=== PATIENT | female | born 1960 | race Caucasian/White ===

== ENCOUNTER 2020-07-02 10:04 | Outpatient (REF) | payer MEDICAID, SELFPAY ==
[2020-07-02 14:24] LABS: Alanine Aminotransferase 30 U/L (0-31); Albumin Level 4.3 g/dL (3.5-5.0); Alkaline Phosphatase 102 U/L (39-117); Anion Gap 14 (12-20); Aspartate Amino Transferase 28 U/L (5-31); Bilirubin Total 0.5 mg/dL (0.0-1.0); Blood Urea Nitrogen 12 mg/dL (9-16); Calcium 9.4 mg/dL (8.4-10.2); Carbon Dioxide 23 mmol/L (22-29); Chloride 104 mmol/L (96-108); Estimated Glomerular Filt Rate > 60; Glucose Fasting 123 mg/dL (60-99); Potassium 4.6 mmol/l (3.3-5.1); Sodium 136 mmol/L (135-145); Total Protein 7.6 g/dL (6.5-8.0)
[2020-07-02 14:35] LABS: Vitamin D 25-OH Total 21.2 ng/mL (>30)
[2020-07-03 20:26] LABS: Calcium (PTHI) 9.3 mg/dL (8.6-10.4); PTHI 56 pg/mL (14-64)
[2020-07-13 02:16] LABS: N-Telopeptide 43 (see note); NTXCreaRU 113 mg/dL (20-275)
== END 2020-07-02 10:05 | disposition home or self-care (01) ==
LOC: HO.10HDL 10:04
PROVIDERS: Visit Provider Internal Medicine Endocrinology, Diabetes & Metabolism
DX: M81.0 Age-related osteoporosis without current pathological fracture (principal)
CPT/HCPCS: 80053; 82306; 82523; 83970

== ENCOUNTER → 2020-07-05 08:05 | Outpatient (BNVA) | payer MEDICAID, SELFPAY | PROVIDERS: Visit Provider Internal Medicine Endocrinology, Diabetes & Metabolism | DX: M81.0 Age-related osteoporosis without current pathological fracture (principal); E21.3 Hyperparathyroidism, unspecified; E55.9 Vitamin D deficiency, unspecified | CPT/HCPCS: 99214 ==

== ENCOUNTER 2020-12-24 07:55 | Outpatient (REF) | payer MEDICAID, SELFPAY ==
--- NOTE | ~2020-12-24 | XR_ITS ---
EXAMINATION: XR KNEE STANDING, BILATERAL XR KNEE, RIGHT CLINICAL INFORMATION: Right knee pain. COMPARISON: Right knee radiographs dated 01/20/2018. TECHNIQUE: AP weightbearing view of the right and left knees. Lateral and sunrise views of the right knee. FINDINGS: Within the right knee, there is myxncvta-zg-unknbk medial compartment joint space narrowing with subchondral sclerosis. There are small tricompartmental marginal osteophytes. No osseous erosion. No fracture or dislocation. No abnormal soft tissue calcification. Trace joint effusion. Nqvnrkrw-oo-wqlqox medial compartment joint space narrowing within the left knee with small marginal osteophytes. XR/XR knee standing BI IMPRESSION: 1. Ytocivsw-mt-wsypdc medial as well as mild lateral and patellofemoral compartment osteoarthritis within the right knee, slightly progressed when compared to the prior examination. 2. Gxpauabg-yy-zvngmj osteoarthritis within the left knee medial compartment.
--- NOTE | ~2020-12-24 | XR_ITS ---
EXAMINATION: XR KNEE STANDING, BILATERAL XR KNEE, RIGHT CLINICAL INFORMATION: Right knee pain. COMPARISON: Right knee radiographs dated 01/20/2018. TECHNIQUE: AP weightbearing view of the right and left knees. Lateral and sunrise views of the right knee. FINDINGS: Within the right knee, there is ajjangsk-hm-fhnilm medial compartment joint space narrowing with subchondral sclerosis. There are small tricompartmental marginal osteophytes. No osseous erosion. No fracture or dislocation. No abnormal soft tissue calcification. Trace joint effusion. Jxuiscwl-bq-olypxt medial compartment joint space narrowing within the left knee with small marginal osteophytes. XR/XR knee RT 2V IMPRESSION: 1. Sfjmhptv-ws-fnjsky medial as well as mild lateral and patellofemoral compartment osteoarthritis within the right knee, slightly progressed when compared to the prior examination. 2. Rguekkmw-gp-uipkhc osteoarthritis within the left knee medial compartment.
== END 2020-12-24 07:56 | disposition home or self-care (01) ==
LOC: HO.HOSX 07:55
PROVIDERS: PCP Internal Medicine; Visit Provider Orthopaedic Surgery
DX: M17.11 Unilateral primary osteoarthritis, right knee (principal)
CPT/HCPCS: 73560; 73565; 99202

== ENCOUNTER 2021-01-25 08:50 | Outpatient (REF) | payer MEDICAID, SELFPAY ==
[2021-01-25 09:36] LABS: Albumin Level 4.2 g/dL (3.5-5.0); Calcium 9.8 mg/dL (8.4-10.2)
[2021-01-25 10:04] LABS: Vitamin D 25-OH Total 21.6 ng/mL (>30)
[2021-01-27 13:32] LABS: Calcium (PTHI) 9.9 mg/dL (8.6-10.4); PTHI 72 pg/mL (14-64)
[2021-01-30 01:27] LABS: N-Telopeptide 58 (see note); NTXCreaRU 71 mg/dL (20-275)
== END 2021-01-25 08:51 | disposition home or self-care (01) ==
LOC: HO.LAB 08:50
PROVIDERS: PCP Internal Medicine; Visit Provider Internal Medicine Endocrinology, Diabetes & Metabolism
DX: M81.0 Age-related osteoporosis without current pathological fracture (principal)
CPT/HCPCS: 36415; 82040; 82306; 82310; 82523; 83970

== ENCOUNTER → 2021-01-27 08:40 | Outpatient (BNVA) | payer MEDICAID, SELFPAY | PROVIDERS: PCP Internal Medicine; Visit Provider Internal Medicine Endocrinology, Diabetes & Metabolism | DX: M81.0 Age-related osteoporosis without current pathological fracture (principal); E21.3 Hyperparathyroidism, unspecified; E55.9 Vitamin D deficiency, unspecified | CPT/HCPCS: 99212 ==

== ENCOUNTER 2021-02-03 11:49 | Outpatient (REF) | payer MEDICAID, SELFPAY ==
[2021-02-03 11:05] VITALS: BMI 43.2
[2021-02-03 11:50] VITALS: BP 150/81; PULSE 81; RESP 16; TEMP 36.4; O2SAT 98
== END 2021-02-03 11:50 | disposition home or self-care (01) ==
LOC: HO.MS 11:49
PROVIDERS: PCP Internal Medicine; Visit Provider Ophthalmology
PROC: (CPT 66761; principal; 2021-02-03 14:40)
DX: H40.032 Anatomical narrow angle, left eye (principal); H04.123 Dry eye syndrome of bilateral lacrimal glands; I10 Essential (primary) hypertension; Z79.899 Other long term (current) drug therapy
CPT/HCPCS: 66761

== ENCOUNTER 2021-02-17 14:30 | Outpatient (REF) | payer MEDICAID, SELFPAY ==
[2021-02-17 10:43] VITALS: BMI 26.5
[2021-02-17 14:26] VITALS: BP 159/92; PULSE 78; RESP 20; TEMP 36.9; O2SAT 98; BMI 43.2
[2021-02-17 14:40] LABS: COVID-19 Test Negative (Negative); IDNOW Serial# 9DD0AD1C
== END 2021-02-17 14:31 | disposition home or self-care (01) ==
LOC: HO.MS 14:30
PROVIDERS: PCP Internal Medicine; Visit Provider Ophthalmology
PROC: (CPT 66761; principal; 2021-02-17 15:10)
DX: H40.031 Anatomical narrow angle, right eye (principal); I10 Essential (primary) hypertension; J45.909 Unspecified asthma, uncomplicated; Z79.51 Long term (current) use of inhaled steroids; Z79.899 Other long term (current) drug therapy; Z88.0 Allergy status to penicillin
CPT/HCPCS: 66761; 36415; 87635

== ENCOUNTER 2021-02-20 08:02 | Outpatient (REF) | payer MEDICAID, SELFPAY ==
--- NOTE | ~2021-02-20 | MM_ITS ---
EXAMINATION: BONE DENSITOMETRY CLINICAL INDICATION: Osteoporosis. COMPARISON: Previous BD dated 12/27/2018 and baseline BD dated 12/24/2016. TECHNIQUE: Using a [employer] technology DXA System (software version: 13.1) manufactured by [employer], dual-energy x-ray absorptiometry was performed of the lumbar spine and left hip. The images are of good technical quality. Summary results are attached. FINDINGS: AP SPINE L1-L4: Current: BMD 0.895 g/cm2, Z-score -2.3, T-score -2.4, osteopenia, 3.9% decrease from previous, 4.6% increase from baseline (<5% change is not significant). Prior: BMD 0.931 g/cm2. Baseline: BMD 0.856 g/cm2. LEFT FEMUR, NECK: Current: BMD 0.773 g/cm2, Z-score -1.4, T-score -1.9, osteopenia. Prior: BMD 0.907 g/cm2. Baseline: BMD 0.824 g/cm2. LEFT FEMUR, TOTAL: Current: BMD 0.856 g/cm2, Z-score -1.1, T-score -1.2, osteopenia, 10.2% decrease from previous, 6.7% decrease from baseline (<5% change is not significant). Prior: BMD 0.953 g/cm2. Baseline: BMD 0.917 g/cm2. IDENTIFIED RISK FACTORS: Menopause, osteoporosis. HISTORY OF FRACTURE: None listed. MEDICATIONS: Calcium, vitamin D, Thiazide. MM/XR DEXA axial skeleton IMPRESSION: 1. DIAGNOSIS: Osteopenia based on the lowest T-score value of -2.4 in the lumbar spine applying World Health Organization criteria. 2. 10-YEAR FRACTURE RISK PREDICTION, FRAX: Major osteoporotic fracture (clinical spine, forearm, hip or shoulder) 4.2%. Hip fracture 0.4%. 3. Treatment Recommendations: NOF guidelines recommend consideration for treatment in postmenopausal women and men age 50 and older presenting with the following: -A hip or vertebral (clinical or morphometric) fracture. -T-score less than or equal to -2.5 at the femoral neck or spine after appropriate evaluation to exclude secondary causes. -Low bone mass at the hip or spine and a 10-year fracture probability by FRAX of greater than or equal to 3% for hip fracture or greater than or equal to 20% for major osteoporotic fracture based on the [place] adapted WHO algorithm. 4. Other Recommendations: All treatment decisions require clinical judgment and consideration of individual patient factors, including patient preferences, comorbidities, previous drug use, risk factors not captured in the FRAX model (e.g. frailty, falls, vitamin D deficiency, increased bone turnover, interval significant decline in bone density) and possible under or overestimation of fracture risk by FRAX. Additional medical evaluation for secondary cause of low bone mineral density may be appropriate. FUTURE SCAN RECOMMENDATION: People with diagnosed cases of osteoporosis or at high risk for fracture should have regular bone mineral density tests. For patients eligible for Medicare, routine testing is allowed once every 2 years. The testing frequency can be increased to one year for patients who have rapidly progressing disease, those who are receiving or discontinuing medical therapy to restore bone mass, or have additional risk factors.
== END 2021-02-20 08:03 | disposition home or self-care (01) ==
LOC: HO.MAMMO 08:02
PROVIDERS: PCP Internal Medicine; Visit Provider Internal Medicine Endocrinology, Diabetes & Metabolism
DX: M81.0 Age-related osteoporosis without current pathological fracture (principal); Z78.0 Asymptomatic menopausal state
CPT/HCPCS: 77080

== ENCOUNTER 2021-03-03 | Outpatient (REF) | payer MEDICAID, SELFPAY ==
[2021-03-03 14:38] VITALS: BP 133/82; PULSE 90; RESP 20; TEMP 37.1; O2SAT 96
[2021-03-03 14:39] VITALS: BMI 43.2
== END 2021-03-03 00:01 | disposition home or self-care (01) ==
LOC: HO.MS
PROVIDERS: PCP Internal Medicine; Visit Provider Ophthalmology
PROC: (CPT 66761; principal; 2021-03-03 14:30)
DX: H40.031 Anatomical narrow angle, right eye (principal); H52.4 Presbyopia; J45.909 Unspecified asthma, uncomplicated; I10 Essential (primary) hypertension; E55.9 Vitamin D deficiency, unspecified; Z79.899 Other long term (current) drug therapy; Z88.0 Allergy status to penicillin
CPT/HCPCS: 66761

== ENCOUNTER 2021-04-05 08:32 | Outpatient (REF) | payer MEDICAID, SELFPAY ==
[2021-04-05 09:04] LABS: MANUAL DIFF FLAG NO
[2021-04-05 09:14] LABS: Basophils Absolute Auto 0.1 X10*3/uL (0.0-0.2); Eosinophils Absolute Auto 0.2 X10*3/uL (0.0-0.4); Eosinophils Percent Auto 3.4 % (0-4); Hematocrit 43.7 % (37-47); Hemoglobin 14.3 g/dl (12.0-16.0); Imm Gran Abs Auto 0.02 X10*3/uL (0.00-0.03); Imm Gran Pct Auto 0.3 % (0.0-0.4); Lymphocytes Absolute Auto 1.8 X10*3/uL (1.2-4.9); Lymphocytes Percent Auto 29.6 % (20-40); Mean Corpuscular HGB Conc 32.7 g/dl (31.0-35.0); Mean Corpuscular Hemoglobin 29.7 pg (27.0-33.0); Mean Corpuscular Volume 90.7 fL (80-98); Mean Platelet Volume 9.3 fL (9.4-12.3); Monocytes Absolute Auto 0.4 X10*3/uL (0.1-1.2); Monocytes Percent Auto 6.8 % (2-11); Neutrophils Absolute Auto 3.6 X10*3/uL (2.0-8.3); Neutrophils Percent Auto 58.9 % (45-73); Platelet Count 418 X10*3/uL (160-400); Red Blood Count 4.82 X10*6/uL (4.20-5.50); Red Cell Distribution Width 12.7 % (11.0-16.0); White Blood Count 6.2 X10*3/uL (4.8-10.8)
[2021-04-05 09:22] LABS: Estimated Average Glucose 151 mg/dL; Hemoglobin A1c % 6.9 %
[2021-04-05 09:36] LABS: Creatinine Urine 114.47 mg/dL; Microalbum/Creatinine Ratio Ur 11.3 ug/mg cr
[2021-04-05 09:39] LABS: Alanine Aminotransferase 33 U/L (0-31); Alkaline Phosphatase 93 U/L (39-117); Anion Gap 12 (12-20); Aspartate Amino Transferase 27 U/L (5-31); Bilirubin Total 0.4 mg/dL (0.0-1.0); Blood Urea Nitrogen 14 mg/dL (9-16); Calcium 9.9 mg/dL (8.4-10.2); Carbon Dioxide 26 mmol/L (22-29); Chloride 107 mmol/L (96-108); Cholesterol 181 mg/dL; Estimated Glomerular Filt Rate > 60; Glucose Random 132 mg/dL (60-115); HDL Cholesterol 55 mg/dL; LDL Cholesterol Calculated 111 mg/dl; Potassium 5.3 mmol/L (3.3-5.1); Sodium 140 mmol/L (135-145); Total Protein 7.3 g/dL (6.5-8.0); Triglycerides 78 mg/dL
[2021-04-05 10:02] LABS: Vitamin D 25-OH Total 21.4 ng/mL (>30)
== END 2021-04-05 08:33 | disposition home or self-care (01) ==
LOC: HO.LAB 08:32
PROVIDERS: PCP Internal Medicine; Visit Provider Internal Medicine
DX: E11.9 Type 2 diabetes mellitus without complications (principal)
CPT/HCPCS: 36415; 80053; 80061; 82043; 82306; 83036; 84443; 85025

== ENCOUNTER 2021-04-08 08:06 | Outpatient (REF) | payer MEDICAID, SELFPAY ==
--- NOTE | ~2021-04-08 | MM_ITS ---
EXAMINATION: MM SCREENING DIGITAL BREAST TOMOSYNTHESIS, BILATERAL CLINICAL INFORMATION: Screening. Asymptomatic. The lifetime risk of breast cancer based on the Tyrer-Cuzick Model is 10%. COMPARISON: Mammography: 02/02/2019, 12/24/2016, 11/14/2015, 02/27/2014 TECHNIQUE: Digital breast tomosynthesis is performed in both the craniocaudal and mediolateral oblique views along with computer-aided detection (CAD). Synthesized 2D images are generated from the tomosynthesis. FINDINGS: There are scattered areas of fibroglandular density (ACR BI-RADS breast composition Category b). The right breast is similar to prior studies with no developing density or interval mass or architectural abnormality. No abnormal calcifications. The bilateral axilla and skin contours are unremarkable. The left CC view has a chronic asymmetric density anterior outer quadrant. The margins appear mildly irregular on CC view likely related to incomplete compression. No architectural abnormality on MLO view. There are also some new fine round calcifications mid left upper outer quadrant. Patient will be recalled to further characterize both findings. MM/MM tomosynthesis screening BI IMPRESSION: Left: -Question architectural changes anterior outer quadrant, suspect incompletely compressed glandular tissue. -New fine round calcifications mid upper outer quadrant. Right: -No mammographic evidence of malignancy. ASSESSMENT: BI-RADS 0: Incomplete - Need Additional Imaging Evaluation RECOMMENDATION: 1. Additional views of the left breast (3D rolled CC x2; CC mag; ML mag). 2. Targeted ultrasound if warranted after review of the additional views. 3. Radiology department staff will contact the patient for additional imaging. This patient's information was entered into a reminder system with a target due date for their next mammogram.
== END 2021-04-08 08:07 | disposition home or self-care (01) ==
LOC: HO.MAMMO 08:06
PROVIDERS: PCP Internal Medicine; Visit Provider Internal Medicine
DX: Z12.31 Encounter for screening mammogram for malignant neoplasm of breast (principal)
CPT/HCPCS: 77063; 77067

== ENCOUNTER 2021-04-14 08:49 | Outpatient (REF) | payer MEDICAID, SELFPAY ==
--- NOTE | ~2021-04-14 | MM_ITS ---
EXAMINATION: MM DIAGNOSTIC DIGITAL BREAST TOMOSYNTHESIS, LEFT CLINICAL INFORMATION: Recall for 2 separate findings outer left breast; asymmetric density and calcifications, respectively. COMPARISON: Mammography: 04/08/2021, 02/02/2019 TECHNIQUE: Digital breast tomosynthesis is performed. 2D images are generated from the tomosynthesis. The following views are obtained: Magnification CC, magnification ML x2, 3-D rolled CC x2. FINDINGS: There are scattered areas of fibroglandular density (ACR BI-RADS breast composition Category b). The additional views demonstrate some fine calcifications in the upper outer left breast similar to prior exam 2019. No increasing calcifications. The additional rolled views show no architectural abnormality or developing density in the area recent imaging interest. Results are discussed with the patient at time of visit. MM/MM tomosynthesis added views L IMPRESSION: Additional views show no significant changes from prior study 2019. ASSESSMENT: BI-RADS 2: Benign RECOMMENDATION: Routine annual mammography screening. This patient's information was entered into a reminder system with a target due date for their next mammogram.
== END 2021-04-14 08:50 | disposition home or self-care (01) ==
LOC: HO.MAMMO 08:49
PROVIDERS: Visit Provider Internal Medicine
DX: R92.2 Inconclusive mammogram (principal)
CPT/HCPCS: 77061; 77065

== ENCOUNTER 2021-04-18 14:21 | Outpatient (REF) | payer MEDICAID, SELFPAY ==
--- NOTE | ~2021-04-18 | XR_ITS ---
EXAMINATION: XR KNEE, LEFT CLINICAL INFORMATION: Left knee pain COMPARISON: None TECHNIQUE: Four views of the left knee. FINDINGS: There is mild reduction in the medial and patellofemoral compartment joint space with periarticular spurring in the medial compartment. No loose bodies, bony erosive changes or joint effusion seen. XR/XR knee LT 4V IMPRESSION: Mild degenerative changes medial and patello-femoral compartments.
== END 2021-04-18 14:22 | disposition home or self-care (01) ==
LOC: HO.XRAY 14:21
PROVIDERS: PCP Internal Medicine; Visit Provider Internal Medicine
DX: M25.562 Pain in left knee (principal)
CPT/HCPCS: 73564

== ENCOUNTER → 2021-04-29 09:57 | Outpatient (BNVA) | payer MEDICAID, SELFPAY | PROVIDERS: PCP Internal Medicine; Visit Provider Orthopaedic Surgery | DX: M17.12 Unilateral primary osteoarthritis, left knee (principal) | CPT/HCPCS: 99212 ==

== ENCOUNTER 2022-01-03 14:41 | Emergency (ER) | payer MEDICAID, SELFPAY ==
--- NOTE | ~2022-01-03 | XR_ITS ---
EXAMINATION: XR CHEST CLINICAL INFORMATION: Cough, shortness of breath COMPARISON: 09/09/2018 TECHNIQUE: Frontal view of the chest was obtained. FINDINGS: No significant abnormality is noted involving the heart, lungs, mediastinum, bony thorax or soft tissues. XR/XR chest 1V IMPRESSION: No acute disease. No focal consolidation.
[2022-01-03 14:43] VITALS: BP 140/84; PULSE 102; RESP 22; TEMP 36.5; O2SAT 97; BMI 43.9
[2022-01-03 16:41] LABS: MANUAL DIFF FLAG NO
[2022-01-03 16:42] LABS: Basophils Absolute Auto 0.1 X10*3/uL (0.0-0.2); Basophils Percent Auto 0.7 % (0-2); Eosinophils Absolute Auto 0.3 X10*3/uL (0.0-0.4); Eosinophils Percent Auto 3.3 % (0-4); Hemoglobin 14.8 g/dl (12.0-16.0); Imm Gran Abs Auto 0.03 X10*3/uL (0.00-0.03); Imm Gran Pct Auto 0.4 % (0.0-0.4); Lymphocytes Percent Auto 25.9 % (20-40); Mean Corpuscular HGB Conc 32.9 g/dl (31.0-35.0); Mean Corpuscular Hemoglobin 29.2 pg (27.0-33.0); Mean Corpuscular Volume 88.8 fL (80.0-98.0); Mean Platelet Volume 9.1 fL (9.4-12.3); Monocytes Absolute Auto 0.7 X10*3/uL (0.1-1.2); Monocytes Percent Auto 9.4 % (2-11); Neutrophils Absolute Auto 4.6 x10*3/uL (2.0-8.3); Neutrophils Percent Auto 60.3 % (45-73); Platelet Count 393 X10*3/uL (160-400); Red Blood Count 5.07 X10*6/uL (4.20-5.50); Red Cell Distribution Width 12.1 % (11.0-16.0); White Blood Count 7.6 X10*3/uL (4.8-10.8)
[2022-01-03 17:02] LABS: Anion Gap 12 (12-20); Blood Urea Nitrogen 14 mg/dL (9-16); Calcium 9.8 mg/dL (8.4-10.2); Carbon Dioxide 23 mmol/L (22-29); Chloride 106 mmol/L (96-108); Creatinine Clr Calc Pharmacy 73.6; Estimated Glomerular Filt Rate > 60; Glucose Random 249 mg/dL (60-115); Potassium 4.2 mmol/L (3.3-5.1); Sodium 137 mmol/L (135-145)
[2022-01-03 17:20] LABS: Influenza A PCR NEGATIVE (Negative); Influenza B PCR NEGATIVE (Negative); Resp Syncy Virus RNA Qual PCR NEGATIVE (Negative); SARS COV2 PCR INHOUSE NEGATIVE (Negative)
--- NOTE | 2022-01-03 17:29 | ED_ITS ---
HPI - Asthma General Chief Complaint: Asthma Stated Complaint: Asthma Time Seen by Provider: 01/03/22 17:21 Source: patient Mode of arrival: ambulatory History of Present Illness HPI Narrative: 61-year-old female with a past medical history of asthma, hyperparathyroid, hypertension, prediabetes, presenting to the ED complaining of asthma exacerbation x1 week with productive cough of phlegm, wheezing, SOB, chest tightness. Admits to using inhaler at home without relief. Denies fever, chills, recent travel, pedal edema, calf pain, sick contacts MD complaint: asthma attack , shortness of breath and wheezing Onset (ago): week(s) Related Data Home Medications Medication Instructions Recorded Confirmed losartan 50 mg tablet 50 mg PO DAILY 07/05/20 01/27/21 verapamil 360 mg 24 hr 360 mg PO DAILY 07/05/20 01/27/21 capsule,extended release Previous Rx's Medication Instructions Recorded diclofenac sodium 75 mg 75 mg PO BID #60 tab 12/24/20 tablet,delayed release alendronate 70 mg tablet 70 mg PO QWEEK 30 Days #5 tab 01/27/21 cholecalciferol (vitamin D3) 125 250 mcg PO DAILY #180 cap 02/14/21 mcg (5,000 unit) capsule benzonatate 200 mg capsule 200 mg PO TID PRN #14 cap 01/03/22 fluticasone propionate 50 2 spray INTRANASAL DAILY #16 g 01/03/22 mcg/actuation nasal spray,suspension (Flonase Allergy Relief) prednisone 20 mg tablet 40 mg PO DAILY 5 Days #10 tab 01/03/22 Allergies Allergy/AdvReac Type Severity Reaction Status Date / Time penicillin V Allergy Unknown rash Verified 04/29/21 10:07 Penicillins Allergy Unknown RASH Verified 04/29/21 10:07 Review of Systems Review of Systems: Constitutional: No Fever, No Chills, No Fatigue, No Malaise ENT/Mouth: No Ear Pain, No Nasal Congestion, No Sinus Pain, No Hoarseness, No sore throat, No Rhinorrhea, No Swallowing Difficulty Eyes: No Eye Pain, No Swelling, No Vision Changes Cardiovascular: + Chest tightness, + SOB, + Dyspnea on Exertion, No Orthopnea, No Edema, No Palpitations Respiratory: No Cough, No Sputum, No Wheezing, No Smoke Exposure, No Dyspnea Gastrointestinal: No Nausea, No Vomiting, No Diarrhea, No Constipation, No Abdominal pain Genitourinary: No Dysuria, No Flank Pain, No Urinary Flow Changes Musculoskeletal: No joint pain, No Myalgias, No Joint Swelling Skin: No Skin Lesions, No rash Neuro: No Weakness, No Headache Yes all other systems are reviewed and are negative ON LICENSE OF [facility] Past Medical History Attestation statement: The following information was validated with the patient. Medical History Asthma History of primary hyperparathyroidism Hyperparathyroidism Hypertension Obesity (BMI 30-39.9) Osteoporosis Prediabetes Vitamin D deficiency Surgical History Hx of parathyroidectomy Hx of tubal ligation Family History Family History Father Cancer Mother Cardiomyopathy Diabetes Obesity Social History Social History Alcohol intake: current Alcohol intake frequency: holidays/special occasions only Advance Directives: No Advance Directives Information Provided: No Gender identity: Female Physical Exam Vital Signs: Vital Signs: Last Vital Signs Temp 97.7 F 01/03/22 14:43 Pulse 92 01/03/22 17:33 Resp 20 01/03/22 17:33 BP 140/84 H 01/03/22 14:43 Pulse Ox 97 01/03/22 14:43 BMI result Body Mass Index 43.9 Const: General: cooperative, healthy appearing and no acute distress Orientation/consciousness: patient oriented x3 Limitations: no limitations HEENT: Head: Yes normal to inspection and Yes atraumatic Ears: hearing grossly normal bilaterally General nose exam: Normal external nose present Face and sinus: Yes normal facial exam Eyes: General: appearance normal, both eyes and all related structures EOM: EOMs intact bilaterally Neck: Neck: Yes normal visual inspection and Yes no meningeal signs Resp: Effort & Inspection: normal respiratory effort, no respiratory distress and no stridor Auscultation: wheezes expiratory wheezes and throughout Cardio: Rate: regular rate Heart sounds: S1 normal heart sound present and S2 normal heart sound present Skin: Rashes: no rashes Wounds: no wounds Neuro: General: patient oriented x3, tone normal and no meningeal signs Gait exam (Neuro): Normal gait present Extrem: General: Yes normal to inspection, Yes no pedal edema and Yes no calf tenderness Course Course Course Narrative: -1736--no leukocytosis. Labs otherwise unremarkable XR chest 1V IMPRESSION: No acute disease. No focal consolidation. -troponin negative -1852--patient reports symptomatic improvement after our long albuterol treatment. Breath sounds with much improvement, still residual end expiratory wheeze -190--ED care transferred to night team ELI pending re-evaluation after DuoNeb. Anticipate DC home MDM - Asthma MDM Narrative Medical decision making narrative: 61-year-old female with a past medical history of asthma, hyperparathyroid, hypertension, prediabetes, presenting to the ED complaining of asthma exacerbation x1 week with productive cough of phlegm, wheezing, SOB, chest tightness. On exam initially tachycardic and tachypneic in triage likely from albuterol use, during my evaluation tachycardia and tachypnea resolved. Diffuse expiratory wheeze, no pedal edema/calf tenderness, talking in complete sentences. Concern for asthma exacerbation. Rule out pneumonia. Low concern for PE/ACS Plan: EKG, Labs, CXR, COVID-19/influenza testing, albuterol neb, magnesium, Solu-Medrol, re-evaluate Differential Diagnosis Differential diagnosis: Likely Acute exacerbation and Pneumonia Medical Records Attestation: I reviewed the patient's medical records. Lab Data Attestation: I reviewed the patient's lab results. Result diagrams: 01/03/22 16:35 01/03/22 16:35 Labs: Lab Results 01/03/22 01/03/22 01/03/22 Range/Units 16:35 16:35 16:35 WBC 7.6 (4.8-10.8) X10*3/uL RBC 5.07 (4.20-5.50) X10*6/uL Hgb 14.8 (12.0-16.0) g/dl Hct 45.0 (37.0-47.0) % MCV 88.8 (80.0-98.0) fL MCH 29.2 (27.0-33.0) pg MCHC 32.9 (31.0-35.0) g/dl RDW 12.1 (11.0-16.0) % Plt Count 393 (160-400) X10*3/uL MPV 9.1 L (9.4-12.3) fL Immature Gran % (Auto) 0.4 (0.0-0.4) % Neut % (Auto) 60.3 (45-73) % Lymph % (Auto) 25.9 (20-40) % [place]hin % (Auto) 9.4 (2-11) % Eos % (Auto) 3.3 (0-4) % Baso % (Auto) 0.7 (0-2) % Lymph # (Auto) 2.0 (1.2-4.9) X10*3/uL [place] # (Auto) 0.7 (0.1-1.2) X10*3/uL Eos # (Auto) 0.3 (0.0-0.4) X10*3/uL Baso # (Auto) 0.1 (0.0-0.2) X10*3/uL Abs Immat Gran (auto) 0.03 (0.00-0.03) X10*3/uL Absolute Neuts (auto) 4.6 (2.0-8.3) x10*3/uL Absolute Nucleated RBC 0.000 (0.0-0.012) X10*3/uL Nucleated RBC % (auto) 0.0 (0.0-0.2) /100WBC Sodium 137 (135-145) mmol/L Potassium 4.2 D (3.3-5.1) mmol/L Chloride 106 (96-108) mmol/L Carbon Dioxide 23 (22-29) mmol/L Anion Gap 12 (12-20) BUN 14 (9-16) mg/dL Creatinine 0.76 (0.5-1.4) mg/dL Estim Creat Clear Calc 73.6 Estimated GFR > 60 Random Glucose 249 H (60-115) mg/dL Calcium 9.8 (8.4-10.2) mg/dL Troponin I High Sens (<3.5-17.0) ng/L Influenza Type A (PCR) NEGATIVE (Negative) Influenza Type B (PCR) NEGATIVE (Negative) RSV RNA Qual (PCR) NEGATIVE (Negative) SARS-CoV-2 RNA (RT-PCR) NEGATIVE (Negative) 01/03/22 Range/Units 16:35 WBC (4.8-10.8) X10*3/uL RBC (4.20-5.50) X10*6/uL Hgb (12.0-16.0) g/dl Hct (37.0-47.0) % MCV (80.0-98.0) fL MCH (27.0-33.0) pg MCHC (31.0-35.0) g/dl RDW (11.0-16.0) % Plt Count (160-400) X10*3/uL MPV (9.4-12.3) fL Immature Gran % (Auto) (0.0-0.4) % Neut % (Auto) (45-73) % Lymph % (Auto) (20-40) % [place] % (Auto) (2-11) % Eos % (Auto) (0-4) % Baso % (Auto) (0-2) % Lymph # (Auto) (1.2-4.9) X10*3/uL [place] # (Auto) (0.1-1.2) X10*3/uL Eos # (Auto) (0.0-0.4) X10*3/uL Baso # (Auto) (0.0-0.2) X10*3/uL Abs Immat Gran (auto) (0.00-0.03) X10*3/uL Absolute Neuts (auto) (2.0-8.3) x10*3/uL Absolute Nucleated RBC (0.0-0.012) X10*3/uL Nucleated RBC % (auto) (0.0-0.2) /100WBC Sodium (135-145) mmol/L Potassium (3.3-5.1) mmol/L Chloride (96-108) mmol/L Carbon Dioxide (22-29) mmol/L Anion Gap (12-20) BUN (9-16) mg/dL Creatinine (0.5-1.4) mg/dL Estim Creat Clear Calc Estimated GFR Random Glucose (60-115) mg/dL Calcium (8.4-10.2) mg/dL Troponin I High Sens < 3.5 (<3.5-17.0) ng/L Influenza Type A (PCR) (Negative) Influenza Type B (PCR) (Negative) RSV RNA Qual (PCR) (Negative) SARS-CoV-2 RNA (RT-PCR) (Negative) ECG Data Attestation: I personally reviewed and interpreted this ECG as follows: ECG interpretation date: 01/03/22 ECG interpretation time: 17:46 Interpretation: EKG normal sinus rhythm at a rate of 98. Pr interval 168. QTC 84. Q-wave in lead 3. No STEMI Discharge Plan Discharge Clinical Impression: Asthma with acute exacerbation Patient Disposition: Home, Self-Care Instructions: Asthma (DC) Additional Instructions: Your blood work was reassuring. He tested negative for COVID-19 and the flu. Her chest x-ray does not show pneumonia. It is important that you use your inhaler at home and nebulizer machine. In addition take prednisone which is a steroid. Tessalon Perles upper cough, take as needed. Flonase as a nasal decongestant spray. Please follow-up with her doctor. If her symptoms persist or worsen, shortness of breath becomes constant or worsening, or you have fever please return to the ED Prescriptions: New benzonatate 200 mg capsule 200 mg PO TID PRN (Reason: cough) Qty: 14 0RF prednisone 20 mg tablet 40 mg PO DAILY 5 Days Qty: 10 0RF fluticasone propionate [Flonase Allergy Relief] 50 mcg/actuation spray,suspension 2 spray intranasal DAILY Qty: 16 0RF Rx Instructions: administer into each nostril No Action cholecalciferol (vitamin D3) 125 mcg (5,000 unit) capsule 250 mcg PO DAILY Qty: 180 2RF alendronate 70 mg tablet 70 mg PO QWEEK 30 Days Qty: 5 11RF diclofenac sodium 75 mg tablet,delayed release (DR/EC) 75 mg PO BID Qty: 60 2RF verapamil 360 mg capsule,ext rel. pellets 24 hr 360 mg PO DAILY 0RF losartan 50 mg tablet 50 mg PO DAILY 0RF Referrals: Savage Guillaume MD [Primary Care Provider] - 3 days
[2022-01-03] MEDS: Albuterol Sulfate (0.083%) 2.5 MG/3 ML VIAL.NEB 10 MG INHALE (17:30)
[2022-01-03 17:33] VITALS: PULSE 92; RESP 20; O2SAT 97
--- NOTE | 2022-01-03 17:37 | ECG_ITS ---
Test Reason : SOB Blood Pressure : / mmHG Vent. Rate : 098 BPM Atrial Rate : 098 BPM P-R Int : 168 ms QRS Dur : 084 ms QT Int : 350 ms P-R-T Axes : 041 -27 045 degrees QTc Int : 446 ms Normal sinus rhythm Normal ECG No previous ECGs available Referred By: Spring Bennett Electronically Signed By:TARA GOODMAN MD
[2022-01-03] MEDS: Magnesium Sulfate/H2O 2 GM/50 ML PIGGYBACK IV (17:44)
[2022-01-03] MEDS: methylPREDNISolone Sod Succ 125 MG/2 ML VIAL IVPUSH (17:44)
[2022-01-03 17:48] LABS: Troponin-I High Sensitivity < 3.5 ng/L (<3.5-17.0)
--- NOTE | 2022-01-03 17:52 | PC.NURSE ---
PT PLACE ON MONITOR FOR 1 HOUR LONG TREATMENT EKG OBTAINED AND IV PLACE PT MEDICATED. BREATHING WITH EVEN RR.
[2022-01-03] MEDS: Albuterol/Iprat 2.5/0.5MG 3 ML AMPUL.NEB INHALE (19:10)
[2022-01-03 19:11] VITALS: PULSE 86; RESP 21; O2SAT 97
== END 2022-01-03 19:43 | disposition home or self-care (01) ==
PROVIDERS: Physician Assistant; Emergency Provider Emergency Medicine Emergency Medical Services; PCP Internal Medicine
DX: J45.901 Unspecified asthma with (acute) exacerbation (principal); R05.9 Cough, unspecified; R06.02 Shortness of breath; Z20.822 Contact with and (suspected) exposure to COVID-19; Z79.899 Other long term (current) drug therapy
CPT/HCPCS: 0241U; 71045; 80048; 84484; 85025; 93005; 94640; 94644; 96365; 96366; 96375; 99284; J2930; J3475

== ENCOUNTER → 2022-01-20 09:33 | Outpatient (BNVA) | payer MEDICAID, SELFPAY | PROVIDERS: PCP Internal Medicine; Visit Provider Internal Medicine Endocrinology, Diabetes & Metabolism | DX: M81.0 Age-related osteoporosis without current pathological fracture (principal); E21.3 Hyperparathyroidism, unspecified | CPT/HCPCS: 99212 ==

== ENCOUNTER 2022-02-03 10:21 | Outpatient (REF) | payer MEDICAID, SELFPAY ==
[2022-02-03 11:27] LABS: MANUAL DIFF FLAG NO
[2022-02-03 12:05] LABS: Basophils Absolute Auto 0.1 X10*3/uL (0.0-0.2); Eosinophils Absolute Auto 0.3 X10*3/uL (0.0-0.4); Eosinophils Percent Auto 4.6 % (0-4); Hematocrit 42.8 % (37.0-47.0); Imm Gran Abs Auto 0.04 X10*3/uL (0.00-0.03); Imm Gran Pct Auto 0.6 % (0.0-0.4); Lymphocytes Absolute Auto 2.2 X10*3/uL (1.2-4.9); Lymphocytes Percent Auto 32.5 % (20-40); Mean Corpuscular HGB Conc 32.7 g/dl (31.0-35.0); Mean Corpuscular Hemoglobin 29.5 pg (27.0-33.0); Mean Corpuscular Volume 90.3 fL (80.0-98.0); Mean Platelet Volume 9.7 fL (9.4-12.3); Monocytes Absolute Auto 0.5 X10*3/uL (0.1-1.2); Monocytes Percent Auto 7.1 % (2-11); Neutrophils Absolute Auto 3.7 x10*3/uL (2.0-8.3); Neutrophils Percent Auto 54.2 % (45-73); Platelet Count 391 X10*3/uL (160-400); Red Blood Count 4.74 X10*6/uL (4.20-5.50); White Blood Count 6.8 X10*3/uL (4.8-10.8)
[2022-02-03 12:24] LABS: Albumin Level 3.9 g/dL (3.5-5.0); Calcium 9.6 mg/dL (8.4-10.2)
[2022-02-03 12:45] LABS: Erythrocyte Sedimentation Rate 12 MM/HR (0-20)
[2022-02-04 13:11] LABS: Calcium (PTHI) 9.2 mg/dL (8.6-10.4); PTHI 87 pg/mL (16-77)
== END 2022-02-03 10:22 | disposition home or self-care (01) ==
LOC: HO.LAB 10:21
PROVIDERS: Absent Provider Internal Medicine Endocrinology, Diabetes & Metabolism; PCP Internal Medicine; Visit Provider Hospitalist
DX: J45.909 Unspecified asthma, uncomplicated (principal); G47.33 Obstructive sleep apnea (adult) (pediatric); E21.3 Hyperparathyroidism, unspecified; M81.0 Age-related osteoporosis without current pathological fracture
CPT/HCPCS: 36415; 82040; 82306; 82310; 82785; 83970; 85025; 85652; 86003; 99202

== ENCOUNTER 2022-02-16 08:30 | Outpatient (REF) | payer MEDICAID, SELFPAY ==
[2022-02-16 10:05] LABS: Total Volume 24 Hour Urine 1725 mL
[2022-02-16 10:44] LABS: Creatinine, 24Hr Urine 1.5 G/Day (1.0-2.0); Creatinine, mg/dL 89.74
[2022-02-17 16:52] LABS: Calcium, 24 Hr Urine 214 mg/24 h; Calcium/Creatinine Ratio 141 mg/g creat (30-275); Creatinine 24Hr Urine 1.52 g/24 h (0.50-2.15)
== END 2022-02-16 08:31 | disposition home or self-care (01) ==
LOC: HO.LNP 08:30
PROVIDERS: Visit Provider Internal Medicine Endocrinology, Diabetes & Metabolism
DX: E21.3 Hyperparathyroidism, unspecified (principal); M81.0 Age-related osteoporosis without current pathological fracture
CPT/HCPCS: 82340; 82570

== ENCOUNTER → 2022-03-03 09:44 | Outpatient (REF) | payer MEDICAID, SELFPAY ==
--- NOTE | 2022-03-03 13:23 | PFT_ITS ---
Forced vital capacity 67%, FEV1 74%, FEV1/FVC ratio is 86, [id number] 84%, and MVV 84%. Post bronchodilator therapy, there is no change. Total lung capacity 70%, residual volume 67%. Diffusion capacity 96%. CONCLUSION: Jibb-va-onevsjjy degree of restrictive pulmonary disorder. No obstructive airway disorder. No significant response to bronchodilator therapy. Clinical correlation recommended. MD VIRI Coppola/MODL / [id number]
== END ==
LOC: HO.SL 09:44
PROVIDERS: PCP Internal Medicine; Visit Provider Hospitalist
DX: G47.33 Obstructive sleep apnea (adult) (pediatric) (principal); J45.909 Unspecified asthma, uncomplicated
CPT/HCPCS: 94060; 94727; 94729

== ENCOUNTER 2022-03-04 08:50 | Outpatient (REF) | payer MEDICAID, SELFPAY ==
[2022-03-04 10:34] LABS: Vitamin D 25-OH Total 31.9 ng/mL (>30)
== END 2022-03-04 08:51 | disposition home or self-care (01) ==
LOC: HO.LAB 08:50
PROVIDERS: PCP Internal Medicine; Visit Provider Internal Medicine Endocrinology, Diabetes & Metabolism
DX: E55.9 Vitamin D deficiency, unspecified (principal)
CPT/HCPCS: 36415; 82306

== ENCOUNTER → 2022-03-24 10:32 | Outpatient (BNVA) | payer MEDICAID, SELFPAY | PROVIDERS: PCP Internal Medicine; Visit Provider Hospitalist | DX: J45.909 Unspecified asthma, uncomplicated (principal); G47.33 Obstructive sleep apnea (adult) (pediatric); J98.4 Other disorders of lung | CPT/HCPCS: 99212 ==

== ENCOUNTER 2022-04-19 09:41 | Emergency (ER) | payer MEDICAID, SELFPAY ==
[2022-04-19 10:01] VITALS: BP 141/83; PULSE 79; RESP 16; TEMP 36.8; O2SAT 94
[2022-04-19 11:39] VITALS: BP 152/82; PULSE 72; RESP 18; TEMP 36.8; O2SAT 100; BMI 39.4
[2022-04-19 15:35] VITALS: BP 178/106; PULSE 75; RESP 18; TEMP 37.4; O2SAT 99
--- NOTE | 2022-04-19 15:48 | ED.DENTAL ---
HPI - Dental/Oral General Chief complaint: Dental/Oral Stated complaint: tooth pain Time Seen by Provider: 04/19/22 15:47 Source: patient Mode of arrival: ambulatory Limitations: no limitations History of Present Illness HPI Narrative: This is a 61-year-old female past medical history significant for obstructive sleep apnea, asthma, prediabetes, hyperparathyroidism presenting to the emergency department complaints of redness and swelling to the right cheek x3 days worsening. Patient tells me that she thinks this happened after she broke a tooth to her upper right gum area not sure how, patient tells me she wears partial dentures and has not been able to wear them due to the broken tooth and discomfort . She tells me she is going to call to make an appointment with her dentist however the pain and swelling her making her worried. She speaking in full sentences in controlling secretions well. Denies fevers, chills, difficulty swallowing, changes in voice. MD Complaint: tooth injury Teeth map: 1. Poor dention throughout with a few broken teeth in this area with caries Onset (ago): day(s) (3) Duration: constant Severity: severe Relieving factors: NSAIDs Exacerbating factors: chewing Context: history of dental caries and poor dental care Treatment prior to arrival: none Related Data Home Medications Medication Instructions Recorded Confirmed losartan 50 mg tablet 50 mg PO DAILY 07/05/20 01/27/21 verapamil 360 mg 24 hr 360 mg PO DAILY 07/05/20 01/27/21 capsule,extended release fluticasone 100 mcg-salmeterol 50 1 ea PO 01/20/22 mcg/dose blistr powdr for inhalation (Advair Diskus) metformin 500 mg tablet,extended 0 mg PO 01/20/22 release 24 hr Previous Rx's Medication Instructions Recorded diclofenac sodium 75 mg 75 mg PO BID #60 tabs 12/24/20 tablet,delayed release cholecalciferol (vitamin D3) 125 250 mcg PO DAILY #180 caps 02/14/21 mcg (5,000 unit) capsule benzonatate 200 mg capsule 200 mg PO TID PRN cough #14 caps 01/03/22 fluticasone propionate 50 2 spray intranasal DAILY #16 grams 01/03/22 mcg/actuation nasal spray,suspension (Flonase Allergy Relief) fluticasone propionate 230 2 puff inhalation Q12H #12 grams 02/03/22 mcg-salmeterol 21 mcg/actuation HFA inhaler (Advair HFA) cholecalciferol (vitamin D3) 50 50 mcg PO DAILY #30 caps 02/10/22 mcg (2,000 unit) capsule clindamycin HCl 300 mg capsule 300 mg PO TID 10 days #30 caps 04/19/22 Allergies Allergy/AdvReac Type Severity Reaction Status Date / Time penicillin V Allergy Unknown rash Verified 03/24/22 10:43 Penicillins Allergy Unknown RASH Verified 03/24/22 10:43 Review of Systems Review of Systems: Constitutional : No Weight loss, No Fever, No Chills, No Fatigue, No Malaise ENT/Mouth : No sore throat, No Rhinorrhea, + broken teeth Eyes: No Eye Pain, No Swelling, No Redness Cardiovascular : No Chest Pain, No SOB, No Dyspnea on Exertion, No Orthopnea, No Edema, No Palpitations Respiratory : No Cough, No Sputum, No Wheezing Gastrointestinal : No Nausea, No Vomiting, No Diarrhea, No Constipation, No abdominal Pain, No Hematochezia, No Melena Genitourinary : No Dysuria, No Urinary Frequency, No Hematuria, Musculoskeletal : No joint pain, No Myalgias, No Joint Swelling Skin : No Skin Lesions, No rash Neuro : No Weakness, No Numbness, No Dizziness, No Headache All other systems reviewed and are negative Yes all other systems are reviewed and are negative [facility] Past Medical History Attestation statement: The following information was validated with the patient. Source: old records reviewed and nursing notes reviewed Medical History (Updated 04/19/22 @ 16:05 by LAURA Louie) Asthma Chronic restrictive lung disease History of primary hyperparathyroidism Hyperparathyroidism Hypertension Obesity (BMI 30-39.9) Osteoporosis Prediabetes Vitamin D deficiency Surgical History (Updated 01/20/22 @ 09:51 by DAVID Willard) Hx of parathyroidectomy Hx of tubal ligation S/P LASIK surgery of both eyes Family History Family History (Updated 01/20/22 @ 09:50 by DAVID Willard) Father Cancer Mother Cardiomyopathy Diabetes Obesity Other Thyroid disease Social History Social History (Updated 01/20/22 @ 09:57 by DAVID Willard) Household Members: None Alcohol intake: current Alcohol intake frequency: holidays/special occasions only Patient Tobacco Use Status: Never used Tobacco Advance Directives: No Advance Directives Information Provided: No Gender identity: Female Physical Exam Vital Signs: Vital Signs: Last Vital Signs Temp 99.3 F 04/19/22 15:35 Pulse 75 04/19/22 15:35 Resp 18 04/19/22 15:35 BP 178/106 H 04/19/22 15:35 Pulse Ox 99 04/19/22 15:35 O2 Del Method 04/19/22 15:35 BMI result Body Mass Index 39.4 VSS Appearance: Alert.? Oriented X3.? No acute distress.? Patient speaking in full sentences in controlling secretions well. Head: Normocephalic, atraumatic, no step-offs or deformities Eyes: Pupils equal, round and reactive to light.? ENT: Pharynx normal.?Uvula midline, pain w/ palpation to to right cheek, with overlying erythema to right cheek, no palpable abscess. Patient with poor dentition throughout, there are multiple fractured teeth to the upper right gums area. Neck: Normal inspection.? Neck supple.? CVS: Normal heart rate and rhythm.? Pulses normal.? Respiratory: No respiratory distress.? Breath sounds normal.? Abdomen: Soft and nontender.? Skin: Skin warm and dry.? Normal skin color.? Normal skin turgor.? Extremities: No lower extremity edema.? No calf ttp. 5/5 strength to bilateral upper and lower extremities Neuro: Oriented X 3.? No motor deficit.? No sensory deficit. CN 2-12 intact Course Reevaluation(s) Reevaluation #1: Patient was given her 1st dose of clindamycin here. She will be discharged home on clindamycin 300 mg p.o. t.i.d. times 10 days. Advised her to follow-up with her dentist. Advised her to take probiotics with this antibiotic to prevent GI upset. Explained her to return with new or worsening symptoms in outline is on her discharge. Time: 16:03 MDM - Dental/Oral MDM Narrative Medical decision making narrative: [id number] 61 year old female presents w/redness, swelling to right cheek x 3 days. PE significant for uvula midline, pain w/ palpation to to right cheek, with overlying erythema to right cheek, no palpable abscess. Patient with poor dentition throughout, there are multiple fractured teeth to the upper right gum area. Speaking in full sentences controlling secretions well. Likely dental abscess. Unlikely a gingivitis, no gum swelling. No signs of acute respiratory distress. No signs of peritonsillar abscess. Plan patient will be started on clindamycin as she is allergic to penicillins, she tells me she gets a bad rash. I will give her the 1st dose of clindamycin here. Medical Records Attestation: I reviewed the patient's medical records. Lab Data Attestation: I reviewed the patient's lab results. Critical Care Time Critical Care Time Critical Care Time: No Discharge Plan Discharge Clinical Impression: Dental abscess, Broken tooth Patient Disposition: Home, Self-Care Instructions: Dental Abscess (ED), Toothache (ED) Additional Instructions: Take your medications as prescribed. If you were prescribed antibiotics today, it is important that you take your medication to their entirety, do not skip any doses, do not finish them early. Follow-up with your primary care provider this week. Return to the emergency department with new or worsening symptoms. Such as fevers, chills, chest pain, shortness of breath, nausea, vomiting, dizziness, headache, vision changes, lethargy, changes in voice, difficulty controlling secretions In case of emergency call 911 A side effect of clindamycin is possibly diarrhea, if this occurs please see a medical provider. To help prevent this please take probiotics with this antibiotic. Ideally would of been given amoxicillin however you have an allergy to penicillin therefore we are trying clindamycin which is also good for the oral anita. [facility] [phone] [place] [id number] Prescriptions: New clindamycin HCl 300 mg capsule 300 mg PO TID 10 Days Qty: 30 0RF No Action cholecalciferol (vitamin D3) 125 mcg (5,000 unit) capsule 250 mcg PO DAILY Qty: 180 2RF cholecalciferol (vitamin D3) 50 mcg (2,000 unit) capsule 50 mcg PO DAILY Qty: 30 5RF benzonatate 200 mg capsule 200 mg PO TID PRN (Reason: cough) Qty: 14 0RF fluticasone propionate [Flonase Allergy Relief] 50 mcg/actuation spray,suspension 2 spray intranasal DAILY Qty: 16 0RF Rx Instructions: administer into each nostril diclofenac sodium 75 mg tablet,delayed release (/EC) 75 mg PO BID Qty: 60 2RF verapamil 360 mg capsule,ext rel. pellets 24 hr 360 mg PO DAILY losartan 50 mg tablet 50 mg PO DAILY metformin 500 mg tablet extended release 24 hr 0 mg PO fluticasone propion-salmeterol [Advair Diskus] 100-50 mcg/dose blister with device 1 ea PO Advair HFA 230-21 mcg/actuation HFA aerosol inhaler 2 puff inhalation Q12H Qty: 12 11RF Referrals: Savage Guillaume MD [Primary Care Provider] - 2 days Stand Alone Forms: Work/School Release
[2022-04-19 16:13] VITALS: BP 154/92; PULSE 74; RESP 18; TEMP 37.2; O2SAT 99
[2022-04-19] MEDS: Clindamycin HCL 300 MG CAPSULE PO (16:24)
[2022-04-19] MEDS: Ibuprofen 600 MG TABLET PO (16:24)
== END 2022-04-19 16:36 | disposition home or self-care (01) ==
PROVIDERS: Emergency Provider Student in an Organized Health Care Education/Training Program; PCP Internal Medicine
DX: K04.7 Periapical abscess without sinus (principal); K08.539 Fractured dental restorative material, unspecified; K08.89 Other specified disorders of teeth and supporting structures; I10 Essential (primary) hypertension; R73.03 Prediabetes; E66.9 Obesity, unspecified; Z68.39 Body mass index [BMI] 39.0-39.9, adult; Z79.84 Long term (current) use of oral hypoglycemic drugs
CPT/HCPCS: 99283; 99284

== ENCOUNTER → 2022-05-11 15:03 | Outpatient (REF) | payer MEDICAID, SELFPAY | LOC: HO.SL 15:03 | PROVIDERS: PCP Internal Medicine; Visit Provider Hospitalist | DX: Z13.89 Encounter for screening for other disorder (principal) ==

== ENCOUNTER 2022-05-12 07:52 | Outpatient (REF) | payer MEDICAID, SELFPAY ==
[2022-05-12 09:20] LABS: Albumin Level 4.3 g/dL (3.5-5.0)
[2022-05-12 09:49] LABS: Vitamin D 25-OH Total 51.8 ng/mL (>30)
[2022-05-14 12:26] LABS: Calcium (PTHI) 9.9 mg/dL (8.6-10.4); PTHI 72 pg/mL (16-77)
== END 2022-05-12 07:53 | disposition home or self-care (01) ==
LOC: HO.LAB 07:52
PROVIDERS: PCP Internal Medicine; Visit Provider Internal Medicine Endocrinology, Diabetes & Metabolism
DX: E55.9 Vitamin D deficiency, unspecified (principal)
CPT/HCPCS: 36415; 82040; 82306; 83970

== ENCOUNTER 2022-05-13 08:00 | Outpatient (REF) | payer MEDICAID, SELFPAY ==
[2022-05-13 09:17] LABS: Estimated Average Glucose 197 mg/dL; Hemoglobin A1c % 8.5 %
[2022-05-13 09:19] LABS: Cholesterol 181 mg/dL; HDL Cholesterol 58 mg/dL; LDL Cholesterol Calculated 111 mg/dl; Triglycerides 60 mg/dL
[2022-05-14 13:47] LABS: LDL Cholesterol Direct 118 mg/dL (<100)
== END 2022-05-13 08:01 | disposition home or self-care (01) ==
LOC: HO.LAB 08:00
PROVIDERS: PCP Internal Medicine; Visit Provider Internal Medicine
DX: E11.9 Type 2 diabetes mellitus without complications (principal)
CPT/HCPCS: 36415; 80061; 83036; 83721

== ENCOUNTER 2022-05-25 10:24 | Outpatient (REF) | payer MEDICAID, SELFPAY ==
--- NOTE | ~2022-05-25 | XR_ITS ---
EXAMINATION: XR CHEST CLINICAL INFORMATION: Persistent asthma. COMPARISON: Chest x-ray 01/03/2022. TECHNIQUE: 2 views of the chest were obtained. FINDINGS: The lungs are well expanded and clear of acute process. Heart size and pulmonary vascularity is normal. There is moderate spondylosis and bridging osteophytes dorsal spine. XR/XR chest 2V IMPRESSION: Unremarkable chest exam. Essentially no change in chest exam except for prominent dorsal spine moderate spondylosis.
== END 2022-05-25 10:25 | disposition home or self-care (01) ==
LOC: HO.XRAY 10:24
PROVIDERS: Absent Provider Internal Medicine; PCP Internal Medicine; Visit Provider Registered Nurse
DX: J45.41 Moderate persistent asthma with (acute) exacerbation (principal)
CPT/HCPCS: 71046

== ENCOUNTER → 2022-06-14 20:30 | Outpatient (REF) | payer MEDICAID, SELFPAY | LOC: HO.SL 20:30 | PROVIDERS: PCP Internal Medicine; Visit Provider Hospitalist | DX: G47.33 Obstructive sleep apnea (adult) (pediatric) (principal) | CPT/HCPCS: 95810 ==

== ENCOUNTER 2022-07-06 08:12 | Outpatient (REF) | payer MEDICAID, SELFPAY ==
--- NOTE | ~2022-07-06 | XR_ITS ---
EXAMINATION: XR CHEST CLINICAL INFORMATION: Moderate persistent asthma with acute exacerbation. COMPARISON: Chest radiograph 05/25/2022. TECHNIQUE: 2 views of the chest were obtained. FINDINGS: Stable appearance of the cardiomediastinal silhouette. Similar degree of mild interstitial prominence. No focal airspace opacities, pleural effusions or pneumothorax. No acute osseous abnormalities. Thoracic spondylosis. XR/XR chest 2V IMPRESSION: No acute cardiopulmonary findings. Minimal interstitial prominence is not significantly changed when compared to 05/25/2022.
== END 2022-07-06 08:13 | disposition home or self-care (01) ==
LOC: HO.XRAY 08:12
PROVIDERS: Absent Provider Internal Medicine; PCP Internal Medicine; Visit Provider Emergency Medicine
DX: J45.41 Moderate persistent asthma with (acute) exacerbation (principal)
CPT/HCPCS: 71046; 94640; 99283; 99284

== ENCOUNTER 2022-07-06 08:44 | Emergency (ER) | payer MEDICAID, SELFPAY ==
[2022-07-06 09:31] VITALS: BP 140/68; PULSE 84; RESP 22; TEMP 36.6; O2SAT 97; BMI 41.1
--- NOTE | 2022-07-06 10:44 | ED_ITS ---
HPI - Asthma General Chief Complaint: Upper Respiratory Symptoms Stated Complaint: asthma Time Seen by Provider: 07/06/22 10:09 Source: patient Mode of arrival: ambulatory Limitations: language barrier (Bermudian-speaking medical research associate utilized) History of Present Illness HPI Narrative: Patient presents emergency department for evaluation of cough and shortness of breath and wheezing concern for asthma exacerbation. She states that her symptoms began about 1 week ago. Four days ago she was seen at [facility] and was diagnosed with an asthma exacerbation, reporting that she had negative COVID influenza testing at that time. She received in nebulizer treatment bear as well as prednisone and was feeling improved. Continues to take prednisone 40 mg daily in using nebulizers at home. She states that she is not feeling worse but not feeling better. She had an outpatient chest x-ray done today has not yet received the results in regards to this. Cough is productive with green and yellow phlegm. Denies fevers, chills, nasal congestion, sore throat, chest pain, palpitations, nausea, vomiting, abdominal pain, arthralgias, body aches, generalized weakness, numbness or tingling of her extremities. Related Data Home Medications Medication Instructions Recorded Confirmed losartan 50 mg tablet 50 mg PO DAILY 07/05/20 01/27/21 verapamil 360 mg 24 hr 360 mg PO DAILY 07/05/20 01/27/21 capsule,extended release fluticasone 100 mcg-salmeterol 50 1 ea PO 01/20/22 mcg/dose blistr powdr for inhalation (Advair Diskus) metformin 500 mg tablet,extended 0 mg PO 01/20/22 release 24 hr Previous Rx's Medication Instructions Recorded diclofenac sodium 75 mg 75 mg PO BID #60 tabs 12/24/20 tablet,delayed release cholecalciferol (vitamin D3) 125 250 mcg PO DAILY #180 caps 02/14/21 mcg (5,000 unit) capsule benzonatate 200 mg capsule 200 mg PO TID PRN cough #14 caps 01/03/22 fluticasone propionate 50 2 spray intranasal DAILY #16 grams 01/03/22 mcg/actuation nasal spray,suspension (Flonase Allergy Relief) fluticasone propionate 230 2 puff inhalation Q12H #12 grams 02/03/22 mcg-salmeterol 21 mcg/actuation HFA inhaler (Advair HFA) cholecalciferol (vitamin D3) 50 50 mcg PO DAILY #30 caps 02/10/22 mcg (2,000 unit) capsule clindamycin HCl 300 mg capsule 300 mg PO TID 10 days #30 caps 04/19/22 azithromycin 250 mg tablet See Rx Instructions PO .COMPLEX #6 07/06/22 tabs Allergies Allergy/AdvReac Type Severity Reaction Status Date / Time penicillin V Allergy Unknown rash Verified 03/24/22 10:43 Penicillins Allergy Unknown RASH Verified 03/24/22 10:43 Review of Systems Review of Systems: Constitutional : No Fever, No Chills ENT/Mouth : No Hoarseness, No sore throat, No Rhinorrhea Eyes: No Redness, No Discharge, No Vision Changes Cardiovascular : No Chest Pain, positive SOB, no Dyspnea on Exertion, No Edema Respiratory : positive Cough, positive Sputum, positive Wheezing, Gastrointestinal : No Nausea, No Vomiting, No Diarrhea, No abdominal Pain Genitourinary : No Dysuria, No Hematuria Musculoskeletal : No joint pain, No Myalgias Skin : No rash Neuro : No Weakness, No Numbness, No Headache Psych : No anxiety, depression Heme/Lymph: No Bruising, No Bleeding Endocrine : No Polyuria, No Polydipsia Yes all other systems are reviewed and are negative PMFSH Past Medical History Attestation statement: The following information was validated with the patient. Source: old records reviewed Medical History Asthma Chronic restrictive lung disease History of primary hyperparathyroidism Hyperparathyroidism Hypertension Obesity (BMI 30-39.9) Osteoporosis Prediabetes Vitamin D deficiency Surgical History Hx of parathyroidectomy Hx of tubal ligation S/P LASIK surgery of both eyes Family History Family History Father Cancer Mother Cardiomyopathy Diabetes Obesity Other Thyroid disease Social History Social History Household Members: None Alcohol intake: current Alcohol intake frequency: holidays/special occasions only Patient Tobacco Use Status: Never used Tobacco Advance Directives: No Advance Directives Information Provided: Yes Gender identity: Female Physical Exam Vital Signs: Vital Signs: Last Vital Signs Temp 97.9 F 07/06/22 09:31 Pulse 80 07/06/22 11:03 Resp 18 07/06/22 11:03 BP 140/68 H 07/06/22 09:31 Pulse Ox 97 07/06/22 09:31 O2 Del Method 07/06/22 09:31 BMI result Body Mass Index 41.1 Appearance: Alert.?Oriented to person, place and time. No acute distress.?Normal affect. Eyes: Pupils equal, round and reactive to light.? ENT: Pharynx normal.?? Neck: Normal inspection.? Neck supple.?? CVS: Heart sounds normal. Normal heart rate and rhythm.? Pulses normal.?? Respiratory: No respiratory distress.? Lung sounds with expiratory wheezing bilaterally?? Abdomen: Soft and non-tender. Normoactive bowel sounds. ?? Skin: Skin warm and dry.? Normal skin color.? Extremities: No lower extremity edema.? No calf ttp? Neuro: Moves all extremities spontaneously. Sensation intact bilaterally. No focal neuro deficits. Ambulates with normal steady gait. Course Course Course Narrative: Patient is a 61-year-old female with a past medical history of asthma, chronic restrictive lung disease, obstructive sleep apnea, osteoarthritis, hypertension, hyperparathyroidism who presents to emergency department for evaluation of asthma exacerbation. She is already currently prescribed steroids, has been using albuterol inhaler and nebulizer without significant improvement. No worsening. Overall she is well-appearing, she does appear fatigued, mildly tachypneic. Reviewed outpatient chest x-ray do not see any evidence of infiltrate/consolidation/pulmonary congestion. Does not appear consistent with pneumonia. No history of heart failure, no evidence of edema to suggest CHF. She does have wheezing upon auscultation, will trial DuoNeb updraft while in the emergency department. Reevaluation(s) Reevaluation #1: Patient was significant improvement in wheezing after receiving DuoNeb updraft. Discussed plan of care for discharge home, patient will remain on prednisone as prescribed as well as inhaler nebulizer. Will send a course of azithromycin for bronchitis. Reviewed worsening signs symptoms return back to emergency department for. Outpatient follow-up with her primary care provider within 2-3 days. All questions were answered. Patient was discharged home in stable condition, without tachycardia, tachypnea, or hypoxia. Ambulatory O2 trial without evidence of hypoxia. Time: 11:36 [facility] - Asthma Medical Records Attestation: I reviewed the patient's medical records. Discharge Plan Discharge Clinical Impression: Asthma exacerbation Patient Disposition: Home, Self-Care Instructions: Asthma (ED) Additional Instructions: Continue taking prednisone and albuterol inhaler/updraft and your additional inhalers as prescribed. You have been given a new prescription for azithromycin, this is an antibiotic, please complete this entire course. Return to emergency department with any new or worsening symptoms or concerns. Please contact your primary care provider and arrange for an outpatient follow- up within 2-3 days. Prescriptions: New azithromycin 250 mg tablet See Rx Instructions .ROUTE .COMPLEX Qty: 6 0RF Rx Instructions: For 250 mg dose pack: take 500 mg today (day 1), then 250 mg for 4 days (days 2-5) No Action cholecalciferol (vitamin D3) 125 mcg (5,000 unit) capsule 250 mcg PO DAILY Qty: 180 2RF cholecalciferol (vitamin D3) 50 mcg (2,000 unit) capsule 50 mcg PO DAILY Qty: 30 5RF clindamycin HCl 300 mg capsule 300 mg PO TID 10 Days Qty: 30 0RF benzonatate 200 mg capsule 200 mg PO TID PRN (Reason: cough) Qty: 14 0RF fluticasone propionate [Flonase Allergy Relief] 50 mcg/actuation spray,suspension 2 spray intranasal DAILY Qty: 16 0RF Rx Instructions: administer into each nostril diclofenac sodium 75 mg tablet,delayed release (DR/EC) 75 mg PO BID Qty: 60 2RF verapamil 360 mg capsule,ext rel. pellets 24 hr 360 mg PO DAILY losartan 50 mg tablet 50 mg PO DAILY metformin 500 mg tablet extended release 24 hr 0 mg PO fluticasone propion-salmeterol [Advair Diskus] 100-50 mcg/dose blister with device 1 ea PO Advair HFA 230-21 mcg/actuation HFA aerosol inhaler 2 puff inhalation Q12H Qty: 12 11RF Referrals: Savage Guillaume MD [Primary Care Provider] - Stand Alone Forms: Work/School Release Print Language: Bermudian
[2022-07-06] MEDS: Albuterol Sulfate 5 MG, Albuterol/Iprat 2.5/0.5MG 3 ML 3 ML INHALE (11:02)
[2022-07-06 11:03] VITALS: PULSE 80; RESP 18; O2SAT 95
== END 2022-07-06 11:56 | disposition home or self-care (01) ==
PROVIDERS: Emergency Provider Emergency Medicine; PCP Internal Medicine
DX: J45.901 Unspecified asthma with (acute) exacerbation (principal)
CPT/HCPCS: 94640; 99283; 99284

== ENCOUNTER → 2022-07-21 09:53 | Outpatient (BNVA) | payer MEDICAID, SELFPAY | PROVIDERS: PCP Internal Medicine; Visit Provider Internal Medicine Endocrinology, Diabetes & Metabolism | DX: E21.3 Hyperparathyroidism, unspecified (principal); M81.0 Age-related osteoporosis without current pathological fracture | CPT/HCPCS: 99212 ==

== ENCOUNTER → 2022-11-03 10:57 | Outpatient (BNVA) | payer MEDICAID, SELFPAY | PROVIDERS: PCP Internal Medicine; Visit Provider Hospitalist | DX: J45.909 Unspecified asthma, uncomplicated (principal); J98.4 Other disorders of lung; G47.33 Obstructive sleep apnea (adult) (pediatric) | CPT/HCPCS: 99212 ==

== ENCOUNTER 2022-12-28 09:41 | Emergency (ER) | payer MEDICAID, SELFPAY ==
--- NOTE | ~2022-12-28 | XR_ITS ---
EXAMINATION: XR CHEST CLINICAL INFORMATION: Asthma exacerbation COMPARISON: Previous chest x-ray June 2022 TECHNIQUE: Frontal view of the chest was obtained. FINDINGS: No significant abnormality is noted involving the heart, lungs, mediastinum, bony thorax or soft tissues. Degenerative changes of the spine. XR/XR chest 1V IMPRESSION: Unremarkable examination.
[2022-12-28 09:46] VITALS: BP 130/48; PULSE 85; RESP 18; TEMP 36.8; O2SAT 96; BMI 42.8
[2022-12-28] MEDS: Albuterol/Iprat 2.5/0.5MG 3 ML AMPUL.NEB INHALE (11:18)
[2022-12-28 11:20] VITALS: PULSE 80; RESP 16; O2SAT 98
--- NOTE | 2022-12-28 11:30 | ED_ITS ---
HPI - Asthma General Chief Complaint: Asthma Stated Complaint: Asthma Time Seen by Provider: 12/28/22 10:20 Source: patient Mode of arrival: ambulatory Limitations: no limitations History of Present Illness HPI Narrative: 62 yold female with pmh of asthma presents for coughign and wheezing since wednesday. Patient denies any leg swelling, calf pain, coughing up blood, fever, chills, or pleurisy. Patient denies any recent long travel or recent surgery. Related Data Home Medications Medication Instructions Recorded Confirmed verapamil 360 mg 24 hr 360 mg PO DAILY 07/05/20 07/21/22 capsule,extended release blood sugar diagnostic (FreeStyle #10 ea 07/21/22 07/21/22 Lite Strips) blood-glucose meter (FreeStyle 07/21/22 07/21/22 Lite Meter kit) lancets 33 gauge (TRUEplus Lancets) #100 ea 07/21/22 07/21/22 losartan 100 mg tablet 100 mg PO DAILY 07/21/22 07/21/22 metformin 500 mg tablet,extended 1,000 mg PO BID 07/21/22 07/21/22 release 24 hr rosuvastatin 5 mg tablet 5 mg PO DAILY 07/21/22 07/21/22 sitagliptin phosphate 25 mg tablet 25 mg PO DAILY 07/21/22 07/21/22 (Danieluvlaurita) Previous Rx's Medication Instructions Recorded cholecalciferol (vitamin D3) 125 250 mcg PO DAILY #180 caps 02/14/21 mcg (5,000 unit) capsule fluticasone propionate 50 2 spray intranasal DAILY #16 grams 01/03/22 mcg/actuation nasal spray,suspension (Flonase Allergy Relief) fluticasone propionate 230 2 puff inhalation Q12H #12 grams 02/03/22 mcg-salmeterol 21 mcg/actuation HFA inhaler (Advair HFA) benzonatate 200 mg capsule 200 mg PO BID PRN cough 30 days 11/03/22 #45 caps azithromycin 250 mg tablet See Rx Instructions PO .COMPLEX #6 12/28/22 tabs prednisone 20 mg tablet 40 mg PO DAILY 5 days #10 tabs 12/28/22 Allergies Allergy/AdvReac Type Severity Reaction Status Date / Time Penicillins Allergy Unknown RASH Verified 11/03/22 11:13 Review of Systems Review of Systems: Cough and wheezing. Asthma exacerbation Yes all other systems are reviewed and are negative FORMERLY [facility], [facility] Past Medical History Medical History Asthma Chronic restrictive lung disease History of primary hyperparathyroidism Hyperparathyroidism Hypertension Obesity (BMI 30-39.9) Osteoporosis Prediabetes Vitamin D deficiency Surgical History Hx of parathyroidectomy Hx of tubal ligation S/P LASIK surgery of both eyes Family History Family History Father Cancer Mother Cardiomyopathy Diabetes Obesity Other Thyroid disease Social History Social History Household Members: None Alcohol intake: current Alcohol intake frequency: holidays/special occasions only Patient Tobacco Use Status: Never used Tobacco Advance Directives: No Advance Directives Information Provided: Yes Gender identity: Female Physical Exam Vital Signs: Vital Signs: Last Vital Signs Temp 98.3 F 12/28/22 09:46 Pulse 80 12/28/22 11:20 Resp 16 12/28/22 11:20 BP 130/48 L 12/28/22 09:46 Pulse Ox 96 12/28/22 09:46 O2 Del Method Room Air 12/28/22 09:46 BMI result Body Mass Index 42.8 Const: General: cooperative, healthy appearing, comfortable, no acute distr ess, well developed, alert and awake Orientation/consciousness: oriented to person, oriented to place, oriented to time and patient oriented x3 HEENT: Head: Yes normal to inspection, Yes No palpable skull fracture present, Yes normocephalic and No atraumatic Throat: Yes posterior oropharynx normal, Yes tonsils normal and Yes uvula midline Eyes: General: appearance normal, both eyes and all related structures Neck: Neck: Yes normal visual inspection, Yes full ROM, Yes no lymphadenopathy, Yes no meningeal signs, Yes trachea midline, Yes supple, No anterior neck swelling and No tender Chest: Chest palpation & inspection: normal inspection of the chest and normal palpation of entire chest wall Resp: Effort & Inspection: normal respiratory effort and able to speak in complete sentences Auscultation: wheezes expiratory wheezes Cardio: Jugular venous distension: no JVD Heart sounds: S1 normal heart sound present and S2 normal heart sound present GI: Inspection: Yes normal to inspection and No abdominal wall ecchymosis Palpation (GI): Soft to palpation, not firm, nontender, no guarding and not rigid : General: Yes no CVA tenderness Back/Spine/Pelvis: Back: no CVA tenderness Skin: General skin exam: no rashes or lesions noted and elasticity normal Neuro: General: oriented to person, oriented to place, oriented to time, patient oriented x3, gait normal, tone normal, no meningeal signs, no focal motor deficits, CN's II-XI intact bilaterally and normal sensation to monofilament Extrem: Other: Bilateral lower extremities negative for swelling, pain edema, calf tenderness. General: Yes normal to inspection and Yes full ROM Psych: Appearance: grossly normal, well kempt and not disheveled Course Course Course Narrative: 62-year-old female history physical exam presents asthma exacerbation. Chest x- ray albuterol prednisone COVID strep ordered. Reevaluation(s) Reevaluation #1: Patient feels better after albuterol treatment, COVID influenza negative. Chest x-ray normal. Patient will be discharged with steroids and azithromycin. Patient informed to continue using albuterol inhaler Time: 12:15 Medications Administered Discontinued Medications Generic Name Dose Route Start Last Admin Trade Name Freq PRN Reason Stop Dose Admin Albuterol/Ipratropium 3 ml 12/28/22 11:09 12/28/22 11:18 Albuterol/Iprat 2.5/0.5mg 3 Ml Ampul.Neb INHALE 12/28/22 11:10 3 ml ONCE ONE Administration Prednisone 60 mg 12/28/22 11:09 12/28/22 11:33 Prednisone 20 Mg Tablet PO 12/28/22 11:10 60 mg ONCE ONE Administration Medical Decision Making Medical Decision Making MDM Narrative: 62-year-old female with history of asthma presents to ED for coughing wheezing for 1 week. Patient denies any leg swelling, calf pain, shortness of breath/chest pain on exertion, recent long travel, recent surgery. Patient denies any pleurisy. History physical exam does not indicate heart failure, myocardial infarction, DVT, PE, or pneumonia. Differential Diagnosis Differential Diagnoses: The differential diagnosis associated with the presentation includes (Pneumonia, asthma/[place], bronchitis, DVT, PE, myocardial infarction,) Admission/Observation Consideration of admission/observation: Escalation of care including ad mission/observation considered Lab Data MDM Lab Attestation statement: I reviewed the patient's lab results. Labs: Lab Results 12/28/22 12/28/22 12/28/22 Range/Units 11:16 11:16 11:16 COVID-19 (FELISA) Negative (Negative) COVID-19 Clin Com See Note Influenza Type A (ROLDAN) Negative (Negative) Influenza Type B (ROLDAN) Negative (Negative) Influenza A & B Note See Note S. pyogenes GrpA ROLDAN Negative (Negative) Radiology Impression Discussion of test interpretation with radiology: I have reviewed the radiologist's reading. Prescription Management I considered prescription management with: Antibiotic and Other Discharge Plan Discharge Clinical Impression: Bronchitis, Asthma Patient Disposition: Home, Self-Care Instructions: Asthma (DC), Acute Bronchitis (ED) Additional Instructions: Return to the ED immediately for any chest pain, shortness of breath on exertion, chest pain on inspiration, leg swelling, calf pain, coughing up blood, weakness, dizziness, or any other concerning symptoms. Continue using albuterol inhaler at home. Please follow-up with your primary care provider. Prescriptions: New prednisone 20 mg tablet 40 mg PO DAILY 5 Days Qty: 10 0RF azithromycin 250 mg tablet See Rx Instructions .ROUTE .COMPLEX Qty: 6 0RF Rx Instructions: For 250 mg dose pack: take 500 mg today (day 1), then 250 mg for 4 days (days 2-5) No Action cholecalciferol (vitamin D3) 125 mcg (5,000 unit) capsule 250 mcg PO DAILY Qty: 180 2RF fluticasone propionate [Flonase Allergy Relief] 50 mcg/actuation spray,suspension 2 spray intranasal DAILY Qty: 16 0RF Rx Instructions: administer into each nostril verapamil 360 mg capsule,ext rel. pellets 24 hr 360 mg PO DAILY metformin 500 mg tablet extended release 24 hr 1,000 mg PO BID Advair HFA 230-21 mcg/actuation HFA aerosol inhaler 2 puff inhalation Q12H Qty: 12 11RF Januvia 25 mg tablet 25 mg PO DAILY rosuvastatin 5 mg tablet 5 mg PO DAILY losartan 100 mg tablet 100 mg PO DAILY (DME) FreeStyle Lite Strips Strip See Rx Instructions .ROUTE DAILY Qty: 10 Rx Instructions: As directed 2 times a day (DME) blood-glucose meter [FreeStyle Lite Meter] Kit See Rx Instructions .Route Rx Instructions: As directed (DME) lancets [TRUEplus Lancets] 33 gauge misc See Rx Instructions .ROUTE DAILY Qty: 100 Rx Instructions: As directed 2 times a day benzonatate 200 mg capsule 200 mg PO BID PRN (Reason: cough) 30 Days Qty: 45 3RF Stand Alone Forms: Work/School Release Interventions: ED Discharge Assessment Last Done: 12/28/22 12:26 Discharge Date/Time: 12/28/22 12:27 Print Language: Maltese
[2022-12-28] MEDS: predniSONE 20 MG TABLET 60 MG PO (11:33)
--- NOTE | 2022-12-28 11:35 | PC.NURSE ---
pt medicated per MAR- given duoneb by respiratory- pt sts that she feels better, given 60mg of prednisone- awaiting vital swabs wctm
[2022-12-28 11:39] LABS: IDNOW Serial# 08D9AD1C
[2022-12-28 11:40] LABS: Strep A Nucleic Acid Negative (Negative)
[2022-12-28 11:56] LABS: IDNOW Serial# 9DB6401D; Influenza A Negative (Negative); Influenza B2 Negative (Negative)
[2022-12-28 12:01] LABS: COVID-19 Test Negative (Negative); IDNOW Serial# 55D5AD1C
== END 2022-12-28 12:27 | disposition home or self-care (01) ==
PROVIDERS: Physician Assistant; Emergency Provider Emergency Medicine
DX: J45.909 Unspecified asthma, uncomplicated (principal); Z20.822 Contact with and (suspected) exposure to COVID-19; E11.9 Type 2 diabetes mellitus without complications; I10 Essential (primary) hypertension; Z79.84 Long term (current) use of oral hypoglycemic drugs; Z79.02 Long term (current) use of antithrombotics/antiplatelets; Z79.899 Other long term (current) drug therapy
CPT/HCPCS: 71045; 87502; 87635; 87651; 94640; 99283; 99284

== ENCOUNTER → 2023-01-20 07:55 | Outpatient (BNVA) | payer MEDICAID, SELFPAY | PROVIDERS: Visit Provider Internal Medicine Endocrinology, Diabetes & Metabolism | DX: M81.0 Age-related osteoporosis without current pathological fracture (principal); E21.3 Hyperparathyroidism, unspecified | CPT/HCPCS: 99212 ==

== ENCOUNTER 2023-02-25 14:40 | Outpatient (REF) | payer MEDICAID, SELFPAY ==
--- NOTE | ~2023-02-25 | MM_ITS ---
EXAMINATION: BONE DENSITOMETRY CLINICAL INDICATION: Osteoporosis. COMPARISON: Previous BD dated 02/20/2021 and baseline BD dated 12/24/2016. TECHNIQUE: Using a [employer] DXA System (software version: 13.1) manufactured by [employer], dual-energy x-ray absorptiometry was performed of the lumbar spine and left hip. The images are of good technical quality. Summary results are attached. FINDINGS: AP SPINE L1-L4: Current: BMD 0.883 g/cm2, Z-score -1.9, T-score -2.5, osteoporosis, 1.3% decrease from previous, 3.2% increase from baseline (<5% change is not significant). Prior: BMD 0.895 g/cm2. Baseline: BMD 0.856 g/cm2. LEFT FEMUR, NECK: Current: BMD 0.852 g/cm2, Z-score -0.5, T-score -1.3, osteopenia. Prior: BMD 0.773 g/cm2. Baseline: BMD 0.824 g/cm2. LEFT FEMUR, TOTAL: Current: BMD 0.877 g/cm2, Z-score -0.5, T-score -1.0, normal, 2.5% increase from previous, 4.4% decrease from baseline (<5% change is not significant). Prior: BMD 0.856 g/cm2. Baseline: BMD 0.917 g/cm2. IDENTIFIED RISK FACTORS: Menopause, osteoporosis, hyperthyroid. HISTORY OF FRACTURE: None listed. MEDICATIONS: Vitamin D. MM/XR DEXA axial skeleton IMPRESSION: 1. DIAGNOSIS: Osteoporosis based on the lowest T-score value of -2.5 in the lumbar spine applying World Health Organization criteria. 2. 10-YEAR FRACTURE RISK PREDICTION, FRAX: According to the guidelines, FRAX calculation should only be performed on patients in the osteopenia bone density category. Therefore, FRAX was not performed on this patient. 3. Treatment Recommendations: NOF guidelines recommend consideration for treatment in postmenopausal women and men age 50 and older presenting with the following: -A hip or vertebral (clinical or morphometric) fracture. -T-score less than or equal to -2.5 at the femoral neck or spine after appropriate evaluation to exclude secondary causes. -Low bone mass at the hip or spine and a 10-year fracture probability by FRAX of greater than or equal to 3% for hip fracture or greater than or equal to 20% for major osteoporotic fracture based on the [place] adapted WHO algorithm. 4. Other Recommendations: All treatment decisions require clinical judgment and consideration of individual patient factors, including patient preferences, comorbidities, previous drug use, risk factors not captured in the FRAX model (e.g. frailty, falls, vitamin D deficiency, increased bone turnover, interval significant decline in bone density) and possible under or overestimation of fracture risk by FRAX. Additional medical evaluation for secondary cause of low bone mineral density may be appropriate. FUTURE SCAN RECOMMENDATION: People with diagnosed cases of osteoporosis or at high risk for fracture should have regular bone mineral density tests. For patients eligible for Medicare, routine testing is allowed once every 2 years. The testing frequency can be increased to one year for patients who have rapidly progressing disease, those who are receiving or discontinuing medical therapy to restore bone mass, or have additional risk factors.
== END 2023-02-25 14:41 | disposition home or self-care (01) ==
LOC: HO.MAMMO 14:40
PROVIDERS: Visit Provider Internal Medicine Endocrinology, Diabetes & Metabolism
DX: M81.0 Age-related osteoporosis without current pathological fracture (principal)
CPT/HCPCS: 77080

== ENCOUNTER 2023-03-05 09:17 | Outpatient (REF) | payer MEDICAID, SELFPAY ==
--- NOTE | ~2023-03-05 | MM_ITS ---
EXAMINATION: MM SCREENING DIGITAL BREAST TOMOSYNTHESIS, BILATERAL CLINICAL INFORMATION: Screening. Asymptomatic. No known family history breast cancer. The lifetime risk of breast cancer based on the Tyrer-Cuzick Model is 7%. COMPARISON: Mammography 04/14/2021, 04/08/2021, 02/02/2019, 12/24/2016, 11/14/2015. TECHNIQUE: Digital breast tomosynthesis is performed in both the craniocaudal and mediolateral oblique views along with computer-aided detection (CAD). Synthesized 2D images are generated from the tomosynthesis. FINDINGS: There are scattered areas of fibroglandular density (ACR BI-RADS breast composition Category b). Left breast has focal asymmetric density anterior upper outer quadrant 5.5 cm from nipple with subtle surrounding spiculation suggested on tomography. Right breast also has small subtle asymmetric density mid outer breast on CC view without MLO correlate likely summation artifact. Remainder of the bilateral breasts are without significant change. There are scattered punctate calcifications including mid outer left breast stable from prior magnification views 2020. The bilateral axilla and skin contours are unremarkable. MM/MM tomosynthesis screening BI IMPRESSION: Left: -Focal asymmetric density upper outer quadrant with subtle surrounding spiculation suggested on tomography. Right: -Small asymmetric density mid outer breast on CC view, no MLO correlate. Suspect summation artifact. ASSESSMENT: BI-RADS 0: Incomplete - Need Additional Imaging Evaluation RECOMMENDATION: 1. Additional views: Left (rolled CC x2, spot ML); Right (rolled CC x 2). 2. Targeted ultrasound if warranted after review of the additional views. 3. Radiology department staff will contact the patient for additional imaging. This patient's information was entered into a reminder system with a target due date for their next mammogram.
== END 2023-03-05 09:18 | disposition home or self-care (01) ==
LOC: HO.MAMMO 09:17
PROVIDERS: Visit Provider Student in an Organized Health Care Education/Training Program
DX: Z12.31 Encounter for screening mammogram for malignant neoplasm of breast (principal)
CPT/HCPCS: 77063; 77067

== ENCOUNTER 2023-03-09 08:49 | Outpatient (REF) | payer MEDICAID, SELFPAY ==
--- NOTE | ~2023-03-09 | MM_ITS ---
EXAMINATION: MM DIAGNOSTIC DIGITAL BREAST TOMOSYNTHESIS, BILATERAL US DIAGNOSTIC ULTRASOUND BREAST, LEFT CLINICAL INFORMATION: Recall from screening for suspicious focal asymmetric density upper outer left breast and small asymmetric density mid outer right breast, respectively. COMPARISON: Prior mammography exams including most recent 03/05/2023. TECHNIQUE: Digital breast tomosynthesis is performed. 2D images are generated from the tomosynthesis. The following views are obtained: Bilateral rolled CC x2, left ML. Ultrasound left breast is targeted to the upper outer quadrant using grayscale imaging and color Doppler without and with harmonics. Additional ultrasound imaging left axilla was also included. FINDINGS: There are scattered areas of fibroglandular density (ACR BI-RADS breast composition Category b). Additional views right breast demonstrate no persistent asymmetric density. There is no underlying mass or architectural abnormality. Additional views left breast confirm focal asymmetric density with irregular margins. There are some associated internal calcifications. Ultrasound left breast confirms an irregular hypoechoic mass 2:00 position 4 cm from nipple measuring under 1 cm. There is some posterior acoustic shadowing. Additional imaging left axilla demonstrates no adenopathy. Results are discussed with the patient at time of visit. Ultrasound-guided core biopsy of the left breast mass is recommended. MM/MM tomosynthesis added view BI IMPRESSION: Left: -Irregular hypoechoic mass anterior upper outer quadrant under 1 cm. -No adenopathy demonstrated left axilla. Right: -Additional views are unremarkable. No persistent asymmetric density or other abnormality. ASSESSMENT: BI-RADS 4: Suspicious RECOMMENDATION: Ultrasound-guided core biopsy left breast mass. This patient's information was entered into a reminder system with a target due date for their next mammogram.
== END 2023-03-09 08:50 | disposition home or self-care (01) ==
LOC: HO.MAMMO 08:49
PROVIDERS: Visit Provider Student in an Organized Health Care Education/Training Program
DX: N64.9 Disorder of breast, unspecified (principal)
CPT/HCPCS: 76642; 77062; 77066

== ENCOUNTER → 2023-03-17 15:40 | Outpatient (BNVA) | payer OTHER, SELFPAY | PROVIDERS: Visit Provider Surgery | DX: N63.22 Unspecified lump in the left breast, upper inner quadrant (principal) | CPT/HCPCS: 99202 ==

== ENCOUNTER 2023-04-17 08:38 | Outpatient (REF) | payer OTHER, SELFPAY ==
[2023-04-17 09:12] LABS: MANUAL DIFF FLAG NO
[2023-04-17 10:12] LABS: Basophils Absolute Auto 0.1 X10*3/uL (0.0-0.2); Basophils Percent Auto 1.1 % (0-2); Eosinophils Absolute Auto 0.2 X10*3/uL (0.0-0.4); Eosinophils Percent Auto 3.2 % (0-4); Hematocrit 44.4 % (37.0-47.0); Hemoglobin 14.6 g/dl (12.0-16.0); Imm Gran Abs Auto 0.03 X10*3/uL (0.00-0.03); Imm Gran Pct Auto 0.4 % (0.0-0.4); Lymphocytes Absolute Auto 2.2 X10*3/uL (1.2-4.9); Lymphocytes Percent Auto 30.9 % (20-40); Mean Corpuscular HGB Conc 32.9 g/dl (31.0-35.0); Mean Corpuscular Hemoglobin 29.2 pg (27.0-33.0); Mean Corpuscular Volume 88.8 fL (80.0-98.0); Mean Platelet Volume 9.1 fL (9.4-12.3); Monocytes Absolute Auto 0.5 X10*3/uL (0.1-1.2); Monocytes Percent Auto 7.5 % (2-11); Neutrophils Absolute Auto 4.1 x10*3/uL (2.0-8.3); Neutrophils Percent Auto 56.9 % (45-73); Platelet Count 468 X10*3/uL (160-400); Red Cell Distribution Width 11.9 % (11.0-16.0); White Blood Count 7.2 X10*3/uL (4.8-10.8)
[2023-04-17 10:58] LABS: Creatinine Urine 151.86 mg/dL; Microalbum/Creatinine Ratio Ur 31.6 ug/mg cr
[2023-04-17 12:08] LABS: Folate 13.6 ng/mL (> or = 4.0); Vitamin B12 216 pg/mL (200-900)
[2023-04-17 12:10] LABS: Alanine Aminotransferase 36 U/L (0-31); Albumin Level 4.2 g/dL (3.5-5.0); Alkaline Phosphatase 117 U/L (39-117); Anion Gap 14 (12-20); Aspartate Amino Transferase 23 U/L (5-31); Bilirubin Total 0.5 mg/dL (0.0-1.0); Blood Urea Nitrogen 14 mg/dL (9-16); Calcium 9.8 mg/dL (8.4-10.2); Carbon Dioxide 23 mmol/L (22-29); Chloride 105 mmol/L (96-108); Cholesterol 133 mg/dL; Estimated Glomerular Filt Rate > 60; Glucose Random 158 mg/dL (60-115); HDL Cholesterol 54 mg/dL; LDL Cholesterol Calculated 64 mg/dl; Potassium 4.3 mmol/L (3.3-5.1); Sodium 138 mmol/L (135-145); Total Protein 7.7 g/dL (6.5-8.0); Triglycerides 75 mg/dL
[2023-04-17 12:12] LABS: Vitamin D 25-OH Total 45.2 ng/mL (>30)
[2023-04-17 13:47] LABS: CT PCR NOT DETECTED (Not Detect.); NG PCR NOT DETECTED (Not Detect.)
[2023-04-19 04:33] LABS: HBS Num1 4.89 mIU/mL (0-7.99); HBc Num1 0.14 S/CO (0.00-0.79); HBsAGNum1 0.39 S/CO (0.00-0.99); HIV AB/AG Nonreactive (Nonreactive); HIV Num 1 0.04 S/CO (0.00-0.99); Hepatitis B Core Antibody Nonreactive (Nonreactive); Hepatitis B Surface Antigen Negative (Negative); ~Hepatitis B Surface Antibody NONREACTIVE (Nonreactive)
[2023-04-19 04:34] LABS: ~HepC Num1 0.08 S/CO (0.00-0.79); ~Hepatitis C Antibody Nonreactive (Nonreactive)
[2023-04-19 04:35] LABS: Syphilis Screen Nonreactive (Nonreactive)
== END 2023-04-17 08:39 | disposition home or self-care (01) ==
LOC: HO.LAB 08:38
PROVIDERS: PCP Student in an Organized Health Care Education/Training Program; Visit Provider Student in an Organized Health Care Education/Training Program
DX: Z00.00 Encounter for general adult medical examination without abnormal findings (principal)
CPT/HCPCS: 0353U; 80053; 80061; 82043; 82306; 82607; 82746; 84443; 85025; 86704; 86706; 86780; 86803; 87340; 87389

== ENCOUNTER 2023-04-21 09:33 | Outpatient (REF) | payer OTHER, SELFPAY ==
--- NOTE | ~2023-04-21 | MM_ITS ---
PROCEDURE: ULTRASOUND-GUIDED PROCEDURE: US GUIDED BREAST BIOPSY, left breast CLINICAL INFORMATION: Suspicious hypoechoic mass left breast 2:00 location COMPARISON: 03/09/2023 left breast ultrasound and mammography. PROCEDURAL DETAILS: The details of the procedure, as well as the risks, benefits, and alternatives to the procedure were explained to the patient in detail and all of her questions were answered, after which written informed consent was obtained. Site and side were confirmed. Prior to the procedure, sonography revealed a rounded, irregularly marginated hypoechoic shadowing vascular mass measuring 7 x 7 x 5 mm within the left breast at the 2:00 location.. A time-out was performed, the lesion intended for biopsy was targeted, and the skin of the overlying left breast was then prepped and draped in the usual sterile fashion. Using sonographic guidance, sterile technique, and 1% lidocaine without epinephrine for local anesthesia, multiple automated core biopsies were obtained through the targeted area with a 14G spring loaded Achieve core biopsy device. There was real-time confirmation of appropriate needle passage. Sampling was documented. At the completion of tissue sampling, a single open coil metallic clip was deposited at the biopsy site. There was no evidence of immediate complication. SPECIMEN: An appropriate sample was obtained. DIGITAL POST-PROCEDURE MAMMOGRAPHY: Breast density: The tissue contains scattered areas of fibroglandular density. BI-RADS version 5, category B. There are no new mammographic findings demonstrated. The postprocedure 2-view direct digital mammogram reveals accurate and satisfactory positioning of the biopsy clip. The patient tolerated the procedure well and, after assuring adequate hemostasis, was discharged in good condition after reviewing postbiopsy breast care instructions. Final pathology results are pending. MM/MM diagnostic mammo unilat LT IMPRESSION: 1. No immediate complication from ultrasound-guided percutaneous biopsy left breast. 2. Ultrasound was used to localize and guide marker clip placement. 3. The 2-view direct digital postprocedure mammogram reveals satisfactory positioning of the biopsy clip. 4. Final pathology results are pending. A separate report with final recommendations will be issued once these results are made available.
[2023-04-21] MEDS: Lidocaine HCl 1 % 20 ML VIAL 9 ML SUBCUT (11:01)
[2023-04-21] MEDS: Sodium Bicarbonate 8.4% 50 MEQ/50 ML VIAL SUBCUT (11:02)
== END 2023-04-21 09:34 | disposition home or self-care (01) ==
LOC: HO.MAMMO 09:33
PROVIDERS: PCP Student in an Organized Health Care Education/Training Program; Visit Provider Student in an Organized Health Care Education/Training Program
DX: N63.21 Unspecified lump in the left breast, upper outer quadrant (principal)
CPT/HCPCS: 19083; 77062; 77065; 88305; 88341; 88342; 88360; A4648

== ENCOUNTER → 2023-04-21 10:00 | Outpatient (BNV) | payer MEDICAID, SELFPAY | PROVIDERS: PCP Student in an Organized Health Care Education/Training Program; Visit Provider Radiology Diagnostic Radiology | DX: D05.12 Intraductal carcinoma in situ of left breast (principal) | CPT/HCPCS: 19083; 77065 ==

== ENCOUNTER 2023-05-03 10:49 | Outpatient (AMB) | payer OTHER, SELFPAY ==
--- NOTE | 2023-05-03 10:57 | A.OFFVIS_ITS ---
Intake Vital Signs 05/03/23 10:58 Height 4 ft 9 in Weight 189 lb BMI 40.9 Pulse 78 Pulse Source Pulse Oximeter Pulse Oximetry (%) 96 Oxygen Delivery Method Room Air Intake Visit Reasons: asthma Pharmacist Manager Required: No Allergies Penicillins Allergy (Unknown, Verified 05/03/23 10:59) RASH HPI HPI Comments History of Present Illness Details The patient is a 62-year-old woman with a known history of asthma who apparently has been having worsening respiratory symptoms. She has been on Advair 100/50 with reasonable control. She also carries a rescue inhaler. Unfortunately her respiratory symptoms became significantly worse with significant chest tightness and wheezing not responding to her home regimen or to her nebulizer. She went to the ER which she did undergo blood work and also an x-ray. Her x-ray was personally by me demonstrating no acute disease and her CBC was otherwise normal without any evidence of any eosinophilia. Although she has had eosinophilia in the past. She was treated with prednisone and she was discharged. She is starting to feel better. Although she still having intermittent symptoms. On examination she still has expiratory wheezing and diminished Respiratory capacity. Unfortunately she had also carries a history of glaucoma therefore she cannot use any anticholinergics. Her eye doctor also told her to avoid singular. Therefore will have to maximize her inhaled cortical steroids and long-acting beta agonist and avoid any anticholinergic therapy. The patient has not had any allergy testing. In addition to that the patient does have significant daytime drowsiness. Her Basehor score is elevated 10/24. She does have headaches. She does have snoring. She also carries cardiovascular risk factors. The patient really needs to have a home sleep study. 03/24/2022 the patient is here for a pulmonary follow-up visit. The patient overall is doing beter. she seems to be responding better to the Advair HFA. She has not to had to use her rescue inhaler more than twice a week. Denies any significant chest tightness or wheezing. She still gets some dyspnea on exertion usually mild in severity. We did review her pulmonary function studies to get a demonstrating some evidence of small airways disease which is cons istent with her asthma. But, in addition to that she did have a mild restrictive lung disease which could be due to her elevated BMI. Her chest x- ray was reassuring. The fact that her symptoms are better will continue to just monitor her. The patient will looking to going back to the weight management program. I am hopeful that she will continue to improve from a respiratory status as she continues to make healthy interventions. The patient continues to have daytime drowsiness. She did have a sleep study done however only required 30 minutes. Therefore we did reach out to the sleep center and they will be calling her to be do the study. Once I have the results of will call her to see if she needs to start CPAP therapy. The patient continues to be symptomatic therefore she will be a good candidate for PAP therapy vest the case. 11/03/2022 the patient is here for a pulmonary follow-up visit. Overall the patient is doing well. She does complaint of a dry hacky cough. Mild-to- moderate severity. Usually bothers her most in the morning. Denies any chest congestion denies any fevers or chills and denies any sick contacts. Meantime she continues to have daytime drowsiness. Her Basehor score is elevated 9/24. She did undergo an in-lab sleep study that was still hard for her initially to fall asleep. Final she did fall asleep and she was able to have an adequate study. She will had 1 episode of REM sleep. During that REM sleep she had significant sleep apnea. She also had evidence of apnea when she laid on her back. She did better when she laid her side her AHI was up to 7 events per hour. More significantly was effective the patient desaturated down to 71% during her sleep and also spent 14 minutes below 88%. During the study heart rate did increase to about 104 specially when she was having the significant apneic episodes during the REM sleep. Explained to the patient that she likely has REM related sleep disorder. She is not interested in using CPAP at this time. Therefore, she is going to try positional therapy. We did talk about different devices that she can consider. Plan to follow-up in 4-6 months. Prior to that study I will have the patient undergo an overnight oximetry to see if she was able to improve her significant hypoxia. If she continues to have hypoxia and continues to be symptomatic with an elevated Basehor score then treating her with PAP therapy will be most beneficial. She continues with respiratory medication. 05/03/2023 the patient is here for pulmonary follow-up visit. Overall she is doing well from a respiratory status. Her cough is better. She is tolerating the Advair well. Has not required her short-acting beta agonist. In addition to that she is sleeping on her side. She will call avoiding sleeping on her back. She was supposed to have an overnight oximetry but she has not had to sit as of yet. More recently she was diagnosed with breast cancer. She is going to follow up with the surgeon regarding the breast cancer. She will likely need surgery. From a respiratory status the patient doing well and may be able to proceed with anesthesia and surgery at this point. Patient has minor risk for any perioperative pulmonary complications which may include atelectasis and hypoxia and pneumonia. [facility] Medical History Asthma Chronic restrictive lung disease History of primary hyperparathyroidism Hyperparathyroidism Hypertension Left breast mass Obesity (BMI 30-39.9) Osteoporosis Prediabetes Vitamin D deficiency Surgical History Hx of parathyroidectomy Hx of tubal ligation S/P LASIK surgery of both eyes Family History Father Cancer Mother Cardiomyopathy Diabetes Obesity Other Thyroid disease Social History Household Members: None Alcohol intake: current Alcohol intake frequency: holidays/special occasions only Patient Tobacco Use Status: Never used Tobacco Gender identity: Female Female Reproductive History Menstrual Age of Menarche: 14 Review of Systems Const Denies daytime sleepiness, Reports difficulty sleeping, Reports headache(s) and Reports snoring Eyes Denies change in vision ENT Denies change in voice, Reports headache(s), Reports nasal congestion, Reports nasal discharge and Reports post nasal drip Card Denies chest pain and Denies dyspnea on exertion Resp Denies dyspnea on exertion, Reports snoring and Denies wheezing GI Reports no additional complaints Musc Reports no additional complaints Skin/Breast Denies rash Neuro Reports no additional complaints and Reports headache(s) Aller/Immun Denies wheezing Physical Exam Vital Signs: Last Vital Signs Pulse 78 05/03/23 10:58 Pulse Ox 96 05/03/23 10:58 Oxygen Delivery Method Room Air 05/03/23 10:58 BMI result Body Mass Index 40.9 Const General: alert Neck Neck: Yes normal visual inspection, Yes full ROM and Yes no lymphadenopathy Chest Chest palpation & inspection: normal inspection of the chest Resp Auscultation: clear to auscultation bilaterally and no wheezes Cardio Rate: regular rate Rhythm: regular rhythm Heart sounds: S1 normal heart sound present and S2 normal heart sound present GI Palpation (GI): Soft to palpation and nontender Auscultation: normal bowel sounds Skin General skin exam: rashes and/or lesions noted Assessment & Plan Assessment & Plan (1) Pre-op chest exam: Code(s): Z01.811 - Encounter for preprocedural respiratory examination (2) Asthma: Code(s): J45.909 - Unspecified asthma, uncomplicated (3) DOUG (obstructive sleep apnea): Code(s): G47.33 - Obstructive sleep apnea (adult) (pediatric) (4) Chronic restrictive lung disease: Code(s): J98.4 - Other disorders of lung Plan continue Advair HFA 220 postional therapy to treat the DOUG. Likely a REM related sleep disorder. overnight oximetry benzonates as needed for her cough Exercise/weight management proceed with anesthesia and surgery. mild pulmonary perioperative risk. F/U 8-12 months Coding Level of Care Code Est Pt Level 4 (12671) Diagnoses Pre-op chest exam Z01.811 Asthma J45.909 DOUG (obstructive sleep apnea) G47.33 Chronic restrictive lung disease J98.4 Time Spent (min) 17
[2023-05-03 10:58] VITALS: PULSE 78; O2SAT 96; BMI 40.9
== END 2023-05-03 11:20 | disposition home or self-care (01) ==
PROVIDERS: PCP Student in an Organized Health Care Education/Training Program; Visit Provider Hospitalist
DX: Z01.811 Encounter for preprocedural respiratory examination (principal); J45.909 Unspecified asthma, uncomplicated; G47.33 Obstructive sleep apnea (adult) (pediatric); J98.4 Other disorders of lung
CPT/HCPCS: 99214

== ENCOUNTER → 2023-05-03 10:49 | Outpatient (BNVA) | payer OTHER, SELFPAY | PROVIDERS: PCP Student in an Organized Health Care Education/Training Program; Visit Provider Hospitalist | DX: Z01.811 Encounter for preprocedural respiratory examination (principal); J98.4 Other disorders of lung; J45.909 Unspecified asthma, uncomplicated; G47.33 Obstructive sleep apnea (adult) (pediatric) | CPT/HCPCS: 99212 ==

== ENCOUNTER 2023-05-05 14:14 | Outpatient (AMB) | payer OTHER, MEDICAID, SELFPAY ==
--- NOTE | 2023-05-05 14:32 | A.OFFVIS_ITS ---
Intake Intake Visit Reasons: F/u breast bx Intake Note: This patient presents for a follow-up assessment s/p breast biopsy. Patient denies complaints at this time. Supervisor Pipeline Required: Yes Supervisor Pipeline Language: Electronic Service Technician Name: Haresh Accompanied by: Family/Other Allergies Penicillins Allergy (Unknown, Verified 05/05/23 14:38) RASH HPI F/u breast bx HPI Details [age] year female in for a left breast mass.? She mammogram showing a density with irregular margins on the left breast.? She with was sent for views including ultrasound showing an irregular, hypoechoic mass at the 2 o'clock position, about less than 1 cm in size, on the left breast.? An ultrasound guided biopsy was therefore recommended by the radiologist. She otherwise denies any palpable breast mass Her menarche was at the age of 13.? Her 1st was at age of 26.? She hashad for? pregnancies.? She denies any strong family history of breast cancer.? She had menopause at age of 55. She had the ultrasound-guided biopsy 04/21/2023 and she is here to discuss the path report. She tolerated the biopsy well and denies any hematoma. [facility] Medical History (Updated 05/05/23 @ 13:27 by Freedom Husain MD) Asthma Chronic restrictive lung disease History of primary hyperparathyroidism Hyperparathyroidism Hypertension Invasive ductal carcinoma of breast Left breast mass Obesity (BMI 30-39.9) Osteoporosis Prediabetes Vitamin D deficiency Surgical History Hx of parathyroidectomy Hx of tubal ligation S/P LASIK surgery of both eyes Family History Father Cancer Mother Cardiomyopathy Diabetes Obesity Other Thyroid disease Social History Household Members: None Alcohol intake: current Alcohol intake frequency: holidays/special occasions only Patient Tobacco Use Status: Never used Tobacco Gender identity: Female Female Reproductive History Menstrual Age of Menarche: 14 Review of Systems Const Denies chills and Denies fever(s) Card Denies chest pain, Denies dyspnea and Denies dyspnea on exertion Resp Denies cough, Denies dyspnea and Denies dyspnea on exertion GI Denies hematochezia and Denies change in bowel habits Denies hematuria Musc Denies back pain and Denies limited range of motion Neuro Denies focal weakness and Denies convulsions Psych Denies depression and Denies mood swings Physical Exam Const Other: Obese General: comfortable and no acute distress Orientation/consciousness: patient oriented x3 Neck Neck: Yes no lymphadenopathy Chest Other: No palpable breast masses, no axillary lymphadenopathy, no hematoma on the biopsy site on the left breast Resp Auscultation: clear to auscultation bilaterally Cardio Rhythm: regular rhythm GI Palpation (GI): Soft to palpation, nontender and no guarding Neuro General: patient oriented x3 Assessment & Plan Assessment & Plan (1) Invasive ductal carcinoma of breast: Code(s): C50.919 - Malignant neoplasm of unspecified site of unspecified female breast Plan: She had a 0.6 x 0.7 x 0.5 cm left breast mass at the 2 o'clock position. She had an ultrasound-guided biopsy and this unfortunately shows invasive ductal carcinoma with lobular features. This is ER positive, PA low positive and HER2 negative. I explained to her her options. She can choose to have lumpectomy with localization using Hologic, and sentinel node biopsy but she will need radiation therapy after surgery to complete treatment. The other option is to proceed with mastectomy with sentinel biopsy. I discussed the risks, benefits, and advantages of each option. She wants to proceed with any of the left breast with localization, with sentinel biopsy. She understands what to expect postoperatively She had family with her during the entire discussion. I have referred her to our oncologist service as well. Orders: Referrals Hematology & Oncology Referral C50.919 - Malignant neoplasm of unspecified site of unspecified female breast Coding Level of Care Code Est Pt Level 4 (66631) Diagnoses Invasive ductal carcinoma of breast C50.919
== END 2023-05-05 15:13 | disposition home or self-care (01) ==
PROVIDERS: PCP Student in an Organized Health Care Education/Training Program; Visit Provider Surgery
DX: C50.919 Malignant neoplasm of unspecified site of unspecified female breast (principal)
CPT/HCPCS: 99214

== ENCOUNTER → 2023-05-05 14:14 | Outpatient (BNVA) | payer OTHER, SELFPAY | PROVIDERS: PCP Student in an Organized Health Care Education/Training Program; Visit Provider Surgery | DX: C50.412 Malignant neoplasm of upper-outer quadrant of left female breast (principal); Z17.0 Estrogen receptor positive status [ER+]; Z98.890 Other specified postprocedural states | CPT/HCPCS: 99212 ==

== ENCOUNTER → 2023-05-11 09:16 | Outpatient (BNV) | payer MEDICAID, OTHER, SELFPAY | PROVIDERS: PCP Student in an Organized Health Care Education/Training Program; Visit Provider Internal Medicine Medical Oncology | DX: C50.412 Malignant neoplasm of upper-outer quadrant of left female breast (principal) | CPT/HCPCS: 99204; 99213; 99214 ==

== ENCOUNTER 2023-05-13 10:55 | Outpatient (REF) | payer OTHER, SELFPAY ==
--- NOTE | ~2023-05-13 | US_ITS ---
EXAMINATION: US THYROID CLINICAL INFORMATION: Nontoxic single thyroid nodule. COMPARISON: Ultrasound soft tissue head/neck thyroid dated 09/01/2016. TECHNIQUE: Linear transducer grayscale and color Doppler examination with attention to the region of the thyroid. FINDINGS: SIZE: Measurements of the thyroid lobes and nodules are given in sagittal, anteroposterior and transverse dimensions respectively. Right Thyroid Lobe: 4.2 x 1.1 x 1.4 cm, volume 3.4 mL. Previously 4.9 x 1.2 x 1 point cm, volume 5.8 mL. Parenchyma: The gland echotexture is homogeneous. Thyroid vascularity is normal. Left Thyroid Lobe: 3.9 x 1.7 x 1.1 cm, volume 3.8 mL. Previously 4.5 x 1.8 x 1.4 cm, volume 5.9 mL. Parenchyma: The gland echotexture is homogeneous. Thyroid vascularity is normal. Isthmus: 0.6 cm in maximum AP dimension. Previously 0.3 cm. Estimated total number of nodules greater than or equal to 1 cm: 0. 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 Location: Left mid. Size: 0.5 x 0.3 x 0.5 cm, volume 0.03 mL. Previously: 0.3 x 0.2 x 0.4 cm, volume 0.01 mL. Nodule characteristics: Composition: Solid (2). Echogenicity: Hypoechoic (2). Shape: Not taller than wide (0). Margins: Smooth (0). Echogenic Foci: None (0). ACR TI-RADS total points: 4 ACR TI-RADS category: 4 Significant change in size (>/= 20% in 2 dimensions and minimal increase of 2 mm or 50% or greater increase in volume): Yes Change in features: No Change in ACR TI-RADS risk category: No NODES: No lymphadenopathy is seen in the tissue surrounding the thyroid gland. US/US thyroid IMPRESSION: A small left thyroid lobe nodule is seen, for which no imaging follow-up is recommended. ACR TI-RADS RECOMMENDATION REFERENCE: Ultrasound-guided fine-needle aspiration, follow up ultrasound, no further followup. * TR1 (0 point) and TR2 (2 points): No FNA or followup * TR3 (3 points): FNA if more than or equal to 2.5 cm in maximum dimension, follow up ultrasound in 1, 3 and 5 years if 1.5 to 2.4 cm in maximum dimension. * TR4 (4-6 points): FNA if more than or equal to 1.5 cm in maximum dimension, follow up ultrasound in 1, 2, 3 and 5 years if 1 to 1.4 cm in maximum dimension. * TR5 (more than or equal to 7 points): FNA if more than or equal to 1 cm in maximum dimension, follow up ultrasound every year for 5 years if 0.5 to 0.9 cm in maximum dimension. * TR3, TR4 or TR5 nodules that are below the size threshold for follow up receive no followup.
== END 2023-05-13 10:56 | disposition home or self-care (01) ==
LOC: HO.US 10:55
PROVIDERS: PCP Student in an Organized Health Care Education/Training Program; Visit Provider Student in an Organized Health Care Education/Training Program
DX: E04.1 Nontoxic single thyroid nodule (principal)
CPT/HCPCS: 76536

== ENCOUNTER 2023-05-21 07:48 | Outpatient (REF) | payer OTHER, SELFPAY ==
--- NOTE | ~2023-05-21 | MM_ITS ---
EXAMINATION: MM MAMMOGRAM GUIDED RFID LOCALIZATION BREAST, LEFT CLINICAL INFORMATION: Needle localization RFID Chip for mass 2:00 axis left breast marked by coil clip, with pathology yielding invasive ductal carcinoma. COMPARISON: Numerous reason priors, most recently 03/09/2023. 03/05/2023. TECHNIQUE NEEDLE LOC: Proper informed consent is obtained from the patient after discussion of the procedure, potential risks and complications, and alternatives including declining the procedure today. Patient was given an opportunity for questions. The patient appeared to understand. The patient consented to the procedure and signed the consent form. GUIDANCE: Digital mammography. APPROACH: Lateral Medial. TARGET: Coil clip/spiculated mass. ANESTHESIA: carbonated lidocaine 1%: 3 mL. LOCALIZATION SYSTEM: -BitAnimate LOCallizer Wire-Free Guidance System with 12g needle applicator. -Length: 5 cm. -RADIOFREQUENCY TAG: ID # [id number] DERMATOTOMY: None needed. RF Tag ID confirmed with LOCalizer Guidance System prior to placement. The skin is prepped and local anesthesia administered. The needle is positioned and RFID tag deployed. Final images demonstrate the LOCalizer RF tag to reside immediately lateral and immediately anterior inferior to the biopsied mass and clip. The location appears satisfactory in terms of placement. The patient tolerated the procedure well and had no immediate complications. Dressing placed and home instructions reviewed. MM/MM needle loc LT IMPRESSION: -Status post left breast RFID localization. Final positioning of chip appears accurate and satisfactory.
[2023-05-21] MEDS: Sodium Bicarbonate 8.4% 50 MEQ/50 ML VIAL SUBCUT (09:09)
[2023-05-21] MEDS: Lidocaine HCl 1 % 20 ML VIAL 9 ML SUBCUT (09:11)
== END 2023-05-21 07:49 | disposition home or self-care (01) ==
LOC: HO.MAMMO 07:48
PROVIDERS: PCP Student in an Organized Health Care Education/Training Program; Visit Provider Surgery
DX: C50.912 Malignant neoplasm of unspecified site of left female breast (principal)
CPT/HCPCS: 19281; C1819

== ENCOUNTER 2023-05-28 06:52 | Day surgery (SDC) | payer OTHER, SELFPAY ==
[2023-05-25 14:22] VITALS: BMI 40.9
--- NOTE | 2023-05-27 09:38 | P.CONAN_ITS ---
Documented by User: Ce Landeros NP 05/27/23 09:45 HPI - Anesthesia Eval Consult details Narrative: 62yo F for Left Breast Lumpectomy w/LOCalizer, Axillary Brisbin Node Biopsy Pulmo optimized DOUG treated with position PMFSH Active Problems Active Problems: All Active Problems (Updated 05/11/23 @ 09:50 by Iwona Murry MD) Invasive ductal carcinoma of breast (Acute) Pre-op chest exam (Acute) Left breast mass (Acute) Chronic restrictive lung disease (Acute) DOUG (obstructive sleep apnea) (Acute) Primary osteoarthritis of left knee (Acute) Primary osteoarthritis of right knee (Acute) Prediabetes (Acute) Obesity (BMI 30-39.9) (Acute) Hypertension (Acute) Asthma (Acute) Vitamin D deficiency (Acute) Osteoporosis (Acute) Hyperparathyroidism (Acute) Past Medical History Medical History (Updated 05/28/23 @ 07:01 by Kristina Cueva) Diabetes Invasive ductal carcinoma of breast Left breast mass Chronic restrictive lung disease Prediabetes Obesity (BMI 30-39.9) Hypertension Asthma Vitamin D deficiency Osteoporosis History of primary hyperparathyroidism Hyperparathyroidism Family History Family History Father Cancer Mother Cardiomyopathy Diabetes Obesity Other Thyroid disease Surgical History Surgical History (Updated 05/28/23 @ 07:08 by Kristina Cueva) H/O vein stripping S/P LASIK surgery of both eyes Hx of parathyroidectomy Hx of tubal ligation Social History Social History (Updated 05/11/23 @ 09:22 by Sun Vigil) Household Members: None Alcohol intake: current Alcohol intake frequency: a few times a month Patient Tobacco Use Status: Never used Tobacco Use of substances other than those prescribed or required for medical reasons: No Are you DNR?: No Advance Directives: No Advance Directives Information Provided: Yes service: No Current occupational status: employed Gender identity: Female Meds Allergies Allergy/AdvReac Type Severity Reaction Status Date / Time Penicillins Allergy Intermediate RASH Verified 05/28/23 07:07 Home Medications Medication Instructions Recorded Confirmed Last Taken Type verapamil 360 mg 24 hr 360 mg PO DAILY 07/05/20 05/28/23 05/27/23 History capsule,extended release blood sugar diagnostic (FreeStyle #10 ea 07/21/22 05/28/23 Unknown History Lite Strips) blood-glucose meter (FreeStyle 07/21/22 05/28/23 Unknown History Lite Meter kit) lancets 33 gauge (TRUEplus Lancets) #100 ea 07/21/22 05/28/23 Unknown History losartan 100 mg tablet 100 mg PO DAILY 07/21/22 05/28/23 05/27/23 History metformin 500 mg tablet,extended 1,000 mg PO BID 07/21/22 05/28/23 05/27/23 History release 24 hr rosuvastatin 5 mg tablet 5 mg PO DAILY 07/21/22 05/28/23 Unknown History albuterol sulfate 2.5 mg/3 mL 2.5 mg inhalation Q4H PRN Wheezing 05/03/23 05/28/23 Unknown History (0.083 %) solution for nebulization empagliflozin 10 mg tablet 10 mg PO QAM 05/03/23 05/28/23 05/27/23 History (Jardiance) insulin glargine 100 unit/mL (3 7 unit subcut BEDTIME 05/03/23 05/28/23 05/27/23 19:00 History mL) subcutaneous pen (Lantus 7 units Solostar U-100 Insulin) nebulizers 05/03/23 05/28/23 Unknown History Exam Exam Date and Time: May 27, 2023 0938 Height,Weight and Vital Signs: Height 4 ft 9 in Weight 85.729 kg Pertinent Lab Results Pertinent Lab Results: Laboratory Tests 05/11/23 10:23 WBC 7.8 Hgb 14.6 Hct 44.7 Plt Count 441 H Sodium 139 Potassium 4.2 Chloride 106 Carbon Dioxide 25 BUN 13 Creatinine 0.70 Narrative Narrative: PFT 2021 Forced vital capacity 67%, FEV1 74%, FEV1/FVC ratio is 86, [id number] 84%, and MVV 84%. Post bronchodilator therapy, there is no change. Total lung capacity 70%, residual volume 67%. Diffusion capacity 96%. CONCLUSION: [id number] degree of restrictive pulmonary disorder. No obstructive airway disorder. No significant response to bronchodilator therapy. Clinical correlation recommended. Assessment and Plan Assessment Anesthesia Assessment: Chart Reviewed Documented by User: Parth Schilling MD 05/28/23 10:41 [facility] Past Medical History Medical History (Updated 05/28/23 @ 07:01 by Kristina Cueva) Diabetes Invasive ductal carcinoma of breast Left breast mass Chronic restrictive lung disease Prediabetes Obesity (BMI 30-39.9) Hypertension Asthma Vitamin D deficiency Osteoporosis History of primary hyperparathyroidism Hyperparathyroidism Family History Family History Father Cancer Mother Cardiomyopathy Diabetes Obesity Other Thyroid disease Family history of problems with anesthesia: No Surgical History Surgical History (Updated 05/28/23 @ 07:08 by Kristina Cueva) H/O vein stripping S/P LASIK surgery of both eyes Hx of parathyroidectomy Hx of tubal ligation History of Problems with Anesthesia: No Social History Social History (Updated 05/11/23 @ 09:22 by Sun Vigil) Household Members: None Alcohol intake: current Alcohol intake frequency: a few times a month Patient Tobacco Use Status: Never used Tobacco Use of substances other than those prescribed or required for medical reasons: No Are you DNR?: No Advance Directives: No Advance Directives Information Provided: Yes service: No Current occupational status: employed Gender identity: Female Meds Allergies Allergy/AdvReac Type Severity Reaction Status Date / Time Penicillins Allergy Intermediate RASH Verified 05/28/23 07:07 Home Medications Medication Instructions Recorded Confirmed Last Taken Type verapamil 360 mg 24 hr 360 mg PO DAILY 07/05/20 05/28/23 05/27/23 History capsule,extended release blood sugar diagnostic (FreeStyle #10 ea 07/21/22 05/28/23 Unknown History Lite Strips) blood-glucose meter (FreeStyle 07/21/22 05/28/23 Unknown History Lite Meter kit) lancets 33 gauge (TRUEplus Lancets) #100 ea 07/21/22 05/28/23 Unknown History losartan 100 mg tablet 100 mg PO DAILY 07/21/22 05/28/23 05/27/23 History metformin 500 mg tablet,extended 1,000 mg PO BID 07/21/22 05/28/23 05/27/23 History release 24 hr rosuvastatin 5 mg tablet 5 mg PO DAILY 07/21/22 05/28/23 Unknown History albuterol sulfate 2.5 mg/3 mL 2.5 mg inhalation Q4H PRN Wheezing 05/03/23 05/28/23 Unknown History (0.083 %) solution for nebulization empagliflozin 10 mg tablet 10 mg PO QAM 05/03/23 05/28/23 05/27/23 History (Jardiance) insulin glargine 100 unit/mL (3 7 unit subcut BEDTIME 05/03/23 05/28/23 05/27/23 19:00 History mL) subcutaneous pen (Lantus 7 units Solostar U-100 Insulin) nebulizers 05/03/23 05/28/23 Unknown History Exam Airway Mallampati Class: II TM Dist: <=3cm Neck ROM: Full Loose/Missing/Broken Teeth: Yes and Upper Heart: ok Lungs: ok. see above. Assessment and Plan Assessment Anesthesia Assessment: Anesthesia Plan Discussed Final Anesthetic Review Family History of Problems with Anesthesia: No History of Problems with Anesthesia: No NPO: Yes ASA Class: III Final Preanesthetic Review: No Changes in Pt Med Stat, Meds/Allgs Chart Reviewed, Consent Obtained/Reviewed and Anes Risks/Benef Reviewed Patient Risk: Intermediate Procedure Risk: Low Anesthetic Plan Anesthetic Plan: GA and Agree w/ Assess. and Plan Disposition: Standard PACU
[2023-05-28] VITALS (7 sets, daily range): BP systolic 128–146; BP diastolic 71–89; PULSE 65–81; RESP 16–18; TEMP 36.2–36.4; O2SAT 96–98; BMI 40.7
--- NOTE | ~2023-05-28 | MM_ITS ---
EXAMINATION: RFID LOCALIZATION SPECIMEN FROM THE LEFT BREAST CLINICAL INFORMATION: Left breast 2:00 axis invasive ductal carcinoma marked by coil clip. COMPARISON: 05/21/2023 TECHNIQUE: Single specimen radiograph was obtained. FINDINGS: The radiograph of the excised surgical specimen demonstrates the mass centrally within the specimen, the coil biopsy clip abutting the central mass within the specimen, and the RFID chip slightly lateral within the specimen. Several calcifications are noted within the central specimen as well as in the periphery of the mass. MM/MM surgical specimen IMPRESSION: Satisfactory excision of the targeted lesion, clip, and RFID chip. These findings were communicated to the surgeon in the OR at the time of specimen radiography.
--- NOTE | ~2023-05-28 | NM_ITS ---
EXAMINATION: NM LYMPH SCINTIGRAPHY CLINICAL INFORMATION: Breast cancer COMPARISON: None available. TECHNIQUE: The subcutaneous soft tissues of the skin and nipple interface of the left breast were injected with 4 separate aliquots of 0.125 mCi technetium 99m labeled lymphoseek for total dose of 0.5 mCi. Imaging of the chest in the anterior TRINIDADIAN and left lateral positions were performed at 20 and 45 minutes. FINDINGS: There is adequate radiotracer activity seen at the skin and nipple interface. There is positive sentinel node activity seen in the left axilla. One lymph node is identified. NM/NM sentinel node w imaging IMPRESSION: Positive sentinel node activity seen in the left axilla.
[2023-05-28 07:24] LABS: Glucose, Whole Blood 125 mg/dL (60-115)
[2023-05-28] MEDS: Lactated Ringers 1,000 ML 100 ML IVCONT (07:34)
--- NOTE | 2023-05-28 11:39 | P.OP_ITS ---
Operative Note Operative Note Date of Service: 05/28/23 Narrative: Preop diagnosis: Invasive ductal cancer, left breast Postop diagnosis: The same Procedure: Left breast lumpectomy with localization using the Hologic localizer, and sentinel node biopsy Surgeon: Freedom Husain MD accounting assistant: LAURA Boyer The patient is a 62-year-old female recently diagnosed to have left breast invasive ductal carcinoma on biopsy. She is here for left breast lumpectomy and sentinel biopsy. She undergone sentinel node mapping earlier. I have reviewed the films and this had shown 1 sentinel node the node in the axilla. She understood the technique of the planned procedure as well as the risks, benefits, and alternatives. The patient was brought to the operating room and placed supine with the left arm abducted to expose the axilla. She was in anesthesia via laryngeal mask airway. The left breast and the left arm areas were both prepped and draped in the usual sterile fashion. A surgical time-out was done. The patient received cefazolin 2 g IV preoperatively With the use of the Hologic localizing probe, I identified the most superficial area for the incision. This was at about the 2 o'clock position of the left breast right where the needle biopsy had been done. I infiltrated the area using lidocaine 1%. I made an incision transversely using blade 15. This was carried down with electrocautery through the full-thickness of the skin and part of the subcutaneous fat. We then proceeded to periodically use the Hologic localizing probe to guide further sharp dissection with the curved Randle scissors around the perceived area of the localizing clip. We dissected around this making sure that we had adequate breast tissue surrounding the localizing clip we dissected circumferentially until were able to deliver the specimen. Immediate rear a in the operating room itself showed that the biopsy clip as well as the Hologic RFA clip were within the and in good position. We then sent the specimen for immediate gross exam. While waiting for the pathologic gross exam, we proceeded to do the sentinel node biopsy. At this point we had changed gloves and instrument set up. I used the probe to identify the point of maximal counts. I infiltrated this area with lidocaine 1% and made the incision using blade 15. This carried down through the full-thickness of the skin subcutaneous fat with electrocautery. I then again used the gamma probe periodically to guide direction of our dissection. We entered the axillary fat pad and continued to periodically used the probe to identify the sentinel node. We had a count of 590 on a palpable lymph node. We dissected this circumferentially and this was sent as a specimen. We examined the entire axilla for elevated counts but there were no other areas with higher dose using the gamma probe. I copies irrigated. We apposed the subcutaneous tissue you had Polysorb 3-0 sutures. Skin closure was achieved with soft 4-0 subcuticular running sutures At this point, I scrubbed out and went down to the pathology lab. I reviewed the lumpectomy specimen with the pathologist and the margins appeared to be clear. I therefore went back to the operating room and closure was done of the subc utaneous layer as well as the skin using Polysorb 3-0 interrupted sutures and Polysorb 4-0 subcuticular running sutures. There was note of good hemostasis on both excision sites . Both incisions were infiltrated with Marcaine 0.5% for postop MATTY. Dressings were applied. The procedure was completed. The patient tolerated procedure well. There were no immediate complications. Initial and final counts of sponges and instruments were correct. Estimated blood loss about 20 cc The patient was extubated without difficulty and transferred to the recovery room with stable vital signs.
[2023-05-28] MEDS: Acetaminophen 325 MG TABLET 650 MG PO (12:19)
[2023-05-28] MEDS: oxyCODONE HCl Immed Release 5 MG TABLET PO (12:19)
== END 2023-05-28 13:30 | disposition home or self-care (01) ==
PROVIDERS: PCP Student in an Organized Health Care Education/Training Program; Visit Provider Surgery
PROC: (CPT 19301; principal; 2023-05-28 11:00)
PROC: (CPT 19301; 2023-05-28 11:00)
DX: C50.912 Malignant neoplasm of unspecified site of left female breast (principal); Z17.0 Estrogen receptor positive status [ER+]; E21.3 Hyperparathyroidism, unspecified; J98.4 Other disorders of lung; I10 Essential (primary) hypertension; R73.03 Prediabetes; J45.909 Unspecified asthma, uncomplicated; M81.0 Age-related osteoporosis without current pathological fracture; Z88.0 Allergy status to penicillin
CPT/HCPCS: 19301; 38525; 78195; 82947; 88307; 88329; 88342; A9520; J0690; J1885; J2405; J2795; J3010

== ENCOUNTER → 2023-05-28 06:52 | Outpatient (BNV) | payer OTHER, SELFPAY | PROVIDERS: PCP Student in an Organized Health Care Education/Training Program; Visit Provider Surgery | DX: C50.412 Malignant neoplasm of upper-outer quadrant of left female breast (principal) | CPT/HCPCS: 19301; 38525; 38900 ==

== ENCOUNTER 2023-06-10 09:51 | Outpatient (AMB) | payer OTHER, MEDICAID, SELFPAY ==
--- NOTE | 2023-06-10 09:58 | MHC.OFFVIS ---
Intake Vital Signs 06/10/23 10:07 Weight 189 lb BP 150/76 H Blood Pressure Location Rt brachial Position Sitting Pulse 70 Intake Visit Reasons: S/P Lt breast lumpectomy, SN bx Intake Note: This patient presents for a post-op assessment status post left breast lumpectomy with sentinel node biopsy. 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 She tolerated the procedure well. She denies significant complaints and says she feels well overall. [facility] Medical History Diabetes Invasive ductal carcinoma of breast Left breast mass Chronic restrictive lung disease Prediabetes Obesity (BMI 30-39.9) Hypertension Asthma Vitamin D deficiency Osteoporosis History of primary hyperparathyroidism Hyperparathyroidism Surgical History History of lumpectomy of left breast (~05/28/23) H/O vein stripping S/P LASIK surgery of both eyes Hx of parathyroidectomy Hx of tubal ligation Family History Father Cancer Mother Cardiomyopathy Diabetes Obesity Other Thyroid disease Social History Household Members: None Alcohol intake: current Alcohol intake frequency: a few times a month Patient Tobacco Use Status: Never used Tobacco service: No Current occupational status: employed Gender identity: Female Female Reproductive History Menstrual Age of Menarche: 14 Review of Systems Const Denies chills and Denies fever(s) Card Denies chest pain, Denies dyspnea and Denies dyspnea on exertion Resp Denies cough, Denies dyspnea and Denies dyspnea on exertion GI Denies hematochezia and Denies change in bowel habits Denies hematuria Musc Denies back pain and Denies limited range of motion Neuro Denies focal weakness and Denies convulsions Psych Denies depression and Denies mood swings Physical Exam Vital Signs: Last Vital Signs Pulse 70 06/10/23 10:07 BP 150/76 H 06/10/23 10:07 Const General: comfortable and no acute distress Orientation/consciousness: patient oriented x3 Neck Neck: Yes no lymphadenopathy Chest Other: Incision is well healed, no hematoma, no cellulitis Resp Effort & Inspection: normal respiratory effort Auscultation: clear to auscultation bilaterally Cardio Rhythm: regular rhythm GI Palpation (GI): Soft to palpation, nontender and no guarding Neuro General: patient oriented x3 Assessment & Plan Assessment & Plan (1) Invasive ductal carcinoma of breast: Code(s): C50.919 - Malignant neoplasm of unspecified site of unspecified female breast Plan: Status post lumpectomy and sentinel node biopsy. Path report shows that the resection margins are negative. There is no lymphovascular invasion. The sentinel node was negative. I emphasized to her that she needs to follow-up with Dr. Murry for her postop visit. It is unlikely that she will need chemotherapy but she may benefit from hormonal adjuvant treatment as her tumor is ER AR receptor positive. She understands that she will need postop radiation to the breast I will see her again in the office in about 6 months. Coding Level of Care Code Global (53042) Diagnoses Invasive ductal carcinoma of breast C50.919
[2023-06-10 10:07] VITALS: BP 150/76; PULSE 70
== END 2023-06-10 10:37 | disposition home or self-care (01) ==
PROVIDERS: PCP Student in an Organized Health Care Education/Training Program; Visit Provider Surgery
DX: C50.919 Malignant neoplasm of unspecified site of unspecified female breast (principal)
CPT/HCPCS: 99024

== ENCOUNTER → 2023-06-10 09:51 | Outpatient (BNVA) | payer OTHER, MEDICAID, SELFPAY | PROVIDERS: PCP Student in an Organized Health Care Education/Training Program; Visit Provider Surgery ==

== ENCOUNTER 2023-09-09 09:21 | Outpatient (REF) | payer MEDICAID, SELFPAY ==
[2023-09-09 10:26] LABS: Estimated Average Glucose 148 mg/dL; Hemoglobin A1c % 6.8 % (<6.0)
[2023-09-09 10:58] LABS: Alanine Aminotransferase 20 U/L (0-31); Alkaline Phosphatase 96 U/L (39-117); Anion Gap 11 (12-20); Aspartate Amino Transferase 16 U/L (5-31); Bilirubin Total 0.3 mg/dL (0.0-1.0); Blood Urea Nitrogen 12 mg/dL (9-16); Calcium 9.5 mg/dL (8.4-10.2); Carbon Dioxide 24 mmol/L (22-29); Chloride 109 mmol/L (96-108); Cholesterol 148 mg/dL (<200); Estimated Glomerular Filt Rate > 60; Glucose Random 130 mg/dL (60-115); HDL Cholesterol 58 mg/dL (>40); LDL Cholesterol Calculated 76 mg/dL (<100); Potassium 4.2 mmol/L (3.3-5.1); Sodium 140 mmol/L (135-145); Total Protein 7.5 g/dL (6.5-8.0); Triglycerides 70 mg/dL (<150)
[2023-09-09 11:19] LABS: Creatinine Urine 101.58 mg/dL; Microalbum/Creatinine Ratio Ur 16.7 ug/mg cr (<30)
[2023-09-09 11:38] LABS: Folate 9.3 ng/mL (> or = 4.0)
[2023-09-09 14:57] LABS: Vitamin B12 246 pg/mL (200-900)
== END 2023-09-09 09:22 | disposition home or self-care (01) ==
LOC: HO.LAB 09:21
PROVIDERS: PCP Student in an Organized Health Care Education/Training Program; Visit Provider Student in an Organized Health Care Education/Training Program
DX: E11.9 Type 2 diabetes mellitus without complications (principal)
CPT/HCPCS: 36415; 80053; 80061; 82043; 82570; 82607; 82746; 83036

== ENCOUNTER 2023-09-16 09:42 | Outpatient (AMB) | payer MEDICAID, SELFPAY ==
[2023-09-16 09:49] VITALS: BP 140/82; PULSE 82; BMI 37.7
--- NOTE | 2023-09-16 09:49 | MHC.OFFVIS ---
Intake Vital Signs 09/16/23 09:49 Height 5 ft Weight 192 lb 14.472 oz BMI 37.7 BP 140/82 H Blood Pressure Location Lt brachial Position Sitting Pulse 82 Pulse Source Pulse Oximeter Intake Visit Reasons: hyperparathyroidism-CONFIRMED Intake Note: Patient presents today for Hyperparathyroidism follow up. Wedding Coordinator Required: No Accompanied by: Self / Same As Patient Allergies Penicillins Allergy (Intermediate, Verified 09/16/23 09:53) RASH Medication List - Last Reconciled 09/16/23 by Juan Tatum MD albuterol sulfate 2.5 mg inhalation Q4H PRN blood sugar diagnostic (FreeStyle Lite Strips) As directed 2 times a day blood-glucose meter (FreeStyle Lite Meter kit) As directed cholecalciferol (vitamin D3) 50 mcg PO DAILY empagliflozin (Jardiance) 25 mg PO QAM fluticasone propion-salmeterol 230-21 mcg/actuation (Advair HFA) 2 puffs inhalation Q12H fluticasone propionate 50 mcg/actuation (Flonase Allergy Relief) 2 sprays intranasal DAILY ibuprofen 600 mg PO Q6H PRN insulin glargine (Lantus Solostar U-100 Insulin) 7 units subcut BEDTIME lancets (TRUEplus Lancets) As directed 2 times a day losartan 100 mg PO DAILY metformin ER 1,000 mg PO BID nebulizers As directed rosuvastatin 5 mg PO DAILY tamoxifen 20 mg PO DAILY verapamil ER 360 mg PO DAILY HPI HPI Comments History of Present Illness Details ?63-year-old female, today for follow-up,? ? for hyperparathyroidism and osteoporosis ? She had right superior parathyroid removed 06/22/[address]afana. Histology report showed hypercellular gland. ? Vitamin D 5000 units daily. She has 3 servings of calcium in diet. ? 07/27/16 ? CREAT 0.68 mg/DL ? GFR > 60 ml/min ? ALK phos 157 IU/L ? Vitamin D 25 OH 13.1 ng/DL <-------- < 13 ng/DL 11/14/15. ? TSH 1.36 MIU/ML ? PTH 175 pg/ml <--------121 pg/ml (12/06/14) ? Calcium 10.4 mg/DL. ? Trend calcium 2003 - 2015 10.4 to 10.9 mg/DL ? DEXA scan 12/27/18 ? AP SPINE L1-L4: ? Current: BMD 0.931 g/cm2, Z-score -1.5, T-score -2.1, osteopenia, 8.8% ? increase from baseline (<5% change is not significant). ? Baseline: BMD 0.856 g/cm2. ? LEFT FEMUR, NECK: ? Current: BMD 0.907 g/cm2, Z-score -0.1, T-score -0.9, normal. ? Baseline: BMD 0.824 g/cm2. ? LEFT FEMUR, TOTAL: ? Current: BMD 0.953 g/cm2, Z-score 0.1, T-score -0.4, normal, 3.9% ? increase from baseline (<5% change is not significant). ? Baseline: BMD 0.917 g/cm2. ? LEFT FOREARM RADIUS 33%: ? Current: BMD 0.708 g/cm2, Z-score -1.2, T-score -1.9, osteopenia, 1.0% ? decrease from baseline (<5% change is not significant). ? Baseline: BMD 0.715 g/cm2. Laboratory Tests 09/07/19 01/25/21 11:04 09:07 Calcium 9.8 Albumin 4.2 25-OH Vitamin D To marco 21.6 TSH 3rd Generation 1.00 Laboratory Tests 07/02/20 07/02/20 10:10 10:10 Sodium 136 Potassium 4.6 BUN 12 Creatinine 0.72 Estimated GFR > 60 Calcium 9.4 Alkaline Phosphata se 102 Albumin 4.3 25-OH Vitamin D To marco 21.2 PTH Intact 56 Calcium (PTH Intac t) 9.3 Is on 5000 IU of vitamin D3 with normalization PTH and calcium . Had a fall but no fracture. Currently not on steroids [facility] Medical History Diabetes Invasive ductal carcinoma of breast Left breast mass Chronic restrictive lung disease Prediabetes Obesity (BMI 30-39.9) Hypertension Asthma Vitamin D deficiency Osteoporosis History of primary hyperparathyroidism Hyperparathyroidism Surgical History History of lumpectomy of left breast (~05/28/23) H/O vein stripping S/P LASIK surgery of both eyes Hx of parathyroidectomy Hx of tubal ligation Family History Father Cancer Mother Cardiomyopathy Diabetes Obesity Other Thyroid disease Social History Household Members: None Alcohol intake: current Alcohol intake frequency: a few times a month Patient Tobacco Use Status: Never used Tobacco service: No Current occupational status: employed Gender identity: Female Female Reproductive History Menstrual Age of Menarche: 14 Assessment & Plan Assessment & Plan (1) Hyperparathyroidism: Code(s): E21.3 - Hyperparathyroidism, unspecified Plan: Secondary hyperparathyroidism has resolved (2) Osteoporosis: Code(s): M81.0 - Age-related osteoporosis without current pathological fracture Qualifiers: Presence of current pathological fracture: without current pathological fracture Plan: This is 62-year-old female with a history of osteoporosis and primary hyperparathyroidism status post parathyroidectomy with residual secondary hyperparathyroidism vitamin-D deficiency. Which is now corrected on on vitamin-D 5000 IU per day . She is currently on tamoxifen which may have some bone density protective effects The plan is to continue the tamoxifen as per oncology. Patient returned to the care of her primary care provider who can follow DEXA bone density and repeated about a year and a half. If this significant decline in bone density, either alendronate can be restarted or patient returned back to endocrinology Coding Level of Care Code Est Pt Level 3 (64845) Diagnoses Hyperparathyroidism E21.3 Osteoporosis M81.0 Presence of current pathological fracture: without current pathological fracture
== END 2023-09-16 12:32 | disposition home or self-care (01) ==
PROVIDERS: PCP Student in an Organized Health Care Education/Training Program; Visit Provider Internal Medicine Endocrinology, Diabetes & Metabolism
DX: E21.3 Hyperparathyroidism, unspecified (principal); M81.0 Age-related osteoporosis without current pathological fracture
CPT/HCPCS: 99213

== ENCOUNTER → 2023-09-16 09:42 | Outpatient (BNVA) | payer MEDICAID, SELFPAY | PROVIDERS: PCP Student in an Organized Health Care Education/Training Program; Visit Provider Internal Medicine Endocrinology, Diabetes & Metabolism | DX: E21.3 Hyperparathyroidism, unspecified (principal); M81.0 Age-related osteoporosis without current pathological fracture | CPT/HCPCS: 99212 ==

== ENCOUNTER 2023-12-06 09:06 | Outpatient (AMB) | payer MEDICAID, SELFPAY ==
[2023-12-06 09:13] VITALS: BP 146/68; PULSE 71; BMI 37.4
--- NOTE | 2023-12-06 09:13 | A.OFFVIS_ITS ---
Intake Vital Signs 12/06/23 09:13 Height 5 ft Weight 191 lb 5.78 oz BMI 37.4 BP 146/68 H Blood Pressure Location Lt brachial Position Sitting Pulse 71 Intake Visit Reasons: Colonoscopy screening Intake Note: Elaine presents in office today as a new patient for colonoscopy screening. CC: Last colonoscopy 10 years ago here are [facility]. Denies having any GI symptoms today. Enrollment Representative Required: Yes Enrollment Representative Name: Autumn [id number] Accompanied by: Self / Same As Patient Allergies Penicillins Allergy (Intermediate, Verified 12/06/23 09:16) RASH Medication List - Last Reconciled 12/06/23 by Radha Lyons PA-C albuterol sulfate 2.5 mg inhalation Q4H PRN blood sugar diagnostic (FreeStyle Lite Strips) As directed 2 times a day blood-glucose meter (FreeStyle Lite Meter kit) As directed cholecalciferol (vitamin D3) 50 mcg PO DAILY empagliflozin (Jardiance) 25 mg PO QAM fluticasone propion-salmeterol 230-21 mcg/actuation (Advair HFA) 2 puffs inhalation Q12H fluticasone propionate 50 mcg/actuation (Flonase Allergy Relief) 2 sprays intranasal DAILY ibuprofen 600 mg PO Q6H PRN insulin glargine (Lantus Solostar U-100 Insulin) 7 units subcut BEDTIME lancets (TRUEplus Lancets) As directed 2 times a day losartan 100 mg PO DAILY metformin 1,000 mg PO BID nebulizers As directed rosuvastatin 5 mg PO DAILY tamoxifen 20 mg PO DAILY verapamil ER 360 mg PO DAILY HPI HPI Comments History of Present Illness Details A 62 y/o female referred for screening colonoscopy-she had a colonoscopy 10 years ago Appetite is good Bowels normal Breast cancer dx- 05/28/23- surgery- Dr. Husain- lumpectomy/ radiation Follows pulmonary Q 6 months- asthma- well controlled No N./V/ D/ fever or chills PFSH Medical History Diabetes Invasive ductal carcinoma of breast Left breast mass Chronic restrictive lung disease Prediabetes Obesity (BMI 30-39.9) Hypertension Asthma Vitamin D deficiency Osteoporosis History of primary hyperparathyroidism Hyperparathyroidism Surgical History History of lumpectomy of left breast (~05/28/23) H/O vein stripping S/P LASIK surgery of both eyes Hx of parathyroidectomy Hx of tubal ligation Family History Father Cancer Mother Cardiomyopathy Diabetes Obesity Other Thyroid disease Social History Household Members: None Alcohol intake: current Alcohol intake frequency: a few times a month Patient Tobacco Use Status: Never used Tobacco service: No Current occupational status: employed Gender identity: Female Female Reproductive History Menstrual Age of Menarche: 14 Review of Systems Const All systems reviewed & are unremarkable except as noted in HPI and below Card Denies chest pain and Denies dyspnea Resp Reports cough and Denies dyspnea GI Denies abdominal pain, Denies hematochezia, Denies nausea and Denies vomiting Physical Exam Vital Signs: Last Vital Signs Pulse 71 12/06/23 09:13 BP 146/68 H 12/06/23 09:13 BMI result Body Mass Index 37.4 Const General: cooperative, healthy appearing, comfortable and no acute distress Orientation/consciousness: patient oriented x3 Limitations: language barrier Resp Effort & Inspection: normal respiratory effort and able to speak in complete sentences Auscultation: clear to auscultation bilaterally, rales, rhonchi and wheezes Cardio Rate: regular rate Rhythm: regular rhythm Heart sounds: S1 normal heart sound present and S2 normal heart sound present GI Palpation (GI): Soft to palpation and nontender Auscultation: normal bowel sounds Neuro General: patient oriented x3 Extrem General: Yes full ROM Psych Appearance: grossly normal and well kempt Mental Status: mental status grossly normal Speech and movement: Normal speech and movement present and Clear speech present Affect: normal affect Attitude: cooperative Thought process: Normal thought process present Thought content: Normal thought content present Assessment & Plan Assessment & Plan (1) Chronic restrictive lung disease: Comment: Sees Dr. Heard q.6 months Code(s): J98.4 - Other disorders of lung Plan: Continue usual medication Will review prior to anesthesia (2) Prediabetes: Code(s): R73.03 - Prediabetes Plan: Insulin Jardiance Metformin Reviewed literature Plan [place] MiraLax Gatorade Anesthesia,-COPD/follows with pulmonology Discussed procedure, rare risks need for escort Reviewed medications Orders: Orders Colonoscopy - GI Use Only Today Z12.11 - Encounter for screening for malignant neoplasm of colon Medications: New bisacodyl (Dulcolax (bisacodyl)) Day before procedure @ 12 noon Take 4 tablets by mouth followed by large glass of water 20 mg (4 x 5 mg) PO ONCE 1 day PRN 4 tabs 0RF colonoscopy prep Z12.11 - Encounter for screening for malignant neoplasm of colon polyethylene glycol 3350 (Miralax) Take as directed by mouth the day before your procedure. 238 grams PO ONCE 1 day PRN 238 grams 0RF laxative effect Patient Instructions: Colonoscopy- anesthesia- copd/ asthma- MG prep Jardiance- stop 3 days metfomin omit day before 1/2 dose insulin- pm before Encouraged to call with any questions or concerns Coding Level of Care Code New Pt Level 3 (73224) Diagnoses Chronic restrictive lung disease J98.4 Prediabetes R73.03 Time Spent (min) 30 Comment [id number]
== END 2023-12-06 10:32 | disposition home or self-care (01) ==
PROVIDERS: PCP Student in an Organized Health Care Education/Training Program; Visit Provider Physician Assistant
DX: J98.4 Other disorders of lung (principal); R73.03 Prediabetes
CPT/HCPCS: 99203

== ENCOUNTER → 2023-12-06 09:06 | Outpatient (BNVA) | payer MEDICAID, SELFPAY | PROVIDERS: PCP Student in an Organized Health Care Education/Training Program; Visit Provider Physician Assistant | DX: J98.4 Other disorders of lung (principal); R73.03 Prediabetes | CPT/HCPCS: 99212 ==

== ENCOUNTER 2023-12-08 08:53 | Outpatient (AMB) | payer MEDICAID, SELFPAY ==
[2023-12-08 08:56] VITALS: BP 137/70; PULSE 67; BMI 37.1
--- NOTE | 2023-12-08 08:56 | A.OFFVIS_ITS ---
Intake Vital Signs 12/08/23 08:56 Height 5 ft Weight 190 lb BMI 37.1 BP 137/70 Blood Pressure Location Rt brachial Position Sitting Pulse 67 Intake Visit Reasons: 6 month breast exam Intake Note: This patient presents for a six month follow-up breast examination. Pt c/o; reports feeling lumps left breast, reports burning sensation left breast, reports LT breast gets hot but no redness, reports no discharge from nipple, reports no complaints at this time with the right breast, completed 26 treatments of radiation therapy on August 2023. Office Chair Assembler Required: Yes Office Chair Assembler Name: Haresh Information Interpreted: non-clinical & clinical Accompanied by: Self / Same As Patient Allergies Penicillins Allergy (Intermediate, Verified 12/08/23 09:05) RASH Medication List - Last Reconciled 12/08/23 by Freedom Husain MD albuterol sulfate 2.5 mg inhalation Q4H PRN bisacodyl (Dulcolax (bisacodyl)) 20 mg (4 x 5 mg) PO ONCE PRN 1 day blood sugar diagnostic (FreeStyle Lite Strips) As directed 2 times a day blood-glucose meter (FreeStyle Lite Meter kit) As directed cholecalciferol (vitamin D3) 50 mcg PO DAILY empagliflozin (Jardiance) 25 mg PO QAM fluticasone propion-salmeterol 230-21 mcg/actuation (Advair HFA) 2 puffs inhalation Q12H fluticasone propionate 50 mcg/actuation (Flonase Allergy Relief) 2 sprays intranasal DAILY ibuprofen 600 mg PO Q6H PRN insulin glargine (Lantus Solostar U-100 Insulin) 7 units subcut BEDTIME lancets (TRUEplus Lancets) As directed 2 times a day losartan 100 mg PO DAILY metformin 1,000 mg PO BID nebulizers As directed polyethylene glycol 3350 (Miralax) 238 grams PO ONCE PRN 1 day rosuvastatin 5 mg PO DAILY tamoxifen 20 mg PO DAILY verapamil ER 360 mg PO DAILY HPI 6 month breast exam HPI Details She is here for follow-up after left breast lumpectomy and sentinel biopsy for invasive ductal cancer last 05/28/2023. She has finished radiation treatment as well She says she feels well overall. She describes occasional sharp pains on the lumpectomy site. [facility] Medical History Diabetes Invasive ductal carcinoma of breast Left breast mass Chronic restrictive lung disease Prediabetes Obesity (BMI 30-39.9) Hypertension Asthma Vitamin D deficiency Osteoporosis History of primary hyperparathyroidism Hyperparathyroidism Surgical History History of lumpectomy of left breast (~05/28/23) H/O vein stripping S/P LASIK surgery of both eyes Hx of parathyroidectomy Hx of tubal ligation Family History Father Cancer Mother Cardiomyopathy Diabetes Obesity Other Thyroid disease Social History Household Members: None Alcohol intake: current Alcohol intake frequency: a few times a month Patient Tobacco Use Status: Never used Tobacco service: No Current occupational status: employed Gender identity: Female Female Reproductive History Menstrual Age of Menarche: 14 Review of Systems Const Denies chills and Denies fever(s) Card Denies chest pain, Denies dyspnea and Denies dyspnea on exertion Resp Denies cough, Denies dyspnea and Denies dyspnea on exertion GI Denies hematochezia and Denies change in bowel habits Denies hematuria Musc Denies back pain and Denies limited range of motion Neuro Denies focal weakness and Denies convulsions Psych Denies depression and Denies mood swings Physical Exam Vital Signs: Last Vital Signs Pulse 67 12/08/23 08:56 BP 137/70 12/08/23 08:56 BMI result Body Mass Index 37.1 Const General: comfortable and no acute distress Orientation/consciousness: patient oriented x3 Neck Neck: Yes no lymphadenopathy Chest Other: No palpable breast masses, no nipple or skin changes, no axillary lymphadenopathy, lumpectomy site well healed on the left breast Resp Auscultation: clear to auscultation bilaterally Cardio Rhythm: regular rhythm GI Palpation (GI): Soft to palpation, nontender and no guarding Neuro General: patient oriented x3 Assessment & Plan Assessment & Plan (1) Invasive ductal carcinoma of breast: Code(s): C50.919 - Malignant neoplasm of unspecified site of unspecified female breast Plan: Status post lumpectomy, sentinel node biopsy and radiation treatment for the left breast. Current exam does not reveal any masses or any axillary lymphadenopathy She feels well overall. I advised her to make sure that she goes for her regular screening mammograms. She is due for this in February,. I will see her again in the office in about 6 months. She has a follow-up with her oncologist as well. Coding Level of Care Code Est Pt Level 3 (20323) Diagnoses Invasive ductal carcinoma of breast C50.919
== END 2023-12-08 09:40 | disposition home or self-care (01) ==
PROVIDERS: PCP Student in an Organized Health Care Education/Training Program; Visit Provider Surgery
DX: C50.919 Malignant neoplasm of unspecified site of unspecified female breast (principal)
CPT/HCPCS: 99213

== ENCOUNTER → 2023-12-08 08:53 | Outpatient (BNVA) | payer MEDICAID, SELFPAY | PROVIDERS: PCP Student in an Organized Health Care Education/Training Program; Visit Provider Surgery | DX: C50.912 Malignant neoplasm of unspecified site of left female breast (principal) | CPT/HCPCS: 99212 ==

== ENCOUNTER 2023-12-21 08:03 | Outpatient (AMB) | payer MEDICAID, SELFPAY ==
--- NOTE | 2023-12-21 08:24 | A.OFFVIS_ITS ---
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 She has been on Advair 100/50 with reasonable control. She also carries a rescue inhaler. Unfortunately her respiratory symptoms became significantly worse with significant chest tightness and wheezing not responding to her home regimen or to her nebulizer. She went to the ER which she did undergo blood work and also an x-ray. Her x-ray was personally by me demonstrating no acute disease and her CBC was otherwise normal without any evidence of any eosinophilia. Although she has had eosinophilia in the past. She was treated with prednisone and she was discharged. She is starting to feel better. Although she still having intermittent symptoms. On examination she still has expiratory wheezing and diminished Respiratory capacity. Unfortunately she had also carries a history of glaucoma therefore she cannot use any anticholinergics. Her eye doctor also told her to avoid singular. Therefore will have to maximize her inhaled cortical steroids and long-acting beta agonist and avoid any anticholinergic therapy. The patient has not had any allergy testing. In addition to that the patient does have significant daytime drowsiness. Her [place] score is elevated 10/24. She does have headaches. She does have snoring. She also carries cardiovascular risk factors. The patient really needs to have a home sleep study. 03/24/2022 the patient is here for a pulmonary follow-up visit. The patient overall is doing beter. she seems to be responding better to the Advair HFA. She has not to had to use her rescue inhaler more than twice a week. Denies any significant chest tightness or wheezing. She still gets some dyspnea on exertion usually mild in severity. We did review her pulmonary function studies to get a demonstrating some evidence of small airways disease which is consistent with her asthma. But, in addition to that she did have a mild res trictive lung disease which could be due to her elevated BMI. Her chest x-ray was reassuring. The fact that her symptoms are better will continue to just monitor her. The patient will looking to going back to the weight management program. I am hopeful that she will continue to improve from a respiratory status as she continues to make healthy interventions. The patient continues to have daytime drowsiness. She did have a sleep study done however only required 30 minutes. Therefore we did reach out to the sleep center and they will be calling her to be do the study. Once I have the results of will call her to see if she needs to start CPAP therapy. The patient continues to be symptomatic therefore she will be a good candidate for PAP therapy vest the case. 11/03/2022 the patient is here for a pulmonary follow-up visit. Overall the patient is doing well. She does complaint of a dry hacky cough. [id number] severity. Usually bothers her most in the morning. Denies any chest congestion denies any fevers or chills and denies any sick contacts. Meantime she continues to have daytime drowsiness. Her [place] score is elevated 9/24. She did undergo an in-lab sleep study that was still hard for her initially to fall asleep. Final she did fall asleep and she was able to have an adequate study. She will had 1 episode of REM sleep. During that REM sleep she had significant sleep apnea. She also had evidence of apnea when she laid on her back. She did better when she laid her side her AHI was up to 7 events per hour. More significantly was effective the patient desaturated down to 71% during her sleep and also spent 14 minutes below 88%. During the study heart rate did increase to about 104 specially when she was having the significant apneic episodes during the REM sleep. Explained to the patient that she likely has REM related sleep disorder. She is not interested in using CPAP at this time. Therefore, she is going to try positional therapy. We did talk about different devices that she can consider. Plan to follow-up in 4-6 months. Prior to that study I will have the patient undergo an overnight oximetry to see if she was able to improve her significant hypoxia. If she continues to have hypoxia and continues to be symptomatic with an elevated [place] score then treating her with PAP therapy will be most beneficial. She continues with respiratory medication. 05/03/2023 the patient is here for pulmon lindsey follow-up visit. Overall she is doing well from a respiratory status. Her cough is better. She is tolerating the Advair well. Has not required her short-acting beta agonist. In addition to that she is sleeping on her side. She will call avoiding sleeping on her back. She was supposed to have an overnight oximetry but she has not had to sit as of yet. More recently she was diagnosed with breast cancer. She is going to follow up with the surgeon regarding the breast cancer. She will likely need surgery. From a respiratory status the patient doing well and may be able to proceed with anesthesia and surgery at this point. Patient has minor risk for any perioperative pulmonary complications which may include atelectasis and hypoxia and pneumonia. 12/21/2023 the patient is here for a pulmo nary follow-up visit. The patient overall has been doing very well. She did have her breast cancer surgery and then after she did follow-up with Oncology. She did receive radiation. Currently on tamoxifen. She is doing very well. She states that her asthma has been extremely well controlled. She has not had any flare-ups. Has not required any prednisone. She actually has not been required her rescue inhaler. Since she was doing well she actually stopped the Advair HFA for now. She is going to monitor closely her symptoms. She understands that she needs to use her rescue inhaler more than twice a week she should start the Advair again. The patient did have an x-ray done back in the spring which we reviewed demonstrating no acute disease. She is now having her protocol mammograms in additional studies through the Oncology and Surgical Department. Will follow-up in a year's time. [facility] Medical History Diabetes Invasive ductal carcinoma of breast Left breast mass Chronic restrictive lung disease Prediabetes Obesity (BMI 30-39.9) Hypertension Asthma Vitamin D deficiency Osteoporosis History of primary hyperparathyroidism Hyperparathyroidism Surgical History History of lumpectomy of left breast (~05/28/23) H/O vein stripping S/P LASIK surgery of both eyes Hx of parathyroidectomy Hx of tubal ligation Family History Father Cancer Mother Cardiomyopathy Diabetes Obesity Other Thyroid disease Social History Household Members: None Alcohol intake: current Alcohol intake frequency: a few times a month Patient Tobacco Use Status: Never used Tobacco service: No Current occupational status: employed Gender identity: Female Female Reproductive History Menstrual Age of Menarche: 14 Review of Systems Const Denies chills and Denies fever(s) Card Denies chest pain, Denies dyspnea and Denies dyspnea on exertion Resp Denies cough, Denies dyspnea and Denies dyspnea on exertion GI Denies hematochezia and Denies change in bowel habits Denies hematuria Musc Denies back pain and Denies limited range of motion Neuro Denies focal weakness and Denies convulsions Psych Denies depression and Denies mood swings Physical Exam Vital Signs: Last Vital Signs BP 136/82 12/21/23 08:25 Pulse Ox 96 12/21/23 08:25 Oxygen Delivery Method Room Air 12/21/23 08:25 BMI result Body Mass Index 37.2 Const General: alert Neck Neck: Yes normal visual inspection, Yes full ROM and Yes no lymphadenopathy Chest Chest palpation & inspection: normal inspection of the chest Resp Effort & Inspection: normal respiratory effort Auscultation: clear to auscultation bilaterally and no wheezes Cardio Rate: regular rate Rhythm: regular rhythm Heart sounds: S1 normal heart sound present and S2 normal heart sound present GI Palpation (GI): Soft to palpation and nontender Auscultation: normal bowel sounds Skin General skin exam: rashes and/or lesions noted Assessment & Plan Assessment & Plan (1) Asthma: Code(s): J45.909 - Unspecified asthma, uncomplicated Qualifiers: Asthma severity: mild Asthma persistence: intermittent Asthma complication type: uncomplicated Qualified Code(s): J45.20 - Mild intermittent asthma, uncomplicated (2) DOUG (obstructive sleep apnea): Code(s): G47.33 - Obstructive sleep apnea (adult) (pediatric) (3) Chronic restrictive lung disease: Code(s): J98.4 - Other disorders of lung Plan hold Advair HFA 220 postional therapy to treat the DOUG. Likely a REM related sleep disorder. overnight oximetry, requesting results Exercise/weight management ROBERTA as needed F/U 12 months Coding Level of Care Code Est Pt Level 4 (09385) Diagnoses Mild intermittent asthma without complication J45.20 Asthma severity: mild Asthma persistence: intermittent Asthma complication type: uncomplicated DOUG (obstructive sleep apnea) G47.33 Chronic restrictive lung disease J98.4 Time Spent (min) 16
[2023-12-21 08:25] VITALS: BP 136/82; O2SAT 96; BMI 37.2
== END 2023-12-21 08:21 | disposition home or self-care (01) ==
PROVIDERS: PCP Student in an Organized Health Care Education/Training Program; Referring Provider Student in an Organized Health Care Education/Training Program; Visit Provider Hospitalist
DX: J45.20 Mild intermittent asthma, uncomplicated (principal); G47.33 Obstructive sleep apnea (adult) (pediatric); J98.4 Other disorders of lung
CPT/HCPCS: 99214

== ENCOUNTER → 2023-12-21 08:03 | Outpatient (BNVA) | payer MEDICAID, SELFPAY | PROVIDERS: PCP Student in an Organized Health Care Education/Training Program; Visit Provider Hospitalist | DX: J45.20 Mild intermittent asthma, uncomplicated (principal); J98.4 Other disorders of lung; G47.33 Obstructive sleep apnea (adult) (pediatric) | CPT/HCPCS: 99212 ==

== ENCOUNTER 2024-01-17 09:08 | Outpatient (REF) | payer MEDICAID, SELFPAY ==
--- NOTE | ~2024-01-17 | XR_ITS ---
EXAMINATION: XR KNEE, RIGHT CLINICAL INFORMATION: Right knee pain for 2 days COMPARISON: 12/24/2020 TECHNIQUE: Four views of the right knee. FINDINGS: Chronic moderate loss of medial tibiofemoral joint space. Associated loss of genu valgus. Chronic mild lateral subluxation of the tibia with respect to the femur. Mild multicompartment osteophyte formation is noted. There appears to be a trace knee joint effusion. No fracture or lytic lesion. No acute abnormality compared to 12/24/2020. XR/XR knee RT 3V IMPRESSION: * No acute osseous injury at the right knee. 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
== END 2024-01-17 09:09 | disposition home or self-care (01) ==
LOC: HO.HHCX 09:08
PROVIDERS: Visit Provider Internal Medicine
DX: M25.561 Pain in right knee (principal)
CPT/HCPCS: 73562

== ENCOUNTER 2024-03-06 13:51 | Outpatient (REF) | payer OTHER, SELFPAY ==
--- NOTE | ~2024-03-06 | MM_ITS ---
EXAMINATION: MM DIAGNOSTIC DIGITAL BREAST TOMOSYNTHESIS, BILATERAL CLINICAL INFORMATION: Year 1 postop left breast follow-up IDC diagnosed 05/05/2023 with excision 05/28/2023. Due for bilateral screening. COMPARISON: Mammography: 04/21/2023 left, bilateral 03/05/2023, 04/14/2021, 04/08/2021, 02/02/2019, 12/24/2016, 11/14/2015. TECHNIQUE: Digital breast tomosynthesis is performed in both the craniocaudal and mediolateral oblique views along with computer-aided detection (CAD). Synthesized 2D images are generated from the tomosynthesis. In addition, spot magnification left CC and ML views were obtained of the lumpectomy site left breast. FINDINGS: There are scattered areas of fibroglandular density (ACR BI-RADS breast composition Category b). Left breast is slightly smaller than the right, in keeping with lumpectomy. Lumpectomy scar upper outer quadrant left breast, with circular calcification consistent with fat necrosis. Mild trabecular thickening throughout the left breast with mild skin thickening, from therapeutic changes. No suspicious findings. Right breast demonstrates no suspicious masses, suspicious grouped calcifications, or areas of architectural distortion.. The parenchymal pattern is stable from prior exams. Bilaterally no axillary abnormalities. MM/MM tomosynthesis diagnostic BI IMPRESSION: -There are no findings suspicious for malignancy in either breast. -Post therapeutic changes left breast with lumpectomy scar upper outer quadrant. -Recommend one-year follow-up bilateral mammography to establish year 2 postop protocol. ASSESSMENT: BI-RADS BI-RADS 2 - Benign Findings RECOMMENDATION: 1 year F/U Results were provided to the patient at time of visit by the technologist. This patient's information was entered into a reminder system with a target due date for their next mammogram.
== END 2024-03-06 13:52 | disposition home or self-care (01) ==
LOC: HO.MAMMO 13:51
PROVIDERS: Absent Provider Surgery; PCP Student in an Organized Health Care Education/Training Program; Visit Provider Student in an Organized Health Care Education/Training Program
DX: Z85.3 Personal history of malignant neoplasm of breast (principal)
CPT/HCPCS: 77062; 77066

== ENCOUNTER → 2024-03-06 14:00 | Outpatient (BNV) | payer OTHER, SELFPAY | PROVIDERS: Absent Provider Surgery; PCP Student in an Organized Health Care Education/Training Program; Visit Provider Radiology Diagnostic Radiology | DX: C50.912 Malignant neoplasm of unspecified site of left female breast (principal) | CPT/HCPCS: 77062; 77066 ==

== ENCOUNTER 2024-06-05 08:14 | Outpatient (AMB) | payer OTHER, SELFPAY ==
[2024-06-05 08:16] VITALS: BP 148/79; PULSE 72; BMI 33.9
--- NOTE | 2024-06-05 08:16 | A.OFFVIS_ITS ---
Vital Signs 06/05/24 08:16 Height 5 ft Weight 173 lb 11.588 oz BMI 33.9 BP 148/79 H Blood Pressure Location Rt brachial Position Sitting Pulse 72 Intake Visit Reasons: 6 month breast exam Intake Note: This patient presents for six month breast exam. Pt c/o; reports occasional itchiness on the left breast. 03/06/2024: MM Screening Exterior Door Installer Required: Yes Exterior Door Installer Language: Weekend Receptionist Services: Exterior Door Installer Present Exterior Door Installer Name: Haresh Information Interpreted: non-clinical & clinical Accompanied by: Self / Same As Patient Allergies Penicillins Allergy (Intermediate, Verified 06/05/24 08:16) RASH Medication List - Last Reconciled 06/05/24 by Freedom Husain MD albuterol sulfate 2.5 mg inhalation Q4H PRN bisacodyl (Dulcolax (bisacodyl)) 20 mg (4 x 5 mg) PO ONCE PRN 1 day blood sugar diagnostic (FreeStyle Lite Strips) As directed 2 times a day blood-glucose meter (FreeStyle Lite Meter kit) As directed cholecalciferol (vitamin D3) 50 mcg PO DAILY dulaglutide (Trulicity) 1.5 mg subcut QWEEK empagliflozin (Jardiance) 25 mg PO QAM fluticasone propion-salmeterol 230-21 mcg/actuation (Advair HFA) 2 puffs inhalation Q12H fluticasone propionate 50 mcg/actuation (Flonase Allergy Relief) 2 sprays intranasal DAILY ibuprofen 600 mg PO Q6H PRN insulin glargine (Lantus Solostar U-100 Insulin) 3 units subcut BEDTIME lancets (TRUEplus Lancets) As directed 2 times a day losartan 100 mg PO DAILY metformin 1,000 mg PO BID nebulizers As directed polyethylene glycol 3350 (Miralax) 238 grams PO ONCE PRN 1 day rosuvastatin 5 mg PO DAILY tamoxifen 20 mg PO DAILY verapamil ER 360 mg PO DAILY HPI HPI 6 month breast exam: Details: She is here for follow-up after left breast lumpectomy and sentinel biopsy for invasive ductal cancer last 05/28/2023. She has finished radiation treatment as well She says she feels well overall. She describes occasional sharp pains on the lumpectomy site. Her last mammogram was in February,. This was unremarkable. She is currently on anti hormonal treatment [facility] Medical History (Updated 06/05/24 @ 08:56 by Freedom Husain MD) History of breast cancer in female Sleep apnea Diabetes Invasive ductal carcinoma of breast Chronic restrictive lung disease Obesity (BMI 30-39.9) Hypertension Asthma Vitamin D deficiency Osteoporosis Hyperparathyroidism Surgical History H/O colonoscopy History of lumpectomy of left breast (~05/28/23) H/O vein stripping S/P LASIK surgery of both eyes Hx of parathyroidectomy Hx of tubal ligation Family History Father Cancer Mother Cardiomyopathy Diabetes Obesity Other Thyroid disease Social History Household Members: None Are you a primary child care center administrator to a significant other at home: No Do you presently have visiting nurse or other home services: No Alcohol intake: current Alcohol intake frequency: holidays/special occasions only Patient Tobacco Use Status: Never used Tobacco service: No Current occupational status: employed Gender identity: Female Female Reproductive History Menstrual Age of Menarche: 14 Review of Systems Const Denies chills and Denies fever(s) Card Denies chest pain, Denies dyspnea and Denies dyspnea on exertion Resp Denies cough, Denies dyspnea and Denies dyspnea on exertion GI Denies hematochezia and Denies change in bowel habits Denies hematuria Musc Denies back pain and Denies limited range of motion Neuro Denies focal weakness and Denies convulsions Psych Denies depression and Denies mood swings Physical Exam Vital Signs: Last Vital Signs Pulse 72 06/05/24 08:16 BP 148/79 H 06/05/24 08:16 BMI result Body Mass Index 33.9 Const General: comfortable and no acute distress Chest Other: No palpable breast masses, no axillary lymphadenopathy, no nipple or skin changes GI Palpation (GI): Soft to palpation, not firm and nontender Assessment & Plan Assessment & Plan (1) History of breast cancer in female: Code(s): Z85.3 - Personal history of malignant neoplasm of breast Category: Medical Plan: She continues to do well after lumpectomy and sentinel biopsy. Current exam does not reveal any palpable breast mass. Review of her mammogram from February, shows BI-RADS 1 findings. She continues to be on anti hormonal treatment I will see her again in the office in about 1 month for surveillance. I reminded her to continue doing her regular screening mammograms. She was also to follow up with her oncologist Dr. Murry. Coding Level of Care Code Est Pt Level 3 (60056) Diagnoses History of breast cancer in female Z85.3
== END 2024-06-05 08:54 | disposition home or self-care (01) ==
PROVIDERS: PCP Student in an Organized Health Care Education/Training Program; Visit Provider Surgery
DX: Z85.3 Personal history of malignant neoplasm of breast (principal)
CPT/HCPCS: 99213

== ENCOUNTER → 2024-06-05 08:14 | Outpatient (BNVA) | payer OTHER, SELFPAY | PROVIDERS: PCP Student in an Organized Health Care Education/Training Program; Visit Provider Surgery | DX: N64.4 Mastodynia (principal); Z85.3 Personal history of malignant neoplasm of breast; Z79.899 Other long term (current) drug therapy | CPT/HCPCS: 99212 ==

== ENCOUNTER 2024-06-08 14:31 | Outpatient (AMB) | payer OTHER, SELFPAY ==
--- NOTE | 2024-06-08 14:40 | A.OFFVIS_ITS ---
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 She is doing well with no concerns. Attempting to eat a healthy diet with calcium and vitamin D and stays active with exercise. Currently not sexually active. Denies any vaginal dryness or irritation. STI testing offered; she declined. Last pap smear; 2022. Last mammogram; 2022. History of left lumpectomy. Colonoscopy is UTD. Denies any family history of breast or colon cancer. FH ovarian cancer. [facility] Medical History History of breast cancer in female Sleep apnea Diabetes Invasive ductal carcinoma of breast Chronic restrictive lung disease Obesity (BMI 30-39.9) Hypertension Asthma Vitamin D deficiency Osteoporosis Hyperparathyroidism Surgical History H/O colonoscopy History of lumpectomy of left breast (~05/28/23) H/O vein stripping S/P LASIK surgery of both eyes Hx of parathyroidectomy Hx of tubal ligation Family History (Updated 06/08/24 @ 14:45 by JOANNA Gonzalez) Father Cancer Mother Cardiomyopathy Diabetes Obesity Maternal Aunt Ovarian cancer Other Thyroid disease Social History (Updated 06/08/24 @ 14:46 by JOANNA Gonzalez) Household Members: None Are you a primary clinical care coordinator to a significant other at home: No Do you presently have visiting nurse or other home services: No Alcohol intake: current Alcohol intake frequency: holidays/special occasions only Patient Tobacco Use Status: Never used Tobacco service: No Current occupational status: employed Gender identity: Female Female Reproductive History Menstrual Age of Menarche: 14 Menopause type: natural Total pregnancies: 4 Full term: 4 Number of Living Children: 4 Date of last pap smear: 04/02/23 (neg pap and hpv) Date of Mammogram: 03/06/24 (Birad 2) History of abnormal mammogram: Yes Review of Systems Const All systems reviewed & are unremarkable except as noted in HPI and below Reports as per HPI Eyes Reports no additional complaints ENT Reports no additional complaints Card Reports no additional complaints Resp Reports no additional complaints GI Reports as per HPI and Reports no additional complaints Reports as per HPI Musc Reports no additional complaints Skin/Breast Reports as per HPI Neuro Reports no additional complaints Psych Reports no additional complaints Endo Reports no additional complaints Thiago/Lymph Reports no additional complaints Aller/Immun Reports no additional complaints Physical Exam Vital Signs: Last Vital Signs BP 124/84 06/08/24 14:41 BMI result Body Mass Index 37.6 Const General: cooperative, healthy appearing, no acute distress, well developed and alert Orientation/consciousness: patient oriented x3 HEENT Head: Yes normal to inspection Eyes General: appearance normal, both eyes and all related structures Neck Neck: Yes normal visual inspection Thyroid: Thyroid normal Chest Other: Left breast asymmetrical with post surgical scarring Chest palpation & inspection: normal inspection of the chest and other (no puckering, dimpling, peau de orange, retraction, discharge, masses) Breast/axilla inspection: normal inspection of the breasts (As noted above) Breast/axilla palpation: normal palpation of the breasts Resp Effort & Inspection: normal respiratory effort GI Inspection: Yes normal to inspection and Yes obesity Palpation (GI): Soft to palpation Rectal Exam - Female: deferred General: Yes bladder normal to palpation External Female Exam: normal external appearance and normal appearance of the urethra Speculum Exam - Vagina: normal appearance of the vagina, normal palpation and normal vaginal discharge Speculum Exam - Cervix: normal appearance of the cervix, normal palpation and Cervical mass present (Polypoid like mass) Bimanual exam- vagina & uterus: normal bimanual exam, normal palpation, uterine size normal, bladder normal to palpation, normal palpation and non-tender Bimanual Exam- Adnexa, other: no masses Skin General skin exam: no rashes or lesions noted Rashes: no rashes Neuro General: patient oriented x3 Cognition (Neuro): normal cognition Extrem General: Yes normal to inspection Psych Attitude: cooperative Thought process: Normal thought process present Assessment & Plan Assessment & Plan (1) Encounter for well woman exam with routine gynecological exam: Code(s): Z01.419 - Encounter for gynecological examination (general) (routine) without abnormal findings Category: Medical (2) Cervical polyp: Code(s): N84.1 - Polyp of cervix uteri Category: Medical Plan Discussed: Current recommendations for pap smears per ASCCP guidelines. Breast awareness, periodic self breast exams and yearly mammogram. Maintain a healthy lifestyle, well balanced diet including Calcium 1,200 mg and Vitamin D 600 IU daily, and routine exercise. Counseled regarding polyp, scheduled polypectomy removal appointment. Contact the office with any postmenopausal bleeding. Patient verbalizes understanding and agrees to the plan of care. She was given opportunity to ask questions and all questions were answered to the best of my ability. RTO in 1 year for annual cloth printing utility worker exam. This note is constructed using voice recognition software. While every effort has been made to ensure accuracy, manager speech errors may have been included. Coding Level of Care Code New Pt Prev Care 40-64y(20107) Diagnoses Encounter for well woman exam with routine gynecological exam Z01.419 Cervical polyp N84.1
[2024-06-08 14:41] VITALS: BP 124/84; BMI 37.6
== END 2024-06-08 15:10 | disposition home or self-care (01) ==
PROVIDERS: PCP Student in an Organized Health Care Education/Training Program; Visit Provider Advanced Practice Midwife
DX: Z01.419 Encounter for gynecological examination (general) (routine) without abnormal findings (principal); N84.1 Polyp of cervix uteri
CPT/HCPCS: 99386

== ENCOUNTER → 2024-06-08 14:31 | Outpatient (BNVA) | payer OTHER, SELFPAY | PROVIDERS: PCP Student in an Organized Health Care Education/Training Program; Visit Provider Advanced Practice Midwife | DX: Z01.419 Encounter for gynecological examination (general) (routine) without abnormal findings (principal); N84.1 Polyp of cervix uteri | CPT/HCPCS: 99386 ==

== ENCOUNTER 2024-07-27 14:38 | Outpatient (REF) | payer OTHER, SELFPAY | END 2024-07-27 14:39 | disposition home or self-care (01) | LOC: HO.LNP 14:38 | PROVIDERS: PCP Student in an Organized Health Care Education/Training Program; Visit Provider Advanced Practice Midwife | DX: N84.1 Polyp of cervix uteri (principal) | CPT/HCPCS: 57500; 88305 ==

== ENCOUNTER 2024-07-27 14:38 | Outpatient (AMB) | payer OTHER, SELFPAY ==
[2024-07-27 15:11] VITALS: BP 130/78; BMI 32.5
--- NOTE | 2024-07-27 15:11 | MHC.OFFVIS ---
Vital Signs 07/27/24 15:11 Height 5 ft Weight 166 lb 5 oz BMI 32.5 BP 130/78 Blood Pressure Location Lt brachial Position Sitting Intake Visit Reasons: Moved to room 3 , cervical polpectomy/30 mins, room 4 Bottle Packing Machine Cleaner Required: Yes Bottle Packing Machine Cleaner Services: Bottle Packing Machine Cleaner Present Disability Insurance Claim Examiner: Disability Insurance Claim Examiner Present Allergies Penicillins Allergy (Intermediate, Verified 07/21/24 09:02) RASH Is last menstrual period known: Yes Post menopausal: Yes Patient : No HPI Comments Details: Patient is here today for a cervical polyp removal. [facility] Medical History History of breast cancer in female Sleep apnea Diabetes Invasive ductal carcinoma of breast Chronic restrictive lung disease Obesity (BMI 30-39.9) Hypertension Asthma Vitamin D deficiency Osteoporosis Hyperparathyroidism Surgical History H/O colonoscopy History of lumpectomy of left breast (~05/28/23) H/O vein stripping S/P LASIK surgery of both eyes Hx of parathyroidectomy Hx of tubal ligation Family History Father Cancer Mother Cardiomyopathy Diabetes Obesity Maternal Aunt Ovarian cancer Other Thyroid disease Social History Household Members: None Are you a primary long term care administrator to a significant other at home: No Do you presently have visiting nurse or other home services: No Alcohol intake: current Alcohol intake frequency: holidays/special occasions only Patient Tobacco Use Status: Never used Tobacco Patient : No service: No Current occupational status: employed Gender identity: Female Female Reproductive History Menstrual Age of Menarche: 14 Menopause type: natural History of abnormal pap smear: No History of STI: No Date of Mammogram: 03/08/24 History of abnormal mammogram: Yes Review of Systems Const All systems reviewed & are unremarkable except as noted in HPI and below Endo Reports no additional complaints Physical Exam Vital Signs: Last Vital Signs BP 130/78 07/27/24 15:11 BMI result Body Mass Index 32.5 Const General: cooperative, healthy appearing and no acute distress External Female Exam: normal external appearance and normal appearance of the urethra Speculum Exam - Vagina: normal appearance of the vagina and vagina atrophic Speculum Exam - Cervix: Cervical mass present (Polyp) pedunculated Psych Appearance: well kempt Attitude: cooperative Thought process: Normal thought process present Office Procedures Cervical Polypectomy Details Details: Consent for Cervical Polypectomy procedure: The patient is here today for an Cervical Polypectomy. She was counseled regarding anticipatory guidance for the procedure including the risks for pain, infection, bleeding, perforation, potential injury to the tissues may include the cervix, vagina, uterus, tubes, bladder and bowels. These injuries may include further treatment and evaluation including surgery, blood transfusions, antibiotics, hospitalizations and anesthesia. Permanent injury and scarring can occur. She was consented for the procedure, and the consent forms were signed. She is agreeable to have the procedure today. All questions were answered. Polypectomy Procedure: The patient was placed in the dorsal lithotomy position and a sterile speculum inserted. Using aseptic technique for the procedure. The cervix was cleansed with Betadine x 3 swabs. The polyp was grasped with a Jennifer and removed. The tissue sample was placed in formalin in a patient labeled container by staff assisting and sent to the pathology department for processing and interpretation. Minimal bleeding was observed.The patient tolerate the procedure well and was in good condition when leaving the department. Post Polypectomy Care: There may be some bleeding for several days that is usually light and can turn to a light brown or pink in color. Mild cramping may occur. Nothing in the vagina including: tampons, douching or intimacy for a week. You may take an over the counter mild analgesia like Tylenol or Advil (if no allergies), per the manufacturers recommendations on dosing and frequency. Follow the directions completely. Call the office if any: fever (over 100.4), flu like symptoms, abdominal pain, worsening cramping not resolved with over the counter medications, foul smelling vaginal odor, signs of infected appearing discharge, or heavy bleeding. A follow up for results on the pathology will be made. Please call the office if you have any concerns. This note is constructed using voice recognition software. While every effort has been made to ensure accuracy, stage electrician helper errors may have been included. CPT: 22874 - Cervical Polypectomy All charges added?: Procedure code (CPT) selection complete Assessment & Plan Assessment & Plan (1) Cervical polyp: Code(s): N84.1 - Polyp of cervix uteri Category: Medical Plan Polypectomy procedure-see procedure notes. Coding Level of Care Code Procedure Only Diagnoses Cervical polyp N84.1 CPT Codes Details - CPT: 46674 - Cervical Polypectomy ([id number])
== END 2024-07-27 15:57 | disposition home or self-care (01) ==
PROVIDERS: PCP Student in an Organized Health Care Education/Training Program; Visit Provider Advanced Practice Midwife
DX: N84.1 Polyp of cervix uteri (principal)
CPT/HCPCS: 57500

== ENCOUNTER 2024-09-14 15:57 | Outpatient (AMB) | payer OTHER, SELFPAY ==
--- NOTE | 2024-09-14 15:57 | MHC.OFFVIS ---
Intake Visit Reasons: TV Biopsy Result Intake Note: cell #[phone] Allergies Penicillins Allergy (Intermediate, Verified 09/14/24 15:58) RASH HPI Comments Details: Tele huma visit for 16:13-16:24. I spent 10 minutes speaking with the patient on the phone plus an additional 5 minutes reviewing the chart and 5 minutes updating the medical record for a total of minutes. Unable to obtain a video display today due to patient's phone technical difficulty. Patient presents via phone to discuss: Polypectomy results. Patient denies any postmenopausal bleeding, has no other concerns. [facility] Medical History History of breast cancer in female Sleep apnea Diabetes Invasive ductal carcinoma of breast Chronic restrictive lung disease Obesity (BMI 30-39.9) Hypertension Asthma Vitamin D deficiency Osteoporosis Hyperparathyroidism Surgical History H/O colonoscopy History of lumpectomy of left breast (~05/28/23) H/O vein stripping S/P LASIK surgery of both eyes Hx of parathyroidectomy Hx of tubal ligation Family History Father Cancer Mother Cardiomyopathy Diabetes Obesity Maternal Aunt Ovarian cancer Other Thyroid disease Social History Household Members: None Are you a primary transitional care liaison to a significant other at home: No Do you presently have visiting nurse or other home services: No Alcohol intake: current Alcohol intake frequency: holidays/special occasions only Patient Tobacco Use Status: Never used Tobacco service: No Current occupational status: employed Gender identity: Female Female Reproductive History Menstrual Age of Menarche: 14 Telehealth Telehealth Telehealth [facility] Location of provider rendering services: practice address Location of patient: address on file Patient Identification confirmed using: Name, : Yes Telehealth method: video Patient verbally consented to treatment: Yes Patient verbally consented to billing insurance company: Yes Patient informed of any privacy concerns related to visit: Yes Results Reviewed Results Reviewed: Name: Elaine Griggs Age/Sex: 63/F Attending: Jasmin Call CNM : 1960 Submitted by: Jasmin Call CNM Copies to: Gwen Cordero MD MR #: [id number] Status: DEP REF Collected: 07/27/24 [facility] Received: 07/28/24 Diagnosis Cervix, polypectomy: Inflamed endocervical polyp with reactive changes. Clinical History Cervical polyp Microscopic Description Microscopic sections reviewed. Material Received Cervical polyp Gross Description Received in formalin labeled ?cervical polyp? are several minute to 1.4 cm in greatest dimension irregular and polypoid carrasquillo tissue fragments with scant mucus. The 2 largest fragments are bisected and entirely submitted in cassette A1. The additional tissue fragments and mucus are submitted in toto in cassette A2. CEDS Copies To Jasmin Call CNM [facility] [address] [place] [address] Gwen Cordero MD [address] [place] [address] NOTE: Unless otherwise stated, all tissue is formalin-fixed and paraffin-embedded. Some or all of the immunohistochemical tests reported herein may have been developed and their performance characteristics determined by [facility]. They have not been cleared or approved by the U.S. Food and Drug Administration (FDA). However, the FDA has determined that such clearance or approval is not necessary. This laboratory is certified under the Clinical Laboratory Improvement Amendments of 1988 (CLIA) as qualified to perform high complexity clinical laboratory testing. Patient: Elaine Griggs Age/Sex: 63/F MR#: [id number] Page 1 of 2 Assessment & Plan Assessment & Plan (1) Encounter to discuss test results: Code(s): Z71.2 - Person consulting for explanation of examination or test findings Plan Discussed: Pathology results. Pap smear was obtained in 2022 per records, patient will be scheduled for a follow up annual in May of 2025. Advised to call if any postmenopausal bleeding. The patient expressed understanding and agreement with the plan of care. All of her questions and concerns were addressed to the best of my ability. This note is constructed using voice recognition software. While every effort has been made to ensure accuracy, it administrator errors may have been included. Coding Level of Care Code Tele Est Pt Level 2 (83920) Diagnoses Encounter to discuss test results Z71.2
== END 2024-09-15 09:54 | disposition home or self-care (01) ==
LOC: HO.HWS 15:57
PROVIDERS: PCP Student in an Organized Health Care Education/Training Program; Visit Provider Advanced Practice Midwife
DX: Z71.2 Person consulting for explanation of examination or test findings (principal)
CPT/HCPCS: 98012

== ENCOUNTER → 2024-09-14 15:57 | Outpatient (BNVA) | payer OTHER, SELFPAY | PROVIDERS: PCP Student in an Organized Health Care Education/Training Program; Visit Provider Advanced Practice Midwife ==

== ENCOUNTER 2024-12-22 08:26 | Outpatient (AMB) | payer OTHER, SELFPAY ==
--- OUTSIDE RECORDS SUMMARY | 2024-12-22 08:31 | XMS_ITS | Encounter Summary ---
Author Organization [employer] Address [address] [place] [address] Care Team Providers Care Dental Assistant Medical Assistant Name Role Phone Gwen Cordero MD Primary Care Pro vider Reason for Visit * Reason Onset Date Comments Medication Question 08/09/2023 Encounter Details Date Type Department Care Team ([facility] st Contact Info) Description 08/09/2023 Refill [facility] MEDICINE [address] [place] [address] Gwen Cordero MD [address] [place] [address] Social History Tobacco Use Types Packs/Day Years Used Date Smoking Tobacco: Never Smokeless Tobacco: Never Alcohol Use Standard Drinks/Week Comments Yes 0 (1 standard drink = 0.6 oz pur e alcohol) social Depression Answer Date Recorded Patient Health Questionnaire-9 Score 4 04/01/2023 Housing Stability Answer Date Recorded What is your housing situation today? I have omid lao 06/30/[address] you li ve. Do you have problems with any of the following? None of the above 06/30/2023 Food Insecurity Answer Date Recorded Within the past 12 months, y ou worried that your food would run out before you got money to buy more: Never True 06/30/2023 Within the past 12 months,th e food you bought just didn't last and you didn't have enough money to get more: Never True Transportation Answer Date Recorded In the past 12 months, has l ack of transportation kept you from medical appts, meetings, work or from getting things needed for daily living? No 06/30/2023 Utilities Answer Date Recorded In the past 12 months, has t he electric, gas, oil or water company threatened to shut off services in your home? No 06/30/2023 Depression Answer Date Recorded Patient Health Questionnaire-2 Score 0 04/01/2023 Comments Unknown Sex and Gender Information Value Date Recorded Sex Assigned at Female 07/13/2022 10:14 AM EDT Legal Sex Female 10:14 AM EDT Gender Identity Female 07/13/2022 10:14 AM EDT Sexual Orientation Straight 04/01/2023 9: 35 AM EDT documented as of this encounter Miscellaneous Notes * Telephone Encounter - Gwen Negron MD - 08/27/2023 1:10 PM EST Tamoxifen refilled by oncologist * Telephone Encounter - Valentina Allen RN - 08/25/2023 9:13 AM EST Telephone call to [facility] maru Martin to relay message. No answer, left voicemail. Patient to call as needed. * Telephone Encounter - Valentina Allen RN - 08/20/2023 10:01 AM EST Per PCP, Please can you call this pt silk examiner office and inform LEATHER SOFTENER or PA that works w silk examiner that please to reeval pt at next apt for her osteoporosis given pt is now on tamoxifen for breast ca that is a new diagnosis and can worsen her known osteoporosis and currently off meds for bone disease Patient goes to [facility] maru. Telephone call to [facility] maru [place] to relay message. No answer, left voicemail. Patient to call as needed. * Telephone Encounter - Faye Valencia - 08/09/2023 10:34 AM EST Tc from pt requesting a call back in regards medication tamoxifen (Nolvadex) 20 MG chemo tablet. Please contact pt in congolese documented in this encounter Plan of Treatment Upcoming Encounters Date Type Department Care Team ([facility] st Contact Info) Description 12/28/2024 10:00 AM EDT Office Visit [facility] MEDICINE [address] [place] [address] [phone] Gwen Cordero MD [address] [place] [phone] documented as of this encounter Visit Diagnoses Not on filedocumented in this encounter Additional Health Concerns Assessment Noted Time PHQ-9 Depression Total Score: 4 04/01/20 9:33 AM EDT documented as of this encounter Care Teams Dental Assistant Medical Assistant Relationship Specialty Start Date End Date Gwen Cordero MD [address] [place] [address] [phone] PCP - General Internal Medicine 12/29/22 documented as of this encounter
--- OUTSIDE RECORDS SUMMARY | 2024-12-22 08:31 | XMS_ITS | Encounter Summary ---
Author Organization [employer] Address [address] [place] [address] Care Team Providers Care Finance Professional Name Role Phone Gwen Cordero MD Primary Care Pro vider Reason for Visit * Reason Onset Date Comments chart prep 12/21/2024 Encounter Details Date Type Department Care Team ([facility] st Contact Info) Description 12/21/2024 Telephone [facility] [address] [place] [address] Gwen Cordero MD [address] [place] [address] chart prep Social History Tobacco Use Types Packs/Day Years [...] before you got money to buy more: Sometimes True 2023 Within the past 12 months,th e food you bought just didn't last and you didn't have enough money to get more: Sometimes True 12/16/2023 Transportation Answer Date Recorded In the past [...] Recorded Patient Health Questionnaire-2 Score 0 04/01/2023 Internet Access Answer Date Recorded Internet Access Q1 Yes 05/15/2024 Internet Access Q2 Not on file 05/15/2024 Comments Unknown Sex and Gender Information Value Date Recorded Sex Assigned at Female 07/13/2022 10:14 AM EDT Legal Sex Female 10:14 AM EDT Gender Identity Female 07/13/2022 10:14 AM EDT Sexual Orientation Straight 04/01/2023 9: 35 AM EDT documented as of this encounter Miscellaneous Notes * Telephone Encounter - Naye Persaud MA - 12/21/2024 4:11 PM EDT ..Chart Prep Labs: not applicable Images: not applicable Vaccines due: Updated Referrals: Completed Screenings: Colonoscopy , PAP, Mammogram, and Foot Exam Overdue care gaps: A1C, Glucose, Sbirt, SDOH, and PQ9 p documented in this encounter Plan of Treatment Upcoming Encounters Date Type Department Care Team (Late st Contact Info) Description 12/28/2024 10:00 AM EDT Office Visit [facility] [address] [place] [phone] Gwen Cordero MD [address] [place] [phone] documented as of this encounter Visit Diagnoses Not on filedocumented in this encounter Additional Health Concerns Assessment Noted Time PHQ-9 Depression Total Score: 4 04/01/20 9:33 AM EDT documented as of this encounter Care Teams Finance Professional Relationship Specialty Start Date End Date Gwen Cordero MD [address] [place] [phone] PCP - General Internal Medicine 12/29/22 documented as of this encounter
--- OUTSIDE RECORDS SUMMARY | 2024-12-22 08:31 | XMS_ITS | Encounter Summary ---
Author Organization [employer] Address 75 [facility] 7 [place] [address] Care Team Providers Care Photography Intern Name Role Phone Gwen Cordero MD Primary Care Pro vider Encounter Details Date Type Department Care Team (Late st Contact Info) Description 12/21/2024 Abstract [facility] MEDICINE [address] [place] [address] Gwen Cordero MD [address] [place] [address] Social History Tobacco Use Types Packs/Day Years [...] AM EDT documented as of this encounter Plan of Treatment Upcoming Encounters Date Type Department Care Team (Late st Contact Info) Description 12/28/2024 10:00 AM EDT Office Visit [facility] MEDICINE [address] [place] [address] [phone] Gwen Cordero MD [address] [place] [address] [phone] documented as of this encounter Procedures Procedure Name Priority Date/Time Associated Diagnosis Comments MAMMOGRAPHY Routine 03/06/2024 documented in this encounter Results * Mammography (03/06/2024) Mammogram BIRADS 2 Normal, Abnormal, BIRADS 1 , BIRADS 2 Anatomical Region Laterality Modality Other 03/06/2024 Historical Provider HEALTH MAINTENANCE Final Result documented in this encounter Visit Diagnoses Not on filedocumented in this encounter Additional Health Concerns Assessment Noted Time PHQ-9 Depression Total Score: 4 04/01/20 9:33 AM EDT documented as of this encounter Care Teams Photography Intern Relationship Specialty Start Date End Date Gwen Cordero MD [address] [place] [address] [phone] PCP - General Internal Medicine 12/29/22 documented as of this encounter
--- OUTSIDE RECORDS SUMMARY | 2024-12-22 08:31 | XMS_ITS | Encounter Summary ---
Author Organization [employer] Address [address] [place] [phone] Care Team Providers Care Supervisor Car And Yard Name Role Phone Gwen Cordero MD Primary Care Pro vider Encounter Details Date Type Department Care Team (Late Contact Info) Description 06/11/2023 Abstract [facility] MEDICINE [address] [place] [address] [phone] Darcie Canas Social History Tobacco Use Types Packs/Day Years Used Date Smoking Tobacco: Never Smokeless Tobacco: Never Alcohol Use Standard Drinks/Week Comments Yes 0 (1 standard drink = 0.6 oz pur e alcohol) social Depression Answer Date Recorded Patient Health Questionnaire-9 Score 4 04/01/2023 Depression Answer Date Recorded Patient Health Questionnaire-2 [...] Encounters Date Type Department Care Team (Late Contact Info) Description 12/28/2024 10:00 AM EDT Office Visit [facility] MEDICINE [address] [place] [address] [phone] Gwen Cordero MD [address] [place], [place] [phone] documented as of this encounter Procedures Procedure Name Priority Date/Time Associated Diagnosis Comments US BREAST BIOPSY LEFT Routine 04/21/2023 documented in this encounter Results * (ABNORMAL) US Breast Biopsy Left (04/21/2023) Anatomical Region Laterality Modality Ultrasound Narrative 04/21/2023 Patient choose to have left beast lumpectomy us Historical Provider MD WAY US PROCEDURES Final R esult documented in this encounter Visit Diagnoses Not on filedocumented in this encounter Additional Health Concerns Assessment Noted Time PHQ-9 Depression Total Score: 4 04/01/20 9:33 AM EDT documented as of this encounter Care Teams Supervisor Car And Yard Relationship Specialty Start Date End Date Gwen Cordero MD [address] [place] [phone] PCP - General Internal Medicine 12/29/22 documented as of this encounter
--- OUTSIDE RECORDS SUMMARY | 2024-12-22 08:31 | XMS_ITS | Encounter Summary ---
Author Organization [employer] Address [address] [place] [address] [place], [place] [address] Care Team Providers Care Acquisition Professional Name Role Phone Gwen Cordero MD Primary Care Pro vider Encounter Details Date Type Department Care Team (Late st Contact Info) Description 03/09/2023 Abstract [facility] MEDICINE [address] [place] [address] [phone] Gwen Cordero MD [address] [place] [address] [phone] Social History Tobacco Use Types Packs/Day Years Used Date Smoking Tobacco: Never Smokeless Tobacco: Never Comments Unknown Sex and Gender Information Value [...] Description 12/28/2024 10:00 AM EDT Office Visit [facility] MEDICINE [address] [place] [address] [phone] Gwen Cordero MD [address] [place] [address] [phone] documented as of this encounter Procedures Procedure Name Priority Date/Time Associated Diagnosis Comments HM MAMMOGRAPHY Routine 03/09/2023 8:22 AM EDT documented in this encounter Results * Mammography (03/09/2023 8:22 AM EDT) Mammogram Bi-rads 0 Anatomical Region Laterality Modality Other Narrative 03/09/2023 8:22 AM EDT Recommended additional views us Historical Provider HEALTH MAINTENANCE Final Result documented in this encounter Visit Diagnoses Not on filedocumented in this encounter Care Teams Acquisition Professional Relationship Specialty Start Date End Date Gwen Cordero MD [address] [place] [phone] PCP - General Internal Medicine 12/29/22 documented as of this encounter
--- OUTSIDE RECORDS SUMMARY | 2024-12-22 08:31 | XMS_ITS | Encounter Summary ---
Author Organization [employer] Address [address] [place] [phone] Care Team Providers Care Transformer Molder Name Role Phone Gwen Cordero MD Primary Care Pro vider Encounter Details Date Type Department Care Team (Late Contact Info) Description 04/06/2023 Abstract [facility] [address] [place] [address] [phone] Gwen Cordero MD [address] [place] [address] [phone] Social History Tobacco Use Types Packs/Day Years [...] Description 12/28/2024 10:00 AM EDT Office Visit [facility] [address] [place] [address] [phone] Gwen Cordero MD [address] [place] [address] [phone] documented as of this encounter Visit Diagnoses Not on filedocumented in this encounter Additional Health Concerns Assessment Noted Time PHQ-9 Depression Total Score: 4 04/01/20 23 9:33 AM EDT documented as of this encounter Care Teams Transformer Molder Relationship Specialty Start Date End Date Gwen Cordero MD [address] [place] [phone] PCP - General Internal Medicine 12/29/22 documented as of this encounter
--- OUTSIDE RECORDS SUMMARY | 2024-12-22 08:31 | XMS_ITS | Encounter Summary ---
Author Organization [employer] Address 75 [facility] 7t [place] [address] Care Team Providers Care Electronic Transaction Implementer Name Role Phone Gwen Cordero MD Primary Care Pro vider Reason for Visit * Reason Comments Med Refill Encounter Details Date Type Department Care Team ([facility] st Contact Info) Description 08/09/2023 Refill [facility] MEDICINE [address] [place] [address] Louie Gore FNP Social History Tobacco Use Types Packs/Day Years [...] t he electric, gas, oil or water [employer] threatened to shut off services in your [...] Description 12/28/2024 10:00 AM EDT Office Visit [facility] MEDICINE [address] [place] [phone] Gwen Cordero MD [address] [place] [phone] documented as of this encounter Visit Diagnoses Not on filedocumented in this encounter Additional Health Concerns Assessment Noted Time PHQ-9 Depression Total Score: 4 04/01/20 9:33 AM EDT documented as of this encounter Care Teams Electronic Transaction Implementer Relationship Specialty Start Date End Date Gwen Cordero MD [address] [place] [phone] PCP - General Internal Medicine 12/29/22 documented as of this encounter
--- OUTSIDE RECORDS SUMMARY | 2024-12-22 08:31 | XMS_ITS | Encounter Summary ---
Author Organization [employer] Address [address] [facility] [address] [place] [address] Care Team Providers Care Clinical Application Manager Name Role Phone Gwen Cordero MD Primary Care Pro vider Reason for Visit * Reason Comments Pre-visit Planning SDOH unable to reach LVM Encounter Details Date Type Department Care Team ([facility] st Contact Info) Description 12/21/2024 Patient Outreach [facility] [address] [place] [address] Gwen Cordero MD [address] [place] [address] Pre-visit Planning (SDOH unable to reach LVM ) Social History Tobacco Use Types Packs/Day Years [...] AM EDT documented as of this encounter Progress Notes * Ciera Suazo - 12/21/2024 3:57 PM EDT IVON Watts placed outbound call to patient to complete pre-visit planning. No answer at this time. Patient name and were not confirmed. CC left voicemail requesting return call. Direct contactinformation provided. documented in this encounter Plan of Treatment Upcoming Encounters Date Type Department Care Team (Late st Contact Info) Description 12/28/2024 10:00 AM EDT Office Visit [facility] [address] [place] [id number] Gwen Cordero MD [address] [place] [phone] documented as of this encounter Visit Diagnoses Not on filedocumented in this encounter Additional Health Concerns Assessment Noted Time PHQ-9 Depression Total Score: 4 04/01/20 23 9:33 AM EDT documented as of this encounter Care Teams Clinical Application Manager Relationship Specialty Start Date End Date Gwen Cordero MD [address] [place] [phone] PCP - General Internal Medicine 12/29/22 documented as of this encounter
--- OUTSIDE RECORDS SUMMARY | 2024-12-22 08:31 | XMS_ITS | Clinical Summary ---
Author Organization [email or web address] Address [address] [facility] [address] [place] [address] Care Team Providers Care Life Sciences Instructor Name Role Phone Gwen Cordero MD Primary Care Pro vider Allergies Active Allergy Reactions Criticality Noted Date Comments Penicillins Unknown In childhood Medications Fluticasone-Salme terol (Advair Diskus) 100-50 MCG/ACT aerosol powder Inhale 1 puff every 12 (twelve) hours. 01/08/20 22 Active albuterol (2.5 MG/3ML) 0.083% nebulizer solution INHALE 1 AMPULE USING A NEBULIZER EVERY 4 HOURS NEEDED 90 mL 3 12/18/19 23 Active Cholecalciferol (Vitamin D) 125 MCG (5000 UT) capsule Take by mouth. Active tamoxifen (Nolvadex) 20 MG chemo tablet Take 20 mg by mouth in the morning. 07/07/20 23 Active glucose blood (FREESTYLE LITE) test strip USE 1 STRIP by DIRECTED route every day 50 each 11 08/10/20 23 Active TRUEplus Lancets 33G misc USE 1 EVERY DAY DIRECTED 100 each 11 08/10/20 23 Active Blood Glucose Monitoring Suppl (FreeStyle Lite) w/Device kit Inject 1 Device under the skin at noon and 1 Device in the evening. USE TO TEST BLOOD SUGAR EVERY DAY DIRECTED. 1 kit 08/10/20 23 Active UltiCare Short Pen Huffman 31G X 8 MM misc USE DIRECTED 100 each 5 10/12/19 24 Active Diclofenac Sodium 1 % gelIndications:Ac josette pain of right knee To apply to the affected area 3 times a day 100 g 01/17/20 24 Active dulaglutide (Trulicity) 1.5 MG/0.5ML solution pen-injector Inject 1.5 mg under the skin 1 (one) time per week. 4 each 11 02/01/20 24 Active predniSONE (Deltasone) 20 MG tablet 2 tabs po daily for 5 days 10 tablet 02/01/20 24 Active metFORMIN XR (Glucophage-XR) 750 MG 24 hr tablet Take 1 tablet (750 mg) by mouth with evening meal. Do not crush, chew, or split. 90 tablet 1 07/12/20 24 025 Active losartan (Cozaar) 100 MG tabletIndications :Essential hypertension TAKE 1 TABLET BY MOUTH EVERY MORNING 90 tablet 1 11/02/19 25 Active rosuvastatin (Crestor) 5 MG tabletIndications :Mixed hyperlipidemia TAKE 1 TABLET BY MOUTH EVERY DAY 90 tablet 1 11/02/19 25 Active Jardiance 25 MG TAKE 1 TABLET BY MOUTH EVERY MORNING 30 tablet 2 11/29/19 25 Active verapamil ER (Verelan) 360 MG 24 hr capsule TAKE 1 CAPSULE BY MOUTH EVERY MORNING DO NOT BREAK, CRUSH, DISSOLVE OR CHEW 90 capsule 11/28/19 25 Active verapamil ER (Verelan) 360 MG 24 hr capsule TAKE 1 CAPSULE BY MOUTH EVERY MORNING DO NOT BREAK, CRUSH, DISSOLVE OR CHEW 90 capsule 1 04/17/20 24 025 Discontinued Jardiance 25 MG TAKE 1 TABLET BY MOUTH EVERY DAY IN THE MORNING 30 tablet 2 07/14/20 24 025 Discontinued Active Problems Problem Noted Date Diagnosed Date Upper respiratory infection 02/01/2024 Breast cancer 05/01/2023 Assessment & Plan (05/01/2023 7:32 PM EDT): -Breast,bx left, core biopsy done 04/21/2023 : -Invasive ductal carcinoma with lobular features, grade 2. -Ductal carcinoma in situ, solid and cribriform patterns, nuclear grade 2, extending into lobules. -I discussed w pt new Dx of breast Cancer and explained that she will f up from now w surgeon, with whom she has an apt next wk and will be referred from there to oncologist for further plan. Answered patient's questions and concerns about diagnosis. Diabetes 04/01/2023 Assessment & Plan (05/01/2023 7:41 PM EDT): 03/2023 Hb1Ac 11.5<-----6.6 - microalb pos 48, LDL 64, AST 36, Urine dipstick last apt 03/2023 w trace ketones -advised hydration -Already started metformin 1000 mg BID -Continue for now w insulin basal 7 u HS, started at last visit. -start jardiance 10 mg daily prescribed at last apt-explained possible SE,pt denies hx of recurrent UTIs and yeast infections -Continue Crestor, resumed last mo. -advised to check CBGs in fasting and 2 h after biggest meal and discussed plan if hypoglycemic events -will consider GLP1 once better controlled DM-pt will rather to take PO so will try rybelsus x now holding with some ketones in urine at last visit -Pt reports she already spoke w medical writer in regards thyroid nodule and was told there is no contra-indication to start GLP-1s ,may be able to stop insulin in future -referred to mixing tumbler operator at last visit - [place] to check status of referral today. -Seen by scientist immunology 04/2023 - to f up in 1y. -DM labs in 3 mo if not f w her medical writer for DM by then. Assessment & Plan (04/01/2023 9:03 PM EDT): 03/2023 Hb1Ac 11.5<-----6.6 -pt only on metformin 500 ER x2 tab a day -never took januvia px by previous provider Urine dipstick today w trace ketones -advised hydration -will start metformin 1000 mg BID and stop ER -start insulin basal 7 u HS -pt states knows how to inj -start jardiance 10 mg daily-explained possible SE,pt denies hx of recurrent UTIs and yeast infections --pt will start this med 10 days after stars insulin -resume crestor not taking x last month -advised to check CBGs in fasting and 2 h after biggest meal and discussed plan if hypoglycemic events -will consider GLP1 once better controlled DM-pt will rather to take PO so will try rybelsus x now holding with some ketones in urine -also pt will talk w her medical writer in regards thyroid nodule ,may be able to stop insulin in future -referred today to mixing tumbler operator -has apt w scientist immunology x next month Thyroid nodule 04/01/2023 Assessment & Plan (05/01/2023 7:49 PM EDT): -thyroid US 2016:Solitary small left thyroid nodule. Ultrasound follow-up recommended.Parathyroid glands not identified by ultrasound.. -pt reports to be following w medical writer -will check w specialist at her next visit about next US - referred today for thyroid US. Assessment & Plan (04/01/2023 8:20 PM EDT): -thyroid US 2016:Solitary small left thyroid nodule. Ultrasound follow-up recommended.Parathyroid glands not identified by ultrasound.. -pt reports to be following w medical writer -will check w specialist at her next visit about next US -if not done recently will refer at next apt Health care maintenance 04/01/2023 Overview (04/01/2023): Assessment & Plan (05/01/2023 7:45 PM EDT): -menopause: 50 y of age -pap smear: 1 y ago per pt normal -- requested JEWEL Garcia report -MM BIRADS 4 02/2023: L invasive breast Ca -colonoscopy : 10 y ago per pt normal - not able to get record, referred today to GI. -DEXA scan 01/2023 : Osteoporosis f w endo -vaccines: s/p hepBx3 not immune - refused revaccination, COVID 19 x1-Bivalent x1, MMRx2, p23 2002, s/p p20, tdap 03/2023, s/p shingrix x2 ------ 03/2023 - noted thrombocytosis 468 <- 421 2019, there is no anemia, so this might be associated w Ca. Advised pt to f up this result w hem / onc to be referred by surgeon from [facility]. Assessment & Plan (04/01/2023 8:58 PM EDT): -menopause: 50 y of age -pap smear: 1 y ago per pt normal -- requested Yaya to get record -MM BIRADS 4 02/2023: Pd x bx -f already w surgeon -colonoscopy : 9 y ago per pt normal -request to JEWEL Fonseca record today, If not available will refer to GI at next visit -DEXA scan 01/2023 : Osteoporosis f w endo -vaccines: s/p hepBx3, COVID 19 x1-Bivalent today,MMRx2,p23 2002, today p20, tdap 2010 today booster,s/p shingrix x2 -labs x annual exam today-had coffee in am -pt agreed to have STI testing including HIV to have for baseline --- PhQ9 is 4 but denies depression associated w fatigue and increase appetite DOUG (obstructive sleep apnea) 04/01/2023 Assessment & Plan (05/01/2023 7:32 PM EDT): -Pt reports that she has upcoming apt w sleep medicine for DOUG re-evaluation. Currently not using CPAP. Assessment & Plan (04/01/2023 8:50 PM EDT): -will check w pt if has CPAP at next apt Penicillin allergy 04/01/2023 Assessment & Plan (05/01/2023 7:46 PM EDT): Pt w PNC allergy -referred already to director of strategic sourcing to clarify if true allergy - pending to schedule apt. Assessment & Plan (04/01/2023 8:55 PM EDT): Pt w PNC allergy -referred today to director of strategic sourcing to clarify if true allergy HTN (hypertension) 10/06/2022 Assessment & Plan (05/01/2023 7:35 PM EDT): BP well controlled EKG today - normal, QTC 427 ms 03/2023: microalb pos - 48 -Continue current BP meds. -Seen by ophthalmology 04/2023. To f up in 1 y. -Repeat microalb in 3 mo. Assessment & Plan (04/01/2023 8:49 PM EDT): BP 141/87 EKG 2017 wnl -Slight elevated BP -will monitor at next visit and will adjust meds as needed -has apt w ophthalmology this month -will repeat EKG at future visit Moderate persistent asthma without complication 09/09/2018 Assessment & Plan (05/01/2023 7:47 PM EDT): Reports to be controlled , off steroids x the past 8 months -continue to [facility] die filer -Pt has not needed Albuterol for several mo. Assessment & Plan (04/01/2023 8:49 PM EDT): Reports to be controlled , off steroids x the past 7 months -continue to [facility] die filer Osteoporosis 09/09/2018 Assessment & Plan (05/01/2023 7:35 PM EDT): -DEXA 02/2023 -Referred by her medical writer-Dr Tatum : osteoporosis -T-score -2.5 in lumbar spine Pt reports was on alendronate x 5 years and stopped 2 y ago -pt to [facility] endocrinology to discuss if will resume alendronate -continue vit D and start Ca 600 mg BID Assessment & Plan (04/01/2023 8:47 PM EDT): -DEXA 02/2023 -Referred by her medical writer-Dr Tatum : osteoporosis -T-score -2.5 in lumbar spine Pt reports was on alendronate x 5 years and stopped 2 y ago -pt to [facility] endocrinology to discuss if will resume alendronate -continue vit D Obesity 10/13/2012 Assessment & Plan (05/01/2023 7:37 PM EDT): Advised pt to improve diet and exercise,discussed healthy life style -discussed tour bus driver/guide referral -referred today again to [facility] due to pt request. -Pt to start Jardiance prescribed at last visit and plan to start later GLP1 -may need to consider bariatric surgery if no weight loss w meds and life style changes Assessment & Plan (04/01/2023 8:31 PM EDT): Advised pt to improve diet and exercise,discussed healthy life style -discussed tour bus driver/guide referral -referred today -will start SGLT2 and will start later GLP1 -may need to consider bariatric surgery if no weight loss w meds and life style changes Resolved Problems Problem Noted Date Diagnosed Date Resolved Date Hypertension 07/25/2012 04/01/2023 Encounters Date Type Department Care Team Description 12/21/2024 Telephone [facility] [address] [place] [address] Gwen Cordero MD chart prep 12/21/2024 Abstract [facility] [address] [place] [address] Gwen Cordero MD 12/21/2024 Patient Outreach [facility] [address] [place] [address] Gwen Cordero MD Pre-visit Planning ([facility] unable to reach LVM ) 11/26/2024 Refill [facility] [address] [place] [address] Gwen Cordero MD 11/25/2024 Refill [facility] [address] [place] [address] Gwen Cordero MD 10/31/2024 Refill [facility] [address] [place] [address] Gwen Cordero MD Essential hypertension; Mixed hyperlipidemia 10/06/2024 Telephone [facility] [address] [place] [address] Julia Garcia [place] december recall from Last 3 Months Immunizations Name Administration Dates Next Due Hep B, adult 01/09/2004,08/02/2003,04/24/2003 Influenza injectable quadriv alent IIV4 with preservative 06/09/2017,07/27/2016 Influenza injectable quadriv alent preservative free 08/03/2023,10/01/2021,07/07/2019,10/06,12/03/2014 Influenza, IIV3, injectable 05/22/2010 Influenza, Split (incl. radha fied surface antigen) 06/20/2013,08/15/2012 MMR 03/02/2002,08/01/1997 Pfizer Covid-19 Vaccine 12+ 12/28/2023 Pfizer Covid-19 Vaccine 12+ Bivalent 04/01/2023 Pneumococcal Conjugate PCV 20 04/01/2023 Pneumococcal Polysaccharide PPSV23 04/24/2003 TD (adult), 2 Lf tetanus tox oid, preservative free, adsorbed 12/31/1995 Tdap 04/01/2023,05/22/2010 Zoster, Recombinant 04/01/2020,09/07/2019 Family History Medical History Relation Name Comments Throat cancer Father's Sister DM1 Mother Heart attack Mother Heart attack Sister DM1 Son Relation Name Status Comments Father's Sister Mother Sister Son Social History Tobacco Use Types Packs/Day Years Used Date Smoking Tobacco: Never Smokeless Tobacco: Never Tobacco Cessation:Counseling Given: Not Answered Alcohol Use Standard Drinks/Week Comments Yes 0 [...] Orientation Straight 04/01/2023 9: 35 AM EDT Last Filed Vital Signs Vital Sign Reading Time Taken Comments Blood Pressure 132/83 07/31/2024 9:37 AM EST Pulse 71 07/31/2024 9:37 AM EST Temperature 36.7 ??C (98.1 ??F) 07/31/2024 9:37 AM ES T Respiratory Rate 18 07/31/2024 9:37 AM EST Oxygen Saturation 96% 07/31/2024 9:37 AM EST Inhaled Oxygen Concentration - - Weight 76.7 kg (169 lb) 07/31/2024 9:37 AM EST Height 137.2 cm (4' 6 ) 02/01/2024 12:09 PM EDT Body Mass Index 40.75 02/01/2024 12:09 PM EDT Plan of Treatment Upcoming Encounters Date Type Department Care Team (Late st Contact Info) Description 12/28/2024 10:00 AM EDT Office Visit [facility] [address] [place] [phone] Gwen Cordero MD [address] [place] [address] Health Maintenance Due Date Last Done Comments CT Colonography 1960 Colonoscopy 1960 Colorectal Cancer Screening 1960 FIT DNA/Cologuard 1960 FIT 1960 FOBT 1960 Sigmoidoscopy 1960 Diabetes: Foot Exam 1970 Eye Exam 1970 Alcohol/Substance Use Screening 1972 RSV Patients and Patients Aged 60 years or older (1 - Risk 60-74 years 1-dose series) 2020 Depression Screening 04/01/2024 04/01/2023, 04/01/20 23 Mammogram 04/05/2024 03/06/2024, 02/12, 04/21/2023, Additional history exists Cervical Cancer Screening 05/11/2024 HPV/Cotest 05/11/2024 05/11/2019, 04/20/2019 Pap Smear 05/11/2024 05/11/2019 COVID-19 Vaccine ( season) 2024 12/28/2023, 04/01/2023, 12/09/2020 Influenza Vaccine (#1) 2024 , 10/01/2021, 07/07/2019, Additional history exists Diabetes: Hemoglobin A1C 06/28/2024 024, 09/15/2023, 09/09/2023, Additional history exists Diabetes: Urine Protein Screening 09/09/2024 09/09/2023, 04/17/2023, 04/05/2021, Additional history exists Lipid Panel 09/09/2024 09/09/2023, 08/0 01/2023, 05/13/2022, Additional history exists SDOH Screening 12/15/2024 12/16/2023 Tobacco Screening 07/31/2025 07/31/2024 DTaP/Tdap/Td Vaccines (3 - Td or Tdap) 04/01/2033 04/01/2023, 05/22/2010, 12/31/1995 Hepatitis B Vaccines Completed 01/09/2004, 08/02/2003, 04/24/2003 Zoster Vaccines Completed 04/01/2020, 09/07/2019 Pneumococcal Vaccine: 50+ Years Completed 04/01/2023, 04/24/2003 HIV Screening Completed 04/17/2023 Hepatitis C Screening Completed 04/17/2023 HIB Vaccines Aged Out No longer eligi ble based on patient's age to complete this topic HPV Vaccines Aged Out No longer eligi ble based on patient's age to complete this topic Hepatitis A Vaccines Aged Out No long er eligible based on patient's age to complete this topic IPV Vaccines Aged Out No longer eligi ble based on patient's age to complete this topic Meningococcal Vaccine Aged Out No jinny sajan eligible based on patient's age to complete this topic RSV under 20 months Aged Out No longe r eligible based on patient's age to complete this topic Rotavirus Vaccines Aged Out No longer eligible based on patient's age to complete this topic Procedures Procedure Name Priority Date/Time Associated Diagnosis Comments BI MAMMOGRAM DIAGNOSTIC TOMOSYNTHESIS BILATERAL Routine 03/06/2024 2:20 PM EDT POCT GLYCATED HEMOGLOBIN, TOTAL Routine 12/28/2023 9:43 AM EDT Type 2 diabetes mellitus without complication, unspecified whether senior living insulin use (CMS/HCC) ALBUMIN, RANDOM URINE W/CREATININE Routine 09/09/2023 9:45 AM EST LIPID PANEL, STANDARD Routine 09/09/2023 9:44 AM EST Type 2 diabetes mellitus without complication, unspecified whether senior living insulin use (CMS/HCC) HEPATITIS C ANTIBODY REFLEX Routine 04/17/2023 9:10 AM EDT Breast lesion HIV ANTIBODY/ANTIGEN ([place] DPH) Routine 04/17/2023 9:10 AM EDT Breast lesion HM PAP/HPV Routine 05/11/2019 from Last 3 Months or Most Recently Relevant to Health Maintenance Results * BI Mammogram Diagnostic Tomosynthesis Bilateral (03/06/2024 2:20 PM EDT) Anatomical Region Laterality Modality Breast Bilateral Mammography 03/06/2024 2:20 PM EDT Narrative 03/06/2024 2:54 PM EDT ? [facility] [place] ? [address] ?[place] [address] ? Mammography Report ? Signed ? Patient: Griggs,Elaine ?MR#: [id number] ?? 7 ? : 1960 ?Acct:[id number] ? Age/Sex: 63 / F ?ADM Date: 06/24/24 ? Loc: HO.MAMMO ? Attending Dr: Gwen Negron MD ? Ordering Physician: Iwona Murry MD ?Results: 2Benig ?? n Findings ? Date of Service: 03/06/24 ?Follow Up: 1 Year From Orig ?? inal Mammogram ? Procedure(s): MM tomosynthesis diagnostic BI ?? Accession Number(s): [id number] ? cc: Freedom Husain MD; Iwona Murry MD; Gwen Cordero MD ? EXAMINATION: ?? MM DIAGNOSTIC DIGITAL BREAST TOMOSYNTHESIS, BILATERAL ? CLINICAL INFORMATION: ? Year 1 postop left breast follow-up IDC diagnosed 05/05/2023 with ?? excision 05/28/2023. Due for bilateral screening. ? COMPARISON: ?? Mammography: 04/21/2023 left, bilateral 03/05/2023, 04/14/2021, ?? 04/08/2021, 02/02/2019, 12/24/2016, 11/14/2015. ? TECHNIQUE: ?? Digital breast tomosynthesis is performed in both the craniocaudal and ?? mediolateral oblique views along with computer-aided detection (CAD). ?? Synthesized 2D images are generated from the tomosynthesis. In ?? addition, spot magnification left CC and ML views were obtained of the ?? lumpectomy site left breast. ? FINDINGS: ?? There are scattered areas of fibroglandular density (ACR BI-RADS breast ?? composition Category b). ? Left breast is slightly smaller than the right, in keeping with ?? lumpectomy. Lumpectomy scar upper outer quadrant left breast, with ?? circular calcification consistent with fat necrosis. Mild trabecular ?? thickening throughout the left breast with mild skin thickening, from ?? therapeutic changes. No suspicious findings. ? Right breast demonstrates no suspicious masses, suspicious grouped ?? calcifications, or areas of architectural distortion.. The parenchymal ?? pattern is stable from prior exams. Bilaterally no axillary ?? abnormalities. ? MM/MM tomosynthesis diagnostic BI ?? IMPRESSION: ?? -There are no findings suspicious for malignancy in either breast. ? -Post therapeutic changes left breast with lumpectomy scar upper outer ?? quadrant. ? -Recommend one-year follow-up bilateral mammography to establish year 2 ?? postop protocol. ? ASSESSMENT: ? BI-RADS BI-RADS 2 - Benign Findings ? RECOMMENDATION: ?? 1 year F/U ? Results were provided to the patient at time of visit by the ?? technologist. ? This patient's information was entered into a reminder system with a ?? target due date for their next mammogram. ? Dictated By: ?João Tabares MD ? Signed By: ?<Electronically signed by João Tabares MD in OV> ?03/06/24 1450 ? DD/ 1420 ? TD/TT: ? [employer] Merchandising Coordinator: ? Procedure Note Chantel You - 03/06/2024 [facility] [address] [place] [address] Mammography Report Signed Patient: Mirna Griggs#: [id number] 7 : 1Acct:[id number] Age/Sex: 63 / FADM Date: 03/06/24 Loc: HO.MAMMO Attending Dr: Gwen Negron MD Ordering Physician: Iwona Murry MDResults: 2Benig n Findings Date of Service: 03/06/24Follow Up: 1 Year From Orig inal Mammogram Procedure(s): MM tomosynthesis diagnostic BI Accession Number(s): [id number] cc: Freedom Husain MD; Iwona Murry MD; Gwen Cordero MD EXAMINATION: MM DIAGNOSTIC DIGITAL BREAST TOMOSYNTHESIS, BILATERAL CLINICAL INFORMATION: Year 1 postop left breast follow-up IDC diagnosed 05/05/2023 with excision 05/28/2023. Due for bilateral screening. COMPARISON: Mammography: 04/21/2023 left, bilateral 03/05/2023, 04/14/2021, 04/08/2021, 02/02/2019, 12/24/2016, 11/14/2015. TECHNIQUE: Digital breast tomosynthesis is performed in both the craniocaudal and mediolateral oblique views along with computer-aided detection (CAD). Synthesized 2D images are generated from the tomosynthesis. In addition, spot magnification left CC and ML views were obtained of the lumpectomy site left breast. FINDINGS: There are scattered areas of fibroglandular density (ACR BI-RADS breast composition Category b). Left breast is slightly smaller than the right, in keeping with lumpectomy. Lumpectomy scar upper outer quadrant left breast, with circular calcification consistent with fat necrosis. Mild trabecular thickening throughout the left breast with mild skin thickening, from therapeutic changes. No suspicious findings. Right breast demonstrates no suspicious masses, suspicious grouped calcifications, or areas of architectural distortion.. The parenchymal pattern is stable from prior exams. Bilaterally no axillary abnormalities. MM/MM tomosynthesis diagnostic BI IMPRESSION: -There are no findings suspicious for malignancy in either breast. -Post therapeutic changes left breast with lumpectomy scar upper outer quadrant. -Recommend one-year follow-up bilateral mammography to establish year 2 postop protocol. ASSESSMENT: BI-RADS BI-RADS 2 - Benign Findings RECOMMENDATION: 1 year F/U Results were provided to the patient at time of visit by the technologist. This patient's information was entered into a reminder system with a target due date for their next mammogram. Dictated By: João Tabares MD Signed By: <Electronically signed by João Tabares MD in OV> 03/06/24 1450 DD/ 1420 TD/TT: E [employer] Merchandising Coordinator: [facility] External Provider IMG BI PROCEDURES Final Result * (ABNORMAL) POCT HGB A1C (12/28/2023 9:43 AM EDT) Hemoglobin A1C 6.9(A) 4.0 - 6.0 % QC Media Lot # [id number] Lot# Expiration Date [id number] Blood 12/28/2023 9:43 AM EDT us Gwen Negron MD POINT OF CARE YING T ENTER/EDIT ORDERABLES Final Result * Albumin, Random Urine W/Creatinine (09/09/2023 9:45 AM EST) Creatinine, Urine 101.58 mg/dL [facility] Microalbumin Urine 17.0 mg/L [facility] Microalbum Creatinine Ratio Ur 16.7 <30 ug/mg cr [facility] Comment:Albumin/Creatinine R atio Reference Ranges: Normal: < 30 ug/mg creatinine Microalbuminuria: 30 - 300 ug/mg creatinineClinical Albuminuria: > 300 ug/mg creatinine 09/09/2023 9:45 AM EST 09/09/2023 10:12 AM EST us Gwen Negron MD LAB URINE ORDERAB LES Final Result Performing Organization Address City/State/[facility] Co de Phone Number [facility] [address] [place] [phone] * Lipid Panel, Standard (09/09/2023 9:44 AM EST) Triglycerides 70 <150 mg/dL [facility] Comment:Desirable Triglyceri de: less than 150 mg/dLBorderline High Triglyceride 150-199 mg/dLHigh Triglyceride: 200-499 mg/dLVery High Triglyceride: greater than or equal to 5OO mg/dL Cholesterol 148 <200 mg/dL [facility] Comment:Desirable Cholestero l: less than 200 mg/dLBorderline High Cholesterol: 200-239 mg/dLHigh Cholesterol: greater than 239 mg/dL LDL Cholesterol Calculated 76 <100 mg/dL [facility] Comment:Desirable LDL: less than 100 mg/dLNear Optimal/Above Optimal LDL: 110- 129 mg/dLBorderline High LDL: 130-159 mg/dLHigh LDL: 160-189 mg/dLVery High LDL: greater than or equal to 190 mg/dL HDL Cholesterol 58 >40 mg/dL [facility] Comment:Desirable HDL: great er than 40 mg/dL Note: This HDL assay may give artificially low results in patients with liver disease. Blood Venous blood specimen / Unknown 09/09/2023 9:44 AM EST 09/09/2023 9:44 AM EST Gwen Negron MD LAB BLOOD ORDERAB LES Final Result Performing Organization Address [facility] Co de Phone Number [facility] [address] [place] [phone] * Hepatitis C Antibody Reflex (04/17/2023 9:10 AM EDT) Hepatitis C Antibody Nonreactive Nonreactive [facility] Comment:Antibodies to HCV no t detected; does not exclude early acuteHCV infection. 04/17/2023 9:10 AM EDT 04/17/2023 9:10 AM EDT Gwen Negron MD LAB BLOOD ORDERAB LES Final Result Performing Organization Address [facility] Co de Phone Number [facility] [address] [place] [phone] * HIV Ab/Ag ([facility]) (04/17/2023 9:10 AM EDT) HIV AB/AG Nonreactive Nonreactive [facility] Comment:HIV-1 p24 Ag and/or HIV-1/HIV-2 Ab not detected.A test result that is nonreactive does not exclude thepossibility of exposure to or infection with HIV-1 and/orHIV-2. Nonreactive results in this assay for individualswith prior exposure to HIV-1 and/or HIV-2 may be due toantigen and antibody levels that are below the limit ofdetection of this assay.The [employer] Inspector HIV Ag/Ab Combo assay result andsupplemental assay results should be interpreted inconjunction with the patient's clinical presentation,history and other laboratory results. If the results areinconsistent with clinical evidence, additional testing issuggested to confirm the result. 04/17/2023 9:10 AM EDT 04/17/2023 9:10 AM EDT us Gwen Negron MD LAB BLOOD ORDERAB LES Final Result [facility] [address] [place] [address] [phone] * Pap Smear (05/11/2019) Pap Negative for intraephithelial lesion or malignancy Negative for intraephithelial lesion or malignancy, Other HPV Undetected us Historical Provider HEALTH MAINTENANCE Final Result from Last 3 Months or Most Recently Relevant to Health Maintenance Insurance [employer] [facility] [employer] Care Teams Life Sciences Instructor Relationship Specialty Start Date End Date Gwen Cordero MD [address] [place] [phone] PCP - General Internal Medicine 12/29/22
[2024-12-22 08:41] VITALS: BP 128/78; PULSE 76; O2SAT 96; BMI 34.0
--- NOTE | 2024-12-22 08:41 | A.OFFVIS_ITS ---
Vital Signs 12/22/24 08:41 Height 5 ft Weight 174 lb BMI 34.0 BP 128/78 Blood Pressure Location Rt brachial Position Sitting Pulse 76 Pulse Source Doppler Pulse Oximetry (%) 96 Oxygen Delivery Method Room Air Intake Visit Reasons: Asthma Allergies Penicillins Allergy (Intermediate, Verified 09/14/24 15:58) RASH HPI Comments Details: The patient is a 64-year-old woman with a known history of asthma who apparently has been having worsening respiratory symptoms. She has been on Advair 100/50 with reasonable control. She also carries a rescue inhaler. Unfortunately her respiratory symptoms became significantly worse with significant chest tightness and wheezing not responding to her home regimen or to her nebulizer. She went to the ER which she did undergo blood work and also an x-ray. Her x-ray was personally by me demonstrating no acute disease and her CBC was otherwise normal without any evidence of any eosinophilia. Although she has had eosinophilia in the past. She was treated with prednisone and she was discharged. She is starting to feel better. Although she still having intermittent symptoms. On examination she still has expiratory wheezing and diminished Respiratory capacity. Unfortunately she had also carries a history of glaucoma therefore she cannot use any anticholinergics. Her eye doctor also told her to avoid singular. Therefore will have to maximize her inhaled cortical steroids and long-acting beta agonist and avoid any anticholinergic therapy. The patient has not had any allergy testing. In addition to that the patient does have significant daytime drowsiness. Her Snoqualmie score is elevated 10/24. She does have headaches. She does have snoring. She also carries cardiovascular risk factors. The patient really needs to have a home sleep study. 03/24/2022 the patient is here for a pulmonary follow-up visit. The patient overall is doing beter. she seems to be responding better to the Advair HFA. She has not to had to use her rescue inhaler more than twice a week. Denies any significant chest tightness or wheezing. She still gets some dyspnea on exertion usually mild in severity. We did review her pulmonary function studies to get a demonstrating some evidence of small airways disease which is consistent with her asthma. But, in addition to that she did have a mild restrictive lung disease which could be due to her elevated BMI. Her chest x- ray was reassuring. The fact that her symptoms are better will continue to just monitor her. The patient will looking to going back to the weight management program. I am hopeful that she will continue to improve from a respiratory status as she continues to make healthy interventions. The patient continues to have daytime drowsiness. She did have a sleep study done however only required 30 minutes. Therefore we did reach out to the sleep center and they will be calling her to be do the study. Once I have the results of will call her to see if she needs to start CPAP therapy. The patient continues to be symptomatic therefore she will be a good candidate for PAP therapy vest the case. 11/03/2022 the patient is here for a pulmonary follow-up visit. Overall the patient is doing well. She does complaint of a dry hacky cough. Iwtf-gl-uklwyfnr severity. Usually bothers her most in the morning. Denies any chest congestion denies any fevers or chills and denies any sick contacts. Meantime she continues to have daytime drowsiness. Her Snoqualmie score is elevated 9/24. She did undergo an in-lab sleep study that was still hard for her initially to fall asleep. Final she did fall asleep and she was able to have an adequate study. She will had 1 episode of REM sleep. During that REM sleep she had significant sleep apnea. She also had evidence of apnea when she laid on her back. She did better when she laid her side her AHI was up to 7 events per hour. More significantly was effective the patient desaturated down to 71% during her sleep and also spent 14 minutes below 88%. During the study heart rate did increase to about 104 specially when she was having the significant apneic episodes during the REM sleep. Explained to the patient that she likely has REM related sleep disorder. She is not interested in using CPAP at this time. Therefore, she is going to try positional therapy. We did talk about different devices that she can consider. Plan to follow-up in 4-6 months. Prior to that study I will have the patient undergo an overnight oximetry to see if she was able to improve her significant hypoxia. If she continues to have hypoxia and continues to be symptomatic with an elevated Snoqualmie score then treating her with PAP therapy will be most beneficial. She continues with respiratory medication. 05/03/2023 the patient is here for pulmonary follow-up visit. Overall she is doing well from a respiratory status. Her cough is better. She is tolerating the Advair well. Has not required her short-acting beta agonist. In addition to that she is sleeping on her side. She will call avoiding sleeping on her back. She was supposed to have an overnight oximetry but she has not had to sit as of yet. More recently she was diagnosed with breast cancer. She is going to follow up with the surgeon regarding the breast cancer. She will likely need surgery. From a respiratory status the patient doing well and may be able to proceed with anesthesia and surgery at this point. Patient has minor risk for any perioperative pulmonary complications which may include atelectasis and hypoxia and pneumonia. 12/21/2023 the patient is here for a pulmonary follow-up visit. The patient overall has been doing very well. She did have her breast cancer surgery and then after she did follow-up with Oncology. She did receive radiation. Currently on tamoxifen. She is doing very well. She states that her asthma has been extremely well controlled. She has not had any flare-ups. Has not required any prednisone. She actually has not been required her rescue inhaler. Since she was doing well she actually stopped the Advair HFA for now. She is going to monitor closely her symptoms. She understands that she needs to use her rescue inhaler more than twice a week she should start the Advair again. The patient did have an x-ray done back in the spring which we reviewed demonstrating no acute disease. She is now having her protocol mammograms in additional studies through the Oncology and Surgical Department. Will follow-up in a year's time. 12/22/2024 the patient is here for a pulmonary follow-up visit. Overall she is doing very well. She continues to monitor her asthma symptoms. She has not required her rescue inhaler often. Typically less than twice a week. The patient has not been requiring the maintenance inhaler either. As far as her sleep she is doing well. She denies any significantly daytime drowsiness. Snoqualmie score better 6/24. She was supposed to have an overnight oximetry which we ordered couple times. I did reach out to the [employer]. Will have her resend the order in order for her to have the overnight oximetry make sure that she does not need any oxygen supplementation while sleeping. We did review her last chest x-ray back in 03/2023 demonstrating some degenerative back issues but no evidence of any pulmonary issues. Will go ahead and repeat an x-ray this time specially with a history of breast cancer. Will have her follow-up in a year's time. We did also talk about vaccines and which when she needs to have at this time. If the patient has any issues prior to the next visit she will call for an earlier assessment. [facility] Medical History History of breast cancer in female Sleep apnea Diabetes Invasive ductal carcinoma of breast Chronic restrictive lung disease Obesity (BMI 30-39.9) Hypertension Asthma Vitamin D deficiency Osteoporosis Hyperparathyroidism Surgical History H/O colonoscopy History of lumpectomy of left breast (~05/28/23) H/O vein stripping S/P LASIK surgery of both eyes Hx of parathyroidectomy Hx of tubal ligation Family History Father Cancer Mother Cardiomyopathy Diabetes Obesity Maternal Aunt Ovarian cancer Other Thyroid disease Social History Household Members: None Are you a primary associate director career services to a significant other at home: No Do you presently have visiting nurse or other home services: No Alcohol intake: current Alcohol intake frequency: holidays/special occasions only Patient Tobacco Use Status: Never used Tobacco service: No Current occupational status: employed Gender identity: Female Female Reproductive History Menstrual Age of Menarche: 14 Review of Systems Const Denies chills and Denies fever(s) Card Denies chest pain, Denies dyspnea and Denies dyspnea on exertion Resp Denies cough, Denies dyspnea and Denies dyspnea on exertion GI Denies hematochezia and Denies change in bowel habits Denies hematuria Musc Denies back pain and Denies limited range of motion Neuro Denies focal weakness and Denies convulsions Psych Denies depression and Denies mood swings Physical Exam Vital Signs: Last Vital Signs Pulse 76 12/22/24 08:41 BP 128/78 12/22/24 08:41 Pulse Ox 96 12/22/24 08:41 Oxygen Delivery Method Room Air 12/22/24 08:41 BMI result Body Mass Index 34.0 Const General: alert Neck Neck: Yes normal visual inspection, Yes full ROM and Yes no lymphadenopathy Chest Chest palpation & inspection: normal inspection of the chest Resp Effort & Inspection: normal respiratory effort Auscultation: clear to auscultation bilaterally and no wheezes Cardio Rate: regular rate Rhythm: regular rhythm Heart sounds: S1 normal heart sound present and S2 normal heart sound present GI Palpation (GI): Soft to palpation and nontender Auscultation: normal bowel sounds Skin General skin exam: rashes and/or lesions noted Assessment & Plan Assessment & Plan (1) Asthma: Comment: controlled with Advair-does not always use if asymptomatic Code(s): J45.909 - Unspecified asthma, uncomplicated Category: Medical Qualifiers: Asthma complication type: uncomplicated Asthma persistence: intermittent Asthma severity: mild Qualified Code(s): J45.20 - Mild intermittent asthma, uncomplicated (2) DOUG (obstructive sleep apnea): Code(s): G47.33 - Obstructive sleep apnea (adult) (pediatric) Category: Medical (3) Chronic restrictive lung disease: Code(s): J98.4 - Other disorders of lung Category: Medical Plan postional therapy to treat the DOUG. Likely a REM related sleep disorder. overnight oximetry Exercise/weight management ROBERTA as needed F/U 12 months Orders: Orders Overnight Pulse Oximetry Today J45.20 - Mild intermittent asthma, uncomplicated Coding Level of Care Code Est Pt Level 4 (28956) Diagnoses Mild intermittent asthma without complication J45.20 Asthma complication type: uncomplicated Asthma persistence: intermittent Asthma severity: mild DOUG (obstructive sleep apnea) G47.33 Chronic restrictive lung disease J98.4 Time Spent (min) 17
== END 2024-12-22 09:01 | disposition home or self-care (01) ==
LOC: HO.HPS 08:26
PROVIDERS: PCP Student in an Organized Health Care Education/Training Program; Visit Provider Hospitalist
DX: J45.20 Mild intermittent asthma, uncomplicated (principal); G47.33 Obstructive sleep apnea (adult) (pediatric); J98.4 Other disorders of lung
CPT/HCPCS: 99214

== ENCOUNTER 2024-12-22 08:26 | Outpatient (REF) | payer OTHER, SELFPAY ==
--- OUTSIDE RECORDS SUMMARY | 2024-12-22 09:18 | XMS_ITS | Encounter Summary ---
Author Organization [employer] Address [address] [place] [address] Care Team Providers Care Counselor Supervisor Name Role Phone Gwen Cordero MD Primary Care Pro vider Reason for Visit * Reason Onset Date Comments Medication Question 08/09/2023 Encounter Details Date Type Department Care Team ([facility] st Contact Info) Description 08/09/2023 Refill [facility] [address] [place] [address] Gwen Cordero MD [address] [place] [address] Social History Tobacco Use Types Packs/Day Years [...] 08/25/2023 9:13 AM EST Telephone call to [facility] maru Martin to relay message. No answer, left voicemail. Patient to call as needed. 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 Telephone call to [facility] maru [place] to relay message. No answer, left voicemail. Patient to call as needed. * Telephone Encounter - Faye Valencia - 08/09/2023 10:34 AM EST Tc from pt requesting a call back in regards medication tamoxifen (Nolvadex) 20 MG chemo tablet. Please contact pt in [facility] documented in this encounter Plan of Treatment Upcoming Encounters Date Type Department Care Team ([facility] st Contact Info) Description 12/28/2024 10:00 AM EDT Office Visit [facility] [address] [place] [address] [phone] Gwen Cordero MD [address] [place] [phone] documented as of this encounter Visit Diagnoses Not on filedocumented in this encounter Additional Health Concerns Assessment Noted Time PHQ-9 Depression Total Score: 4 04/01/20 9:33 AM EDT documented as of this encounter Care Teams Counselor Supervisor Relationship Specialty Start Date End Date Gwen Cordero MD [address] [place] [address] [phone] PCP - General Internal Medicine 12/29/22 documented as of this encounter
--- OUTSIDE RECORDS SUMMARY | 2024-12-22 09:18 | XMS_ITS | Encounter Summary ---
Author Organization [employer] Address 75 [facility] 7 [place] [address] Care Team Providers Care Cooling Machine Operator Name Role Phone Gwen Cordero MD Primary Care Pro vider Reason for Visit * Reason Comments Pre-visit Planning SDOH unable to reach LVM Encounter Details Date Type Department Care Team ([facility] st Contact Info) Description 12/21/2024 Patient Outreach [facility] [address] [place] [address] Gwen Cordero MD [address] [place] [address] Pre-visit Planning (SDOH unable to reach LVM [...] Description 12/28/2024 10:00 AM EDT Office Visit [facility] [address] [place] [phone] Gwen Cordero MD [address] [place] [phone] documented as of this encounter Visit Diagnoses Not on filedocumented in this encounter Additional Health Concerns Assessment Noted Time PHQ-9 Depression Total Score: 4 04/01/20 23 9:33 AM EDT documented as of this encounter Care Teams Cooling Machine Operator Relationship Specialty Start Date End Date Gwen Cordero MD [address] [place] [phone] PCP - General Internal Medicine 12/29/22 documented as of this encounter
--- OUTSIDE RECORDS SUMMARY | 2024-12-22 09:18 | XMS_ITS | Encounter Summary ---
Author Organization [employer] Address 75 [facility] 7 [place] [address] Care Team Providers Care Stucco Applicator Name Role Phone Gwen Cordero MD Primary Care Pro vider Encounter Details Date Type Department Care Team (Late st Contact Info) Description 12/21/2024 Abstract [facility] [address] [place] [address] Gwen Cordero MD [address] [place] [address] Social History Tobacco Use Types Packs/Day Years [...] Description 12/28/2024 10:00 AM EDT Office Visit [facility] [address] [place] [address] [phone] Gwen Cordero MD [address] [place] [address] [phone] documented as of this encounter Procedures Procedure [...] documented as of this encounter Care Teams Stucco Applicator Relationship Specialty Start Date End Date Gwen Cordero MD [address] [place] [address] [phone] PCP - General Internal Medicine 12/29/22 documented as of this encounter
--- OUTSIDE RECORDS SUMMARY | 2024-12-22 09:18 | XMS_ITS | Encounter Summary ---
Author Organization [employer] Address [address] [place] [address] Care Team Providers Care Tool Adjuster Name Role Phone Gwen Cordero MD Primary Care Pro vider Reason for Visit * Reason Onset Date Comments chart prep 12/21/2024 Encounter Details Date Type Department Care Team ([facility] st Contact Info) Description 12/21/2024 Telephone [facility] [address] [place] [address] Gwen Cordero MD [address] [place] [address] chart prep Social History Tobacco Use Types [...] Description 12/28/2024 10:00 AM EDT Office Visit [facility] [address] [place] [phone] Gwen Cordero MD [address] [place] [phone] documented as of this encounter Visit Diagnoses Not on filedocumented in this encounter Additional Health Concerns Assessment Noted Time PHQ-9 Depression Total Score: 4 04/01/20 9:33 AM EDT documented as of this encounter Care Teams Tool Adjuster Relationship Specialty Start Date End Date Gwen Cordero MD [address] [place] [phone] PCP - General Internal Medicine 12/29/22 documented as of this encounter
--- OUTSIDE RECORDS SUMMARY | 2024-12-22 09:18 | XMS_ITS | Encounter Summary ---
Author Organization [employer] Address 75 [facility] [address]t [place] [address] Care Team Providers Care Apron Operator Name Role Phone Gwen Cordero MD Primary Care Pro vider Reason for Visit * Reason Comments Med Refill Encounter Details Date Type Department Care Team ([facility] st Contact Info) Description 08/09/2023 Refill [facility] [address] [place] [phone] Louie Gore FNP Social History Tobacco Use [...] t he electric, gas, oil or water [employer] threatened to shut off services in your [...] 12/28/2024 10:00 AM EDT Office Visit [facility] [address] [place] [phone] Gwen Cordero MD [address] [place] [phone] documented as of this encounter Visit Diagnoses Not on filedocumented in this encounter Additional Health Concerns Assessment Noted Time PHQ-9 Depression Total Score: 4 04/01/20 9:33 AM EDT documented as of this encounter Care Teams Apron Operator Relationship Specialty Start Date End Date Gwen Cordero MD [address] [place] [phone] PCP - General Internal Medicine 12/29/22 documented as of this encounter
--- OUTSIDE RECORDS SUMMARY | 2024-12-22 09:18 | XMS_ITS | Clinical Summary ---
Author Organization [employer] Address [address] [facility] [address] [address] [place] [address] Care Team Providers Care Banquet Attendant Name Role Phone Gwen Cordero MD Primary [...] kit 08/10/20 23 Active [employer] Short Pen [place] 31G X 8 MM misc USE DIRECTED [...] visit -Pt reports she already spoke w dobie worker in regards thyroid nodule and was told there is no contra-indication to start GLP-1s ,may be able to stop insulin in future -referred to mangle feeder at last visit - [place] to check status of referral today. -Seen by clinical trial educator 04/2023 - to f up in 1y. -DM labs in 3 mo if not f w her dobie worker for DM by then. Assessment & Plan [...] urine -also pt will talk w her dobie worker in regards thyroid nodule ,may be able to stop insulin in future -referred today to mangle feeder -has apt w clinical trial educator x next month Thyroid nodule 04/01/2023 Assessment & Plan (05/01/2023 7:49 PM EDT): -thyroid US 2016:Solitary small left thyroid nodule. Ultrasound follow-up recommended.Parathyroid glands not identified by ultrasound.. -pt reports to be following w dobie worker -will check w specialist at her next visit about next US - referred today for thyroid US. Assessment & Plan (04/01/2023 8:20 PM EDT): -thyroid US 2016:Solitary small left thyroid nodule. Ultrasound follow-up recommended.Parathyroid glands not identified by ultrasound.. -pt reports to be following w dobie worker -will check w specialist at her next [...] onc to be referred by surgeon from [facility]. Assessment & Plan (04/01/2023 8:58 PM [...] Pt w PNC allergy -referred already to java grails developer to clarify if true allergy - pending to schedule apt. Assessment & Plan (04/01/2023 8:55 PM EDT): Pt w PNC allergy -referred today to java grails developer to clarify if true allergy HTN (hypertension) [...] x the past 8 months -continue to [facility] screw cutter -Pt has not needed Albuterol for several mo. Assessment & Plan (04/01/2023 8:49 PM EDT): Reports to be controlled , off steroids x the past 7 months -continue to [facility] screw cutter Osteoporosis 09/09/2018 Assessment & Plan (05/01/2023 7:35 PM EDT): -DEXA 02/2023 -Referred by her dobie worker-Dr Tatum : osteoporosis -T-score -2.5 in lumbar spine Pt reports was on alendronate x 5 years and stopped 2 y ago -pt to [facility] endocrinology to discuss if will resume alendronate -continue vit D and start Ca 600 mg BID Assessment & Plan (04/01/2023 8:47 PM EDT): -DEXA 02/2023 -Referred by her dobie worker-Dr Tatum : osteoporosis -T-score -2.5 in lumbar spine Pt reports was on alendronate x 5 years and stopped 2 y ago -pt to [facility] endocrinology to discuss if will resume alendronate -continue vit D Obesity 10/13/2012 Assessment & Plan (05/01/2023 7:37 PM EDT): Advised pt to improve diet and exercise,discussed healthy life style -discussed clinical informaticist referral -referred today again to [facility] due to pt request. -Pt to start Jardiance prescribed at last visit and plan to start later GLP1 -may need to consider bariatric surgery if no weight loss w meds and life style changes Assessment & Plan (04/01/2023 8:31 PM EDT): Advised pt to improve diet and exercise,discussed healthy life style -discussed clinical informaticist referral -referred today -will start SGLT2 and will start later GLP1 -may need to consider bariatric surgery if no weight loss w meds and life style changes Resolved Problems Problem Noted Date Diagnosed Date Resolved Date Hypertension 07/25/2012 04/01/2023 Encounters Date Type Department Care Team Description 12/21/2024 Telephone [facility] [address] [place] [address] Gwen Cordero MD chart prep 12/21/2024 Abstract [facility] [address] [place] [address] Gwen Cordero MD 12/21/2024 Patient Outreach [facility] [address] [place] [address] Gwen Cordero MD Pre-visit Planning ([facility] unable to reach LVM ) 11/26/2024 Refill [facility] [address] [place] [address] Gwen Cordero MD 11/25/2024 Refill [facility] [address] [place] [address] Gwen Cordero MD 10/31/2024 Refill [facility] [address] [place] [address] Gwen Cordero MD Essential hypertension; Mixed hyperlipidemia 10/06/2024 Telephone [facility] [address] [place] [address] Julia Garcia MA december recall from Last [...] Description 12/28/2024 10:00 AM EDT Office Visit [facility] [address] [place] [phone] Gwen Cordero MD [address] [place] [address] Health Maintenance Due Date Last Done Comments [...] 2 diabetes mellitus without complication, unspecified whether nursing home insulin use (CMS/HCC) ALBUMIN, RANDOM URINE W/CREATININE Routine 09/09/2023 9:45 AM EST LIPID PANEL, STANDARD Routine 09/09/2023 9:44 AM EST Type 2 diabetes mellitus without complication, unspecified whether nursing home insulin use (CMS/HCC) HEPATITIS C ANTIBODY REFLEX [...] EDT Narrative 03/06/2024 2:54 PM EDT ? [facility] [place] ? [address] ?[place] [address] ? Mammography Report ? Signed ? Patient: Griggs,Elaine ?MR#: [id number] ?? 7 ? : 1960 ?Acct:[id number] ? Age/Sex: 63 / F ?ADM Date: 06/24/24 ? Loc: HO.MAMMO ? Attending Dr: Gwen Negron MD ? Ordering Physician: Iwona Murry MD ?Results: 2Benig ?? n Findings ? Date of Service: 03/06/24 ?Follow Up: 1 Year From Orig ?? inal Mammogram ? Procedure(s): MM tomosynthesis diagnostic BI ?? Accession Number(s): [id number] ? cc: Freedom Husain MD; Iwona Murry [...] 1450 ? DD/ 1420 ? TD/TT: ? Pull Out Operator: ? Procedure Note Chantel You - 03/06/2024 [facility] [address] [place] [address] Mammography Report Signed Patient: Mirna Griggs#: [id number] 7 : 1Acct:[id number] Age/Sex: 63 / FADM Date: 03/06/24 Loc: HO.MAMMO Attending Dr: Gwen Negron MD Ordering Physician: Iwona Murry MDResults: 2Benig n Findings Date of Service: 03/06/24Follow Up: 1 Year From Orig inal Mammogram Procedure(s): MM tomosynthesis diagnostic BI Accession Number(s): [id number] cc: Freedom Husain MD; Iwona Murry MD; [...] in OV> 03/06/24 1450 DD/ 1420 TD/TT: Pull Out Operator: [facility] External Provider IMG BI PROCEDURES Final Result * (ABNORMAL) POCT HGB A1C (12/28/2023 9:43 AM EDT) Hemoglobin A1C 6.9(A) 4.0 - 6.0 % QC Media Lot # [id number] Lot# Expiration Date [id number] Blood 12/28/2023 9:43 AM EDT us Gwen Negron MD POINT OF CARE YING T ENTER/EDIT ORDERABLES Final Result * Albumin, Random Urine W/Creatinine (09/09/2023 9:45 AM EST) Creatinine, Urine 101.58 mg/dL [facility] Microalbumin Urine 17.0 mg/L [facility] Microalbum Creatinine Ratio Ur 16.7 <30 ug/mg cr [facility] Comment:Albumin/Creatinine R atio Reference Ranges: Normal: < 30 ug/mg creatinine Microalbuminuria: 30 - 300 ug/mg creatinineClinical Albuminuria: > 300 ug/mg creatinine 09/09/2023 9:45 AM EST 09/09/2023 10:12 AM EST us Gwen Negron MD LAB URINE ORDERAB LES Final Result Performing Organization Address City/State/[facility] Co de Phone Number [facility] [address] [place] [phone] * Lipid Panel, Standard (09/09/2023 9:44 AM EST) Triglycerides 70 <150 mg/dL [facility] Comment:Desirable Triglyceri de: less than 150 mg/dLBorderline High Triglyceride 150-199 mg/dLHigh Triglyceride: 200-499 mg/dLVery High Triglyceride: greater than or equal to 5OO mg/dL Cholesterol 148 <200 mg/dL [facility] Comment:Desirable Cholestero l: less than 200 mg/dLBorderline High Cholesterol: 200-239 mg/dLHigh Cholesterol: greater than 239 mg/dL LDL Cholesterol Calculated 76 <100 mg/dL [facility] Comment:Desirable LDL: less than 100 mg/dLNear Optimal/Above Optimal LDL: 110- 129 mg/dLBorderline High LDL: 130-159 mg/dLHigh LDL: 160-189 mg/dLVery High LDL: greater than or equal to 190 mg/dL HDL Cholesterol 58 >40 mg/dL [facility] Comment:Desirable HDL: great er than 40 mg/dL Note: This HDL assay may give artificially low results in patients with liver disease. Blood Venous blood specimen / Unknown 09/09/2023 9:44 AM EST 09/09/2023 9:44 AM EST Gwen Negron MD LAB BLOOD ORDERAB LES Final Result Performing Organization Address [facility] Co de Phone Number [facility] [address] [place] [phone] * Hepatitis C Antibody Reflex (04/17/2023 9:10 AM EDT) Hepatitis C Antibody Nonreactive Nonreactive [facility] Comment:Antibodies to HCV no t detected; does not exclude early acuteHCV infection. 04/17/2023 9:10 AM EDT 04/17/2023 9:10 AM EDT wGen Negron MD LAB BLOOD ORDERAB LES Final Result Performing Organization Address [facility] Co de Phone Number [facility] [address] [place] [phone] * HIV Ab/Ag ([facility]) (04/17/2023 9:10 AM EDT) HIV AB/AG Nonreactive Nonreactive [facility] Comment:HIV-1 p24 Ag and/or HIV-1/HIV-2 Ab not detected.A test result that is nonreactive does not exclude thepossibility of exposure to or infection with HIV-1 and/orHIV-2. Nonreactive results in this assay for individualswith prior exposure to HIV-1 and/or HIV-2 may be due toantigen and antibody levels that are below the limit ofdetection of this assay.The [employer] HIV Ag/Ab Combo assay result andsupplemental assay results should be interpreted inconjunction with the patient's clinical presentation,history and other laboratory results. If the results areinconsistent with clinical evidence, additional testing issuggested to confirm the result. 04/17/2023 9:10 AM EDT 04/17/2023 9:10 AM EDT us Gwen Negron MD LAB BLOOD ORDERAB LES Final Result [facility] [address] [place] [phone] * Pap Smear (05/11/2019) Pap Negative for intraephithelial lesion or malignancy Negative for intraephithelial lesion or malignancy, Other HPV Undetected us Historical Provider HEALTH MAINTENANCE Final Result from Last 3 Months or Most Recently Relevant to Health Maintenance Insurance [id number] [facility] Programmr Care Teams Banquet Attendant Relationship Specialty Start Date End Date Gwen Cordero MD [address] [place] [phone] PCP - General Internal Medicine 12/29/22
--- OUTSIDE RECORDS SUMMARY | 2024-12-22 09:18 | XMS_ITS | Encounter Summary ---
Author Organization [employer] Address [address] [place] [phone] Care Team Providers Care Marketing Account Manager Name Role Phone Gwen Cordero MD Primary Care Pro vider Encounter Details Date Type Department Care Team (Late Contact Info) Description 06/11/2023 Abstract [facility] [address] [place] [address] [phone] Darcie Canas Social History Tobacco Use Types [...] Description 12/28/2024 10:00 AM EDT Office Visit [facility] [address] [place] [address] [phone] Gwen Cordero MD [address] [place], [place] [phone] documented as of this encounter Procedures Procedure [...] documented as of this encounter Care Teams Marketing Account Manager Relationship Specialty Start Date End Date Gwen Cordero MD [address] [place] [phone] PCP - General Internal Medicine 12/29/22 documented as of this encounter
--- OUTSIDE RECORDS SUMMARY | 2024-12-22 09:18 | XMS_ITS | Encounter Summary ---
Author Organization [employer] Address [address] [place] [phone] Care Team Providers Care Lpc Name Role Phone Gwen Cordero MD Primary Care Pro vider Encounter Details Date Type Department Care Team (Late Contact Info) Description 04/06/2023 Abstract [facility] [address] [place] [address] [phone] Gwen Cordero MD [address] [place] [address] [phone] Social History Tobacco Use Types Packs/Day Years [...] Description 12/28/2024 10:00 AM EDT Office Visit [facility] [address] [place] [address] [phone] Gwen Cordero MD [address] [place] [address] [phone] documented as of this encounter Visit Diagnoses Not on filedocumented in this encounter Additional Health Concerns Assessment Noted Time PHQ-9 Depression Total Score: 4 04/01/20 23 9:33 AM EDT documented as of this encounter Care Teams Lpc Relationship Specialty Start Date End Date Gwen Cordero MD [address] [place] [phone] PCP - General Internal Medicine 12/29/22 documented as of this encounter
--- OUTSIDE RECORDS SUMMARY | 2024-12-22 09:18 | XMS_ITS | Encounter Summary ---
Author Organization [employer] Address [address] [place] [address] [address] [address] Care Team Providers Care Diet Consultant Name Role Phone Gwen Cordero MD Primary Care Pro vider Encounter Details Date Type Department Care Team (Late st Contact Info) Description 03/09/2023 Abstract [facility] [address] [place] [address] [phone] Gwen Cordero MD [address] [place] [address] [phone] Social History Tobacco Use Types Packs/Day Years [...] Description 12/28/2024 10:00 AM EDT Office Visit [facility] [address] [place] [address] [phone] Gwen Cordero MD [address] [place] [address] [phone] documented as of this encounter Procedures Procedure [...] on filedocumented in this encounter Care Teams Diet Consultant Relationship Specialty Start Date End Date Gwen Cordero MD [address] [place] [phone] PCP - General Internal Medicine 12/29/22 documented as of this encounter
[2024-12-22 10:05] LABS: Estimated Average Glucose 128 mg/dL; Hemoglobin A1C 167.5873 umol/L; Hemoglobin A1c % 6.1 % (<6.0)
[2024-12-22 10:26] LABS: Alanine Aminotransferase 33 U/L (0-31); Albumin Level 3.9 g/dL (3.5-5.0); Alkaline Phosphatase 96 U/L (39-117); Anion Gap 10 (12-20); Aspartate Amino Transferase 38 U/L (5-31); Bilirubin Total 0.4 mg/dL (0.0-1.0); Blood Urea Nitrogen 13 mg/dL (9-16); Calcium 9.2 mg/dL (8.4-10.2); Carbon Dioxide 24 mmol/L (22-29); Chloride 112 mmol/L (96-108); Cholesterol 129 mg/dL (<200); Estimated Glomerular Filt Rate > 60; Glucose Random 90 mg/dL (60-115); HDL Cholesterol 47 mg/dL (>40); LDL Cholesterol Calculated 70 mg/dL (<100); Potassium 3.9 mmol/L (3.3-5.1); Sodium 142 mmol/L (135-145); Total Protein 7.1 g/dL (6.5-8.0); Triglycerides 64 mg/dL (<150)
[2024-12-22 11:11] LABS: Vitamin B12 204 pg/mL (200-900)
[2024-12-22 11:39] LABS: Creatinine Urine 75.85 mg/dL; Microalbumin Urine < 5.0 mg/L
== END 2024-12-22 08:27 | disposition home or self-care (01) ==
LOC: HO.LAB 08:26
PROVIDERS: Absent Provider Student in an Organized Health Care Education/Training Program; PCP Student in an Organized Health Care Education/Training Program; Visit Provider Hospitalist
DX: E11.9 Type 2 diabetes mellitus without complications (principal); E66.9 Obesity, unspecified; J45.20 Mild intermittent asthma, uncomplicated; J98.4 Other disorders of lung
CPT/HCPCS: 36415; 80053; 80061; 82043; 82570; 82607; 82746; 83036; 99212

== ENCOUNTER 2025-03-08 10:43 | Outpatient (REF) | payer OTHER, SELFPAY ==
--- NOTE | ~2025-03-08 | MM_ITS ---
EXAMINATION: DXA BONE DENSITY AXIAL HISTORY: Osteoporosis TECHNIQUE: [employer] Dual energy absorptiometry (DEXA) of the lumbar spine, total left hip, and femoral neck was performed. COMPARISON: Comparison is made with the prior examination dated 02/25/2023. FINDINGS: The bone mineral density of the lumbar spine is 0.891, corresponding to a T-score of -2.4, and a Z-score of -1.3. This is indicative of osteopenia. This represents a BMD change of 0.9% compared to the prior exam. This is not statistically significant. The bone mineral density of the left total hip is 0.815, corresponding to a T-score of -1.5, and a Z-score of -0.7. This is indicative of osteopenia. This represents a BMD change of -7.1% compared to the prior exam. This is statistically significant. The bone mineral density of the left femoral neck is 0.801, corresponding to a T-score of -1.7, and a Z-score of -0.5. This is indicative of osteopenia. This represents a BMD change of -6.0% compared to the prior exam. FRACTURE RISK: The FRAX index suggests a ten year probability of major osteoporotic fracture of 4.8%, and of hip fracture 0.5%. MM/XR DEXA axial skeleton IMPRESSION: Based on bone mineral density, and according to World Health Organization (WHO) criteria, the diagnosis is consistent with osteopenia. All bone density values are in grams per centimeter squared (g/cm2). Statistically, 68% of repeat scans fall within 1 SD (+/- 0.010 g/cm2 for AP spine L1-L4) and 1 SD (+/- 0.012 g/cm2 for femur total) FRAX is a trademark of the [employer]'s [place] for Metabolic Bone Disease, a World Health Organization (WHO) Collaborating Center. Electronically signed by: Juan Osullivan MD 03/08/2025 11:54 AM EDT
--- NOTE | ~2025-03-08 | MM_ITS ---
EXAMINATION: MM SCREENING DIGITAL BREAST TOMOSYNTHESIS, BILATERAL CLINICAL INFORMATION: History of left breast cancer in 2022 status post lumpectomy. COMPARISON: Mammography: Comparison is made with available priors TECHNIQUE: Digital breast mammography with tomosynthesis is performed in both the craniocaudal and mediolateral oblique views along with computer-aided detection (CAD). FINDINGS: There are scattered areas of fibroglandular density (ACR BI-RADS breast composition Category b). Left post lumpectomy changes are stable. There is developing calcified fat necrosis in the upper outer left breast. There are no significant masses, abnormal calcifications, or other abnormalities. MM/MM tomosynthesis screening BI IMPRESSION: No mammographic evidence of malignancy. ASSESSMENT: BI-RADS BI-RADS 2 - Benign Findings RECOMMENDATION: Routine annual mammography screening. 1 year F/U This examination should not preclude the clinical evaluation of a suspicious palpable abnormality. This patient's information was entered into a reminder system with a target due date for their next mammogram. Electronically signed by: Madonna Haines DO 03/08/2025 11:43 AM EDT
--- OUTSIDE RECORDS SUMMARY | 2025-03-08 12:36 | XMS_ITS | Encounter Summary ---
Author Organization [employer] Address [address] [place] [phone] Care Team Providers Care Seamer Panty Hose Name Role Phone Gwen Cordero MD Primary Care Pro vider Encounter Details Date Type Department Care Team ([facility] Contact Info) Description 06/11/2023 Abstract [facility] [address] [place] [address] [phone] Darcie Canas Social History Tobacco Use Types [...] Upcoming Encounters Date Type Department Care Team ([facility] Contact Info) Description 03/29/2025 2:15 PM EDT Office Visit [facility] [address] [place] [address] [phone] Gwen Cordero MD [address] [place], [place] [phone] documented as of this encounter Procedures Procedure [...] documented as of this encounter Care Teams Seamer Panty Hose Relationship Specialty Start Date End Date Gwen Cordero MD [address] [place] [phone] PCP - General Internal Medicine 12/29/22 documented as of this encounter
== END 2025-03-08 10:44 | disposition home or self-care (01) ==
LOC: HO.MAMMO 10:43
PROVIDERS: Absent Provider Internal Medicine Medical Oncology; PCP Student in an Organized Health Care Education/Training Program; Visit Provider Surgery
DX: Z12.31 Encounter for screening mammogram for malignant neoplasm of breast (principal); M81.0 Age-related osteoporosis without current pathological fracture
CPT/HCPCS: 77063; 77067; 77080

== ENCOUNTER → 2025-03-08 11:30 | Outpatient (BNV) | payer OTHER, SELFPAY | PROVIDERS: Absent Provider Internal Medicine Medical Oncology; PCP Student in an Organized Health Care Education/Training Program; Visit Provider Radiology Diagnostic Radiology | DX: E28.39 Other primary ovarian failure (principal); Z12.31 Encounter for screening mammogram for malignant neoplasm of breast | CPT/HCPCS: 77063; 77067; 77080 ==

== ENCOUNTER 2025-03-22 08:27 | Outpatient (AMB) | payer OTHER, SELFPAY ==
--- NOTE | 2025-03-22 08:31 | A.OFFVIS_ITS ---
Vital Signs 03/22/25 08:38 Height 5 ft Weight 168 lb BMI 32.8 BP 128/84 Blood Pressure Location Rt brachial Position Sitting Pulse 78 Pulse Source Pulse Oximeter Pulse Oximetry (%) 96 Oxygen Delivery Method Room Air Intake Visit Reasons: colo screen Intake Note: Patient complex follow up for pre Colonoscopy screening/Palak garcia was 12/06/2023. Patient cc: Pt denies any GI sx or concerns at this time. Pharmaceutical Salesperson Required: No Pharmaceutical Salesperson Services: Pharmaceutical Salesperson Present Pharmaceutical Salesperson Name: Cheyanne [id number], [facility] 0855 Allergies Penicillins Allergy (Intermediate, Verified 03/22/25 08:32) RASH Medication List - Last Reconciled 03/22/25 by Reba Byrnes CNP albuterol sulfate 2.5 mg inhalation Q4H PRN bisacodyl 5 mg PO ONCE 1 day blood sugar diagnostic (FreeStyle Lite Strips) As directed 2 times a day blood-glucose meter (FreeStyle Lite Meter kit) As directed calcium carbonate 600 mg PO BID cholecalciferol (vitamin D3) 125 mcg PO DAILY dulaglutide (Trulicity) mg subcut QWEEK empagliflozin (Jardiance) 25 mg PO QAM fluticasone propion-salmeterol 230-21 mcg/actuation (Advair HFA) 2 puffs inhalation Q12H fluticasone propionate 50 mcg/actuation (Flonase Allergy Relief) 2 sprays intranasal DAILY PRN ibuprofen 600 mg PO Q6H PRN lancets (TRUEplus Lancets) As directed 2 times a day losartan 100 mg PO DAILY metformin ER 750 mg PO QPM nebulizers As directed polyethylene glycol 3350 (Miralax) 238 grams PO ONCE rosuvastatin 5 mg PO DAILY tamoxifen 20 mg PO DAILY verapamil ER 360 mg PO DAILY HPI HPI colo screen: Details: Patient is a 64-year-old female with PMH of asthma, diabetes, hyperparathyroidism, hypertension and hx of breast CA s/p radiation. Last visit with LAURA Flaherty 12/06/2023 for pre colonoscopy screening. She was previously scheduled for colonoscopy in November 2023 but had to cancel due to starting a new job on the same day as the procedure. She reports normal bowel movements without constipation, straining, or blood in the stool. She denies abdominal pain, nausea, vomiting, heartburn, or difficulty swallowing. Elaine has experienced intentional weight loss, dropping from 190 lbs in December 2023 to the upper 160s currently. She attributes this weight loss to her use of Trulicity and adopting healthier habits. Patient reports mild external hemorrhoids with occasional discomfort and minor rectal bleeding. Symptoms include occasional itching and mild pain during bowel movements. Her last colonoscopy was in 2013, which she tolerated well without any issues with anesthesia or sedation. She has no family history of colon cancer. The patient reports seeing a investments manager for asthma and recently underwent a sleep study, though she has not yet received the results. Patient denies: fever/chills, appetite changes, regurgitation, ab pain or melena/hematochezia. 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 [facility] Medical History (Updated 03/23/25 @ 07:47 by Reba Byrnes CNP) External hemorrhoid History of breast cancer in female Sleep apnea Diabetes Invasive ductal carcinoma of breast Chronic restrictive lung disease Obesity (BMI 30-39.9) Hypertension Asthma Vitamin D deficiency Osteoporosis Hyperparathyroidism Surgical History H/O colonoscopy History of lumpectomy of left breast (~05/28/23) H/O vein stripping S/P LASIK surgery of both eyes Hx of parathyroidectomy Hx of tubal ligation Family History (Updated 03/22/25 @ 09:02 by Reba Byrnes CNP) Father Cancer Mother Cardiomyopathy Diabetes Obesity Maternal Aunt Ovarian cancer Other Thyroid disease Social History Household Members: None Are you a primary medicare interviewer to a significant other at home: No Do you presently have visiting nurse or other home services: No Alcohol intake: current Alcohol intake frequency: holidays/special occasions only Patient Tobacco Use Status: Never used Tobacco service: No Current occupational status: employed Gender identity: Female Female Reproductive History Menstrual Age of Menarche: 14 Review of Systems Const Reports as per HPI ENT Reports as per HPI Card Reports as per HPI Resp Reports as per HPI GI Reports as per HPI Reports as per HPI Physical Exam Vital Signs: Last Vital Signs Pulse 78 03/22/25 08:38 BP 128/84 03/22/25 08:38 Pulse Ox 96 03/22/25 08:38 Oxygen Delivery Method Room Air 03/22/25 08:38 BMI result Body Mass Index 32.8 Const General: healthy appearing, no acute distress and well developed Nutritional Appearance: well nourished Orientation/consciousness: patient oriented x3 HEENT Head: Yes normal to inspection, Yes normocephalic and Yes atraumatic Face and sinus: Yes normal facial exam Eyes General: appearance normal, both eyes and all related structures Neck Neck: Yes normal visual inspection Resp Effort & Inspection: normal respiratory effort, able to speak in complete sentences, no tracheal deviation and symmetric chest movement Auscultation: clear to auscultation bilaterally Cardio Jugular venous distension: no JVD Rate: regular rate Rhythm: regular rhythm Heart sounds: S1 normal heart sound present, S2 normal heart sound present, no gallops and no murmurs GI Inspection: Yes normal to inspection, No distended, Yes obesity and Yes striae Palpation (GI): Soft to palpation, not firm, nontender and No hepatosplenomegaly present Auscultation: normal bowel sounds Rectal Exam - Female: normal sphincter tone, External hemorrhoid(s) present (no significant prolapse or active bleeding), No Internal hemorrhoid(s) present, No Rectal prolapse, No fecal impaction, No Anal fissure(s) present, No mass and No tenderness Neuro General: patient oriented x3 Gait exam (Neuro): Normal gait present Psych Appearance: grossly normal Mental Status: mental status grossly normal Speech and movement: Normal speech and movement present Affect: normal affect Attitude: cooperative Thought process: Normal thought process present Thought content: Normal thought content present Insight: Good insight present (Psych) Judgement: Good judgement present (Psych) Assessment & Plan Assessment & Plan (1) Encounter for screening colonoscopy: Comment: 05/22/2014 colonoscopy complete with excellent prep-Minor diverticulosis, asymptomatic AVM of the left colon Code(s): Z12.11 - Encounter for screening for malignant neoplasm of colon Category: Medical Plan: Routine screening, prior colonoscopy 2013 tolerated well. Medications: -prescriptions for laxative tablets and MiraLax sent to pharmacy; instructions for Gatorade purchase and clear liquid diet given. -Understands diabetes medications and ASA will need to be held days prior to procedure. Nurse to review med holds per protocol. Patient educated on scheduling process, procedure preparation, including avoiding certain foods and ensuring clear liquid intake Advised on necessity for ride post-procedure due to sedation. (2) Asthma: Comment: controlled with Advair-does not always use if asymptomatic Code(s): J45.909 - Unspecified asthma, uncomplicated Category: Medical Qualifiers: Asthma complication type: uncomplicated Asthma persistence: intermittent Asthma severity: mild Qualified Code(s): J45.20 - Mild intermittent asthma, uncomplicated Plan: Followed by investments manager. - Continue albuterol inhaler as needed. - Continue Advair inhaler. (3) DOUG (obstructive sleep apnea): Code(s): G47.33 - Obstructive sleep apnea (adult) (pediatric) Category: Medical Plan: Sleep study completed, awaiting results. -follow up with ordering provider (4) External hemorrhoid: Code(s): K64.4 - Residual hemorrhoidal skin tags Category: Medical Plan: External hemorrhoids noted - Recommend [id number] hemorrhoid cream - Advised increased fiber intake and hydration - Follow-up if symptoms persist or worsen Plan Follow-up after colonoscopy or sooner as needed Time: I spent a total of 40 minutes on the date of encounter which includes: Preparing to see the patient (reviewed previous documentation, test results and medical history) Performing a medically appropriate exam and/or evaluation Ordering medications, tests, and procedures Documenting clinical information in the health record Medications: New polyethylene glycol 3350 (Miralax) per colonoscopy prep instructions 238 grams PO ONCE 238 grams 0RF hydrocortisone 2.5% Apply sparingly, up to twice daily 1 appl AR BID PRN 30 grams 1RF hemorrhoids bisacodyl Take four tablets once for 1 day per colonoscopy instructions 5 mg PO ONCE 4 tabs 0RF 1 day Coding Level of Care Code Established Pt Est Pt Level 5 (61575) Patient Type Established Diagnoses Encounter for screening colonoscopy Z12.11 Mild intermittent asthma without complication J45.20 Asthma complication type: uncomplicated Asthma persistence: intermittent Asthma severity: mild DOUG (obstructive sleep apnea) G47.33 External hemorrhoid K64.4
[2025-03-22 08:38] VITALS: BP 128/84; PULSE 78; O2SAT 96; BMI 32.8
--- OUTSIDE RECORDS SUMMARY | 2025-03-22 08:40 | XMS_ITS | Encounter Summary ---
Author Organization [employer] Address [address] [place] [address] Care Team Providers Care Civil Draftsman Name Role Phone Gwen Cordero MD Primary Care Pro vider Encounter Details Date Type Department Care Team ([facility] [address] [facility] Contact Info) Description 06/11/2023 Abstract [facility] MEDICINE [address] [place] [address] [phone] Darcie Canas Social History Tobacco Use Types [...] Upcoming Encounters Date Type Department Care Team ([facility] [address] Contact Info) Description 03/29/2025 2:15 PM EDT Office Visit [facility] [address] [place] [address] [phone] Gwen Cordero MD [address] [place], [place] [phone] documented as of this encounter Procedures Procedure [...] documented as of this encounter Care Teams Civil Draftsman Relationship Specialty Start Date End Date Gwen Cordero MD [address] [place] [id number] PCP - General Internal Medicine 12/29/22 documented as of this encounter
== END 2025-03-22 09:11 | disposition home or self-care (01) ==
LOC: HO.HGI 08:28
PROVIDERS: PCP Student in an Organized Health Care Education/Training Program; Visit Provider Nurse Practitioner Family
DX: Z01.818 Encounter for other preprocedural examination (principal); Z12.11 Encounter for screening for malignant neoplasm of colon; J45.20 Mild intermittent asthma, uncomplicated; G47.33 Obstructive sleep apnea (adult) (pediatric); K64.4 Residual hemorrhoidal skin tags
CPT/HCPCS: 99215

== ENCOUNTER → 2025-03-22 08:27 | Outpatient (BNVA) | payer OTHER, SELFPAY | PROVIDERS: PCP Student in an Organized Health Care Education/Training Program; Visit Provider Nurse Practitioner Family | DX: Z12.11 Encounter for screening for malignant neoplasm of colon (principal); J45.20 Mild intermittent asthma, uncomplicated; G47.33 Obstructive sleep apnea (adult) (pediatric); K64.4 Residual hemorrhoidal skin tags | CPT/HCPCS: 99212 ==

== ENCOUNTER 2025-03-30 09:31 | Outpatient (REF) | payer OTHER, SELFPAY ==
[2025-03-30 10:27] LABS: Hematocrit 44.5 % (37.0-47.0); Hemoglobin 15.0 g/dl (12.0-16.0); Mean Corpuscular HGB Conc 33.7 g/dl (31.0-35.0); Mean Corpuscular Hemoglobin 30.7 pg (27.0-33.0); Mean Corpuscular Volume 91.0 fL (80.0-98.0); NRBC Abs Auto 0.000 X10*3/uL (0.0-0.012); NRBC Pct Auto 0.0 /100WBC (0.0-0.2); Platelet Count 374 X10*3/uL (160-400); Red Blood Count 4.89 X10*6/uL (4.20-5.50); White Blood Count 7.4 X10*3/uL (4.8-10.8)
[2025-03-30 10:42] LABS: Hemoglobin A1C 166.4971 umol/L; Total Hemoglobin (HGBA1C) 3808.4485 umol/L
[2025-03-30 11:17] LABS: Alanine Aminotransferase 19 U/L (0-31); Albumin Level 4.0 g/dL (3.5-5.0); Alkaline Phosphatase 103 U/L (39-117); Anion Gap 11 (12-20); Aspartate Amino Transferase 22 U/L (5-31); Blood Urea Nitrogen 13 mg/dL (9-16); Calcium 9.0 mg/dL (8.4-10.2); Carbon Dioxide 25 mmol/L (22-29); Chloride 108 mmol/L (96-108); Cholesterol 138 mg/dL (<200); Estimated Glomerular Filt Rate > 60; HDL Cholesterol 53 mg/dL (>40); Potassium 4.0 mmol/L (3.3-5.1); Sodium 140 mmol/L (135-145); Total Protein 7.1 g/dL (6.5-8.0); Triglycerides 64 mg/dL (<150)
[2025-03-30 11:40] LABS: Folate 9.4 ng/mL (> or = 4.0); Vitamin B12 158 pg/mL (200-900)
== END 2025-03-30 09:32 | disposition home or self-care (01) ==
LOC: HO.LAB 09:31
PROVIDERS: PCP Student in an Organized Health Care Education/Training Program; Visit Provider Student in an Organized Health Care Education/Training Program
DX: Z00.00 Encounter for general adult medical examination without abnormal findings (principal)
CPT/HCPCS: 36415; 80053; 80061; 82043; 82306; 82570; 82607; 82746; 83036; 84443; 85027

== ENCOUNTER 2025-06-04 14:48 | Outpatient (AMB) | payer OTHER, SELFPAY ==
[2025-06-04 15:05] VITALS: BP 137/64; PULSE 74; BMI 33.7
--- NOTE | 2025-06-04 15:05 | MHC.OFFVIS ---
Vital Signs 06/04/25 15:05 Height 5 ft Weight 172 lb 8 oz BMI 33.7 BP 137/64 Blood Pressure Location Lt brachial Position Sitting Pulse 74 Intake Visit Reasons: 1 year breast exam Intake Note: Patient here for yearly breast exam. Hx of Infiltrating ductal carcinoma of the left breast. Patient c/o: reports sharp pain left breast. Screening MM: 03-08-2025. Speed Runner Required: Yes Speed Runner Language: Extension Course Counselor Services: Speed Runner Present Speed Runner Name: Haresh Desulfurizer Machine: Desulfurizer Machine Present (Haresh) Accompanied by: Self / Same As Patient Allergies Penicillins Allergy (Intermediate, Verified 06/04/25 15:12) RASH HPI HPI 1 year breast exam: Details: She is here for follow-up after left breast lumpectomy and sentinel biopsy for invasive ductal cancer last 05/28/2023. She has finished radiation treatment as well . She says she feels well overall. She describes occasional sharp pains on the lumpectomy site. Her last mammogram was in February, and this did not suggest any suggestion of malignancy. She remains on anti hormonal treatment [facility] Medical History External hemorrhoid History of breast cancer in female Sleep apnea Diabetes Invasive ductal carcinoma of breast Chronic restrictive lung disease Obesity (BMI 30-39.9) Hypertension Asthma Vitamin D deficiency Osteoporosis Hyperparathyroidism Surgical History H/O colonoscopy History of lumpectomy of left breast (~05/28/23) H/O vein stripping S/P LASIK surgery of both eyes Hx of parathyroidectomy Hx of tubal ligation Family History Father Cancer Mother Cardiomyopathy Diabetes Obesity Maternal Aunt Ovarian cancer Other Thyroid disease Social History Household Members: None Are you a primary coronary care unit nurse to a significant other at home: No Do you presently have visiting nurse or other home services: No Alcohol intake: current Alcohol intake frequency: holidays/special occasions only Patient Tobacco Use Status: Never used Tobacco service: No Current occupational status: employed Gender identity: Female Female Reproductive History Menstrual Age of Menarche: 14 Review of Systems Const Denies chills and Denies fever(s) Card Denies chest pain, Denies dyspnea and Denies dyspnea on exertion Resp Denies cough, Denies dyspnea and Denies dyspnea on exertion GI Denies hematochezia and Denies change in bowel habits Denies hematuria Musc Denies back pain and Denies limited range of motion Neuro Denies focal weakness and Denies convulsions Psych Denies depression and Denies mood swings Physical Exam Const General: comfortable and no acute distress Orientation/consciousness: patient oriented x3 Neck Neck: Yes no lymphadenopathy Chest Other: No palpable breast masses, no axillary lymphadenopathy, no new nipple or skin changes Resp Auscultation: clear to auscultation bilaterally Cardio Rhythm: regular rhythm GI Palpation (GI): Soft to palpation, nontender and no guarding Neuro General: patient oriented x3 Assessment & Plan Assessment & Plan (1) History of breast cancer in female: Code(s): Z85.3 - Personal history of malignant neoplasm of breast Category: Medical Plan: She had lumpectomy and sentinel biopsy along with axillary dissection for invasive ductal carcinoma in 2022 , T1 N0. She is doing very well. Her last imaging study in February, does not suggest any malignancy of the breast . Her current breast exam is unremarkable. She is on tamoxifen. I will see her in the office in about 1 year as part of surveillance. She is to continue to follow up with Dr. Murry of Oncology. Coding Level of Care Code Est Pt Level 3 (29277) Complex EM visit Add On G2211 Diagnoses History of breast cancer in female Z85.3
--- OUTSIDE RECORDS SUMMARY | 2025-06-04 17:22 | XMS_ITS | Encounter Summary ---
Demographics Address [address] [place] [id number] Mobile Phone Home Phone Email Address Preferred Language es Marital Status Single Restoration Affiliation Unknown Race White
== END 2025-06-04 15:19 | disposition home or self-care (01) ==
LOC: HO.HGS 14:49
PROVIDERS: PCP Student in an Organized Health Care Education/Training Program; Visit Provider Surgery
DX: Z85.3 Personal history of malignant neoplasm of breast (principal)
CPT/HCPCS: 99213

== ENCOUNTER → 2025-06-04 14:48 | Outpatient (BNVA) | payer OTHER, SELFPAY | PROVIDERS: PCP Student in an Organized Health Care Education/Training Program; Visit Provider Surgery | DX: Z85.3 Personal history of malignant neoplasm of breast (principal) | CPT/HCPCS: 99212 ==

== ENCOUNTER 2025-06-12 09:15 | Outpatient (AMB) | payer OTHER, SELFPAY ==
--- NOTE | 2025-06-12 09:16 | MHC.OFFVIS ---
Vital Signs 06/12/25 09:21 Height 5 ft Weight 168 lb BMI 32.8 BP 118/72 Blood Pressure Location Rt brachial Position Sitting Intake Visit Reasons: Annual Intake Note: Here for annual Roofer Assistant Services: Roofer Assistant Present (voice box) Information Interpreted: non-clinical & clinical Ground Defence Officer: Ground Defence Officer Present (Michelle) Accompanied by: Self / Same As Patient Allergies Penicillins Allergy (Intermediate, Verified 06/12/25 09:23) RASH Medication List - Last Reconciled 06/12/25 by Rosalba Alcala LPN albuterol sulfate 2.5 mg inhalation Q4H PRN bisacodyl 5 mg PO ONCE 1 day blood sugar diagnostic (FreeStyle Lite Strips) As directed 2 times a day blood-glucose meter (FreeStyle Lite Meter kit) As directed calcium carbonate 600 mg PO BID cholecalciferol (vitamin D3) 125 mcg PO DAILY dulaglutide (Trulicity) mg subcut QWEEK empagliflozin (Jardiance) 25 mg PO QAM fluticasone propion-salmeterol 230-21 mcg/actuation (Advair HFA) 2 puffs inhalation Q12H fluticasone propionate 50 mcg/actuation (Flonase Allergy Relief) 2 sprays intranasal DAILY PRN hydrocortisone 2.5% 1 appl ID BID PRN ibuprofen 600 mg PO Q6H PRN lancets (TRUEplus Lancets) As directed 2 times a day losartan 100 mg PO DAILY mecobalamin (vitamin B12) (B12 Active) 1,000 mcg PO DAILY metformin ER 750 mg PO QPM nebulizers As directed polyethylene glycol 3350 (Miralax) 238 grams PO ONCE rosuvastatin 5 mg PO DAILY tamoxifen 20 mg PO DAILY verapamil ER 360 mg PO DAILY Do you need a note to return to daycare/school/sports/work: No HPI Comments Details: 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 She denies any vaginal discharge, vaginal bleeding, odors, pelvic pain, urinary symptoms. Not sexually active in years. History of left breast cancer, followed by oncology yearly. Attempting to eat a healthy diet with calcium and vitamin D and stays active with exercise-walking. Last pap smear; 2022, negative. Last mammogram; 2024. Colonoscopy is UTD. [facility] Medical History External hemorrhoid History of breast cancer in female Sleep apnea Diabetes Invasive ductal carcinoma of breast Chronic restrictive lung disease Obesity (BMI 30-39.9) Hypertension Asthma Vitamin D deficiency Osteoporosis Hyperparathyroidism Surgical History H/O colonoscopy History of lumpectomy of left breast (~05/28/23) H/O vein stripping S/P LASIK surgery of both eyes Hx of parathyroidectomy Hx of tubal ligation Family History Father Cancer Mother Cardiomyopathy Diabetes Obesity Maternal Aunt Ovarian cancer Other Thyroid disease Social History Household Members: None Housing: Apartment Are you a primary rental boats caretaker to a significant other at home: No Do you presently have visiting nurse or other home services: No Alcohol intake: current Alcohol intake frequency: holidays/special occasions only Patient Tobacco Use Status: Never used Tobacco service: No Current occupational status: employed Gender identity: Female Female Reproductive History Menstrual Age of Menarche: 14 Total pregnancies: 4 Number of Living Children: 4 Date of last pap smear: 04/02/23 History of abnormal pap smear: No Date of Mammogram: 02/12/25 (Hx of Breast Cancer) Review of Systems Const All systems reviewed & are unremarkable except as noted in HPI and below Reports as per HPI Eyes Reports no additional complaints ENT Reports no additional complaints Card Reports no additional complaints Resp Reports no additional complaints GI Reports as per HPI and Reports no additional complaints Reports as per HPI Musc Reports no additional complaints Skin/Breast Reports as per HPI Neuro Reports no additional complaints Psych Reports no additional complaints Endo Reports no additional complaints Thiago/Lymph Reports no additional complaints Aller/Immun Reports no additional complaints Physical Exam Vital Signs: Last Vital Signs BP 118/72 06/12/25 09:21 BMI result Body Mass Index 32.8 Const General: cooperative, healthy appearing, no acute distress, well developed and alert Orientation/consciousness: patient oriented x3 HEENT Head: Yes normal to inspection Eyes General: appearance normal, both eyes and all related structures Neck Neck: Yes normal visual inspection Thyroid: Thyroid normal Chest Other: Left breast scarring. Chest palpation & inspection: normal inspection of the chest and other (no puckering, dimpling, peau de orange, retraction, discharge, masses) Breast/axilla inspection: normal inspection of the breasts Breast/axilla palpation: normal palpation of the breasts Resp Effort & Inspection: normal respiratory effort GI Inspection: Yes normal to inspection Palpation (GI): Soft to palpation Rectal Exam - Female: deferred General: Yes bladder normal to palpation External Female Exam: normal external appearance and normal appearance of the urethra Speculum Exam - Vagina: normal appearance of the vagina, normal palpation, normal vaginal discharge and vagina atrophic Speculum Exam - Cervix: normal appearance of the cervix and normal palpation Bimanual exam- vagina & uterus: normal bimanual exam, normal palpation, uterine size normal, bladder normal to palpation, normal palpation and non-tender Bimanual Exam- Adnexa, other: no masses and rectocele Skin General skin exam: no rashes or lesions noted Rashes: no rashes Neuro General: patient oriented x3 Cognition (Neuro): normal cognition Extrem General: Yes normal to inspection Psych Attitude: cooperative Thought process: Normal thought process present Assessment & Plan Assessment & Plan (1) Encounter for well woman exam with routine gynecological exam: Code(s): Z01.419 - Encounter for gynecological examination (general) (routine) without abnormal findings Category: Medical Plan Discussed: Current recommendations for pap smears per ASCCP guidelines. Breast awareness, periodic self breast exams and yearly mammogram. Maintain a healthy lifestyle, well balanced diet including Calcium 1,200 mg and Vitamin D 600 IU daily, and routine exercise. 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 Patient verbalizes understanding and agrees to the plan of care. She was given opportunity to ask questions and all questions were answered to the best of my ability. 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 This note is constructed using voice recognition software. While every effort has been made to ensure accuracy, store team member errors may have been included. Coding Level of Care Code Est Pt Prev Care 40-64y(79617) Diagnoses Encounter for well woman exam with routine gynecological exam Z01.419
[2025-06-12 09:21] VITALS: BP 118/72; BMI 32.8
--- OUTSIDE RECORDS SUMMARY | 2025-06-12 10:01 | XMS_ITS | Encounter Summary ---
Author Organization [employer] Address [address] [place] [address] Care Team Providers Care Engineering Specialist Name Role Phone Gwne Cordero MD Primary Care Pro vider Reason for Visit * Reason Comments Med Refill Encounter Details Date Type Department Care Team ([facility] Contact Info) Description 08/09/2023 Refill [facility] [address] [place], [place] [phone] Louie Gore FNP Social History Tobacco Use [...] documented as of this encounter Care Teams Engineering Specialist Relationship Specialty Start Date End Date Gwen Cordero MD [address] [place] [phone] PCP - General Internal Medicine 12/29/22 documented as of this encounter
--- OUTSIDE RECORDS SUMMARY | 2025-06-12 10:01 | XMS_ITS | Encounter Summary ---
Author Organization [employer] Address [address] [place] [address] Care Team Providers Care Public Service Representative Name Role Phone Gwen Cordero MD Primary Care Pro vider Encounter Details Date Type Department Care Team (Late st Contact Info) Description 06/11/2023 Abstract [facility] [address] [place] [address] Darcie Canas Social History Tobacco Use Types [...] documented as of this encounter Care Teams Public Service Representative Relationship Specialty Start Date End Date Gwen Cordero MD [address] [place] [phone] PCP - General Internal Medicine 12/29/22 documented as of this encounter
--- OUTSIDE RECORDS SUMMARY | 2025-06-12 10:01 | XMS_ITS | Encounter Summary ---
Author Organization [employer] Address [address] [place] [address] [address] [place] [address] Care Team Providers Care Merchandising Execution Associate Name Role Phone Gwen Cordero MD Primary Care Pro vider Reason for Visit * Reason Onset Date Comments Medication Question 08/09/2023 Encounter Details Date Type Department Care Team ([facility] Contact Info) Description 08/09/2023 Refill [facility] [address] [place] [address] Gwen Cordero MD [address] [place] [address] Social History Tobacco Use Types Packs/Day Years [...] 08/25/2023 9:13 AM EST Telephone call to [facility] maru Martin to relay message. No answer, left voicemail. Patient to call as needed. * Telephone Encounter - Valentina Allen RN - 08/20/2023 10:01 AM EST Per PCP, Please can you call this pt enterprise resource planner office and inform JOB CHECKER or PA that works w enterprise resource planner that please to reeval pt at next apt for her osteoporosis given pt is now on tamoxifen for breast ca that is a new diagnosis and can worsen her known osteoporosis and currently off meds for bone disease Patient goes to [facility] endo. Telephone call to [facility] maru Tatum [place] to relay message. No answer, left voicemail. Patient to call as needed. * Telephone Encounter - Faye Valencia - 08/09/2023 10:34 AM EST Tc from pt requesting a call back in regards medication tamoxifen (Nolvadex) 20 MG chemo tablet. Please contact pt in thai documented in this encounter Plan of Treatment Not on file documented as of this encounter Visit Diagnoses Not on filedocumented in this encounter Additional Health Concerns Assessment Noted Time PHQ-9 Depression Total Score: 4 04/01/20 9:33 AM EDT documented as of this encounter Care Teams Merchandising Execution Associate Relationship Specialty Start Date End Date Gwen Cordero MD [address] [place] [phone] PCP - General Internal Medicine 12/29/22 documented as of this encounter
--- OUTSIDE RECORDS SUMMARY | 2025-06-12 10:01 | XMS_ITS | Encounter Summary ---
Author Organization [employer] Address [address] [place] [address] [address] [place] [address] Care Team Providers Care Art Education Professor Name Role Phone Gwen Cordero MD Primary Care Pro vider Encounter Details Date Type Department Care Team (Late st Contact Info) Description 04/06/2023 Abstract [facility] [address] [place] [phone] Gwen Cordero MD [address] [place] [phone] Social History Tobacco Use Types Packs/Day Years [...] documented as of this encounter Care Teams Art Education Professor Relationship Specialty Start Date End Date Gwen Cordero MD [address] [place] [phone] PCP - General Internal Medicine 12/29/22 documented as of this encounter
--- OUTSIDE RECORDS SUMMARY | 2025-06-12 10:01 | XMS_ITS | Clinical Summary ---
Author Organization [employer] Address [address] 7[address] [place] [address] Care Team Providers Care Emr Specialist Name Role Phone Gwen Cordero MD Primary [...] kit 08/10/20 23 Active UltiCare Short Pen Barton 31G X 8 MM misc USE DIRECTED [...] CHEW 90 tablet 1 01/25/20 25 Active Dulaglutide (Trulicity) 4.5 MG/0.5ML solution auto-injectorIndi cations:Type 2 diabetes mellitus without complication, unspecified whether rodent exterminator insulin use,Class 3 severe obesity due to excess calories with serious comorbidity and body mass index (BMI) of 45.0 to 49.9 in adult ([facility]) Inject 4.5 mg under the skin 1 [...] DAILY 90 tablet 1 05/17/20 25 Active empagliflozin (Jardiance) 25 MG Take 1 tablet (25 mg) by mouth in the morning. 90 tablet 1 06/11/20 25 026 Active losartan (Cozaar) 100 MG tabletIndications :Essential hypertension TAKE 1 TABLET BY MOUTH EVERY MORNING 90 tablet 1 11/02/19 25 025 Discontinued rosuvastatin (Crestor) 5 MG tabletIndications :Mixed hyperlipidemia TAKE 1 TABLET BY MOUTH EVERY DAY 90 tablet 1 11/02/19 25 025 Discontinued Jardiance 25 MG TAKE 1 TABLET BY MOUTH EVERY DAY IN THE MORNING 30 tablet 2 03/05/20 25 025 Discontinued Active Problems Problem Noted Date Diagnosed Date Chest pain 03/30/2025 Glaucoma 12/28/2024 Chronic pain of both knees 12/28/2024 Breast cancer (CMS/HCC) 05/01/2023 Assessment & Plan (05/01/2023 7:32 PM [...] visit -Pt reports she already spoke w photographer news in regards thyroid nodule and was told there is no contra-indication to start GLP-1s ,may be able to stop insulin in future -referred to dry janitor at last visit - [place] to check status of referral today. -Seen by global category manager 04/2023 - to f up in 1y. -DM labs in 3 mo if not f w her photographer news for DM by then. Assessment & Plan [...] urine -also pt will talk w her photographer news in regards thyroid nodule ,may be able to stop insulin in future -referred today to dry janitor -has apt w global category manager x next month Thyroid nodule 04/01/2023 Assessment & Plan (05/01/2023 7:49 PM EDT): -thyroid US 2016:Solitary small left thyroid nodule. Ultrasound follow-up recommended.Parathyroid glands not identified by ultrasound.. -pt reports to be following w photographer news -will check w specialist at her next visit about next US - referred today for thyroid US. Assessment & Plan (04/01/2023 8:20 PM EDT): -thyroid US 2016:Solitary small left thyroid nodule. Ultrasound follow-up recommended.Parathyroid glands not identified by ultrasound.. -pt reports to be following w photographer news -will check w specialist at her next [...] onc to be referred by surgeon from [facility]. Assessment & Plan (04/01/2023 8:58 PM EDT): [...] Pt w PNC allergy -referred already to body designer to clarify if true allergy - pending to schedule apt. Assessment & Plan (04/01/2023 8:55 PM EDT): Pt w PNC allergy -referred today to body designer to clarify if true allergy HTN (hypertension) [...] past 8 months -continue to f w hedge fund manager -Pt has not needed Albuterol for several mo. Assessment & Plan (04/01/2023 8:49 PM EDT): Reports to be controlled , off steroids x the past 7 months -continue to f w hedge fund manager Osteoporosis 09/09/2018 Assessment & Plan (05/01/2023 7:35 PM EDT): -DEXA 02/2023 -Referred by her photographer news-Dr Tatum : osteoporosis -T-score -2.5 in lumbar spine Pt reports was on alendronate x 5 years and stopped 2 y ago -pt to f w endocrinology to discuss if will resume alendronate -continue vit D and start Ca 600 mg BID Assessment & Plan (04/01/2023 8:47 PM EDT): -DEXA 02/2023 -Referred by her photographer news-Dr Tatum : osteoporosis -T-score -2.5 in lumbar spine Pt reports was on alendronate x 5 years and stopped 2 y ago -pt to f w endocrinology to discuss if will resume alendronate -continue vit D Obesity 10/13/2012 Assessment & Plan (05/01/2023 7:37 PM EDT): Advised pt to improve diet and exercise,discussed healthy life style -discussed pharmacy intake coordinator referral -referred today again to [facility] due to pt request. -Pt to start Jardiance prescribed at last visit and plan to start later GLP1 -may need to consider bariatric surgery if no weight loss w meds and life style changes Assessment & Plan (04/01/2023 8:31 PM EDT): Advised pt to improve diet and exercise,discussed healthy life style -discussed pharmacy intake coordinator referral -referred today -will start SGLT2 and will start later GLP1 -may need to consider bariatric surgery if no weight loss w meds and life style changes Resolved Problems Problem Noted Date Diagnosed Date Resolved Date Hypertension 07/25/2012 04/01/2023 Encounters Date Type Department Care Team Description 06/10/2025 Refill [facility] [address] [place] [address] Gwen Cordero MD 05/24/2025 Telephone [facility] [address] [place] [address] Gwen Cordero MD No Show 05/23/2025 Telephone [facility] [address] [place] [address] Gwen Cordero MD chart prep 05/17/2025 Refill [facility] [address] [place] [address] Yady Yao MD Essential hypertension; Mixed hyperlipidemia 04/05/2025 Refill [facility] [address] [place] [address] Rebecca Castellanos MD 04/04/2025 Refill [facility] [address] [place] [address] Gwen Cordero MD 04/04/2025 Refill [facility] [address] [place] [address] Rebecca Castellanos MD 03/30/2025 Results Follow-Up [address] [address] Gwen Cordero MD Albumin, Random Urine W/Creatinine, CBC, Comprehensive Metabolic Panel, Additional followed-up results: 5 03/30/2025 Orders Only [facility] [address] [place] [phone] Gwen Cordero MD Type 2 diabetes mellitus without complication, unspecified whether rodent exterminator insulin use (CMS/HCC) (Primary Dx); Class 3 severe obesity due to excess calories with serious comorbidity and body mass index (BMI) of 45.0 to 49.9 in adult 03/29/2025 2:15 PM EDT Office Visit [facility] [address] [place] [phone] Gwen Cordero MD Chest pain, unspecified type (Primary Dx); Type 2 diabetes mellitus without complication, unspecified whether rodent exterminator insulin use (CMS/HCC); Hypertension, unspecified type; Class 3 severe obesity due to excess calories with serious comorbidity and body mass index (BMI) of 45.0 to 49.9 in adult; Health care maintenance; Malignant neoplasm of left female breast, unspecified estrogen receptor status, unspecified site of breast (CMS/HCC) 03/29/2025 Travel 03/28/2025 Telephone [facility] [address] [place] [phone] Gwen Cordero MD chart prep 03/22/2025 Patient Outreach [facility] [address] [place], [place] [phone] Gwen Cordero MD Pre-visit Planning ([facility] was already completed) 03/22/2025 Travel 03/16/2025 Refill [facility] [address] [place] [phone] Gwen Cordero MD Type 2 diabetes mellitus without complication, unspecified whether senior living insulin use ([facility]) from Last 3 Months Immunizations Immunization Administration [...] 2 diabetes mellitus without complication, unspecified whether rodent exterminator insulin use ([facility]) POCT GLUCOSE Routine 03/29/2025 2:17 PM EDT Type 2 diabetes mellitus without complication, unspecified whether senior living insulin use (CMS/HCC) BI MAMMOGRAM SCREENING TOMOSYNTHESIS BILATERAL Routine 03/08/2025 [...] Vitamin D 25-OH Total 67.4 >30 ng/mL [facility] Comment: Health Based Reference Values*< 20 ng/mL [id number] ng/mL Insufficient> 30 ng/mL Sufficient*Mildred BENDER. N Engl J Med. 2007;357:266-280There is [...] ORDERAB LES Final Result Performing Organization Address [facility]/ZIP Co de Phone Number [facility] [address] [place] [phone] * (ABNORMAL) Vitamin B12 (Cobalamin) and Folate Panel, Serum (03/30/2025 9:52 AM EDT) Vitamin B12 158(L) 200 - 900 pg/mL [facility] Comment:NORMAL 200-900 PG/ML INDETERMINATE 160-199 PG/ML DEFICIENT < 160 PG/ML Folate 9.4 > or = 4.0 ng/mL [facility] Comment:Reference Values:> o r = 4.0 ng/mL< 4.0 ng/mL suggests folate deficiency Methotrexate, aminopterin and folinic acid(leucovorin) are chemotherapeutic agents whose molecularstructures are similar to folate; therefore, the Architectfolate assay cannot be used for patients using these drugs. Blood 03/30/2025 9:52 AM EDT 03/30/2025 9:52 AM EDT us Gwen Negron MD LAB BLOOD ORDERAB LES Final Result Performing Organization Address [facility] de Phone Number [facility] [address] [place] [phone] * TSH with Reflex to Free T4 (03/30/2025 9:52 AM EDT) TSH reflex Free T4 1.59 0.32 - 4.0 uIU/mL [facility] Blood 03/30/2025 9:52 AM EDT 03/30/2025 9:52 AM EDT us Gwen Negron MD LAB BLOOD ORDERAB LES Final Result Performing Organization Address [facility] Co de Phone Number [facility] [address] [place] [phone] * (ABNORMAL) CBC (03/30/2025 9:52 AM EDT) White Blood Count 7.4 4.8 - 10.8 X10*3/uL [facility] Red Blood Count 4.89 4.20 - 5.50 X10*6/uL [facility] Hemoglobin 15.0 12.0 - 16.0 g/dl [facility] Hematocrit 44.5 37.0 - 47.0 % [facility] Mean Corpuscular Volume 91.0 80.0 - 98.0 fL [facility] Mean Corpuscular Hemoglobin 30.7 27.0 - 33.0 pg [facility] Mean Corpuscular HGB Conc 33.7 31.0 - 35.0 g/dl [facility] Red Cell Distribution Width 11.8 11.0 - 16.0 % [facility] Platelet Count 374 160 - 400 X10*3/uL [facility] Mean Platelet Volume 8.8(L) 9.4 - 12.3 fL [facility] NRBC Pct Auto 0.0 0.0 - 0.2 /100WBC [facility] NRBC Abs Auto 0.000 0.0 - 0.012 X10*3/uL [facility] Blood Venous blood specimen / Unknown 03/30/2025 9:52 AM EDT 03/30/2025 9:52 AM EDT us Gwen Negron MD LAB BLOOD ORDERAB LES Final Result [facility] [address] [place] [phone] * (ABNORMAL) Hemoglobin A1c (03/30/2025 9:52 AM EDT) Hemoglobin A1c 6.2(H) <6.0 % [facility] Comment:Hemoglobin A1C Refer ence Range Adults: 4.8 - 6.0 % Non diabetic: < 6.0 % Goal: < 7.0 %Additional Action Suggested: > 8.0 %Note: Hemoglobin A1c results are invalid for patients with abnormal amounts of HbF. Blood transfusions may impact the HbA1c concentration in the patient sample. Estimated Average Glucose 131 mg/dL [facility] Comment:eAG = Estimated ave rage glucose which is %A1C expressed asaverage glucose, using the formula of the Q1Y-KgxpgsdHqaksfz Glucose study (ADAG), Diabetes Care, Vol.31,#8,Apr. 2007 Blood Venous blood specimen / Unknown 03/30/2025 9:52 AM EDT 03/30/2025 9:52 AM EDT us Gwen Negron MD LAB BLOOD ORDERAB LES Final Result [facility] [address] [place] [phone] * Lipid Panel, Standard (03/30/2025 9:52 AM EDT) Triglycerides 64 <150 mg/dL [facility] Comment:Desirable Triglyceri de: less than 150 mg/dLBorderline High Triglyceride 150-199 mg/dLHigh Triglyceride: 200-499 mg/dLVery High Triglyceride: greater than or equal to 5OO mg/dL Cholesterol 138 <200 mg/dL [facility] Comment:Desirable Cholestero l: less than 200 mg/dLBorderline High Cholesterol: 200-239 mg/dLHigh Cholesterol: greater than 239 mg/dL LDL Cholesterol Calculated 73 <100 mg/dL [facility] Comment:Desirable LDL: less than 100 mg/dLNear Optimal/Above Optimal LDL: 110- 129 mg/dLBorderline High LDL: 130-159 mg/dLHigh LDL: 160-189 mg/dLVery High LDL: greater than or equal to 190 mg/dL HDL Cholesterol 53 >40 mg/dL [facility] Comment:Desirable HDL: great er than 40 mg/dL Note: This HDL assay may give artificially low results in patients with liver disease. Blood Venous blood specimen / Unknown 03/30/2025 9:52 AM EDT 03/30/2025 9:52 AM EDT us Gwen Negron MD LAB BLOOD ORDERAB LES Final Result [facility] [address] [place] [phone] * (ABNORMAL) Comprehensive Metabolic Panel (03/30/2025 9:52 AM EDT) Sodium 140 135 - 145 mmol/L [facility] Potassium 4.0 3.3 - 5.1 mmol/L [facility] Chloride 108 96 - 108 mmol/L [facility] Carbon Dioxide 25 22 - 29 mmol/L [facility] Anion Gap 11(L) 12 - 20 [facility] Urea Nitrogen (BUN) 13 9 - 16 mg/dL [facility] Creatinine, Serum 0.64 0.5 - 1.4 mg/dL [facility] Estimated Glomerular Filt Rate >60 [facility] Comment:Chronic Kidney Disea se: Estimated GFR < 60 mL/min/1.09m6Muhitz Kidney Disease: Estimated GFR < 15 mL/min/1.73m2 Glucose 109 60 - 115 mg/dL [facility] Calcium 9.0 8.4 - 10.2 mg/dL [facility] Bilirubin, Total 0.3 0.0 - 1.0 mg/dL [facility] Aspartate Amino Transferase 22 5 - 31 U/L [facility] Alanine Aminotransferase 19 0 - 31 U/L [facility] Total Protein 7.1 6.5 - 8.0 g/dL [facility] Albumin Level 4.0 3.5 - 5.0 g/dL [facility] Alkaline Phosphatase 103 39 - 117 U/L [facility] Blood Venous blood specimen / Unknown 03/30/2025 9:52 AM EDT 03/30/2025 9:52 AM EDT Gwen Negron MD LAB BLOOD ORDERAB LES Final Result [facility] [address] [place] [phone] * Albumin, Random Urine W/Creatinine (03/30/2025 9:43 AM EDT) Creatinine, Urine 95.01 mg/dL [facility] Microalbumin Urine <5.0 mg/L [facility] Microalbum Creatinine Ratio Ur TNP <30 ug/mg cr [facility] Comment:Unable to calculate albumin/creatinine ratio due to lowmicroalbumin or creatinine result. Urine (Urine, Random) 03/30/2025 9:43 AM EDT 03/30/2025 10:20 AM EDT us Gwen Negron MD LAB URINE ORDERAB LES Final Result [facility] [address] [place] [phone] * ECG 12 lead (03/29/2025 3:33 PM EDT) Narrative Gwen Cordero MD - 03/29/2025 3:33 PM EDT -EKG today NSR,HR 73x' Qtc 416 no ischemic findings us Gwen Negron MD ECG ORDERABLES F inal Result * (ABNORMAL) POCT HGB A1C (03/29/2025 2:20 PM EDT) Hemoglobin A1C 6.0(A) 4.0 - 5.7 % QC Media Lot # [id number] Lot# Expiration Date Blood 03/29/2025 2:20 PM EDT us Gwen Negron MD POINT OF CARE YING T ENTER/EDIT ORDERABLES Final Result * POCT Glucose (03/29/2025 2:17 PM EDT) Glucose Blood, POC 145 60 - 200 mg/dL QC Media Lot # [id number] Lot# Expiration Date , Blood Capillary blood specimen / Unknown 03/29/2025 2:17 PM EDT Gwen Negron MD POINT OF CARE YING T ENTER/EDIT ORDERABLES Final Result * BI Mammogram Screening Tomosynthesis Bilateral (03/08/2025 11:05 AM EDT) Anatomical Region Laterality Modality Breast Bilateral Mammography 03/08/2025 11:0 5 AM EDT Narrative 03/08/2025 11:46 AM EDT [facility] [address] [place] [address] Mammography Report Signed Patient: Elaine Griggs MR#: [id number] 7 : 1960 Acct:[id number] Age/Sex: 64 / F ADM Date: 03/08/25 Loc: HO.MAMMO Attending Dr: Freedom Husain MD Ordering Physician: Freedom Husain MD Results: 2Ben ign Findings Date of Service: 03/08/25 Follow Up: 1 Year From Orig ina Mammogram Procedure(s): MM tomosynthesis screening BI Accession Number(s): [id number] cc: Freedom Husain MD; Gwen Cordero MD [...] Madonna Haines DO 03/08/2025 11:43 AM EDT Dictated By: Madonna Haines DO Signed By: <Electronically signed by Madonna Haines DO in OV> 03/08/25 1143 DD/ 1105 TD/TT: 03/08/25 1120 Chief Maintenance Supervisor: Procedure Note Donotuseinterpreter, Image - 03/08/2025 [facility] [address] [place] [address] Mammography Report Signed Patient: Mirna Griggs#: [id number] 7 : 1960cct:[id number] Age/Sex: 64 / FADM Date: 03/08/25 Loc: HO.MAMMO Attending Dr: Freedom Husain MD Ordering Physician: Freedom Husain MDResults: 2Ben ign Findings Date of Service: 03/08/25Follow Up: 1 Year From Orig inal Mammogram Procedure(s): MM tomosynthesis screening BI Accession Number(s): [id number] cc: Freedom Husain MD; Gwen Cordero MD [...] 03/08/25 1143 DD/ 1105 TD/TT: 03/08/25 1120 Chief Maintenance Supervisor: [facility] External Provider IMG BI PROCEDURES Final Result * Hepatitis C Antibody Reflex (04/17/2023 9:10 AM EDT) Hepatitis C Antibody Nonreactive Nonreactive [facility] Comment:Antibodies to HCV no t detected; does not exclude early acuteHCV infection. 04/17/2023 9:10 AM EDT 04/17/2023 9:10 AM EDT Gwen Negron MD LAB BLOOD ORDERAB LES Final Result [facility] [address] [place] [phone] * HIV Ab/Ag ([facility]) (04/17/2023 9:10 AM EDT) HIV AB/AG Nonreactive Nonreactive [facility] Comment:HIV-1 p24 Ag and/or HIV-1/HIV-2 Ab not detected.A test result that is nonreactive does not exclude thepossibility of exposure to or infection with HIV-1 and/orHIV-2. Nonreactive results in this assay for individualswith prior exposure to HIV-1 and/or HIV-2 may be due toantigen and antibody levels that are below the limit ofdetection of this assay.[employer] Material Handling Supervisor HIV Ag/Ab Combo assay result andsupplemental assay results should be interpreted inconjunction with the patient's clinical presentation,history and other laboratory results. If the results areinconsistent with clinical evidence, additional testing issuggested to confirm the result. 04/17/2023 9:10 AM EDT 04/17/2023 9:10 AM EDT us Gwen Negron MD LAB BLOOD ORDERAB LES Final Result [facility] [address] [place] [address] [phone] * Pap Smear (05/11/2019) Pap Negative for intraephithelial lesion or malignancy Negative for intraephithelial lesion or malignancy, Other HPV Undetected us Historical Provider HEALTH MAINTENANCE Final Result from Last 3 Months or Most Recently Relevant to Health Maintenance [place] [place] [address] [facility] Care Teams Emr Specialist Relationship Specialty Start Date End Date Gwen Cordero MD [address] [place] [phone] PCP - General Internal Medicine 12/29/22
--- OUTSIDE RECORDS SUMMARY | 2025-06-12 10:02 | XMS_ITS | Encounter Summary ---
Author Organization [employer] Address [address] [place] [address] Care Team Providers Care Backside Grinder Name Role Phone Gwen Cordero MD Primary Care Pro vider Reason for Visit * Reason Comments Med Refill Encounter Details Date Type Department Care Team ([facility] Contact Info) Description 06/10/2025 Refill [facility] [address] [place] [address] Gwen Cordero MD [address] [place] [address] Social History Tobacco Use Types Packs/Day Years [...] documented as of this encounter Care Teams Backside Grinder Relationship Specialty Start Date End Date Gwen Cordero MD [address] [place] [phone] PCP - General Internal Medicine 12/29/22 documented as of this encounter
--- OUTSIDE RECORDS SUMMARY | 2025-06-12 10:02 | XMS_ITS | Encounter Summary ---
Author Organization [employer] Address [address] [place] [address] 7 [place] [address] Care Team Providers Care Grip Wrapper Name Role Phone Gwen Cordero MD Primary Care Pro vider Encounter Details Date Type Department Care Team (Late st Contact Info) Description 03/09/2023 Abstract [facility] [address] [place] [address] Gwen Cordero MD [address] [place] [address] Social History Tobacco Use Types Packs/Day Years [...] on filedocumented in this encounter Care Teams Grip Wrapper Relationship Specialty Start Date End Date Gwen Cordero MD [address] [place] [phone] PCP - General Internal Medicine 12/29/22 documented as of this encounter
--- OUTSIDE RECORDS SUMMARY | 2025-06-12 10:02 | XMS_ITS | Encounter Summary ---
Author Organization [employer] Address [address] [place] [address] Care Team Providers Care Manager Epic Name Role Phone Gwen Cordero MD Primary Care Pro vider Reason for Visit * Reason Comments Med Refill Encounter Details Date Type Department Care Team ([facility] Contact Info) Description 04/05/2025 Refill [facility] [address] [place] [phone] Rebecca Castellanos MD [address] [place] [address] Social History Tobacco Use Types Packs/Day Years [...] documented as of this encounter Care Teams Manager Epic Relationship Specialty Start Date End Date Gwen Cordero MD [address] [place] [phone] PCP - General Internal Medicine 12/29/22 documented as of this encounter
== END 2025-06-12 09:54 | disposition home or self-care (01) ==
LOC: HO.HWS 09:15
PROVIDERS: PCP Student in an Organized Health Care Education/Training Program; Visit Provider Advanced Practice Midwife
DX: Z01.419 Encounter for gynecological examination (general) (routine) without abnormal findings (principal)
CPT/HCPCS: 99396; 99459

== ENCOUNTER → 2025-06-12 09:15 | Outpatient (BNVA) | payer OTHER, SELFPAY | PROVIDERS: PCP Student in an Organized Health Care Education/Training Program; Visit Provider Advanced Practice Midwife | DX: Z01.419 Encounter for gynecological examination (general) (routine) without abnormal findings (principal) | CPT/HCPCS: 99396 ==

== ENCOUNTER 2025-06-21 06:58 | Day surgery (SDC) | payer OTHER, SELFPAY ==
--- OUTSIDE RECORDS SUMMARY | 2025-06-05 07:42 | XMS_ITS | Encounter Summary ---
Author Organization [employer] Address [address] [place] [address] Care Team Providers Care Fourdrinier Tender Name Role Phone Gwen Cordero MD Primary Care Pro vider Reason for Visit * Reason Comments Med Refill Encounter Details Date Type Department Care Team ([facility] Contact Info) Description 04/05/2025 Refill [facility]INE [address] [place] [address] Rebecca Castellanos MD [address] [place] [address] Social History Tobacco Use Types Packs/Day Years Used Date Smoking Tobacco: Never Passive Smoke Exposure: Never Smokeless Tobacco: Never Alcohol Use Standard Drinks/Week Comments Yes 0 (1 standard drink = 0.6 oz pur e alcohol) social Depression Answer Date Recorded Patient Health Questionnaire-9 Score 2 12/28/2024 Patient Health Questionnaire-9 Score 2 12/28/2024 Last PHQ-9: Questionnaire Data Not on file 0 12/28/2024 Housing Stability Answer Date Recorded What is your housing situation today? I have omid lao 12/28/[address] you li ve. Do you have problems with any of the following? None of the above 12/28/2024 Food Insecurity Answer Date Recorded Within the past 12 months, y ou worried that your food would run out before you got money to buy more: Never True 12/28/2024 Within the past 12 months,th e food you bought just didn't last and you didn't have enough money to get more: Never True Transportation Answer Date Recorded In the past 12 months, has l ack of transportation kept you from medical appts, meetings, work or from getting things needed for daily living? No 12/28/2024 Utilities Answer Date Recorded In the past 12 months, has t he electric, gas, oil or water company threatened to shut off services in your home? No 12/28/2024 Depression Answer Date Recorded Patient Health Questionnaire-2 Score 1 12/28/2024 Internet Access Answer Date Recorded Internet Access Q1 Yes 05/15/2024 Internet Access Q2 Not on file 05/15/2024 Comments Unknown Sex and Gender Information Value Date Recorded Sex Assigned at Female 07/13/2022 10:14 AM EDT Legal Sex Female 10:14 AM EDT Gender Identity Female 07/13/2022 10:14 AM EDT Sexual Orientation Straight 04/01/2023 9: 35 AM EDT documented as of this encounter Plan of Treatment Not on file documented as of this encounter Visit Diagnoses Not on filedocumented in this encounter Additional Health Concerns Assessment Noted Time PHQ-9 Depression Total Score: 2 12/29/19 25 10:08 AM EDT documented as of this encounter Care Teams Fourdrinier Tender Relationship Specialty Start Date End Date Gwen Cordero MD [address] [place] [phone] PCP - General Internal Medicine 12/29/22 documented as of this encounter
--- OUTSIDE RECORDS SUMMARY | 2025-06-05 07:42 | XMS_ITS | Encounter Summary ---
Author Organization [employer] Address [address] [place] [address] Care Team Providers Care Salvage Winder And Inspector Name Role Phone Gwen Cordero MD Primary Care Pro vider Encounter Details Date Type Department Care Team (Late st Contact Info) Description 06/11/2023 Abstract [facility] MED[facility]INE [address] [place] [address] Darcie Canas Social History Tobacco Use Types [...] on file documented as of this encounter Procedures Procedure [...] documented as of this encounter Care Teams Salvage Winder And Inspector Relationship Specialty Start Date End Date Gwen Cordero MD [address] [place] [phone] PCP - General Internal Medicine 12/29/22 documented as of this encounter
--- OUTSIDE RECORDS SUMMARY | 2025-06-05 07:42 | XMS_ITS | Encounter Summary ---
Author Organization [employer] Address [address] [place] [address] [address] [place] [address] Care Team Providers Care Lamp Inspector Name Role Phone Gwen Cordero MD Primary Care Pro vider Reason for Visit * Reason Onset Date Comments Medication Question 08/09/2023 Encounter Details Date Type Department Care Team ([facility] Contact Info) Description 08/09/2023 Refill [facility]ICINE [address] [place] [address] Gwen Cordero MD [address] [place] [address] Social History Tobacco Use Types Packs/Day Years [...] 08/25/2023 9:13 AM EST Telephone call to [facility] maru Martin to relay message. No answer, left voicemail. Patient to call as needed. * Telephone Encounter - Valentina Allen RN - 08/20/2023 10:01 AM EST Per PCP, Please can you call this pt it consulting manager office and inform CERTIFIED ORTHOTIST PRACTICE MANAGER or PA that works w it consulting manager that please to reeval pt at next apt for her osteoporosis given pt is now on tamoxifen for breast ca that is a new diagnosis and can worsen her known osteoporosis and currently off meds for bone disease Patient goes to [facility] endo. Telephone call to [facility] maru [place] to relay message. No answer, left voicemail. Patient to call as needed. * Telephone Encounter - Faye Valencia - 08/09/2023 10:34 AM EST Tc from pt requesting a call back in regards medication tamoxifen (Nolvadex) 20 MG chemo tablet. Please contact pt in ukrainian documented in this encounter Plan of Treatment Not on file documented as of this encounter Visit Diagnoses Not on filedocumented in this encounter Additional Health Concerns Assessment Noted Time PHQ-9 Depression Total Score: 4 04/01/20 9:33 AM EDT documented as of this encounter Care Teams Lamp Inspector Relationship Specialty Start Date End Date Gwen Cordero MD [address] [place] [phone] PCP - General Internal Medicine 12/29/22 documented as of this encounter
--- OUTSIDE RECORDS SUMMARY | 2025-06-05 07:42 | XMS_ITS | Encounter Summary ---
Author Organization [employer] Address [address] [place] [address] Care Team Providers Care Industrial Psychologist Name Role Phone Gwen Cordero MD Primary Care Pro vider Reason for Visit * Reason Comments Med Refill Encounter Details Date Type Department Care Team ([facility] Contact Info) Description 08/09/2023 Refill [facility] MEDICINE [address] [place], [place] [phone] Louie Gore FNP Social History Tobacco Use Types Packs/Day Years Used Date Smoking Tobacco: Never Smokeless Tobacco: Never Alcohol Use Standard Drinks/Week Comments Yes 0 (1 standard drink = 0.6 oz pur e alcohol) social Depression Answer Date Recorded Patient Health Questionnaire-9 Score 4 04/01/2023 Housing Stability Answer Date Recorded What is your housing situation today? I have omidxochitl lao 06/30/[address] you [...] documented as of this encounter Care Teams Industrial Psychologist Relationship Specialty Start Date End Date Gwen Cordero MD [address] [place] [phone] PCP - General Internal Medicine 12/29/22 documented as of this encounter
--- OUTSIDE RECORDS SUMMARY | 2025-06-05 07:42 | XMS_ITS | Encounter Summary ---
Author Organization [employer] Address [address] [place] [address] [address] [place] [address] Care Team Providers Care Entry Level Account Manager Name Role Phone Gwen Cordero MD Primary Care Pro vider Encounter Details Date Type Department Care Team (Late st Contact Info) Description 04/06/2023 Abstract [facility] MEDICINE [address] [place] [address] Gwen Cordero MD [address] [place] [phone] Social History Tobacco Use Types Packs/Day Years [...] documented as of this encounter Care Teams Entry Level Account Manager Relationship Specialty Start Date End Date Gwen Cordero MD [address] [place] [phone] PCP - General Internal Medicine 12/29/22 documented as of this encounter
--- OUTSIDE RECORDS SUMMARY | 2025-06-05 07:42 | XMS_ITS | Encounter Summary ---
Author Organization [employer] Address [address] [place] [address] 7 [place] [address] Care Team Providers Care General Medical Practitioner Name Role Phone Gwen Cordero MD Primary Care Pro vider Encounter Details Date Type Department Care Team (Late st Contact Info) Description 03/09/2023 Abstract [facility] MEDICINE [address] [place] [address] Gwen Cordero MD [address] [place] [address] Social History Tobacco Use Types Packs/Day Years [...] Priority Date/Time Associated Diagnosis Comments MAMMOGRAPHY Routine 03/09/2023 8:22 AM EDT documented in this encounter Results * Mammography (03/09/2023 8:22 AM EDT) Mammogram Bi-rads 0 Anatomical Region Laterality Modality Other Narrative 03/09/2023 8:22 AM EDT Recommended additional views us Historical Provider HEALTH MAINTENANCE Final Result documented in this encounter Visit Diagnoses Not on filedocumented in this encounter Care Teams General Medical Practitioner Relationship Specialty Start Date End Date Gwen Cordero MD [address] [place] [phone] PCP - General Internal Medicine 12/29/22 documented as of this encounter
--- OUTSIDE RECORDS SUMMARY | 2025-06-05 07:42 | XMS_ITS | Clinical Summary ---
Author Organization [employer] Address [address] [place] [address] Care Team Providers Care Cross Cut Sawyer Name Role Phone Gwen Cordero MD Primary Care Pro vider Allergies Active Allergy Reactions Criticality Noted Date Comments Penicillins Unknown In childhood Medications Fluticasone-Salme terol (Advair Diskus) 100-50 MCG/ACT aerosol powder Inhale 1 puff every 12 (twelve) hours. 01/08/20 22 Active albuterol (2.5 MG/3ML) 0.083% nebulizer solution INHALE 1 AMPULE USING A NEBULIZER EVERY 4 HOURS NEEDED 90 mL 3 12/18/19 23 Active tamoxifen (Nolvadex) 20 MG chemo tablet [...] kit 08/10/20 23 Active UltiCare Short Pen [place] 31G X 8 MM misc USE DIRECTED 100 each 5 10/12/19 24 Active Diclofenac Sodium 1 % gelIndications:Ac josette pain of right knee To apply to the affected area 3 times a day 100 g 01/17/20 24 Active calcium carbonate (Calcium 600) 600 MG tablet Take 1 tablet (600 mg) by mouth with breakfast and with evening meal. 180 tablet 1 12/29/19 25 025 Active glucose blood (FreeStyle Precision Eliseo Test) test strip Use to test blood sugar twice daily in case of CGM failure or extremes of BG 100 each 11 12/29/19 25 026 Active metFORMIN XR (Glucophage-XR) 750 MG 24 hr tablet TAKE 1 TABLET BY MOUTH EVERY DAY WITH DINNER. 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 0.5 mL 2 03/30/20 25 Active cyanocobalamin (Vitamin B-12) 500 MCG tablet Take 1 tablet (500 mcg) by mouth Once per day. 90 tablet 03/30/20 25 026 Active cholecalciferol (Vitamin D-3) 125 MCG (5000 UT) capsule TAKE 1 CAPSULE BY MOUTH EVERY DAY 90 capsule 04/05/20 25 Active verapamil ER (Verelan) 360 MG 24 hr capsule Take 1 capsule (360 mg) by mouth Once per day. Do not crush or chew.TAKE 1 CAPSULE BY MOUTH EVERY MORNING DO NOT BREAK, CRUSH, DISSOLVE OR CHEW 90 capsule 04/05/20 25 Active losartan (Cozaar) 100 MG tabletIndications :Essential hypertension TAKE 1 TABLET BY MOUTH EVERY MORNING 90 tablet 1 05/17/20 25 Active rosuvastatin (Crestor) 5 MG tabletIndications :Mixed hyperlipidemia TAKE 1 TABLET BY MOUTH ONCE DAILY 90 tablet 1 05/17/20 25 Active losartan (Cozaar) 100 MG tabletIndications :Essential hypertension TAKE 1 TABLET BY MOUTH EVERY MORNING 90 tablet 1 11/02/19 25 025 Discontinued rosuvastatin (Crestor) 5 MG tabletIndications :Mixed hyperlipidemia TAKE 1 TABLET BY MOUTH EVERY DAY 90 tablet 1 11/02/19 25 025 Discontinued Active Problems Problem Noted Date Diagnosed Date Chest pain 03/30/2025 Glaucoma 12/28/2024 Chronic pain of both knees 12/28/2024 Breast cancer 05/01/2023 Assessment & Plan (05/01/2023 [...] -Pt reports she already spoke w medical claims analyst in regards thyroid nodule and was told there is no contra-indication to start GLP-1s ,may be able to stop insulin in future -referred to warehouse shipper at last visit - [place] to check status of referral today. -Seen by sports book board attendant 04/2023 - to f up in 1y. -DM labs in 3 mo if not f w her medical claims analyst for DM by then. Assessment & Plan [...] -also pt will talk w her medical claims analyst in regards thyroid nodule ,may be able to stop insulin in future -referred today to warehouse shipper -has apt w sports book board attendant x next month Thyroid nodule 04/01/2023 Assessment & Plan (05/01/2023 7:49 PM EDT): -thyroid US 2016:Solitary small left thyroid nodule. Ultrasound follow-up recommended.Parathyroid glands not identified by ultrasound.. -pt reports to be following w medical claims analyst -will check w specialist at her next visit about next US - referred today for thyroid US. Assessment & Plan (04/01/2023 8:20 PM EDT): -thyroid US 2016:Solitary small left thyroid nodule. Ultrasound follow-up recommended.Parathyroid glands not identified by ultrasound.. -pt reports to be following w medical claims analyst -will check w specialist at her next [...] onc to be referred by surgeon from [facility]. Assessment & Plan (04/01/2023 8:58 PM [...] 19 x1-Bivalent today,MMRx2,p23 2002, today p20, tdap 2009 today booster,s/p shingrix x2 -labs x annual [...] Pt w PNC allergy -referred already to field staff to clarify if true allergy - pending to schedule apt. Assessment & Plan (04/01/2023 8:55 PM EDT): Pt w C allergy -referred today to field staff to clarify if true allergy HTN (hypertension) [...] x the past 8 months -continue to f w knitting demonstrator -Pt has not needed Albuterol for several mo. Assessment & Plan (04/01/2023 8:49 PM EDT): Reports to be controlled , off steroids x the past 7 months -continue to f w knitting demonstrator Osteoporosis 09/09/2018 Assessment & Plan (05/01/2023 7:35 PM EDT): -DEXA 02/2023 -Referred by her medical claims analyst-Dr Tatum : osteoporosis -T-score -2.5 in lumbar spine Pt reports was on alendronate x 5 years and stopped 2 y ago -pt to f w endocrinology to discuss if will resume alendronate -continue vit D and start Ca 600 mg BID Assessment & Plan (04/01/2023 8:47 PM EDT): -DEXA 02/2023 -Referred by her medical claims analyst-Dr Tatum : osteoporosis -T-score -2.5 in lumbar spine Pt reports was on alendronate x 5 years and stopped 2 y ago -pt to f w endocrinology to discuss if will resume alendronate -continue vit D Obesity 10/13/2012 Assessment & Plan (05/01/2023 7:37 PM EDT): Advised pt to improve diet and exercise,discussed healthy life style -discussed wash operator referral -referred today again to [facility] due to pt request. -Pt to start Jardiance prescribed at last visit and plan to start later GLP1 -may need to consider bariatric surgery if no weight loss w meds and life style changes Assessment & Plan (04/01/2023 8:31 PM EDT): Advised pt to improve diet and exercise,discussed healthy life style -discussed wash operator referral -referred today -will start SGLT2 and will start later GLP1 -may need to consider bariatric surgery if no weight loss w meds and life style changes Resolved Problems Problem Noted Date Diagnosed Date Resolved Date Hypertension 07/25/2012 04/01/2023 Encounters Date Type Department Care Team Description 05/24/2025 Telephone [facility] [address] [place] [address] Gwen Cordero MD No Show 05/23/2025 Telephone [facility] [address] [place] [address] Gwen Cordero MD chart prep 05/17/2025 Refill [facility] [address] [place] [address] Yady Yao MD Essential hypertension; Mixed hyperlipidemia 04/05/2025 Refill [facility] [address] [place] [address] Rebecca Castellanos MD 04/04/2025 Refill [facility] [address] [place] [address] Gwen Cordero MD 04/04/2025 Refill [facility] [address] [place] [address] Rebecca Castellanos MD 03/30/2025 Results Follow-Up [facility] [address] [place] [address] Gwen Cordero MD Albumin, Random Urine W/Creatinine, CBC, Comprehensive Metabolic Panel, Additional followed-up results: 5 03/30/2025 Orders Only [facility] [address] [place] [phone] Gwen Cordero MD Type 2 diabetes mellitus without complication, 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 school 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 (CMS/HCC) (Primary Dx); Class 3 severe obesity due to excess calories with serious comorbidity and body mass index (BMI) of 45.0 to 49.9 in adult 03/29/2025 2:15 PM EDT Office Visit [address] [address] Gwen Cordero MD Chest pain, unspecified type (Primary Dx); Type 2 diabetes mellitus without complication, unspecified whether retirement insulin use (CMS/HCC); Hypertension, unspecified type; Class 3 severe obesity due to excess calories with serious comorbidity and body mass index (BMI) of 45.0 to 49.9 in adult; Health care maintenance; Malignant neoplasm of left female breast, unspecified estrogen receptor status, unspecified site of breast (CMS/HCC) 03/29/2025 Travel 03/28/2025 Telephone [facility] [address] [place] [phone] Gwen Cordero MD chart prep 03/22/2025 Patient Outreach [facility] [address] [place], [place] [phone] Gwen Cordero MD Pre-visit Planning (SDOH was already completed) 03/22/2025 Travel 03/16/2025 Refill [facility] [address] [place] [phone] Gwen Cordero MD Type 2 diabetes mellitus without complication, unspecified whether retirement insulin use (CMS/HCC) 03/08/2025 Orders Only [facility] External Provider, [facility] from Last 3 Months Immunizations Immunization Administration Dates Next Due Hep B, adult [...] Father's Sister DM1 Mother Heart attack Mother Uterine cancer Mother's Brother Heart attack Sister DM1 Son Relation Name Status Comments Father's Sister Mother Mother's Brother Sister Son Social History Tobacco Use Types Packs/Day Years Used Date Smoking Tobacco: Never Passive Smoke Exposure: Never Smokeless Tobacco: Never Tobacco Cessation:Counseling Given: [...] Sign Reading Time Taken Comments Blood Pressure 120/80 03/29/2025 2:15 PM EDT Pulse 84 03/29/2025 2:15 PM EDT Temperature 36.3 C (97.3 F) 12/28/2024 10:06 AM EDT Respiratory Rate 14 03/29/2025 2:15 PM EDT Oxygen Saturation 98% 03/29/2025 2:15 PM EDT Inhaled Oxygen Concentration - - Weight 76.7 kg (169 lb) 03/29/2025 2:15 PM EDT Height 145.3 cm (4' 9.19 ) 12/28/2024 10:06 AM E DT Body Mass Index 36.34 12/28/2024 10:06 AM EDT Plan of Treatment Health Maintenance Due Date Last Done Comments CT Colonography 1960 Colonoscopy 1960 Colorectal Cancer Screening 1960 FIT DNA/Cologuard 1960 FIT 1960 FOBT 1960 Sigmoidoscopy 1960 Eye Exam 1970 RSV Patients and Patients Aged 60 years or older (1 - Risk 60-74 years 1-dose series) 2020 Cervical Cancer Screening 05/11/2024 HPV/Cotest 05/11/2024 05/11/2019, 04/20/2019 Pap Smear 05/11/2024 05/11/2019 Mammogram 04/07/2025 03/08/2025, 02/12, 03/06/2024, Additional history exists COVID-19 Vaccine ( season) 2025 12/28/2023, 04/01/2023, 12/09/2020 Influenza Vaccine (#1) 2025 , 10/01/2021, 07/07/2019, Additional history exists Diabetes: Hemoglobin A1C 06/30/2025 025, 03/29/2025, 12/22/2024, Additional history exists Alcohol/Substance Use Screening 12/28/2025 12/28/2024 Depression Screening 12/28/2025 12/28/2024, 12/29/19 Diabetes: Foot Exam 12/28/2025 12/28/2024 SDOH Screening 12/28/2025 12/28/2024 Disability Screening 03/29/2026 03/29/2025 Tobacco Screening 03/29/2026 03/29/2025 Diabetes: Urine Protein Screening 03/30/2026 03/30/2025, 12/22/2024, 09/09/2023, Additional history exists Lipid Panel 03/30/2026 03/30/2025, 12/12, 09/09/2023, Additional history exists DTaP/Tdap/Td Vaccines (3 - Td or Tdap) [...] patient's age to complete this topic Meningococcal B Vaccine Aged Out No l onger eligible based on patient's age to complete [...] Procedure Name Priority Date/Time Associated Diagnosis Comments VITAMIN D,25-OH,TOTAL,IA Routine 03/30/2025 9:52 AM EDT Annual physical exam VITAMIN B12/FOLATE, SERUM PANEL Routine 03/30/2025 9:52 AM EDT Annual physical exam TSH W/REFLEX TO FT4 Routine 03/30/2025 9 :52 AM EDT Annual physical exam LIPID PANEL, STANDARD Routine 03/30/2025 9:52 AM EDT Annual physical exam HEMOGLOBIN A1C Routine 03/30/2025 9:52 AM EDT Annual physical exam COMPREHENSIVE METABOLIC PANEL Routine 03/30/2025 9:52 AM EDT Annual physical exam CBC Routine 03/30/2025 9:52 AM EDT Annual physical exam ALBUMIN, RANDOM URINE W/CREATININE Routine 03/30/2025 9:43 AM EDT Annual physical exam ECG 12-LEAD Routine 03/29/2025 3:33 PM EDT Chest pain, unspecified type POCT GLYCATED HEMOGLOBIN, TOTAL Routine 03/29/2025 2:20 PM EDT Type 2 diabetes mellitus without complication, 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 school 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 (CMS/HCC) POCT GLUCOSE Routine 03/29/2025 2:17 PM EDT Type 2 diabetes mellitus without complication, unspecified whether retirement insulin use (CMS/HCC) BD DEXA AXIAL Routine 03/08/2025 11:15 AM EDT BI MAMMOGRAM SCREENING TOMOSYNTHESIS BILATERAL Routine 03/08/2025 11:05 AM EDT HEPATITIS C ANTIBODY REFLEX Routine 04/17/2023 9:10 AM EDT Breast lesion HIV ANTIBODY/ANTIGEN ([place] D[facility]) Routine 04/17/2023 9:10 AM EDT Breast lesion HM PAP/HPV Routine 05/11/2019 from Last 3 Months or Most Recently Relevant to Health Maintenance Results * Vitamin D, 25-Hydroxy, Total, Immunoassay (03/30/2025 9:52 AM EDT) Vitamin D 25-OH Total 67.4 >30 ng/mL [facility] Comment: Health Based Reference Values*< 20 ng/mL Yforivtay78-60 ng/mL Insufficient> 30 ng/mL Sufficient*Midlred BENDER. N Engl J Med. 2007;357:266-280There is no well-established upper level of normal vitamin Dlevels. Some laboratories use 50 ng/mL as an upper limit ofnormal. However, toxicity is patient-dependent and may occurat any level. Careful correlation with the patient'spresentation is necessary and, if there is concern forvitamin D toxicity, treatment should be consideredirrespective of the serum level.Care must be taken in interpreting Vitamin D results fromdifferent laboratories and methodologies. Published datademonstrated that results from patients undergoinghemodialysis may show a negative bias when tested withvarious automated 25-OH vitamin D assays when compared toLC-MS/MS.When testing samples from patients whose predominant form ofVitamin D is Vitamin D2, such as patients receiving VitaminD2 supplementation, results that are subtherapeutic shouldbe confirmed with another method such as LC-MS/MS. Blood Venous blood specimen / Unknown 03/30/2025 9:52 AM EDT 03/30/2025 9:52 AM EDT us Gwen Negron MD LAB BLOOD ORDERAB LES Final Result [facility] [address] [place] [phone] * (ABNORMAL) Vitamin B12 (Cobalamin) and Folate Panel, Serum (03/30/2025 9:52 AM EDT) Pathologist [facility] Vitamin B12 158(L) 200 - 900 pg/mL [facility] Comment:NORMAL 200-900 PG/ML INDETERMINATE 160-199 PG/ML DEFICIENT < 160 PG/ML Folate 9.4 > or = 4.0 ng/mL [facility] Comment:Reference Values:> o r = 4.0 ng/mL< 4.0 ng/mL suggests folate deficiency Methotrexate, aminopterin and folinic acid(leucovorin) are chemotherapeutic agents whose molecularstructures are similar to folate; therefore, the Architectfolate assay cannot be used for patients using these drugs. Blood 03/30/2025 9:52 AM EDT 03/30/2025 9:52 AM EDT us Gwen Negron MD LAB BLOOD ORDERAB LES Final Result [facility] [address] [place] [phone] * TSH with Reflex to Free T4 (03/30/2025 9:52 AM EDT) [facility] TSH reflex Free T4 1.59 0.32 - 4.0 uIU/mL [facility] Blood 03/30/2025 9:52 AM EDT 03/30/2025 9:52 AM EDT us Gwen Negron MD LAB BLOOD ORDERAB LES Final Result [facility] [address] [place] [phone] * (ABNORMAL) CBC (03/30/2025 9:52 AM EDT) [facility] White Blood Count 7.4 4.8 - 10.8 X10*3/uL [facility] Red Blood Count 4.89 4.20 - 5.50 X10*6/uL [facility] Hemoglobin 15.0 12.0 - 16.0 g/dl [facility] Hematocrit 44.5 37.0 - 47.0 % [facility] Mean Corpuscular Volume 91.0 80.0 - 98.0 fL [facility] Mean Corpuscular Hemoglobin 30.7 27.0 - 33.0 pg [facility] Mean Corpuscular HGB Conc 33.7 31.0 - 35.0 g/dl [facility] Red Cell Distribution Width 11.8 11.0 - 16.0 % [facility] Platelet Count 374 160 - 400 X10*3/uL [facility] Mean Platelet Volume 8.8(L) 9.4 - 12.3 fL [facility] NRBC Pct Auto 0.0 0.0 - 0.2 /100WBC [facility] NRBC Abs Auto 0.000 0.0 - 0.012 X10*3/uL [facility] Blood Venous blood specimen / Unknown 03/30/2025 9:52 AM EDT 03/30/2025 9:52 AM EDT us Gwen Negron MD LAB BLOOD ORDERAB LES Final Result [facility] [address] [place] [phone] * (ABNORMAL) Hemoglobin A1c (03/30/2025 9:52 AM EDT) Hemoglobin A1c 6.2(H) <6.0 % [facility] Comment:Hemoglobin A1C Refer ence Range Adults: 4.8 - 6.0 % Non diabetic: < 6.0 % Goal: < 7.0 %Additional Action Suggested: > 8.0 %Note: Hemoglobin A1c results are invalid for patients with abnormal amounts of HbF. Blood transfusions may impact the HbA1c concentration in the patient sample. Estimated Average Glucose 131 mg/dL [facility] Comment:eAG = Estimated ave rage glucose which is %A1C expressed asaverage glucose, using the formula of the N8D-SarjtnyRksultg Glucose study (ADAG), Diabetes Care, Vol.31,#8,Apr. 2007 Blood Venous blood specimen / Unknown 03/30/2025 9:52 AM EDT 03/30/2025 9:52 AM EDT us Gwen Negron MD LAB BLOOD ORDERAB LES Final Result Performing Organization Address City/[facility] Co de Phone Number [facility] [address] [place] [phone] * Lipid Panel, Standard (03/30/2025 9:52 AM EDT) Triglycerides 64 <150 mg/dL [facility] Comment:Desirable Triglyceri de: less than 150 mg/dLBorderline High Triglyceride 150-199 mg/dLHigh Triglyceride: 200-499 mg/dLVery High Triglyceride: greater than or equal to 5OO mg/dL Cholesterol 138 <200 mg/dL [facility] Comment:Desirable Cholestero l: less than 200 mg/dLBorderline High Cholesterol: 200-239 mg/dLHigh Cholesterol: greater than 239 mg/dL LDL Cholesterol Calculated 73 <100 mg/dL [facility] Comment:Desirable LDL: less than 100 mg/dLNear Optimal/Above Optimal LDL: 110- 129 mg/dLBorderline High LDL: 130-159 mg/dLHigh LDL: 160-189 mg/dLVery High LDL: greater than or equal to 190 mg/dL HDL Cholesterol 53 >40 mg/dL [facility] Comment:Desirable HDL: great er than 40 mg/dL Note: This HDL assay may give artificially low results in patients with liver disease. Blood Venous blood specimen / Unknown 03/30/2025 9:52 AM EDT 03/30/2025 9:52 AM EDT us Gwen Negron MD LAB BLOOD ORDERAB LES Final Result Performing Organization Address [facility]/ZIP Co de Phone Number [facility] [address] [place] [phone] * (ABNORMAL) Comprehensive Metabolic Panel (03/30/2025 9:52 AM EDT) Pathologist [facility] Sodium 140 135 - 145 mmol/L [facility] Potassium 4.0 3.3 - 5.1 mmol/L [facility] Chloride 108 96 - 108 mmol/L [facility] Carbon Dioxide 25 22 - 29 mmol/L [facility] Anion Gap 11(L) 12 - 20 [facility] Urea Nitrogen (BUN) 13 9 - 16 mg/dL [facility] Creatinine, Serum 0.64 0.5 - 1.4 mg/dL [facility] Estimated Glomerular Filt Rate >60 [facility] Comment:Chronic Kidney Disea se: Estimated GFR < 60 mL/min/[id number] Kidney Disease: Estimated GFR < 15 mL/min/1.73m2 Glucose 109 60 - 115 mg/dL [facility] Calcium 9.0 8.4 - 10.2 mg/dL [facility] Bilirubin, Total 0.3 0.0 - 1.0 mg/dL [facility] Aspartate Amino Transferase 22 5 - 31 U/L [facility] Alanine Aminotransferase 19 0 - 31 U/L [facility] Total Protein 7.1 6.5 - 8.0 g/dL [facility] Albumin Level 4.0 3.5 - 5.0 g/dL [facility] Alkaline Phosphatase 103 39 - 117 U/L [facility] Blood Venous blood specimen / Unknown 03/30/2025 9:52 AM EDT 03/30/2025 9:52 AM EDT us Gwen Negron MD LAB BLOOD ORDERAB LES Final Result [facility] [address] [place] [phone] * Albumin, Random Urine W/Creatinine (03/30/2025 9:43 AM EDT) Pathologist [facility] Creatinine, Urine 95.01 mg/dL [facility] Microalbumin Urine <5.0 mg/L [facility] Microalbum Creatinine Ratio Ur TNP <30 ug/mg cr [facility] Comment:Unable to calculate albumin/creatinine ratio due to lowmicroalbumin or creatinine result. Urine (Urine, Random) 03/30/2025 9:43 AM EDT 03/30/2025 10:20 AM EDT us Gwen Negron MD LAB URINE ORDERAB LES Final Result [facility] [address] [place] [phone] * ECG 12 lead (03/29/2025 3:33 PM EDT) Narrative Gewn Cordero MD - 03/29/2025 3:33 PM EDT -EKG today NSR,HR 73x' Qtc 416 no ischemic findings us Gwen Negron MD ECG ORDERABLES F inal Result * (ABNORMAL) POCT HGB A1C (03/29/2025 2:20 PM EDT) [facility] Hemoglobin A1C 6.0(A) 4.0 - 5.7 % QC Media Lot # [id number] Lot# Expiration Date 3, Blood 03/29/2025 2:20 PM EDT us Gwen Negron MD POINT OF CARE YING T ENTER/EDIT ORDERABLES Final Result * POCT Glucose (03/29/2025 2:17 PM EDT) [facility] Glucose Blood, POC 145 60 - 200 mg/dL [employer] Lot # [id number] Lot# Expiration Date 2936,[id number] Blood Capillary blood specimen / Unknown 03/29/2025 2:17 PM EDT us Gwen Negron MD POINT OF CARE YING T ENTER/EDIT ORDERABLES Final Result * BD DEXA Axial (03/08/2025 11:15 AM EDT) Anatomical Region Laterality Modality Body Radiographic Shantal ging 03/08/2025 11:1 5 AM EDT Narrative 03/08/2025 11:56 AM EDT [facility] [address] [place] [address] Mammography Report Signed Patient: Elaine Griggs MR#: [id number] 7 : 1960 Acct:[id number] Age/Sex: 64 / F ADM Date: 03/08/25 Loc: MAMMO Attending Dr: Freedom Husain MD Ordering Physician: Iwona Murry MD Results: Date of Service: 03/08/25 Follow Up: Procedure(s): XR DEXA axial skeleton Accession Number(s): [id number] cc: Iwona Murry MD; Gwen Cordero MD EXAMINATION: DXA BONE DENSITY AXIAL HISTORY: Osteoporosis TECHNIQUE: Novasentis Dual energy absorptiometry (DEXA) of the lumbar spine, total left hip, and femoral neck was performed. COMPARISON: Comparison is made with the prior examination dated 02/25/2023. FINDINGS: The bone mineral density of the lumbar spine is 0.891, corresponding to a T-score of -2.4, and a Z-score of -1.3. This is indicative of osteopenia. This represents a BMD change of 0.9% compared to the prior exam. This is not statistically significant. The bone mineral density of the left total hip is 0.815, corresponding to a T-score of -1.5, and a Z-score of -0.7. This is indicative of osteopenia. This represents a BMD change of -7.1% compared to the prior exam. This is statistically significant. The bone mineral density of the left femoral neck is 0.801, corresponding to a T-score of -1.7, and a Z-score of -0.5. This is indicative of osteopenia. This represents a BMD change of -6.0% compared to the prior exam. FRACTURE RISK: The FRAX index suggests a ten year probability of major osteoporotic fracture of 4.8%, and of hip fracture 0.5%. MM/XR DEXA axial skeleton IMPRESSION: Based on bone mineral density, and according to World Health Organization (WHO) criteria, the diagnosis is consistent with osteopenia. All bone density values are in grams per centimeter squared (g/cm2). Statistically, 68% of repeat scans fall within 1 SD (+/- 0.010 g/cm2 for AP spine L1-L4) and 1 SD (+/- 0.012 g/cm2 for femur total) FRAX is a trademark of the [employer]'s [place] [facility] Metabolic [employer] Disease, a World Health Organization (WHO) Collaborating Center. Electronically signed by: Juan Osullivan MD 03/08/2025 11:54 AM EDT Dictated By: Juan Osullivan MD Signed By: <Electronically signed by Juan Osullivan MD in OV> 03/08/25 1154 DD/ 1115 TD/TT: 03/08/25 1140 Polymer Tester: Procedure Note Donotuseinterpreter, Image - 03/08/2025 [facility] [address] [place], [place] [address] Mammography Report Signed Patient: Mirna Griggs#: [id number] 7 : 1960cct:[id number] Age/Sex: 64 / FADM Date: 03/08/25 Loc: MAMMO Attending Dr: Freedom Husain MD Ordering Physician: Iwona Murryesults: Date of Service: 03/08/25Follow Up: Procedure(s): XR DEXA axial skeleton Accession Number(s): [id number] cc: Iwona Murry MD; Gwen Cordero MD EXAMINATION: DXA BONE DENSITY AXIAL HISTORY: Osteoporosis TECHNIQUE: Novasentis Dual energy absorptiometry (DEXA) of the lumbar spine, total left hip, and femoral neck was performed. COMPARISON: Comparison is made with the prior examination dated 02/25/2023. FINDINGS: The bone mineral density of the lumbar spine is 0.891, corresponding to a T-score of -2.4, and a Z-score of -1.3. This is indicative of osteopenia. This represents a BMD change of 0.9% compared to the prior exam. This is not statistically significant. The bone mineral density of the left total hip is 0.815, corresponding to a T-score of -1.5, and a Z-score of -0.7. This is indicative of osteopenia. This represents a BMD change of -7.1% compared to the prior exam. This is statistically significant. The bone mineral density of the left femoral neck is 0.801, corresponding to a T-score of -1.7, and a Z-score of -0.5. This is indicative of osteopenia. This represents a BMD change of -6.0% compared to the prior exam. FRACTURE RISK: The FRAX index suggests a ten year probability of major osteoporotic fracture of 4.8%, and of hip fracture 0.5%. MM/XR DEXA axial skeleton IMPRESSION: Based on bone mineral density, and according to World Health Organization (WHO) criteria, the diagnosis is consistent with osteopenia. All bone density values are in grams per centimeter squared (g/cm2). Statistically, 68% of repeat scans fall within 1 SD (+/- 0.010 g/cm2 for AP spine L1-L4) and 1 SD (+/- 0.012 g/cm2 for femur total) FRAX is a trademark of the [employer] Metabolic Bone Disease, a World Health Organization (WHO) Collaborating Center. Electronically signed by: Juan Osullivan MD 03/08/2025 11:54 AM EDT Dictated By: Juan Osullivan MD Signed By: <Electronically signed by Juan Osullivan MD in OV> 03/08/25 1154 DD/ 1115 TD/TT: 03/08/25 1140 Polymer Tester: us [facility] External Provider IMG DXA PROCEDURES Final Result * BI Mammogram Screening Tomosynthesis Bilateral (03/08/2025 11:05 AM EDT) Anatomical Region Laterality Modality Breast Bilateral Mammography 03/08/2025 11:0 5 AM EDT Narrative 03/08/2025 11:46 AM EDT [facility] [address] [place], [place] [address] Mammography Report Signed Patient: Elaine Griggs MR#: [id number] 7 : 1960 Acct:[id number] Age/Sex: 64 / F ADM Date: 03/08/25 Loc: DIRK.MAMMO Attending Dr: Freedom Husain MD Ordering Physician: Freedom Husain MD Results: 2Ben ign Findings Date of Service: 03/08/25 Follow Up: 1 Year From Orig inal Mammogram Procedure(s): MM tomosynthesis screening BI Accession Number(s): [id number] cc: Freedom Husain MD; Gwen Cordero MD EXAMINATION: MM SCREENING DIGITAL BREAST TOMOSYNTHESIS, BILATERAL CLINICAL INFORMATION: History of left breast cancer in 2022 status post lumpectomy. COMPARISON: Mammography: Comparison is made with available priors TECHNIQUE: Digital breast mammography with tomosynthesis is performed in both the craniocaudal and mediolateral oblique views along with computer-aided detection (CAD). FINDINGS: There are scattered areas of fibroglandular density (ACR BI-RADS breast composition Category b). Left post lumpectomy changes are stable. There is developing calcified fat necrosis in the upper outer left breast. There are no significant masses, abnormal calcifications, or other abnormalities. MM/MM tomosynthesis screening BI IMPRESSION: No mammographic evidence of malignancy. ASSESSMENT: BI-RADS BI-RADS 2 - Benign Findings RECOMMENDATION: Routine annual mammography screening. 1 year F/U This examination should not preclude the clinical evaluation of a suspicious palpable abnormality. This patient's information was entered into a reminder system with a target due date for their next mammogram. Electronically signed by: Madonna Haines DO 03/08/2025 11:43 AM EDT RP Dictated By: Madonna Haines DO Signed By: <Electronically signed by Madonna Haines DO in OV> 03/08/25 1143 DD/ 1105 TD/TT: 03/08/25 1120 Polymer Tester: Procedure Note Donotuseinterpreter, Image - 03/08/2025 [facility] [address] [place] [address] Mammography Report Signed Patient: Mirna Griggs#: [id number] 7 : 1960cct:[id number] Age/Sex: 64 / FADM Date: 03/08/25 Loc: HO.MAMMO Attending Dr: Freedom Husain MD Ordering Physician: Freedom Husain MDResults: 2Ben ign Findings Date of Service: 03/08/25Follow Up: 1 Year From Orig ina Mammogram Procedure(s): MM tomosynthesis screening BI Accession Number(s): [id number] cc: Freedom Husain MD; Gwen Cordero MD EXAMINATION: MM SCREENING DIGITAL BREAST TOMOSYNTHESIS, BILATERAL CLINICAL INFORMATION: History of left breast cancer in 2022 status post lumpectomy. COMPARISON: Mammography: Comparison is made with available priors TECHNIQUE: Digital breast mammography with tomosynthesis is performed in both the craniocaudal and mediolateral oblique views along with computer-aided detection (CAD). FINDINGS: There are scattered areas of fibroglandular density (ACR BI-RADS breast composition Category b). Left post lumpectomy changes are stable. There is developing calcified fat necrosis in the upper outer left breast. There are no significant masses, abnormal calcifications, or other abnormalities. MM/MM tomosynthesis screening BI IMPRESSION: No mammographic evidence of malignancy. ASSESSMENT: BI-RADS BI-RADS 2 - Benign Findings RECOMMENDATION: Routine annual mammography screening. 1 year F/U This examination should not preclude the clinical evaluation of a suspicious palpable abnormality. This patient's information was entered into a reminder system with a target due date for their next mammogram. Electronically signed by: Madonna Haines DO 03/08/2025 11:43 AM EDT RP Dictated By: Madonna Haines DO Signed By: <Electronically signed by Madonna Haines DO in OV> 03/08/25 1143 DD/ 1105 TD/TT: 03/08/25 1120 Polymer Tester: [facility] External Provider IMG BI PROCEDURES Final Result * Hepatitis C Antibody Reflex (04/17/2023 9:10 AM EDT) Hepatitis C Antibody Nonreactive Nonreactive [facility] Comment:Antibodies to HCV no t detected; does not exclude early acuteHCV infection. 04/17/2023 9:10 AM EDT 04/17/2023 9:10 AM EDT Result [facility] Gwen Negron MD LAB BLOOD ORDERAB LES Final Result [facility] [address] [place] [phone] * HIV Ab/Ag ([facility]) (04/17/2023 9:10 AM EDT) HIV AB/AG Nonreactive Nonreactive [facility] Comment:HIV-1 p24 Ag and/or HIV-1/HIV-2 Ab not detected.A test result that is nonreactive does not exclude thepossibility of exposure to or infection with HIV-1 and/orHIV-2. Nonreactive results in this assay for individualswith prior exposure to HIV-1 and/or HIV-2 may be due toantigen and antibody levels that are below the limit ofdetection of this assay.The [employer] Install[employer] HIV Ag/Ab Combo assay result andsupplemental assay results should be interpreted inconjunction with the patient's clinical presentation,history and other laboratory results. If the results areinconsistent with clinical evidence, additional testing issuggested to confirm the result. 04/17/2023 9:10 AM EDT 04/17/2023 9:10 AM EDT Gwen Negron MD LAB BLOOD ORDERAB LES Final Result [facility] [address] [place] [address] [phone] * Hm Pap Smear (05/11/2019) Pap Negative for intraephithelial lesion or malignancy Negative for intraephithelial lesion or malignancy, Other HPV Undetected us Historical Provider HEALTH MAINTENANCE Final Result from Last 3 Months or Most Recently Relevant to Health Maintenance Insurance [employer] Care Teams Cross Cut Sawyer Relationship Specialty Start Date End Date Gwen Cordero MD [address] [place] [phone] PCP - General Internal Medicine 12/29/22
[2025-06-19 11:13] VITALS: BMI 32.8
--- NOTE | 2025-06-20 11:21 | HO.ANESPROP2 ---
Documented by User: Spring Fischer NP 06/20/25 11:24 HPI - Anesthesia Eval Consult details Narrative: 64 yr old female for colonoscopy Asthma: controlled with prn ICS/LABA DOUG: had sleep study Anesthesia Pre-Procedure Meds Is the patient on any of the following meds?: GLP1/DPP4 and SGLT2 Inhib PMFSH Active Problems Active Problems: All Active Problems External hemorrhoid (Acute) Cervical polyp (Acute) Encounter for well woman exam with routine gynecological exam (Acute) History of breast cancer in female (Acute) Encounter for screening colonoscopy (Acute) Pre-op chest exam (Acute) Left breast mass (Acute) DOUG (obstructive sleep apnea) (Acute) Primary osteoarthritis of left knee (Acute) Primary osteoarthritis of right knee (Acute) Prediabetes (Acute) Invasive ductal carcinoma of breast (Acute) Chronic restrictive lung disease (Acute) Obesity (BMI 30-39.9) (Acute) Hypertension (Acute) Asthma (Acute) Vitamin D deficiency (Acute) Osteoporosis (Acute) Hyperparathyroidism (Acute) Past Medical History Medical History External hemorrhoid History of breast cancer in female Sleep apnea Diabetes Invasive ductal carcinoma of breast Chronic restrictive lung disease Obesity (BMI 30-39.9) Hypertension Asthma Vitamin D deficiency Osteoporosis Hyperparathyroidism Family History Family History Father Cancer Mother Cardiomyopathy Diabetes Obesity Maternal Aunt Ovarian cancer Other Thyroid disease Family history of problems with anesthesia: No Surgical History Surgical History H/O colonoscopy History of lumpectomy of left breast (~05/28/23) H/O vein stripping S/P LASIK surgery of both eyes Hx of parathyroidectomy Hx of tubal ligation History of Problems with Anesthesia: No Social History Social History Household Members: None Housing: Apartment Are you a primary medicare insurance specialist to a significant other at home: No Do you presently have visiting nurse or other home services: No Alcohol intake: current Alcohol intake frequency: holidays/special occasions only Patient Tobacco Use Status: Never used Tobacco Advance Directives: No Advance Directives Information Provided: Yes service: No Current occupational status: employed Gender identity: Female Meds Allergies Allergy/AdvReac Type Severity Reaction Status Date / Time Penicillins Allergy Intermediate RASH Verified 06/12/25 09:23 Home Medications ?Medication ?Instructions ?Recorded ?Confirmed ?Last Taken ?Type verapamil 360 mg 24 hr 360 mg PO DAILY 07/05/20 06/19/25 05/27/23 History capsule,extended release blood sugar diagnostic (FreeStyle #10 ea 07/21/22 06/12/25 Unknown History Lite Strips) blood-glucose meter (FreeStyle 07/21/22 06/12/25 Unknown History Lite Meter kit) lancets 33 gauge (TRUEplus Lancets) #100 ea 07/21/22 06/12/25 Unknown History losartan 100 mg tablet 100 mg PO DAILY 07/21/22 06/19/25 05/27/23 History rosuvastatin 5 mg tablet 5 mg PO DAILY 07/21/22 06/19/25 Unknown History albuterol sulfate 2.5 mg/3 mL 2.5 mg inhalation Q4H PRN Wheezing 05/03/23 06/19/25 Unknown History (0.083 %) solution for nebulization nebulizers 05/03/23 06/12/25 Unknown History empagliflozin 25 mg tablet 25 mg PO QAM 12/06/23 06/19/25 Unknown History (Jardiance) calcium carbonate 600 mg PO BID 03/22/25 06/19/25 Unknown History cholecalciferol (vitamin D3) 125 125 mcg PO DAILY 03/22/25 06/19/25 Unknown History mcg (5,000 unit) capsule dulaglutide 3 mg/0.5 mL mg subcut QWEEK 03/22/25 06/12/25 Unknown History subcutaneous pen injector (Trulicity) fluticasone propionate 50 2 spray intranasal DAILY PRN 03/22/25 06/19/25 Unknown History mcg/actuation nasal Allergy Symptoms spray,suspension (Flonase Allergy Relief) metformin 750 mg tablet,extended 750 mg PO QPM 03/22/25 06/19/25 Unknown History release 24 hr mecobalamin (vitamin B12) 1,000 1,000 mcg PO DAILY 06/12/25 06/19/25 Unknown History mcg chewable tablet (B12 Active) Exam Height,Weight and Vital Signs: Height 5 ft Weight 76.204 kg Assessment and Plan Final Anesthetic Review Family History of Problems with Anesthesia: No History of Problems with Anesthesia: No Documented by User: Rosalba Louise MD 06/21/25 07:29 [facility], [facility] Past Medical History Medical History External hemorrhoid History of breast cancer in female Sleep apnea Diabetes Invasive ductal carcinoma of breast Chronic restrictive lung disease Obesity (BMI 30-39.9) Hypertension Asthma Vitamin D deficiency Osteoporosis Hyperparathyroidism Family History Family History Father Cancer Mother Cardiomyopathy Diabetes Obesity Maternal Aunt Ovarian cancer Other Thyroid disease Surgical History Surgical History H/O colonoscopy History of lumpectomy of left breast (~05/28/23) H/O vein stripping S/P LASIK surgery of both eyes Hx of parathyroidectomy Hx of tubal ligation Social History Social History Household Members: None Housing: Apartment Are you a primary medicare insurance specialist to a significant other at home: No Do you presently have visiting nurse or other home services: No Alcohol intake: current Alcohol intake frequency: holidays/special occasions only Patient Tobacco Use Status: Never used Tobacco Advance Directives: No Advance Directives Information Provided: Yes service: No Current occupational status: employed Gender identity: Female Meds Allergies Allergy/AdvReac Type Severity Reaction Status Date / Time Penicillins Allergy Intermediate RASH Verified 06/12/25 09:23 Home Medications ?Medication ?Instructions ?Recorded ?Confirmed ?Last Taken ?Type verapamil 360 mg 24 hr 360 mg PO DAILY 07/05/20 06/19/25 05/27/23 History capsule,extended release blood sugar diagnostic (FreeStyle #10 ea 07/21/22 06/12/25 Unknown History Lite Strips) blood-glucose meter (FreeStyle 11/08/22 09/30/25 Unknown History Lite Meter kit) lancets 33 gauge (TRUEplus Lancets) #100 ea 07/21/22 06/12/25 Unknown History losartan 100 mg tablet 100 mg PO DAILY 07/21/22 06/19/25 05/27/23 History rosuvastatin 5 mg tablet 5 mg PO DAILY 07/21/22 06/19/25 Unknown History albuterol sulfate 2.5 mg/3 mL 2.5 mg inhalation Q4H PRN Wheezing 05/03/23 06/19/25 Unknown History (0.083 %) solution for nebulization nebulizers 05/03/23 06/12/25 Unknown History empagliflozin 25 mg tablet 25 mg PO QAM 12/06/23 06/19/25 Unknown History (Jardiance) calcium carbonate 600 mg PO BID 03/22/25 06/19/25 Unknown History cholecalciferol (vitamin D3) 125 125 mcg PO DAILY 03/22/25 06/19/25 Unknown History mcg (5,000 unit) capsule dulaglutide 3 mg/0.5 mL mg subcut QWEEK 03/22/25 06/12/25 Unknown History subcutaneous pen injector (Trulicity) fluticasone propionate 50 2 spray intranasal DAILY PRN 03/22/25 06/19/25 Unknown History mcg/actuation nasal Allergy Symptoms spray,suspension (Flonase Allergy Relief) metformin 750 mg tablet,extended 750 mg PO QPM 03/22/25 06/19/25 Unknown History release 24 hr mecobalamin (vitamin B12) 1,000 1,000 mcg PO DAILY 06/12/25 06/19/25 Unknown History mcg chewable tablet (B12 Active) Exam Airway Mallampati Class: II TM Dist: >3cm Neck ROM: Full Partial: Upper Heart: rrr Lungs: cta Assessment and Plan Assessment Anesthesia Assessment: Anesthesia Plan Discussed and Chart Reviewed Final Anesthetic Review NPO: Yes ASA Class: III Final Preanesthetic Review: No Changes in Pt Med Stat, Meds/Allgs Chart Reviewed and Consent Obtained/Reviewed Patient Risk: Low Procedure Risk: Low Anesthetic Plan Anesthetic Plan: MAC: Disposition: Standard PACU
[2025-06-21 07:12] VITALS: BP 148/80; PULSE 69; RESP 16; TEMP 35.9; O2SAT 99; BMI 33.0
[2025-06-21 07:20] LABS: Glucose, Whole Blood 102 mg/dL (60-115)
[2025-06-21] MEDS: Lactated Ringers 1,000 ML 100 ML IVCONT (07:43)
--- NOTE | 2025-06-21 07:51 | MHC.SHP ---
Pre-Procedural Eval Section A - 24 Hr Update-Section A only Date of Service: 06/21/25 Section B - Complete if H&P > 30 days Chief Complaint: screening Details of Present Illness: External hemorrhoid History of breast cancer in female Sleep apnea Diabetes Invasive ductal carcinoma of breast Chronic restrictive lung disease Obesity (BMI 30-39.9) Hypertension Asthma Vitamin D deficiency Osteoporosis Hyperparathyroidism Surgical History H/O colonoscopy History of lumpectomy of left breast (~05/28/23) H/O vein stripping S/P LASIK surgery of both eyes Hx of parathyroidectomy Hx of tubal ligation Present Medications: see Short Stay Collaborative assessment Allergies: Allergies Allergy/AdvReac Type Severity Reaction Status Date / Time Penicillins Allergy Intermediate RASH Verified 06/12/25 09:23 Review of Systems Review of Systems Comment: 10 point ROS negative Exam Exam Comment: Gen appear: No acute distress HEENT: no icterus Chest: No overt resp distress Abd: soft, nontender, nondistended Psych: Stable affect, answering questions appropriately Neuro: A/Ox3 noted to move all extremities spontaneously Ext: no peripheral edema Plan Diagnosis/Plan: Unchanged I have reviewed the history and physical and performed a pertinent physical examination on my patient. No changes have occurred unless specified. Time Spent With Patient Time: Total time managing care of this patient today ____ minutes.
--- NOTE | 2025-06-21 09:06 | HO.OPN-COLON ---
Colonoscopy Operative Note Operative Note Date of Service: 06/21/25 Narrative: Procedure: Colonoscopy Indication: Screening Endoscopist: Prema Barahona MD Anesthesia Provider: Dr Rosalba Sykes Anesthesia type: MAC Instrument: Olympus [id number]-H190L Consent: Indication, risks vs benefits, and alternatives were discussed with the patient who gave written informed consent to proceed. An resident care supervisor was utilized to assist with the consent. EKG, pulse, pulse oximetry and blood pressure were monitored throughout the procedure. Please see anesthesia flowsheet. Procedure: The patient was brought to the procedure room and placed in the left lateral decubitus position. IV medications were administered by the anesthesia provider in attendance. A digital rectal exam was performed which was abnormal due to finding of hemorrhoids. A distal attachment cap was affixed to the tip of the colonoscope which was then inserted through the anus and advanced through the colon to the cecum at 80 cm,and terminal ileum. Appendiceal orifice and ileocecal valve were identified. Mucosa was carefully examined under high definition white light as the instrument was slowly withdrawn in a retrograde panoramic fashion. Retroflexion was performed in rectum. The procedure was not difficult. There were no immediate obvious complications. The quality of the prep was BBPS: 2+2+2 = adequate Withdrawal time minutes. Limitations: No limitations Findings: Mucosa: Normal to cecum. Copious liquid opaque stool was seen throughout the colon which was extensively flushed and suctioned. Protruding lesions: 1 semi-pedunculated subepithelial nodule with overlying yellowish hue of size 4 cm in hepatic flexure. Pillow sign was negative. 2 cc of epinephrine was injected at the base. Hot snare polypectomy was performed. The nodule was completely removed en-bloc and retrieved. A resolution 360 clip was placed at the defect. Endomark was placed 3 cm distal to the nodule. Large internal hemorrhoids without stigmata of recent bleeding. Excavated lesions: Moderate diverticulosis of left sided colon. Impression: 1. Normal colon mucosa 2. Subepithelial nodule in hepatic flexure (Epi, hot snare, endoclip, endomark) 3. Diverticulosis 4. External and internal hemorrhoids Recommendations: - Follow path results. - Repeat colonoscopy contingent on results of nodule. 10 years if its a benign nodule such as a lipoma or leiomyoma.
[2025-06-21 09:11] VITALS: BP 130/78; PULSE 71; RESP 16; TEMP 36.6; O2SAT 100
[2025-06-21 09:26] VITALS: BP 150/88; PULSE 64; RESP 20; TEMP 36.6; O2SAT 100
== END 2025-06-21 10:05 | disposition home or self-care (01) ==
PROVIDERS: PCP Student in an Organized Health Care Education/Training Program; Visit Provider Internal Medicine
PROC: 0DJD8ZZ Inspection of Lower Intestinal Tract, Via Natural or Artificial Opening Endoscopic (ICD-10-PCS; CPT 45378; principal; 2025-06-21 08:30)
DX: Z12.11 Encounter for screening for malignant neoplasm of colon (principal); K57.30 Diverticulosis of large intestine without perforation or abscess without bleeding; D17.79 Benign lipomatous neoplasm of other sites; K64.8 Other hemorrhoids; K64.4 Residual hemorrhoidal skin tags
CPT/HCPCS: 45385; 45381; 82947; 88305; J0168; J2003; J2704

== ENCOUNTER → 2025-06-21 06:58 | Outpatient (BNV) | payer OTHER, SELFPAY | PROVIDERS: PCP Student in an Organized Health Care Education/Training Program; Visit Provider Internal Medicine | DX: Z12.11 Encounter for screening for malignant neoplasm of colon (principal); D12.3 Benign neoplasm of transverse colon; K64.8 Other hemorrhoids; K57.90 Diverticulosis of intestine, part unspecified, without perforation or abscess without bleeding | CPT/HCPCS: 45381; 45385 ==

== ENCOUNTER 2025-07-05 13:06 | Outpatient (AMB) | payer OTHER, SELFPAY ==
[2025-07-05 13:23] VITALS: BP 115/57; PULSE 69; BMI 33.1
--- NOTE | 2025-07-05 13:23 | MHC.OFFVIS ---
Vital Signs 07/05/25 13:23 Height 5 ft Weight 169 lb 12.095 oz BMI 33.1 BP 115/57 L Blood Pressure Location Rt brachial Position Sitting Pulse 69 Intake Visit Reasons: s/p colon Intake Note: Patient in office today in follow up s/p colonoscopy. CC: Patient reports having some constipation and RUQ discomfort. Stopperer Assembler Required: Yes Stopperer Assembler Language: Scottish Accompanied by: Self / Same As Patient Allergies Penicillins Allergy (Intermediate, Verified 07/05/25 13:27) RASH HPI HPI s/p colon: Details: Patient is a 64-year-old female with PMH of asthma, diabetes, hyperparathyroidism, hypertension and hx of breast CA s/p radiation. Follow-up after screening colonoscopy on 06-21-2025. Since colonoscopy, pt notes increased constipation characterized by smaller, fragmented stools compared to baseline. Denies abdominal pain currently; prior minor cramping post-procedure, resolved spontaneously. No reported hematochezia, fever, or other GI complaints. Admits to mild dietary fiber intake; mainstays are rice, bread, meat, with some fruits/vegetables. No interim hospitalizations or acute flares. No reported nonadherence or barriers to care. [facility] Medical History (Updated 07/05/25 @ 14:15 by Reba Byrnes CNP) Diverticulosis Constipation Hemorrhoid Lipoma of colon External hemorrhoid History of breast cancer in female Sleep apnea Diabetes Invasive ductal carcinoma of breast Chronic restrictive lung disease Obesity (BMI 30-39.9) Hypertension Asthma Vitamin D deficiency Osteoporosis Hyperparathyroidism Surgical History H/O colonoscopy History of lumpectomy of left breast (~05/28/23) H/O vein stripping S/P LASIK surgery of both eyes Hx of parathyroidectomy Hx of tubal ligation Family History Father Cancer Mother Cardiomyopathy Diabetes Obesity Maternal Aunt Ovarian cancer Other Thyroid disease Social History Household Members: None Housing: Apartment Are you a primary md do resident urgent care to a significant other at home: No Do you presently have visiting nurse or other home services: No Alcohol intake: current Alcohol intake frequency: holidays/special occasions only Patient Tobacco Use Status: Never used Tobacco service: No Current occupational status: employed Gender identity: Female Female Reproductive History Menstrual Age of Menarche: 14 Review of Systems Const Reports as per HPI ENT Reports as per HPI Card Reports as per HPI Resp Reports as per HPI GI Reports as per HPI Reports as per HPI Physical Exam Vital Signs: Last Vital Signs Pulse 69 07/05/25 13:23 BP 115/57 L 07/05/25 13:23 BMI result Body Mass Index 33.1 Const General: healthy appearing, no acute distress and well developed Nutritional Appearance: average body habitus Orientation/consciousness: patient oriented x3 HEENT Head: Yes normal to inspection, Yes normocephalic and Yes atraumatic Face and sinus: Yes normal facial exam Eyes General: appearance normal, both eyes and all related structures Neck Neck: Yes normal visual inspection Resp Effort & Inspection: normal respiratory effort, able to speak in complete sentences, no tracheal deviation and symmetric chest movement Cardio Jugular venous distension: no JVD GI Inspection: Yes obesity Neuro General: patient oriented x3 Gait exam (Neuro): Normal gait present Psych Appearance: grossly normal Mental Status: mental status grossly normal Speech and movement: Normal speech and movement present Affect: normal affect Attitude: cooperative Thought process: Normal thought process present Thought content: Normal thought content present Insight: Good insight present (Psych) Judgement: Good judgement present (Psych) Results Reviewed Results Reviewed: Operative Note Date of Service: 06/21/25 Narrative: Procedure: Colonoscopy Indication: Screening Endoscopist: Prema Barahona MD Anesthesia Provider: Dr Rosalba Sykes Anesthesia type: MAC Instrument: Olympus [id number]-H190L Consent: Indication, risks vs benefits, and alternatives were discussed with the patient who gave written informed consent to proceed. An barrel turner was utilized to assist with the consent. EKG, pulse, pulse oximetry and blood pressure were monitored throughout the procedure. Please see anesthesia flowsheet. Procedure: The patient was brought to the procedure room and placed in the left lateral decubitus position. IV medications were administered by the anesthesia provider in attendance. A digital rectal exam was performed which was abnormal due to finding of hemorrhoids. A distal attachment cap was affixed to the tip of the colonoscope which was then inserted through the anus and advanced through the colon to the cecum at 80 cm,and terminal ileum. Appendiceal orifice and ileocecal valve were identified. Mucosa was carefully examined under high definition white light as the instrument was slowly withdrawn in a retrograde panoramic fashion. Retroflexion was performed in rectum. The procedure was not difficult. There were no immediate obvious complications. The quality of the prep was BBPS: 2+2+2 = adequate Withdrawal time minutes. Limitations: No limitations Findings: Mucosa: Normal to cecum. Copious liquid opaque stool was seen throughout the colon which was extensively flushed and suctioned. Protruding lesions: 1 semi-pedunculated subepithelial nodule with overlying yellowish hue of size 4 cm in hepatic flexure. Pillow sign was negative. 2 cc of epinephrine was injected at the base. Hot snare polypectomy was performed. The nodule was completely removed en-bloc and retrieved. A resolution 360 clip was placed at the defect. Endomark was placed 3 cm distal to the nodule. Large internal hemorrhoids without stigmata of recent bleeding. Excavated lesions: Moderate diverticulosis of left sided colon. Impression: 1. Normal colon mucosa 2. Subepithelial nodule in hepatic flexure (Epi, hot snare, endoclip, endomark) 3. Diverticulosis 4. External and internal hemorrhoids Recommendations: - Follow path results. - Repeat colonoscopy contingent on results of nodule. 10 years if its a benign nodule such as a lipoma or leiomyoma. PATHOLOGY: Collected: 06/21/25 Location: [facility] Received: 06/21/25 Diagnosis Colon, hepatic flexure nodule, excision: Colonic tissue with prominent submucosal lobulated adipose tissue, consistent with lipoma; no atypia identified. Clinical History Pre-Op Dx: Screening Post-Op Dx: Diverticulosis, hemorrhoids, colon nodule Assessment & Plan Assessment & Plan (1) Lipoma of colon: Comment: 06/21/25 Colonoscopy complete with adequate prep-Normal colon mucosa, Diverticulosis, 4 cm Subepithelial lipoma in hepatic flexure, External and internal hemorrhoids Recommendations for repeat in 10 years or sooner if clinically indicated (2034). Code(s): D17.5 - Benign lipomatous neoplasm of intra-abdominal organs Category: Medical Plan: Incidental, benign, non-obstructing. Rationale: No concerning endoscopic appearance. Additional Testing: None. Medications: None. Lifestyle Recommendations: None. Referrals / Coordination of Care: None. F/U Plan: None required. (2) Hemorrhoid: Code(s): K64.9 - Unspecified hemorrhoids Category: Medical Qualifiers: Hemorrhoid type: unspecified Qualified Code(s): K64.9 - Unspecified hemorrhoids Plan: Asymptomatic at present. Rationale: Incidental finding; no current sx of bleeding, pain, or pruritus. Additional Testing: None. Medications: None. Lifestyle Recommendations: Maintain soft stools via diet/OTC fiber. Referrals / Coordination of Care: None. F/U Plan: Address if symptomatic. (3) Constipation: Code(s): K59.00 - Constipation, unspecified Category: Medical Qualifiers: Constipation type: other constipation type Qualified Code(s): K59.09 - Other constipation Plan: New onset following colonoscopy, characterized by small fragmented stools; mild severity. Likely related to post-procedure changes and low dietary fiber; no acute alarm findings. Additional Testing: Not indicated at present. Medications: - Recommend starting OTC psyllium (Metamucil) powder as fiber supplement. - Initiate Lactobacillus probiotic, 1 tab PO QD x30 days (Rx given; OTC generic acceptable if not covered). - Monitor for GI side effects (bloating, gas). Lifestyle Recommendations: - Reinforce increased dietary fiber (handout provided). - Encourage hydration. - Monitor and report any new persistent GI symptoms. Referrals / Coordination of Care: None required at this time. F/U Plan: pt opted for PRN/as needed; pt instructed to contact clinic if constipation persists or worsens, or if new/worsening GI sx develop. (4) Diverticulosis: Code(s): K57.90 - Diverticulosis of intestine, part unspecified, without perforation or abscess without bleeding Category: Medical Plan: Asymptomatic. No abdominal pain, fever, hematochezia, or evidence of diverticulitis. Colonoscopic finding only. Additional Testing: None indicated. Medications: None indicated. Lifestyle Recommendations: - Advise high-fiber diet to minimize constipation and prevent diverticulitis. - Fiber sources: fruits, vegetables, beans, nuts; provided pt with Amharic-language high-fiber handout. - Encourage adequate hydration. Referrals / Coordination of Care: None needed at this time. F/U Plan: Routine colonoscopic surveillance in 10 years, or sooner if new symptoms arise. Plan Follow-up as needed Time: I spent a total of 20 minutes on the date of encounter which includes: Preparing to see the patient (reviewed previous documentation, test results and medical history) Performing a medically appropriate exam and/or evaluation Ordering medications, tests, and procedures Documenting clinical information in the health record Medications: New Lactobacillus acidophilus Take once tablet daily until complete 10,000 mmu cells PO DAILY 30 caps 0RF Coding Level of Care Code Established Pt Est Pt Level 3 (94741) Patient Type Established Diagnoses Lipoma of colon D17.5 Hemorrhoids, unspecified hemorrhoid type K64.9 Hemorrhoid type: unspecified Other constipation K59.09 Constipation type: other constipation type Diverticulosis K57.90
--- OUTSIDE RECORDS SUMMARY | 2025-07-05 16:29 | XMS_ITS | Encounter Summary ---
Author Organization [employer] Address [address] [place] [address] [address] [place] [address] Care Team Providers Care Soap Tender Name Role Phone Gwen Cordero MD Primary Care Pro vider Encounter Details Date Type Department Care Team ([facility] Contact Info) Description 03/09/2023 Abstract [facility] [address] [place] [address] [phone] Gwen Cordero MD [address] [place] [address] [phone] Social History Tobacco Use Types Packs/Day Years [...] Upcoming Encounters Date Type Department Care Team ([facility] Contact Info) Description 09/05/2025 9:00 AM EST Office Visit [address] [phone] Gwen Cordero MD [address] [place] [address] [phone] documented as of this encounter Procedures Procedure Name Priority Date/Time Associated Diagnosis Comments MAMMOGRAPHY Routine 03/09/2023 8:22 AM EDT documented in this encounter Results * Hm Mammography (03/09/2023 8:22 AM EDT) HM Mammogram Bi-rads 0 Anatomical Region Laterality Modality Other Narrative 03/09/2023 8:22 AM EDT Recommended additional views us Historical Provider HEALTH MAINTENANCE Final Result documented in this encounter Visit Diagnoses Not on filedocumented in this encounter Care Teams Soap Tender Relationship Specialty Start Date End Date Gwen Cordero MD [address] [place] [id number] PCP - General Internal Medicine 12/29/22 documented as of this encounter
--- OUTSIDE RECORDS SUMMARY | 2025-07-05 16:29 | XMS_ITS | Encounter Summary ---
Author Organization [employer] Address [address] 7[address] [place] [address] Care Team Providers Care Barrel Assembler Helper Name Role Phone Gwen Cordero MD Primary Care Pro vider Reason for Visit * Reason Comments Med Refill Encounter Details Date Type Department Care Team ([facility] Contact Info) Description 08/09/2023 Refill [facility] [address] [place], [place] [phone] Louie Gore FNP Social History Tobacco Use [...] Care Team (Late st Contact Info) Description 09/05/2025 9:00 AM EST Office Visit [facility] [address] [place] [address] Gwen Cordero MD [address] [place] [phone] documented as of this encounter Visit Diagnoses Not on filedocumented in this encounter Additional Health Concerns Assessment Noted Time PHQ-9 Depression Total Score: 4 04/01/20 9:33 AM EDT documented as of this encounter Care Teams Barrel Assembler Helper Relationship Specialty Start Date End Date Gwen oCrdero MD [address] [place] [address] PCP - General Internal Medicine 12/29/22 documented as of this encounter
--- OUTSIDE RECORDS SUMMARY | 2025-07-05 16:29 | XMS_ITS | Encounter Summary ---
Author Organization [employer] Address [address] [place] [address] 7 [place] [address] Care Team Providers Care President Financial Institution Name Role Phone Gwen Cordero MD Primary Care Pro vider Encounter Details Date Type Department Care Team (Late Contact Info) Description 06/11/2023 Abstract [facility] [address] [place] [address] [phone] Darcie Canas Social History Tobacco Use Types [...] Description 09/05/2025 9:00 AM EST Office Visit [facility] [address] [place] [address] [phone] Gwen Cordero MD [address] [place] [address] [phone] documented as of this encounter Procedures Procedure [...] documented as of this encounter Care Teams President Financial Institution Relationship Specialty Start Date End Date Gwen Cordero MD [address] [place] [phone] PCP - General Internal Medicine 12/29/22 documented as of this encounter
--- OUTSIDE RECORDS SUMMARY | 2025-07-05 16:29 | XMS_ITS | Clinical Summary ---
Author Organization [employer] Address [address] 7[address] [place] [address] Care Team Providers Care Aircraft Landing Gear Inspector Name Role Phone Gwen Cordero MD [...] kit 08/10/20 23 Active UltiCare Short Pen Superior 31G X 8 MM misc USE DIRECTED 100 each 5 10/12/19 24 Active Diclofenac Sodium 1 % gelIndications:Ac josette pain of right knee To apply to the affected area 3 times a day 100 g 01/17/20 24 Active glucose blood (FreeStyle Precision Eliseo Test) [...] 2 diabetes mellitus without complication, unspecified whether comprehensive ophthalmologist insulin use,Class 3 severe obesity due to excess calories with serious comorbidity and body mass index (BMI) of 45.0 to 49.9 in adult (HCC) Inject 4.5 mg under the skin 1 [...] 90 tablet 1 06/11/20 25 026 Active calcium carbonate (Calcium 600) 600 MG tablet Take 1 tablet (600 mg) by mouth with breakfast and with evening meal. 180 tablet 1 12/29/19 25 025 Jardiance 25 MG TAKE 1 TABLET BY [...] visit -Pt reports she already spoke w script coordinator in regards thyroid nodule and was told there is no contra-indication to start GLP-1s ,may be able to stop insulin in future -referred to collateral analyst at last visit - [place] to check status of referral today. -Seen by circuit breaker assembler 04/2023 - to f up in 1y. -DM labs in 3 mo if not f w her script coordinator for DM by then. Assessment & Plan [...] urine -also pt will talk w her script coordinator in regards thyroid nodule ,may be able to stop insulin in future -referred today to collateral analyst -has apt w circuit breaker assembler x next month Thyroid nodule 04/01/2023 Assessment & Plan (05/01/2023 7:49 PM EDT): -thyroid US 2016:Solitary small left thyroid nodule. Ultrasound follow-up recommended.Parathyroid glands not identified by ultrasound.. -pt reports to be following w script coordinator -will check w specialist at her next visit about next US - referred today for thyroid US. Assessment & Plan (04/01/2023 8:20 PM EDT): -thyroid US 2016:Solitary small left thyroid nodule. Ultrasound follow-up recommended.Parathyroid glands not identified by ultrasound.. -pt reports to be following w script coordinator -will check w specialist at her next [...] onc to be referred by surgeon from [facility]. Assessment & Plan (04/01/2023 8:58 [...] Pt w PNC allergy -referred already to social problems specialist to clarify if true allergy - pending to schedule apt. Assessment & Plan (04/01/2023 8:55 PM EDT): Pt w PNC allergy -referred today to social problems specialist to clarify if true allergy HTN (hypertension) [...] x the past 8 months -continue to [facility] -Pt has not needed Albuterol for several mo. Assessment & Plan (04/01/2023 8:49 PM EDT): Reports to be controlled , off steroids x the past 7 months -continue to [facility] Osteoporosis 09/09/2018 Assessment & Plan (05/01/2023 7:35 PM EDT): -DEXA 02/2023 -Referred by her script coordinator-Dr Tatum : osteoporosis -T-score -2.5 in lumbar spine Pt reports was on alendronate x 5 years and stopped 2 y ago -pt to [facility] endocrinology to discuss if will resume alendronate -continue vit D and start Ca 600 mg BID Assessment & Plan (04/01/2023 8:47 PM EDT): -DEXA 02/2023 -Referred by her script coordinator-Dr Tatum : osteoporosis -T-score -2.5 in lumbar spine Pt reports was on alendronate x 5 years and stopped 2 y ago -pt to f w endocrinology to discuss if will resume alendronate -continue vit D Obesity 10/13/2012 Assessment & Plan (05/01/2023 7:37 PM EDT): Advised pt to improve diet and exercise,discussed healthy life style -discussed zipper ironer referral -referred today again to [facility] due to pt request. -Pt to start Jardiance prescribed at last visit and plan to start later GLP1 -may need to consider bariatric surgery if no weight loss w meds and life style changes Assessment & Plan (04/01/2023 8:31 PM EDT): Advised pt to improve diet and exercise,discussed healthy life style -discussed zipper ironer referral -referred today -will start SGLT2 and will start later GLP1 -may need to consider bariatric surgery if no weight loss w meds and life style changes Resolved Problems Problem Noted Date Diagnosed Date Resolved Date Hypertension 07/25/2012 04/01/2023 Encounters Date Type Department Care Team Description 06/21/2025 Orders Only GENERIC EXTERNAL DATA DEPARTMENT Provider, Generic External Data 06/10/2025 Refill [facility] [address] [place] [address] Gwen Cordero MD 05/24/2025 Telephone C MEDICINE [address] [place] [address] Gwen Cordero MD No Show 05/23/2025 Telephone C MEDICINE [address] [place] [address] Gwen Cordero MD chart prep 05/17/2025 Refill [facility] [address] [place] [address] Yady Yao MD Essential hypertension; Mixed hyperlipidemia 04/05/2025 Refill [facility] [address] [place] [address] Rebecca Castellanos MD 04/04/2025 Refill [facility] [address] [place] [address] Gwen Cordero MD 04/04/2025 Refill [facility] [address] [place] [address] Rebecca Castellanos MD from Last 3 Months Immunizations Immunization Administration [...] 12/28/2024 10:06 AM EDT Plan of Treatment Upcoming Encounters Date Type Department Care Team (Late st Contact Info) Description 09/05/2025 9:00 AM EST Office Visit [facility] [address] [place] [address] Gwen Cordero MD [address] [place] [address] Health Maintenance Due Date Last Done Comments [...] Procedure Name Priority Date/Time Associated Diagnosis Comments HEMATOXYLIN AND EOSIN STAIN Routine 06/21/2025 8:52 AM EDT GLUCOSE, WHOLE BLOOD Routine 06/21/2025 7:17 AM EDT HEMOGLOBIN A1C Routine 03/30/2025 9:52 AM EDT Annual physical exam LIPID PANEL, STANDARD Routine 03/30/2025 9:52 AM EDT Annual physical exam ALBUMIN, RANDOM URINE W/CREATININE Routine 03/30/2025 9:43 AM EDT Annual physical exam BI MAMMOGRAM SCREENING TOMOSYNTHESIS BILATERAL Routine 03/08/2025 11:05 AM EDT HEPATITIS C ANTIBODY REFLEX Routine 04/17/2023 9:10 AM EDT Breast lesion HIV ANTIBODY/ANTIGEN ([place] [facility]) Routine 04/17/2023 9:10 AM EDT Breast lesion HM PAP/HPV Routine 05/11/2019 from Last 3 Months or Most Recently Relevant to Health Maintenance Results * Hematoxylin and Eosin Stain (06/21/2025 8:52 AM EDT) 06/21/2025 8:52 AM EDT 06/21/2025 10:30 AM EDT [facility] - 06/22/2025 5:03 PM EDT ----- ------- Name: Elaine Griggs Age/Sex: 64/F : 1960 Unit#: [id number] Attend Dr: Prema Barahona MD Re06/21/25 Status: [facility] Location: .[facility] Disch: ----- ------- SPEC : [id number] RECD: 06/21/25 STATUS: RENAN ADAMS NUM: [id number] [place]: 06/21/[address] [facility] [address]: Prema Barahona MD ENTERED: 06/21/25 SP TYPE: Surgical OTHR DR: Gwen Cordero MD ORDERED: HE Stain/3, Gross Micro L4 Diagnosis Colon, hepatic flexure nodule, excision: Colonic tissue with prominent submucosal lobulated adipose tissue, consistent with lipoma; no atypia identified. Clinical History Pre-Op Dx: Screening Post-Op Dx: Diverticulosis, hemorrhoids, colon nodule Microscopic Description Microscopic sections reviewed. Material Received Hepatic flexure nodule Gross Description Received in formalin labeled hepatic flexure nodule is a polypoid portion of red-pink soft tissue measuring 1.7 x 1.5 x 0.8 cm in greatest dimension. The outer surface is smooth and glistening. The underside is carrasquillo-white and unremarkable. The underside is inked blue. Sectioning reveals a smooth, moist yellow-white cut surface. The specimen is serially sectioned and entirely submitted for microscopic examination, 3 pieces in cassette A1 and 2 pieces in cassette A2. ([facility]) IHC S/NG Disclaimer NOTE: Unless otherwise stated, all tissue is formalin-fixed and paraffin-embedded. Some or all of the immunohistochemical tests reported herein may have been developed and their performance characteristics determined by [facility]. They have not been cleared or approved by the U.S. Food and Drug Administration (FDA). However, the FDA has determined that such clearance or approval is not necessary. This laboratory is certified under the Clinical Laboratory Improvement Amendments of 1988 (CLIA) as qualified to perform high complexity clinical laboratory testing. Copies To: Gwen Cordero MD [address] [address] CONTINUED ON NEXT PAGE ----- ------- Name: Elaine Griggs Age/Sex: 64/F : 1960 Unit#: [id number] Attend Dr: Prema Barahona MD Re06/21/25 Status: [facility] Location: [facility] Disch: ----- ------- SPEC : [id number] RECD: 06/21/25 STATUS: RENAN ADAMS NUM: [id number] [place]: 06/21/[address] [facility] [address]: Prema Barahona MD ENTERED: 06/21/25 SP TYPE: Surgical OTHR DR: Gwne Cordero MD ORDERED: HE Stain/3, Gross Micro L4 Copies To: (Continued) Prema Barahona MD [facility] [address] [place] [phone] [email or web address] ----- ------- Signed (signature on file) Vahe Mathis MD 06/22/251702 ----- ------- END OF REPORT us Generic External Data Provider LAB BLOOD ORDERAB LES Final Result [facility] [address] [place] [address] [phone] * Glucose, Whole Blood (06/21/2025 7:17 AM EDT) Glucose, Whole Blood 102 60 - 115 mg/dL [facility] Comment:METER #: [id number] 06/21/2025 7:17 AM EDT 06/21/2025 7:19 AM EDT us Generic External Data Provider LAB BLOOD ORDERAB LES Final Result Performing Organization Address [facility] Co de Phone Number [facility] [address] [place] [phone] * (ABNORMAL) Hemoglobin A1c (03/30/2025 9:52 AM EDT) Hemoglobin A1c 6.2(H) <6.0 % [facility] Comment:Hemoglobin A1C Refer ence Range Adults: 4.8 - 6.0 % Non diabetic: < 6.0 % Goal: < 7.0 %Additional Action Suggested: > 8.0 %Note: Hemoglobin A1c results are invalid for patients with abnormal amounts of HbF. Blood transfusions may impact the HbA1c concentration in the patient sample. Estimated Average Glucose 131 mg/dL [facility] Comment:eAG = Estimated ave rage glucose which is %A1C expressed asaverage glucose, using the formula of the H0V-BhkpfxwIzcryqn Glucose study (ADAG), Diabetes Care, Vol.31,#8,Apr. 2007 Blood Venous blood specimen / Unknown 03/30/2025 9:52 AM EDT 03/30/2025 9:52 AM EDT us Gwen Negron MD LAB BLOOD ORDERAB LES Final Result Performing Organization Address [facility] Co de Phone Number [facility] [address] [place] [phone] * Lipid Panel, Standard (03/30/2025 9:52 AM EDT) Triglycerides 64 <150 mg/dL [facility] Comment:Desirable Triglyceri de: less than 150 mg/dLBorderline High Triglyceride 150-199 mg/dLHigh Triglyceride: 200-499 mg/dLVery High Triglyceride: greater than or equal to 5OO mg/dL Cholesterol 138 <200 mg/dL [facility] Comment:Desirable Cholestero l: less than 200 mg/dLBorderline High Cholesterol: 200-239 mg/dLHigh Cholesterol: greater than 239 mg/dL LDL Cholesterol Calculated 73 <100 mg/dL [facility] Comment:Desirable LDL: less than 100 mg/dLNear Optimal/Above Optimal LDL: 110- 129 mg/dLBorderline High LDL: 130-159 mg/dLHigh LDL: 160-189 mg/dLVery High LDL: greater than or equal to 190 mg/dL HDL Cholesterol 53 >40 mg/dL [facility] Comment:Desirable HDL: great er than 40 mg/dL Note: This HDL assay may give artificially low results in patients with liver disease. Blood Venous blood specimen / Unknown 03/30/2025 9:52 AM EDT 03/30/2025 9:52 AM EDT us Gwen Negron MD LAB BLOOD ORDERAB LES Final Result Performing Organization Address [facility]/ZIP Co de Phone Number [facility] [address] [place] [phone] * Albumin, Random Urine W/Creatinine (03/30/2025 9:43 AM EDT) Creatinine, Urine 95.01 mg/dL [facility] Microalbumin Urine <5.0 mg/L [facility] Microalbum Creatinine Ratio Ur TNP <30 ug/mg cr [facility] Comment:Unable to calculate albumin/creatinine ratio due to lowmicroalbumin or creatinine result. Urine (Urine, Random) 03/30/2025 9:43 AM EDT 03/30/2025 10:20 AM EDT us Gwen Negron MD LAB URINE ORDERAB LES Final Result [facility] [address] [place] [phone] * BI Mammogram Screening Tomosynthesis Bilateral (03/08/2025 11:05 AM EDT) Anatomical Region Laterality Modality Breast Bilateral Mammography 03/08/2025 11:0 5 AM EDT Narrative 03/08/2025 11:46 AM EDT [facility] [address] [place] [address] Dr. Cruz, JEWEL [address] Mammography Report Signed Patient: Elaine Griggs MR#: [id number] 7 : 1960 Acct:[id number] Age/Sex: 64 / F ADM Date: 03/08/25 Loc: HO.MAMMO Attending Dr: Freedom Husain MD Ordering Physician: Freedom Husain MD Results: 2Ben ign Findings Date of Service: 03/08/25 Follow Up: 1 Year From Orig inal Mammogram Procedure(s): MM tomosynthesis screening BI Accession Number(s): [id number] cc: Freedom Husain MD; Gwen Cordero MD [...] 03/08/25 1143 DD/ 1105 TD/TT: 03/08/25 1120 [employer] Developer: Procedure Note Donotuseinterpreter, Image - 03/08/2025 [facility] [address] [place] [address] Mammography Report Signed Patient: Mirna Griggs#: [id number] 7 : 1960cct:[id number] Age/Sex: 64 / FADM Date: 03/08/25 Loc: HO.MAMMO Attending Dr: Freedom Husain MD Ordering Physician: Freedom Huasin MDResults: 2Ben ign Findings Date of Service: 03/08/25Follow Up: 1 Year From Orig inal Mammogram Procedure(s): MM tomosynthesis screening BI Accession Number(s): [id number] cc: Freedom Husain MD; Gwen Cordero MD [...] 03/08/25 1143 DD/ 1105 TD/TT: 03/08/25 1120 [employer] Hr[employer] Developer: [facility] External Provider IMG BI PROCEDURES Final Result * Hepatitis C Antibody Reflex (04/17/2023 9:10 AM EDT) Pathologist [facility] Hepatitis C Antibody Nonreactive Nonreactive [facility] Comment:Antibodies to HCV no t detected; does not exclude early acuteHCV infection. 04/17/2023 9:10 AM EDT 04/17/2023 9:10 AM EDT us Gwen Negron MD LAB BLOOD ORDERAB LES Final Result Performing Organization Address [facility]/ZIP Co de Phone Number [facility] [address] [place] [phone] * HIV Ab/Ag ([facility]) (04/17/2023 9:10 AM EDT) [facility] HIV AB/AG Nonreactive Nonreactive [facility] Comment:HIV-1 p24 Ag and/or HIV-1/HIV-2 Ab not detected.A test result that is nonreactive does not exclude thepossibility of exposure to or infection with HIV-1 and/orHIV-2. Nonreactive results in this assay for individualswith prior exposure to HIV-1 and/or HIV-2 may be due toantigen and antibody levels that are below the limit ofdetection of this assay.The [employer] Developer HIV Ag/Ab Combo assay result andsupplemental assay results should be interpreted inconjunction with the patient's clinical presentation,history and other laboratory results. If the results areinconsistent with clinical evidence, additional testing issuggested to confirm the result. 04/17/2023 9:10 AM EDT 04/17/2023 9:10 AM EDT us Gwen Negron MD LAB BLOOD ORDERAB LES Final Result Performing Organization Address [facility]/ZIP Co de Phone Number [facility] [address] [place] [phone] [phone] * Hm Pap Smear (05/11/2019) Pap Negative for intraephithelial lesion or malignancy Negative for intraephithelial lesion or malignancy, Other HPV Undetected Historical Provider HEALTH MAINTENANCE Final Result from Last 3 Months or Most Recently Relevant to Health Maintenance Insurance Care Teams Aircraft Landing Gear Inspector Relationship Specialty Start Date End Date Gwen Cordero MD [address] [place] [address] [phone] PCP - General Internal Medicine 12/29/22
--- OUTSIDE RECORDS SUMMARY | 2025-07-05 16:29 | XMS_ITS | Encounter Summary ---
Author Organization [employer] Address [address] [place] [address] 7 [place] [address] Care Team Providers Care Aquatics Instructor Name Role Phone Gwen Cordero MD Primary Care Pro vider Encounter Details Date Type Department Care Team (Late Contact Info) Description 04/06/2023 Abstract [facility] [address] [place] [address] [phone] Gwen Cordero MD [address] [place] [address] [phone] Social History Tobacco Use Types Packs/Day Years [...] Department Care Team (Late Contact Info) Description 09/05/2025 9:00 AM EST Office Visit [facility] [address] [place] [address] [phone] Gwen Cordero MD [address] [place] [address] [phone] documented as of this encounter Visit Diagnoses Not on filedocumented in this encounter Additional Health Concerns Assessment Noted Time PHQ-9 Depression Total Score: 4 04/01/20 23 9:33 AM EDT documented as of this encounter Care Teams Aquatics Instructor Relationship Specialty Start Date End Date Gwen Cordero MD [address] [place] [phone] PCP - General Internal Medicine 12/29/22 documented as of this encounter
--- OUTSIDE RECORDS SUMMARY | 2025-07-05 16:29 | XMS_ITS | Encounter Summary ---
Author Organization [employer] Address [address] [place] [address] Care Team Providers Care Information Systems Security Specialist Name Role Phone Gwen Cordero MD Primary Care Pro vider Reason for Visit * Reason Comments Med Refill Encounter Details Date Type Department Care Team ([facility] Contact Info) Description 04/05/2025 Refill [facility] [address] [place] [address] Rebecca Castellanos MD [address] [place] [address] Social History Tobacco Use Types Packs/Day Years [...] Description 09/05/2025 9:00 AM EST Office Visit [facility] [address] [place] [phone] Gwen Cordero MD [address] [place] [phone] documented as of this encounter Visit Diagnoses Not on filedocumented in this encounter Additional Health Concerns Assessment Noted Time PHQ-9 Depression Total Score: 2 12/29/19 25 10:08 AM EDT documented as of this encounter Care Teams Information Systems Security Specialist Relationship Specialty Start Date End Date Gwen Cordero MD [address] [place] [phone] PCP - General Internal Medicine 12/29/22 documented as of this encounter
--- OUTSIDE RECORDS SUMMARY | 2025-07-05 16:29 | XMS_ITS | Encounter Summary ---
Author Organization [employer] Address [address] [place] [address] 7 [place] [address] Care Team Providers Care Technical Training Instructor Name Role Phone Gwen Cordero MD Primary Care Pro vider Reason for Visit * Reason Onset Date Comments Medication Question 08/09/2023 Encounter Details Date Type Department Care Team ([facility] Contact Info) Description 08/09/2023 Refill [facility] [address] [place] [address] Gwen Cordero MD [address] [place] [address] Social History Tobacco Use Types Packs/Day Years [...] 08/25/2023 9:13 AM EST Telephone call to [facility] maru Martin to relay message. No answer, left voicemail. Patient to call as needed. * Telephone Encounter - Valentina Allen RN - 08/20/2023 10:01 AM EST Per PCP, Please can you call this pt stud sheep farmer office and inform HOOK AND EYE MACHINE OPERATOR or PA that works w stud sheep farmer that please to reeval pt at next apt for her osteoporosis given pt is now on tamoxifen for breast ca that is a new diagnosis and can worsen her known osteoporosis and currently off meds for bone disease Patient goes to [facility] endo. Telephone call to [facility] maru Tatum [place] to relay message. No answer, left voicemail. Patient to call as needed. * Telephone Encounter - Faye Valencia - 08/09/2023 10:34 AM EST Tc from pt requesting a call back in regards medication tamoxifen (Nolvadex) 20 MG chemo tablet. Please contact pt in kazakh documented in this encounter Plan of Treatment Upcoming Encounters Date Type Department Care Team ([facility] st Contact Info) Description 09/05/2025 9:00 AM EST Office Visit [facility] [address] [place] [address] [phone] Gwen Cordero MD [address] [place] [address] [phone] documented as of this encounter Visit Diagnoses Not on filedocumented in this encounter Additional Health Concerns Assessment Noted Time PHQ-9 Depression Total Score: 4 04/01/20 9:33 AM EDT documented as of this encounter Care Teams Technical Training Instructor Relationship Specialty Start Date End Date Gwen Cordero MD [address] [place] [address] [phone] PCP - General Internal Medicine 12/29/22 documented as of this encounter
== END 2025-07-05 14:08 | disposition home or self-care (01) ==
LOC: HO.HGI 13:07
PROVIDERS: PCP Student in an Organized Health Care Education/Training Program; Visit Provider Nurse Practitioner Family
DX: D17.5 Benign lipomatous neoplasm of intra-abdominal organs (principal); K64.9 Unspecified hemorrhoids; K59.09 Other constipation; K57.90 Diverticulosis of intestine, part unspecified, without perforation or abscess without bleeding
CPT/HCPCS: 99213

== ENCOUNTER → 2025-07-05 13:06 | Outpatient (BNVA) | payer OTHER, SELFPAY | PROVIDERS: PCP Student in an Organized Health Care Education/Training Program; Visit Provider Nurse Practitioner Family | DX: D17.5 Benign lipomatous neoplasm of intra-abdominal organs (principal); K57.90 Diverticulosis of intestine, part unspecified, without perforation or abscess without bleeding; K59.09 Other constipation; K64.9 Unspecified hemorrhoids | CPT/HCPCS: 99212 ==

== ENCOUNTER 2025-09-05 15:16 | Outpatient (REF) | payer OTHER, SELFPAY ==
--- OUTSIDE RECORDS SUMMARY | 2025-09-05 09:00 | XMS_ITS | Encounter Summary ---
Author Organization [employer] Address [address] [place] [address] [address] [place] [address] Care Team Providers Care Platform Loader Name Role Phone Gwen Cordero MD Primary Care Pro vider Reason for Referral * Consultation (Routine) - Closed Specialty Diagnoses / Procedures Referred By Contac t Referred To Contact Allergy Diagnoses Penicillin allergy Gwen Cordero MD [address] [place] [place] [phone] Phone: tel: fax: Agustín Nguyen MD [address] [place] [address] [address] [place] [phone] Phone: tel: fax: Referral ID Status Reason Start Date Expiration Date V isits Requested Visits Authorized [id number] Closed Specialty Services Required 09/05/2025 09/05/2026 1 1 Encounter Details Date Type Department Care Team (Late st Contact Info) Description 09/05/2025 9:00 AM EST Office Visit [facility] MEDICINE [address] [place] [address] [phone] Gwen Cordero MD [address] [place], [place] [phone] Type 2 diabetes mellitus without complication, without long-term current use of insulin (HCC) (Primary Dx); Penicillin allergy; Class 3 severe obesity due to excess calories with serious comorbidity and body mass index (BMI) of 45.0 to 49.9 in adult (HCC); Essential hypertension; Mixed hyperlipidemia; Encounter for immunization; Suprapubic pain Social History Tobacco Use Types Packs/Day Years [...] AM EDT documented as of this encounter Last Filed Vital Signs Vital Sign Reading Time Taken Comments Blood Pressure 120/80 09/05/2025 8:56 AM EST Pulse 80 09/05/2025 8:56 AM EST Temperature 36.4 C (97.5 F) 09/05/2025 8:56 AM EST Respiratory Rate 20 09/05/2025 8:56 AM EST Oxygen Saturation 95% 09/05/2025 8:56 AM EST Inhaled Oxygen Concentration - - Weight 76.4 kg (168 lb 8 oz) 09/05/2025 8:56 AM EST Height 145.3 cm (4' 9.19 ) 09/05/2025 8:56 AM ES T Body Mass Index 36.22 09/05/2025 8:56 AM EST documented in this encounter Plan of Treatment Scheduled Orders Name Type Priority Associated Diagnoses Orde r Schedule Urinalysis, Complete, with Reflex to Culture Lab Routine Suprapubic pain Expected: 09/05/2025 (Approximate), Expires: 09/05/2026 Scheduled Referrals Name Type Priority Associated Diagnoses Orde r Schedule Referral to Allergy Outpatient Referral Routine Penicillin allergy Expected: 09/05/2025 (Approximate), Expires: 09/05/2026 documented as of this encounter Goals Goal Patient Goal Type Associated Problems Recent Progress Patient-Stated? Author Help patients manage their type 2 diabetes Care Plan Help patients manage their type 2 diabetes No Gwen Cordero MD Weekly blood pressure task Care Plan Weekly blood pressure task No Gwen Cordero MD Help patients manage their type 2 diabetes Care Plan Help patients manage their type 2 diabetes No Gwen Cordero MD Patient has chronic kidney disease Care Plan Patient has chronic kidney disease Gwen Velarde MD Weekly blood pressure task Care Plan Weekly blood pressure task No Gwen Cordero MD Patient has chronic kidney disease Care Plan Patient has chronic kidney disease No Gwen Cordero MD documented as of this encounter Procedures Procedure Name Priority Date/Time Associated Diagnosis Comments POCT URINALYSIS DIPSTICK Routine 09/05/2025 9:49 AM EST Type 2 diabetes mellitus without complication, without long-term current use of insulin (HCC) POCT GLYCATED HEMOGLOBIN, TOTAL Routine 09/05/2025 9:18 AM EST Type 2 diabetes mellitus without complication, without long-term current use of insulin (HCC) POCT GLUCOSE (CPT-03933) Routine 09/05/2025 9:18 AM EST Type 2 diabetes mellitus without complication, without long-term current use of insulin (HCC) documented in this encounter Results * POCT Urinalysis (09/05/2025 9:49 AM EST) Color, UA Yellow Clarity, UA Clear Glucose, UA Trace Comment:500 mg/dl Bilirubin, UA Negative Ketones, UA Negative Spec Grav, UA 1.025 Blood, UA Negative Negative, None Detected pH, UA 6.5 Protein, UA Negative Urobilinogen, UA 1.0 Leukocytes, UA Negative Negative, Rare, Trace, 1+ (17), 2+ (35), 3+ (70), Trace (15) Nitrite, UA Negative Negative, None Detected [employer] Media Lot # [id number] Lot# Expiration Date Urine (Urine, Random) 09/05/2025 9:49 AM EST Gwen Negron MD POINT OF CARE YING T ENTER/EDIT ORDERABLES Final Result * (ABNORMAL) POCT Hgb A1c (09/05/2025 9:18 AM EST) Hemoglobin A1C 6.2(A) 4.0 - 5.7 % [employer] Media Lot # [id number] Lot# Expiration Date Blood 09/05/2025 9:18 AM EST Gwen Negron MD POINT OF CARE YING T ENTER/EDIT ORDERABLES Final Result * POCT Glucose (09/05/2025 9:18 AM EST) Glucose Blood, POC 108 60 - 200 mg/dL [employer] Media Lot # [id number] Lot# Expiration Date Blood Capillary blood specimen / Unknown 09/05/2025 9:18 AM EST Gwen Negron MD POINT OF CARE YING T ENTER/EDIT ORDERABLES Final Result documented in this encounter Visit Diagnoses Diagnosis Type 2 diabetes mellitus without complication, without long-term current use of insulin (HCC)- Primary Penicillin allergy Personal history of allergy to penicillin Class 3 severe obesity due to excess calories with serious comorbidity and body mass index (BMI) of 45.0 to 49.9 in adult (HCC) Essential hypertension Unspecified essential hypertension Mixed hyperlipidemia Encounter for immunization Suprapubic pain Abdominal pain, other specified site documented in this encounter Additional Health Concerns Active Problems Noted Date Diagnosed Date Help patients manage their type 2 diabetes 09/05 Weekly blood pressure task 09/05/2025 Help patients manage their type 2 diabetes 09/05 Patient has chronic kidney disease 09/05/2025 Weekly blood pressure task 09/05/2025 Patient has chronic kidney disease 09/05/2025 Assessment Noted Time PHQ-9 Depression Total Score: 2 12/29/19 25 10:08 AM EDT documented as of this encounter Care Teams Platform Loader Relationship Specialty Start Date End Date Gwen Cordero MD [address] [place] [phone] PCP - General Internal Medicine 12/29/22 documented as of this encounter
--- OUTSIDE RECORDS SUMMARY | 2025-09-05 15:19 | XMS_ITS | Encounter Summary ---
Author Organization [employer] Address [address] [place] [address] 7 [place] [address] Care Team Providers Care Senior Health Consultant Name Role Phone Gwen Cordero MD Primary Care Pro vider Encounter Details Date Type Department Care Team (Late st Contact Info) Description 04/06/2023 Abstract [facility] MEDICINE [address] [place] [phone] Gwen Cordero MD [address] [place] [phone] Social History Tobacco Use Types Packs/Day Years [...] documented as of this encounter Care Teams Senior Health Consultant Relationship Specialty Start Date End Date Gwen Cordero MD [address] [place] [phone] PCP - General Internal Medicine 12/29/22 documented as of this encounter
--- OUTSIDE RECORDS SUMMARY | 2025-09-05 15:19 | XMS_ITS | Encounter Summary ---
Author Organization [employer] Address [address] [facility] 7 [place] [address] Care Team Providers Care Leather Etcher Name Role Phone Gwen Cordero MD Primary Care Pro vider Reason for Visit * Reason Onset Date Comments Medication Question 08/09/2023 Encounter Details Date Type Department Care Team ([facility] Contact Info) Description 08/09/[address] [facility] MED[facility]INE [address] [place] [address] Gwen Cordero MD [address] [place] [address] Social History Tobacco Use Types Packs/Day Years [...] 08/25/2023 9:13 AM EST Telephone call to [facility] maru Martin to relay message. No answer, left voicemail. Patient to call as needed. 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 Telephone call to [facility] maru Tatum [place] to relay message. No answer, left voicemail. Patient to call as needed. * Telephone Encounter - Faye Valencia - 08/09/2023 10:34 AM EST Tc from pt requesting a call back in regards medication tamoxifen (Nolvadex) 20 MG chemo tablet. Please contact pt in english documented in this encounter Plan of Treatment Not on file documented as of this encounter Visit Diagnoses Not on filedocumented in this encounter Additional Health Concerns Assessment Noted Time PHQ-9 Depression Total Score: 4 04/01/20 9:33 AM EDT documented as of this encounter Care Teams Leather Etcher Relationship Specialty Start Date End Date Gwen Crodero MD [address] [place] [phone] PCP - General Internal Medicine 12/29/22 documented as of this encounter
--- OUTSIDE RECORDS SUMMARY | 2025-09-05 15:19 | XMS_ITS | Encounter Summary ---
Author Organization [employer] Address [address] [facility] 7[address] [place] [address] Care Team Providers Care Pouncer Name Role Phone Gwen Cordero MD Primary Care Pro vider Reason for Visit * Reason Comments Med Refill Encounter Details Date Type Department Care Team ([facility] Contact Info) Description 07/23/2025 Refill [facility] [address] [place] [address] Gwen Cordero MD [address] [place] [address] Social History Tobacco Use Types Packs/Day Years [...] documented as of this encounter Care Teams Pouncer Relationship Specialty Start Date End Date Gwen Cordero MD [address] [place] [phone] PCP - General Internal Medicine 12/29/22 documented as of this encounter
--- OUTSIDE RECORDS SUMMARY | 2025-09-05 15:19 | XMS_ITS | Encounter Summary ---
Author Organization [employer] Address [address] [facility] [address] [place] [address] Care Team Providers Care Clinical Account Liaison Name Role Phone Gwen Cordero MD Primary Care Pro vider Encounter Details Date Type Department Care Team (Late st Contact Info) Description 06/11/2023 Abstract [facility]INE [address] [place] [address] Darcie Canas Social History Tobacco Use Types [...] as of this encounter Care Teams Clinical Account Liaison Relationship Specialty Start Date End Date Gwen Cordero MD [address] [place] [phone] PCP - General Internal Medicine 12/29/22 documented as of this encounter
--- OUTSIDE RECORDS SUMMARY | 2025-09-05 15:19 | XMS_ITS | Clinical Summary ---
Author Organization [employer] Address [address] [place] [address] Care Team Providers Care Entry Clerk Name Role Phone Gwen Cordero MD Primary Care Pro vider Allergies Active Allergy Reactions Criticality Noted Date Comments Penicillins Unknown In childhood Medications Fluticasone-Salm eterol (Advair Diskus) 100-50 MCG/ACT aerosol powder Inhale 1 puff every 12 (twelve) hours. 022 Active albuterol (2.5 MG/3ML) 0.083% nebulizer solution INHALE 1 AMPULE USING A NEBULIZER EVERY 4 HOURS NEEDED 90 mL 3 023 Active tamoxifen (Nolvadex) 20 MG chemo tablet Take 20 mg by mouth in the morning. 023 Active glucose blood (FREESTYLE LITE) test strip USE 1 STRIP by DIRECTED route every day 50 each 11 023 Active TRUEplus Lancets 33G misc USE 1 EVERY DAY DIRECTED 100 each 11 023 Active Blood Glucose Monitoring Suppl (FreeStyle Lite) w/Device kit Inject 1 Device under the skin at noon and 1 Device in the evening. USE TO TEST BLOOD SUGAR EVERY DAY DIRECTED. 1 kit 023 Active UltiCare Short Pen [place] 31G X 8 MM misc USE DIRECTED 100 each 5 024 Active Diclofenac Sodium 1 % gelIndications:A cute pain of right knee To apply to the affected area 3 times a day 100 g 024 Active glucose blood (FreeStyle Precision Eliseo Test) test strip Use to test blood sugar twice daily in case of CGM failure or extremes of BG 100 each 2025 Active cholecalciferol (Vitamin D-3) 125 MCG (5000 UT) capsule TAKE 1 CAPSULE BY MOUTH EVERY DAY 90 capsule Active empagliflozin (Jardiance) 25 MG Take 1 tablet (25 mg) by mouth in the morning. 90 tablet 1 08/23/20 4:40 PM EST 2025 Active verapamil ER (Verelan) 360 MG 24 hr capsule Take 1 capsule (360 mg) by mouth Once per day. Do not crush or chew.TAKE 1 CAPSULE BY MOUTH EVERY MORNING DO NOT BREAK, CRUSH, DISSOLVE OR CHEW 90 capsule 08/23/20 4:40 PM EST Active Trulicity 4.5 MG/0.5ML solution auto-injectorInd ications:Class 3 severe obesity due to excess calories with serious comorbidity and body mass index (BMI) of 45.0 to 49.9 in adult (HCC) INJECT ONE PEN (= 4.5MG) SUBCUTANEOUSLY ONCE A WEEK DIRECTED 2 mL 2 08/23/20 4:40 PM EST Active albuterol 108 (90 Base) MCG/ACT inhaler Inhale 2 puffs every 4 (four) hours if needed for wheezing. 18 g 3 09/05/20 12:58 PM EST 025 2025 Active calcium carbonate (Calcium 600) 600 MG tablet Take 1 tablet (600 mg) by mouth with breakfast and with evening meal. 60 tablet 5 025 2025 Active losartan (Cozaar) 100 MG tabletIndication s:Essential hypertension Take 1 tablet (100 mg) by mouth in the morning. 90 tablet 1 09/05/20 12:58 PM EST Active metFORMIN XR (Glucophage-XR) 750 MG 24 hr tablet Take 1 tablet (750 mg) by mouth with evening meal. Do not crush, chew, or split. 90 tablet 1 025 2025 Active rosuvastatin (Crestor) 5 MG tabletIndication s:Mixed hyperlipidemia Take 1 tablet (5 mg) by mouth Once per day. 90 tablet 1 09/05/20 25 12:58 PM EST Active phenazopyridine (Pyridium) 200 MG tabletIndication s:Suprapubic pain Take 1 tablet (200 mg) by mouth if needed in the morning, at noon, and at bedtime for bladder spasms for up to 2 days. 6 tablet 025 2024 Active metFORMIN XR (Glucophage-XR) 750 MG 24 hr tablet TAKE 1 TABLET BY MOUTH EVERY DAY WITH DINNER. DO NOT BREAK, CRUSH, DISSOLVE OR CHEW 90 tablet 1 025 2024 Discontinued cyanocobalamin (Vitamin B-12) 500 MCG tablet Take 1 tablet (500 mcg) by mouth Once per day. 90 tablet 025 2024 Discontinued(O ther) losartan (Cozaar) 100 MG tabletIndication s:Essential hypertension TAKE 1 TABLET BY MOUTH EVERY MORNING 90 tablet 1 025 2024 Discontinued(R eorder (will not trigger notification to Pharmacy)) rosuvastatin (Crestor) 5 MG tabletIndication s:Mixed hyperlipidemia TAKE 1 TABLET BY MOUTH ONCE DAILY 90 tablet 1 025 2024 Discontinued(R eorder (will not trigger notification to Pharmacy)) metFORMIN XR (Glucophage-XR) 750 MG 24 hr tablet TAKE 1 TABLET BY MOUTH EVERY DAY WITH DINNER DO NOT BREAK, CRUSH, DISSOLVE OR CHEW 90 tablet 1 08/23/20 25 4:40 PM EST 2024 Discontinued(R eorder (will not trigger notification to Pharmacy)) Active Problems Problem Noted Date Diagnosed Date [...] visit -Pt reports she already spoke w sample puller in regards thyroid nodule and was told there is no contra-indication to start GLP-1s ,may be able to stop insulin in future -referred to kst operator at last visit - [place] to check status of referral today. -Seen by retail account manager 04/2023 - to f up in 1y. -DM labs in 3 mo if not f w her sample puller for DM by then. Assessment & Plan [...] urine -also pt will talk w her sample puller in regards thyroid nodule ,may be able to stop insulin in future -referred today to kst operator -has apt w retail account manager x next month Thyroid nodule 04/01/2023 Assessment & Plan (05/01/2023 7:49 PM EDT): -thyroid US 2016:Solitary small left thyroid nodule. Ultrasound follow-up recommended.Parathyroid glands not identified by ultrasound.. -pt reports to be following w sample puller -will check w specialist at her next visit about next US - referred today for thyroid US. Assessment & Plan (04/01/2023 8:20 PM EDT): -thyroid US 2016:Solitary small left thyroid nodule. Ultrasound follow-up recommended.Parathyroid glands not identified by ultrasound.. -pt reports to be following w sample puller -will check w specialist at her next [...] onc to be referred by surgeon from [facility]. Assessment & Plan (04/01/2023 8:58 PM EDT): [...] Pt w PNC allergy -referred already to pipe organ builder to clarify if true allergy - pending to schedule apt. Assessment & Plan (04/01/2023 8:55 PM EDT): Pt w PNC allergy -referred today to pipe organ builder to clarify if true allergy HTN (hypertension) [...] past 8 months -continue to f w technical delivery manager -Pt has not needed Albuterol for several mo. Assessment & Plan (04/01/2023 8:49 PM EDT): Reports to be controlled , off steroids x the past 7 months -continue to f w technical delivery manager Osteoporosis 09/09/2018 Assessment & Plan (05/01/2023 7:35 PM EDT): -DEXA 02/2023 -Referred by her sample puller-Dr Tatum : osteoporosis -T-score -2.5 in lumbar spine Pt reports was on alendronate x 5 years and stopped 2 y ago -pt to f w endocrinology to discuss if will resume alendronate -continue vit D and start Ca 600 mg BID Assessment & Plan (04/01/2023 8:47 PM EDT): -DEXA 02/2023 -Referred by her sample puller-Dr Tatum : osteoporosis -T-score -2.5 in lumbar spine Pt reports was on alendronate x 5 years and stopped 2 y ago -pt to f w endocrinology to discuss if will resume alendronate -continue vit D Obesity 10/13/2012 Assessment & Plan (05/01/2023 7:37 PM EDT): Advised pt to improve diet and exercise,discussed healthy life style -discussed director of sports medicine referral -referred today again to [facility] due to pt request. -Pt to start Jardiance prescribed at last visit and plan to start later GLP1 -may need to consider bariatric surgery if no weight loss w meds and life style changes Assessment & Plan (04/01/2023 8:31 PM EDT): Advised pt to improve diet and exercise,discussed healthy life style -discussed director of sports medicine referral -referred today -will start SGLT2 and will start later GLP1 -may need to consider bariatric surgery if no weight loss w meds and life style changes Resolved Problems Problem Noted Date Diagnosed Date Resolved Date Hypertension 07/25/2012 04/01/2023 Encounters Date Type Department Care Team Description 09/05/2025 9:00 AM EST Office Visit [facility] [address] [place] [address] Gwen Cordero MD Type 2 diabetes mellitus without complication, without long-term current use of insulin (HCC) (Primary Dx); Penicillin allergy; Class 3 severe obesity due to excess calories with serious comorbidity and body mass index (BMI) of 45.0 to 49.9 in adult (HCC); Essential hypertension; Mixed hyperlipidemia; Encounter for immunization; Suprapubic pain 09/05/2025 Travel 09/04/2025 Travel 09/04/[address] [facility] [address] [place] [address] Gwen Cordero MD Chart prep 08/23/2025 Refill [facility] [address] [place] [address] Gwen Cordero MD 08/06/2025 Travel 07/30/[address] [facility] [address] [place] [address] Gwen Cordero MD Type 2 diabetes mellitus without complications ([facility]); Class 3 severe obesity due to excess calories with serious comorbidity and body mass index (BMI) of 45.0 to 49.9 in adult (HCC) 07/23/[address] [facility] [address] [place] [address] Gwen Cordero MD 07/23/2025 Refill [facility] [address] [place] [address] Gwen Cordero MD 06/21/2025 Orders Only GENERIC EXTERNAL DATA DEPARTMENT Provider, Generic External Data 06/10/[address] [facility] [address] [place] [address] Gwen Cordero MD from Last 3 Months Immunizations Immunization Administration Dates Next Due Hep B, adult 01/09/2004,08/02/2003,04/24/2003 Influenza injectable quadriv alent IIV4 with preservative 06/09/2017,07/27/2016 Influenza injectable quadriv alent preservative free 08/03/2023,10/01/2021,07/07/2019,10/06,12/03/2014 Influenza, IIV3, injectable 05/22/2010 Influenza, Split (incl. radha fied surface antigen) 06/20/2013,08/15/2012 Influenza, seasonal, injecta ble, preservative free 09/05/2025 MMR 03/02/2002,08/01/1997 Pfizer Covid-19 Vaccine 12+ 09/05/2025, Pfizer Covid-19 Vaccine 12+ Bivalent 04/01/2023 Pneumococcal [...] housing situation today? I have omidxochitl lao 12/28/[address] you [...] Mass Index 36.22 09/05/2025 8:56 AM EST Plan of Treatment Health Maintenance Due Date Last Done Comments CT Colonography 1960 Colonoscopy 1960 Colorectal Cancer Screening 1960 FIT DNA/Cologuard 1960 FIT 1960 FOBT 1960 Sigmoidoscopy 1960 Eye Exam 1970 RSV Patients and Patients Aged 60 years or older (1 - Risk 50-74 years 1-dose series) 2010 Cervical Cancer Screening 05/11/2024 HPV/Cotest 05/11/2024 05/11/2019, 04/20/2019 Pap Smear 05/11/2024 05/11/2019 Mammogram 04/07/2025 03/08/2025, 02/12, 03/06/2024, Additional history exists Diabetes: Hemoglobin A1C 12/04/2025 025, 03/30/2025, 03/29/2025, Additional history exists Alcohol/Substance Use Screening 12/28/2025 12/28/2024 Depression Screening 12/28/2025 12/28/2024, 12/29/19 25 Diabetes: Foot Exam 12/28/2025 12/28/2024 SDOH Screening [...] Completed 04/17/2023 Hepatitis C Screening Completed 04/17/2023 COVID-19 Vaccine Completed 09/05/2025, , 04/01/2023, Additional history exists Influenza Vaccine Completed 09/05/2025, , 10/01/2021, Additional history exists HIB Vaccines Aged Out No longer eligi [...] on patient's age to complete this topic Goals Goal Patient Goal Type Associated Problems Recent Progress Patient-Stated? Author Help patients manage their type 2 diabetes Care Plan Help patients manage their type 2 diabetes No Gwen Cordero MD Weekly blood pressure task Care Plan Weekly blood pressure task Gwen Velarde MD Help patients manage their type 2 diabetes Care Plan Help patients manage their type 2 diabetes Gwen Velarde MD Patient has chronic kidney disease Care Plan Patient has chronic kidney disease Gwen Velarde MD Weekly blood pressure task Care Plan Weekly blood pressure task No Gwen Cordero MD Patient has chronic kidney disease Care Plan Patient has chronic kidney disease No Gwen Cordero MD Procedures Procedure Name Priority Date/Time Associated Diagnosis Comments POCT URINALYSIS DIPSTICK Routine 09/05/2025 9:49 AM EST Type 2 diabetes mellitus without complication, without long-term current use of insulin (HCC) POCT GLYCATED HEMOGLOBIN, TOTAL Routine 09/05/2025 9:18 AM EST Type 2 diabetes mellitus without complication, without long-term current use of insulin (HCC) POCT GLUCOSE (CPT-76229) Routine 09/05/2025 9:18 AM EST Type 2 diabetes mellitus without complication, without long-term current use of insulin (HCC) HEMATOXYLIN AND EOSIN STAIN Routine 06/21/2025 8:52 AM EDT GLUCOSE, WHOLE BLOOD Routine 06/21/2025 7:17 AM EDT LIPID PANEL, STANDARD Routine 03/30/2025 9:52 AM [...] Recently Relevant to Health Maintenance Results * POCT Urinalysis (09/05/2025 9:49 AM [...] Media Lot # [id number] Lot# Expiration Date ,026 Urine (Urine, Random) 09/05/2025 9:49 AM EST Gwen Negrno MD POINT OF CARE YING T ENTER/EDIT ORDERABLES Final Result * (ABNORMAL) POCT Hgb A1c (09/05/2025 9:18 AM EST) Hemoglobin A1C 6.2(A) 4.0 - 5.7 % QC Media Lot # [id number] Lot# Expiration Date 674,027 Blood 09/05/2025 9:18 AM EST Gwen Negron MD POINT OF CARE YING T ENTER/EDIT ORDERABLES Final Result * POCT Glucose (09/05/2025 9:18 AM EST) Glucose Blood, POC 108 60 - 200 mg/dL QC Media Lot # [id number] Lot# Expiration Date Blood Capillary blood specimen / Unknown 09/05/2025 9:18 AM EST Gwen Negron MD POINT OF CARE YING T ENTER/EDIT ORDERABLES Final Result * Hematoxylin and Eosin Stain (06/21/2025 8:52 AM EDT) 06/21/2025 8:52 AM EDT 06/21/2025 10:30 AM EDT Narrative [facility] - 06/22/2025 5:03 PM EDT ----- ------- Name: Elaine Griggs Age/Sex: 64/F : 1960 [id number] Unit#: [id number] Attend Dr: Prema Barahona MD Re06/21/25 Status: [facility] Location: [facility] Disch: ----- ------- SPEC : [id number] RECD: 06/21/25 STATUS: RENAN ADAMS NUM: [id number] [place]: 06/21/[address] [facility] [address]: Prema Barahona MD ENTERED: 06/21/25 [...] A1 and 2 pieces in cassette A2. ([facility]) IHC S/NG Disclaimer NOTE: Unless otherwise stated, all tissue is formalin-fixed and paraffin-embedded. Some or all of the immunohistochemical tests reported herein may have been developed and their performance characteristics determined by [facility]. They have not been cleared or approved by the U.S. Food and Drug Administration (FDA). However, the FDA has determined that such clearance or approval is not necessary. This laboratory is certified under the Clinical Laboratory Improvement Amendments of 1988 (CLIA) as qualified to perform high complexity clinical laboratory testing. Copies To: Gwen Cordero MD [address] [address] CONTINUED ON NEXT PAGE ----- ------- Name: Elaine Griggs Age/Sex: 64/F : 1960 Unit#: [id number] Attend Dr: Prema Barahona MD Re06/21/25 Status: [facility] Location: [facility] Disch: ----- ------- SPEC : [id number] RECD: 06/21/25 STATUS: RENAN ADAMS NUM: [id number] [place]: 06/21/[address] [facility] [address]: Prema Barahona MD ENTERED: 06/21/25 SP TYPE: Surgical OTHR DR: Gwen Cordero MD ORDERED: EDDI Stain/3, Gross Micro L4 Copies To: (Continued) Prema Barahona MD [facility] [address] [place] [address] [phone] [email or web address] ----- ------- Signed (signature on file) Vahe Mathis MD 06/22/25 [id number] ----- ------- END OF REPORT Generic External Data Provider LAB BLOOD ORDERAB LES Final Result Performing Organization Address [facility]/ZIP Co de Phone Number [facility] [address] [place] [address] [phone] * Glucose, Whole Blood (06/21/2025 7:17 AM EDT) Glucose, Whole Blood 102 60 - 115 mg/dL [facility] Comment:METER #: [id number] 06/21/2025 7:17 AM EDT 06/21/2025 7:19 AM EDT Generic External Data Provider LAB BLOOD ORDERAB LES Final Result Performing Organization Address [facility] Co de Phone Number [facility] [address] [place] [phone] [phone] * Lipid Panel, Standard (03/30/2025 9:52 AM EDT) Triglycerides 64 <150 mg/dL [facility] Comment:Desirable Triglyceri de: less than 150 mg/dLBorderline High Triglyceride 150-199 mg/dLHigh Triglyceride: 200-499 mg/dLVery High Triglyceride: greater than or equal to 5OO mg/dL Cholesterol 138 <200 mg/dL [facility] Comment:Desirable Cholestero l: less than 200 mg/dLBorderline High Cholesterol: 200-239 mg/dLHigh Cholesterol: greater than 239 mg/dL LDL Cholesterol Calculated 73 <100 mg/dL [facility] Comment:Desirable LDL: less than 100 mg/dLNear Optimal/Above Optimal LDL: 110- 129 mg/dLBorderline High LDL: 130-159 mg/dLHigh LDL: 160-189 mg/dLVery High LDL: greater than or equal to 190 mg/dL HDL Cholesterol 53 >40 mg/dL [facility] Comment:Desirable HDL: great er than 40 mg/dL Note: This HDL assay may give artificially low results in patients with liver disease. Blood Venous blood specimen / Unknown 03/30/2025 9:52 AM EDT 03/30/2025 9:52 AM EDT us Gwen Negron MD LAB BLOOD ORDERAB LES Final Result Performing Organization Address [facility] Co de Phone Number [facility] [address] [place] [phone] * Albumin, Random Urine W/Creatinine (03/30/2025 9:43 AM EDT) Creatinine, Urine 95.01 mg/dL [facility] Microalbumin Urine <5.0 mg/L [facility] Microalbum Creatinine Ratio Ur TNP <30 ug/mg cr [facility] Comment:Unable to calculate albumin/creatinine ratio due to lowmicroalbumin or creatinine result. Urine (Urine, Random) 03/30/2025 9:43 AM EDT 03/30/2025 10:20 AM EDT Gwen Negron MD LAB URINE ORDERAB LES Final Result Performing Organization Address [facility] Co de Phone Number [facility] [address] [place] [phone] * BI Mammogram Screening Tomosynthesis Bilateral (03/08/2025 11:05 AM EDT) Anatomical Region Laterality Modality Breast Bilateral Mammography 03/08/2025 11:0 5 AM EDT Narrative 03/08/2025 11:46 AM EDT [facility] [address] [place], [place] [phone] Mammography Report Signed Patient: Elaine Griggs MR#: [id number] 7 : 1960 Acct:[id number] Age/Sex: 64 / F ADM Date: 03/08/25 Loc: HO.MAMMO Attending Dr: Freedom Husain MD Ordering Physician: Freedom Husain MD Results: 2Ben ign Findings Date of Service: 03/08/25 Follow Up: 1 Year From Orig ina Mammogram Procedure(s): MM tomosynthesis screening BI Accession Number(s): [id number] cc: Freedom Husain MD; Gwen Cordero MD [...] 03/08/25 1143 DD/ 1105 TD/TT: 03/08/25 1120 Shotblast Operator: Procedure Note Donotuseinterpreter, Image - 03/08/2025 [facility] [address] [place], [place] [id number] Mammography Report Signed Patient: Mirna Griggs#: [id number] 7 : 1960cct:[id number] Age/Sex: 64 / FADM Date: 03/08/25 Loc: HO.MAMMO Attending Dr: Freedom Husain MD Ordering Physician: Freedom Husain MDResults: 2Ben ign Findings Date of Service: 03/08/25Follow Up: 1 Year From [facility] Mammogram Procedure(s): MM tomosynthesis screening BI Accession Number(s): [id number] cc: Freedom Husain MD; Gwen Cordero MD [...] 03/08/25 1143 DD/ 1105 TD/TT: 03/08/25 1120 Shotblast Operator: [facility] External Provider IMG BI PROCEDURES Final Result * Hepatitis C Antibody Reflex (04/17/2023 9:10 AM EDT) Hepatitis C Antibody Nonreactive Nonreactive [facility] Comment:Antibodies to HCV no t detected; does not exclude early acuteHCV infection. 04/17/2023 9:10 AM EDT 04/17/2023 9:10 AM EDT Gwen Negron MD LAB BLOOD ORDERAB LES Final Result Performing Organization Address City/[facility]/ZIP Co de Phone Number [facility] [address] [place] [address] [phone] * HIV Ab/Ag ([facility]) (04/17/2023 9:10 AM EDT) HIV AB/AG Nonreactive Nonreactive [facility] Comment:HIV-1 p24 Ag and/or HIV-1/HIV-2 Ab not detected.A test result that is nonreactive does not exclude thepossibility of exposure to or infection with HIV-1 and/orHIV-2. Nonreactive results in this assay for individualswith prior exposure to HIV-1 and/or HIV-2 may be due toantigen and antibody levels that are below the limit ofdetection of this assay.The [employer] HIV Ag/Ab Combo assay result andsupplemental assay results should be interpreted inconjunction with the patient's clinical presentation,history and other laboratory results. If the results areinconsistent with clinical evidence, additional testing issuggested to confirm the result. 04/17/2023 9:10 AM EDT 04/17/2023 9:10 AM EDT us Gwen Negron MD LAB BLOOD ORDERAB LES Final Result Performing Organization Address City/[facility]/ZIP Co de Phone Number [facility] [address] [place] [phone] * Pap Smear (05/11/2019) Pap Negative for intraephithelial lesion or malignancy Negative for intraephithelial lesion or malignancy, Other HPV Undetected Historical Provider HEALTH MAINTENANCE Final Result from Last 3 Months or Most Recently Relevant to Health Maintenance Additional Health Concerns Active Problems Noted Date Diagnosed Date Help patients manage their type 2 diabetes 09/05 Weekly blood pressure task 09/05/2025 Help patients manage their type 2 diabetes 09/05 Patient has chronic kidney disease 09/05/2025 Weekly blood pressure task 09/05/2025 Patient has chronic kidney disease 09/05/2025 Insurance [facility] [place] [address] Care Teams Entry Clerk Relationship Specialty Start Date End Date Gwen Cordero MD [address] [place] [phone] PCP - General Internal Medicine 12/29/22
--- OUTSIDE RECORDS SUMMARY | 2025-09-05 15:19 | XMS_ITS | Encounter Summary ---
Author Organization [employer] Address [address] [facility] [address] [place] [address] Care Team Providers Care Travel Accommodation Inspector Name Role Phone Gwen Cordero MD Primary Care Pro vider Encounter Details Date Type Department Care Team ([facility] st Contact Info) Description 03/09/2023 Abstract [facility] [address] [place] [address] Gwen Cordero MD [address] [place] [address] Social History Tobacco Use Types Packs/Day Years [...] on filedocumented in this encounter Care Teams Travel Accommodation Inspector Relationship Specialty Start Date End Date Gwen Cordero MD [address] [place] [phone] PCP - General Internal Medicine 12/29/22 documented as of this encounter
--- OUTSIDE RECORDS SUMMARY | 2025-09-05 15:19 | XMS_ITS | Encounter Summary ---
Author Organization [employer] Address [address] [facility] [address] [place] [address] Care Team Providers Care Real Estate Clerk Name Role Phone Gwen Cordero MD Primary Care Pro vider Reason for Visit * Reason Onset Date Comments Chart prep 09/04/2025 Encounter Details Date Type Department Care Team ([facility] Contact Info) Description 09/04/2025 Telephone [facility] [address] [place] [phone] Gwen Cordero MD [address] [place] [address] Chart prep Social History Tobacco Use Types Packs/Day [...] enough money to get more: Never True 04/ Transportation Answer Date Recorded In the past [...] encounter Miscellaneous Notes * Telephone Encounter - Kait Jama [place] - 09/04/2025 9:06 AM EST Chart Prep Labs: not applicable Images: not applicable Referrals: Oncology 01/21/26 @ 9 am, Mammo 03/11/26 @ 11 am, General Surgery 06/10/26 @ 3 pm and [facility] 06/18/2026 @ 9 am. Vaccines due: Covid and Flu Screenings: Mammogram, Eye Exam, Cervical cancer screening and Colorectal cancer screening. Overdue care gaps: A1c and Glucose documented in this encounter Plan of Treatment Not on file documented as of this encounter Visit Diagnoses Not on filedocumented in this encounter Additional Health Concerns Assessment Noted Time PHQ-9 Depression Total Score: 2 12/29/19 25 10:08 AM EDT documented as of this encounter Care Teams Real Estate Clerk Relationship Specialty Start Date End Date Gwen Cordero MD [address] [place] [phone] PCP - General Internal Medicine 12/29/22 documented as of this encounter
--- OUTSIDE RECORDS SUMMARY | 2025-09-05 15:19 | XMS_ITS | Encounter Summary ---
Author Organization [employer] Address [address] [place] [address] Care Team Providers Care Knot Borer Name Role Phone Gwen Cordero MD Primary Care Pro vider Reason for Visit * Reason Comments Med Refill Encounter Details Date Type Department Care Team ([facility] Contact Info) Description 04/05/2025 Refill [facility] [address] [place] [address] Rebecca Castellanos MD [address] [place] [address] Social History Tobacco Use Types Packs/Day Years [...] documented as of this encounter Care Teams Knot Borer Relationship Specialty Start Date End Date Gwen Cordero MD [address] [place] [phone] PCP - General Internal Medicine 12/29/22 documented as of this encounter
--- OUTSIDE RECORDS SUMMARY | 2025-09-05 15:19 | XMS_ITS | Encounter Summary ---
Author Organization [employer] Address [address] [place] [address] Care Team Providers Care Hand Cell Tuber Name Role Phone Gwen Cordero MD Primary Care Pro vider Encounter Details Date Type Department Care Team (Latest Contact Info) Description 09/05/2025 Travel Social History Tobacco Use Types Packs/Day Years [...] on file documented as of this encounter Goals Goal [...] chronic kidney disease No Gwen Cordero MD Weekly blood pressure task Care Plan Weekly blood pressure task No Gwen Cordero MD Patient has chronic kidney disease Care Plan Patient has chronic kidney disease No Gwen Cordero MD documented as of this encounter Visit Diagnoses Not on filedocumented in this encounter Additional Health Concerns Active [...] documented as of this encounter Care Teams Hand Cell Tuber Relationship Specialty Start Date End Date Gwen Cordero MD [address] [place] [id number] PCP - General Internal Medicine 12/29/22 documented as of this encounter
--- OUTSIDE RECORDS SUMMARY | 2025-09-05 15:19 | XMS_ITS | Encounter Summary ---
Author Organization [employer] Address [address] [place] [address] Care Team Providers Care Email Manager Name Role Phone Gwen Cordero MD Primary Care Pro vider Reason for Visit * Reason Comments Med Refill Encounter Details Date Type Department Care Team ([facility] Contact Info) Description 08/09/2023 Refill [facility] [address] [place], [place] [phone] Louie Gore FNP Social History Tobacco Use [...] documented as of this encounter Care Teams Email Manager Relationship Specialty Start Date End Date Gwen Cordero MD [address] [place] [id number] PCP - General Internal Medicine 12/29/22 documented as of this encounter
--- OUTSIDE RECORDS SUMMARY | 2025-09-05 15:19 | XMS_ITS | Encounter Summary ---
Author Organization [employer] Address [address] [address] [place] [address] Care Team Providers Care Tube Rebuilder Name Role Phone Gwen Cordero MD Primary Care Pro vider Encounter Details Date Type Department Care Team (Latest Contact Info) Description 09/04/2025 Travel Social History Tobacco Use Types Packs/Day [...] documented as of this encounter Care Teams Tube Rebuilder Relationship Specialty Start Date End Date Gwen Cordero MD [address] [place] [phone] PCP - General Internal Medicine 12/29/22 documented as of this encounter
[2025-09-05 16:21] LABS: Appearance Urine Clear; Glucose Urine UA >=1000 mg/dL (Negative); PH 6.5 (5.0-9.0); Specific Gravity - Urine >= 1.030 (1.005-1.025); UMIC TRIGGER UACC YES
== END 2025-09-05 15:17 | disposition home or self-care (01) ==
LOC: HO.HHCLNP 15:16
PROVIDERS: Visit Provider Student in an Organized Health Care Education/Training Program
DX: E11.9 Type 2 diabetes mellitus without complications (principal); R10.24 Suprapubic pain
CPT/HCPCS: 81001